=== PATIENT | female | born 1940 | race African-American/Black ===

== ENCOUNTER 2017-02-06 16:16 | Emergency (ER) | payer BC, OTHER ==
[~2017-02-06] VITALS: Ht 152.4 cm; Wt 43.5 kg
[~2017-02-06 16:16] MED LIST: ALPR0.25 PO; AMLO5TAB2 PO; CEFP200T PO; FLUT9.9S NS; HYDR-2678 PO; LEVO750T5 PO; LISI40TA PO; LORA10TA68 PO; NICO1PAT27 TD; PRED50TA PO
--- NOTE | 2017-02-06 17:04 | RAD ---
Portable left shoulder, 3 views, 02/06/2017: History: Fall, pain The bony structures are demineralized. No fracture or dislocation is identified. There is mild arthritic change at the AC joint. IMPRESSION: No acute left shoulder abnormality is detected.
--- NOTE | 2017-02-06 17:31 | RAD ---
Pelvis with right hip, 3 views, 02/06/2017: History: Pain, trauma No fracture or dislocation is identified. The hip joint spaces are fairly well-preserved with only mild marginal spurring. There are degenerative changes in the lower lumbar spine. Scattered arterial calcifications are present. A vascular stent is evident at the left groin level extending into the thigh. IMPRESSION: No acute bony abnormality is detected.
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
[2017-02-06 18:38] VITALS: BP 150/95
[2017-02-06] MEDS ORDERED: HYDROcodone/APAP 5/325MG 1 TAB TABLET PO ONE (18:45)
[2017-02-06] MEDS ORDERED: HYDR-971 PO (18:56)
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
== END 2017-02-06 18:53 | disposition home or self-care (01) ==
LOC: ER 16:16
DX: S02.2XXA Fracture of nasal bones, initial encounter for closed fracture (principal); S09.90XA Unspecified injury of head, initial encounter; M25.512 Pain in left shoulder; M25.551 Pain in right hip; I10 Essential (primary) hypertension; F17.210 Nicotine dependence, cigarettes, uncomplicated; Z87.01 Personal history of pneumonia (recurrent); Z88.0 Allergy status to penicillin; Y08.89XA Assault by other specified means, initial encounter; Y93.89 Activity, other specified; Y92.89 Other specified places as the place of occurrence of the external cause; Y99.8 Other external cause status
CPT/HCPCS: 70450; 70486; 72125; 73030; 73502; 99284-25

== ENCOUNTER → 2017-08-10 | Outpatient (CLI) | payer MEDICARE | END | disposition home or self-care (01) | LOC: KCIC CT 10:26 | DX: J01.91 Acute recurrent sinusitis, unspecified (principal); G31.9 Degenerative disease of nervous system, unspecified; R05 Cough; R09.89 Other specified symptoms and signs involving the circulatory and respiratory systems | CPT/HCPCS: 70486 ==

== ENCOUNTER → 2017-11-14 | Day surgery (SDC) | payer MEDICARE ==
[~2017-11-14] MED LIST changes: -ALPR0.25 PO; -AMLO5TAB2 PO; -CEFP200T PO; -FLUT9.9S NS; -HYDR-2678 PO; -LEVO750T5 PO; +LIDOCAINE 1% PF 2 ML VIAL. ID; -LISI40TA PO; -LORA10TA68 PO; +MORPHINE SULFATE 4 MG/ML DISP.SYRIN. IV; -NICO1PAT27 TD; +ONDANSETRON PF 4 MG/2 ML VIAL. IV; -PRED50TA PO; +PROCHLORPERAZINE 10 MG/2 ML VIAL. IV; +PROPOFOL 20 ML IV; +fentaNYL PF VIAL 100 MCG/2 ML VIAL IV
[2017-11-14] MEDS: IV RINGERS,LACTATED 1000ML 1,000 ML IV (10:13)
== END | disposition home or self-care (01) ==
LOC: ENDOS 09:30
DX: K57.30 Diverticulosis of large intestine without perforation or abscess without bleeding (principal); I10 Essential (primary) hypertension; M81.0 Age-related osteoporosis without current pathological fracture; Z85.79 Personal history of other malignant neoplasms of lymphoid, hematopoietic and related tissues; Z87.01 Personal history of pneumonia (recurrent); K21.9 Gastro-esophageal reflux disease without esophagitis; E78.5 Hyperlipidemia, unspecified; E11.42 Type 2 diabetes mellitus with diabetic polyneuropathy; M19.90 Unspecified osteoarthritis, unspecified site; Z79.82 Long term (current) use of aspirin; Z79.899 Other long term (current) drug therapy; Z88.0 Allergy status to penicillin; Z88.6 Allergy status to analgesic agent; Z90.710 Acquired absence of both cervix and uterus; J44.1 Chronic obstructive pulmonary disease with (acute) exacerbation
CPT/HCPCS: 45380; 88305; J2704

== ENCOUNTER → 2018-11-22 | Outpatient (CLI) | payer MEDICARE ==
[2017-11-14 11:16] VITALS: BP 115/62
[~2018-11-22] MED LIST changes: +ALPR0.25 PO; +AMLO5TAB10 PO; +CEFP200T PO; +CETI10TA22 PO; +FLUT9.9S NS; +HYDR-2678 PO; +HYDR-3164 PO; +LEVO750T5 PO; -LIDOCAINE 1% PF 2 ML VIAL. ID; +LISI-130 PO; +LORA10TA68 PO; -MORPHINE SULFATE 4 MG/ML DISP.SYRIN. IV; +NICO1PAT27 TD; -ONDANSETRON PF 4 MG/2 ML VIAL. IV; +PRED50TA PO; -PROCHLORPERAZINE 10 MG/2 ML VIAL. IV; -PROPOFOL 20 ML IV; -fentaNYL PF VIAL 100 MCG/2 ML VIAL IV
--- NOTE | 2018-11-22 10:47 | KCIC ---
Examination: CT CHEST WO CONTRAST History: Lung cancer Comparison/Correlation: CT chest without contrast 04/21/2012 and 01/04/2016 examinations Findings: Axial images of the chest were obtained without contrast. Sagittal and coronal reformatted images were provided. Centrilobular emphysema is present. Right upper lobectomy is present. At the right lateral mid thoracic level, there is a 0.5 cm diameter nodule posteriorly is noncalcified on axial image 25. This is not evident on the prior exams. There are at least 2 left upper lung nodules which appear to have remained stable compared to the previous exam. There is a 0.8 cm diameter nodule involving the left upper lobe at the anterior mid thoracic level and it has increased in size since 12/08/2015 where measurement of 0.5 cm is noted. Morphology is also slightly changed. This finding currently is noted on axial image 26. No enlarged thoracic lymph nodes. Calcific involvement of the coronary arteries noted. Ectasia of the ascending aorta measuring up to 3.1 cm just distal to the left subclavian artery noted. Bilateral renal upper pole cysts are present. No acute bony process. Impression: A nodule involving the left upper lung field currently measures 0.8 cm in diameter and this has increased in size since the prior exam of 01/04/2016. Consider interval follow-up CT in 6 months to assess stability. PET/CT exam alternatively may be considered. Centrilobular emphysema. PQRS Compliance Statement: One or more of the following individualized dose reduction techniques were utilized for this examination: 1. Automated exposure control 2. Adjustment of the mA and/or kV according to patient size 3. Use of iterative reconstruction technique Electronically signed by: Juanjo Plunkett MD (11/22/2018 10:44 AM) [id number]
== END | disposition home or self-care (01) ==
LOC: KCIC CT 10:01
PROVIDERS: ATTEND Internal Medicine
DX: J43.2 Centrilobular emphysema (principal); R91.8 Other nonspecific abnormal finding of lung field; N28.1 Cyst of kidney, acquired; Z85.118 Personal history of other malignant neoplasm of bronchus and lung
CPT/HCPCS: 71250

== ENCOUNTER 2019-02-16 09:32 | Emergency (ER) | payer MEDICARE ==
[~2019-02-16] VITALS: Ht 165.1 cm; Wt 50.0 kg
[2019-02-16 09:47] VITALS: BP 165/83
[2019-02-16 10:27] LABS: BASO # 0.1 x10^3/uL (0.0-0.2); BASO % 1 % (0-3); EOS # 0.3 x10^3/uL (0.0-0.7); EOS % 3 % (0-3); HEMATOCRIT 38.8 % (36.0-47.0); HEMOGLOBIN 12.8 g/dL (12.0-15.5); LYMPH # 1.9 x10^3/uL (1.0-4.8); LYMPH % 18 % (24-48); MEAN CORPUSCULAR HEMOGLOBIN 27 pg (25-35); MEAN CORPUSCULAR HGB CONC 33 g/dL (31-37); MEAN CORPUSCULAR VOLUME 83 fL (79-100); MONO # 0.7 x10^3/uL (0.0-1.1); MONO % 6 % (0-9); NEUT # 7.5 x10^3/uL (1.8-7.7); NEUT % 71 % (31-73); PLATELET COUNT 314 x10^3/uL (140-400); RED BLOOD COUNT 4.66 x10^6/uL (3.50-5.40); RED CELL DISTRIBUTION WIDTH 16.5 % (11.5-14.5); WHITE BLOOD COUNT 10.5 x10^3/uL (4.0-11.0)
[2019-02-16 10:27] LABS: BILIRUBIN,URINE NEGATIVE (NEG); CLARITY,URINE CLEAR; COLOR,URINE YELLOW; NITRITE,URINE NEGATIVE (NEG); PROTEIN,URINE 100 mg/dL (NEG-TRACE); UROBILINOGEN,URINE 0.2 mg/dL (0.2 mg/dL)
[2019-02-16 10:39] LABS: FECAL OB PT NEGATIVE (NEG)
[2019-02-16 10:41] LABS: PROTHROMBIN TIME PATIENT 13.4 SEC (11.7-14.0)
[2019-02-16 10:42] LABS: BACTERIA,URINE 0 /HPF (0-FEW); RBC,URINE 0 /HPF (0-2); SQUAMOUS EPITHELIAL CELL,UR FEW /LPF; WBC,URINE RARE /HPF (0-4)
--- NOTE | 2019-02-16 10:49 | PHYS DOC ---
Past Medical History Past Medical History: Cancer, Hypertension, Pneumonia, Other Additional Past Medical Histor: lung cancer Past Surgical History: Hysterectomy, Other Additional Past Surgical Histo: left upper lobe of lung removed for ca Alcohol Use: Rarely Drug Use: None Adult General Chief Complaint Chief Complaint: RECTAL BLEED [facility] HPI Patient is a 78 year old female who presents with complaining of rectal bleeding. Patient states she has had chronic arthralgia and was started on meloxicam few days ago by her primary care physician but had 2 episodes of rectal bleeding 3 days ago after having bowel movements as a bright red blood without anal pain or passing clots. Patient denies shortness of breath, dizziness, palpitation, chest pain, abdominal pain, history of rectal bleeding. Patient had unremarkable colonoscopy 2 months ago. Patient stopped taking meloxi cam and did not have rectal bleeding yesterday or today but her primary care physician recommended to come to ER for evaluation. Review of Systems Review of Systems Constitutional: Denies fever or chills [] Eyes: Denies change in visual acuity, redness, or eye pain [] HENT: Denies nasal congestion or sore throat [] Respiratory: Denies cough or shortness of breath [] Cardiovascular: No additional information not addressed in HPI [] GI: Denies abdominal pain, nausea, vomiting, reports bloody stools . : Denies dysuria or hematuria [] Musculoskeletal: Denies back pain, reports joint pain [] Integument: Denies rash or skin lesions [] Neurologic: Denies headache, focal weakness or sensory changes [] Endocrine: Denies polyuria or polydipsia [] All other systems were reviewed and found to be within normal limits, except as documented in this note. Allergies Allergies Allergies Coded Allergies Type Severity Reaction Last Updated Verified Penicillins Allergy Intermediate 11/14/17 Yes tramadol Allergy Unknown 11/14/17 Yes Physical Exam Physical Exam Constitutional: Well developed, well nourished, no acute distress, non-toxic appearance. [] HENT: Normocephalic, atraumatic, oropharynx moist. Eyes: PERRLA, EOMI, conjunctiva normal, no discharge. [] Neck: Normal range of motion, no tenderness, supple, no stridor. [] Cardiovascular:Heart rate regular rhythm, no murmur [] Lungs & Thorax: Bilateral breath sounds clear to auscultation [] Abdomen: Bowel sounds normal, soft, no tenderness, no masses, no pulsatile masses. Rectal exam with present of building custodian showed external hemorrhoid tag without active bleeding, no gross blood inside of rectum. Skin: Warm, dry, no erythema, no rash. [] Back: No tenderness, no CVA tenderness. [] Extremities: No tenderness, no cyanosis, no clubbing, ROM intact, no edema. [] Neurologic: Alert and oriented X 3, normal motor function, normal sensory function, no focal deficits noted. [] Psychologic: Affect anxious, judgement normal, mood normal. [] Current Patient Data Vital Signs Vital Signs Date Time Temp Pulse Resp B/P (MAP) Pulse Ox O2 Delivery O2 Flow Rate FiO2 02/16/19 09:47 98.6 76 16 165/83 (110) 95 Room Air 98.6 Lab Values Laboratory Tests Test 02/16/19 09:30 02/16/19 10:05 Urine Collection Type Unknown Urine Color Yellow Urine Clarity Clear Urine pH 5.0 Urine Specific [place] 1.020 Urine Protein 100 mg/dL (NEG-TRACE) Urine Glucose (UA) Negative mg/dL (NEG) Urine Ketones (Stick) Negative mg/dL (NEG) Urine Blood Negative (NEG) Urine Nitrite Negative (NEG) Urine Bilirubin Negative (NEG) Urine Urobilinogen Dipstick 0.2 mg/dL (0.2 mg/dL) Urine Leukocyte Esterase Negative (NEG) Urine RBC 0 /HPF (0-2) Urine WBC Rare /HPF (0-4) Urine Squamous Epithelial Cells Few /LPF Urine Bacteria 0 /HPF (0-FEW) White Blood Count 10.5 x10^3/uL (4.0-11.0) Red Blood Count 4.66 x10^6/uL (3.50-5.40) Hemoglobin 12.8 g/dL (12.0-15.5) Hematocrit 38.8 % (36.0-47.0) Mean Corpuscular Volume 83 fL (79-100) Mean Corpuscular Hemoglobin 27 pg (25-35) Mean Corpuscular Hemoglobin Concent 33 g/dL (31-37) Red Cell Distribution Width 16.5 % (11.5-14.5) H Platelet Count 314 x10^3/uL (140-400) Neutrophils (%) (Auto) 71 % (31-73) Lymphocytes (%) (Auto) 18 % (24-48) L Monocytes (%) (Auto) 6 % (0-9) Eosinophils (%) (Auto) 3 % (0-3) Basophils (%) (Auto) 1 % (0-3) Neutrophils # (Auto) 7.5 x10^3/uL (1.8-7.7) Lymphocytes # (Auto) 1.9 x10^3/uL (1.0-4.8) Monocytes # (Auto) 0.7 x10^3/uL (0.0-1.1) Eosinophils # (Auto) 0.3 x10^3/uL (0.0-0.7) Basophils # (Auto) 0.1 x10^3/uL (0.0-0.2) Prothrombin Time 13.4 SEC (11.7-14.0) Prothrombin Time INR 1.1 (0.8-1.1) PTT 27 SEC (24-38) Stool Occult Blood Negative (NEG) Sodium Level 140 mmol/L (136-145) Potassium Level 4.2 mmol/L (3.5-5.1) Chloride Level 105 mmol/L (98-107) Carbon Dioxide Level 25 mmol/L (21-32) Anion Gap 10 (6-14) Blood Urea Nitrogen 30 mg/dL (7-20) H Creatinine 1.1 mg/dL (0.6-1.0) H Estimated GFR (Cockcroft-Gault) 58.4 BUN/Creatinine Ratio 27 (6-20) H Glucose Level 108 mg/dL (70-99) H Calcium Level 9.5 mg/dL (8.5-10.1) Total Bilirubin 0.3 mg/dL (0.2-1.0) Aspartate Amino Transferase (AST) 16 U/L (15-37) Alanine Aminotransferase (ALT) 16 U/L (14-59) Alkaline Phosphatase 179 U/L (46-116) H Total Protein 8.1 g/dL (6.4-8.2) Albumin 3.6 g/dL (3.4-5.0) Albumin/Globulin Ratio 0.8 (1.0-1.7) L Laboratory Tests 02/16/19 10:05 Laboratory Tests 02/16/19 10:05 EKG EKG [] Radiology/Procedures Radiology/Procedures [] Course & Med Decision Making Course & Med Decision Making Pertinent Labs reviewed. (See chart for details) Evaluation of patient in ED showed 78-year-old female patient complaining of rectal bleeding after taking NSAIDS pain medication bleeding that stopped after stopping the medication. Patient had unremarkable physical exam except for external hemorrhoid with negative guaiac test and normal hemoglobin and electrolytes and chronic renal insufficiency. Patient was advised to follow-up with her primary care physician regarding treatment for chronic obstructive stop taking meloxicam. I've spoken with the patient and/or caregivers. I've explained the patient's condition, diagnosis and treatment plan based on information available to me at this time. I've answered the patient's and/or caregivers questions and addressed any concerns. The patient and/or caregivers have a good understanding the patient's diagnosis, condition and treatment plan as can be expected at this point. Vital signs have been stabilized. The patient's condition is stable for discharge from the emergency department. The patient will pursue further outpatient evaluation with her primary care provider or other designated consulting physician as outlined in the discharge instructions. Patient and/or caregivers are agreeable to this plan of care and follow-up instructions have been explained in detail. The patient and/or caregivers have received these instructions in written format and expressed understanding of these discharge instructions. The patient and her caregivers are aware that if any significant change in condition or worsening of symptoms should prompt him to immediately return to this of the closest emergency department. If an emergent department is not readily available I would encourage him to call 911. Dragon Disclaimer Dragon Disclaimer This electronic medical record was generated, in whole or in part, using a voice recognition dictation system. Departure Departure Impression: Primary Impression: External bleeding hemorrhoids Additional Impressions: Chronic arthralgias of knees and hips Chronic renal insufficiency Disposition: HOME, SELF-CARE (at 1133) Condition: STABLE Referrals: SANDRA SHABAZZ MD (PCP) Patient Instructions: Arthralgia, Hemorrhoids Additional Instructions: Drink plenty of liquids Follow-up with your primary care physician in 3-5 days Return to ER if not getting better Problem Qualifiers VALERIA MERINO MD Feb 16, 2019 10:49
[2019-02-16 10:53] LABS: CALCIUM 9.5 mg/dL (8.5-10.1); CREATININE 1.1 mg/dL (0.6-1.0); GFR 58.4; POTASSIUM 4.2 mmol/L (3.5-5.1)
[2019-02-16 11:03] LABS: ALBUMIN 3.6 g/dL (3.4-5.0); ALBUMIN/GLOBULIN RATIO 0.8 (1.0-1.7); TOTAL BILIRUBIN 0.3 mg/dL (0.2-1.0); TOTAL PROTEIN 8.1 g/dL (6.4-8.2)
== END 2019-02-16 12:09 | disposition home or self-care (01) ==
LOC: ER 09:32
DX: K64.4 Residual hemorrhoidal skin tags (principal); G89.29 Other chronic pain; M25.562 Pain in left knee; M25.561 Pain in right knee; M25.552 Pain in left hip; M25.551 Pain in right hip; I12.9 Hypertensive chronic kidney disease with stage 1 through stage 4 chronic kidney disease, or unspecified chronic kidney disease; N18.9 Chronic kidney disease, unspecified; Z90.710 Acquired absence of both cervix and uterus; Z88.0 Allergy status to penicillin; Z88.6 Allergy status to analgesic agent
CPT/HCPCS: 36415; 80053; 81001; 82274; 85025; 85610; 85730; 99284

== ENCOUNTER → 2019-05-02 | Outpatient (CLI) | payer OTHER ==
--- NOTE | 2019-05-03 13:54 | CARD ---
MR#: [id number] Date of Study: 05/02/2019 Ordering Physician: AMY GARCIA, Referring Physician: AMY GARCIA, Tech: Keerthi Bentley APPROVED REPORT EXAM: Two-dimensional and M-mode echocardiogram with Doppler and color Doppler. Other Information Quality : AverageHR: 70bpm INDICATION Dyspnea RISK FACTORS Hypertension Smoking 2D DIMENSIONS RVDd2.7 (2.9-3.5cm)Left Atrium(2D)2.2 (1.6-4.0cm) IVSd1.1 (0.7-1.1cm)Aortic Root(2D)2.7 (2.0-3.7cm) LVDd4.0 (3.9-5.9cm)LVOT Diameter2.0 (1.8-2.4cm) PWd0.9 (0.7-1.1cm)LVDs2.3 (2.5-4.0cm) FS (%) 41.5 %SV50.1 ml LVEF(%)73.0 (>50%) Aortic Valve AoV Peak Surjit.161.0cm/sAoV VTI28.7cm AO Peak GR.10.4mmHgLVOT Peak Surjit.127.7cm/s LVOT VTI 27.67cmAO Mean GR.6mmHg MIGUEL A (VMAX)2.56tw3APV (VTI)3.10cm2 Mitral Valve MV E Plggljlh56.3cm/sMV DECEL [id number] MV A Dvzelnuh50.3cm/sMV NPM54nt E/A Ratio0.7MVA (PHT)2.62cm2 TDI E/Lateral E'9.6E/Medial E'12.3 Pulmonary Valve PV Peak Ivfdedwg809.4cm/sPV Peak Grad.6mmHg Tricuspid Valve TR P. Zjrljbdm914ot/sRAP [id number] TR Peak Gr.65zfGvZVAH03wiQt Pulmonary Vein S1 Vbukocce45.0cm/sD2 Zehwlbyy71.0cm/s PVa [id number] LEFT VENTRICLE The left ventricle is normal size. There is normal left ventricular wall thickness. The left ventricu lar systolic function is normal. The Ejection Fraction is 55-60%. There is normal LV segmental wall m otion. Transmitral Doppler flow pattern is Grade I-abnormal relaxation pattern. RIGHT VENTRICLE The right ventricle is normal size. There is normal right ventricular wall thickness. The right ventr icular systolic function is normal. ATRIA The left atrium size is normal. The right atrium size is normal. The interatrial septum is intact wit h no evidence for an atrial septal defect or patent foramen ovale as noted on 2-D or Doppler imaging. AORTIC VALVE The aortic valve is calcified but opens well. Doppler and Color Flow revealed trace aortic regurgitat ion. There is no significant aortic valvular stenosis. MITRAL VALVE The mitral valve is normal in structure and function. There is no evidence of mitral valve prolapse. There is no mitral valve stenosis. Doppler and Color Flow revealed no mitral valve regurgitation note d. TRICUSPID VALVE The tricuspid valve is normal in structure and function. Doppler and Color Flow revealed trace tricus pid regurgitation with an estimated PAP of 26 mmHg. There is no tricuspid valve stenosis. PULMONIC VALVE The pulmonic valve is not well visualized. Doppler and Color Flow revealed no pulmonic valvular regur gitation. GREAT VESSELS The aortic root is normal in size. The IVC is normal in size and collapses >50% with inspiration. PERICARDIAL EFFUSION There is no evidence of significant pericardial effusion. Critical Notification Critical Value: No <Conclusion> The left ventricular systolic function is normal. The Ejection Fraction is 55-60%. There is normal LV segmental wall motion. Transmitral Doppler flow pattern is Grade I-abnormal relaxation pattern. Trace tricuspid regurgitation with an estimated PAP of 26 mmHg. There is no evidence of significant pericardial effusion. Signed by : Esa Dillon, Electronically Approved : 05/02/2019 14:47:33
== END | disposition home or self-care (01) ==
LOC: ECHO 12:11
PROVIDERS: ATTEND Internal Medicine Cardiovascular Disease
DX: I35.8 Other nonrheumatic aortic valve disorders (principal); R06.00 Dyspnea, unspecified
CPT/HCPCS: 93306

== ENCOUNTER → 2019-07-03 | Outpatient (CLI) | payer OTHER ==
[~2019-07-03] MED LIST changes: +CONTRAST GIVEN. MC PRN; +IOHEXOL 300 MG/ML 100ML VIAL. IV ONE
[2019-07-03 09:50] LABS: CREATININE 1.1 mg/dL (0.6-1.0); GFR 58.4
--- NOTE | 2019-07-03 15:26 | RAD ---
CT the chest with IV contrast compared to similar examination dated November 22, 2018 for pulmonary nodule. TECHNIQUE: Contiguous helical 5 mm axial images are obtained from the thoracic inlet to the base of diaphragm following a ministration of IV contrast. Sagittal and coronal reformations are evaluated. FINDINGS: Coronary artery calcifications are present in multiple distributions. There is mild cardiomegaly. Visualized portions of the liver, gallbladder, and pancreas are all unremarkable. The common bile duct is dilated within the pancreatic head, with no discrete etiology identified. There are numerous simple renal cysts. The inferior poles of the kidneys are not included on the examination. Spleen is grossly unremarkable. There is multifocal atherosclerosis of the aorta there is fusiform aneurysmal dilatation of the descending thoracic aorta to 3.6 cm. Aneurysmal dilatation of the proximal infrarenal abdominal aorta is also noted, and incompletely evaluated due to exclusion of the abdomen on this examination. Further evaluation with CTA of the abdomen and pelvis is recommended. No suspicious osteoblastic or osteolytic bone lesions are seen. Once again there are postsurgical changes of a right upper lobectomy. There is no suspicious mediastinal, hilar, or axillary lymphadenopathy. Changes of centrilobular emphysema are again noted, and are grossly stable. There are multiple bilateral spiculated lung nodules, all of which are stable in size and morphologic appearance from the prior study. Specifically, the dominant 8 mm nodule in the left upper lung anteriorly seen on axial image #23 which is previously undergone some suggest interval growth, is today unchanged since November 2018. No new lung nodules or masses are seen. IMPRESSION: 1. Multiple stable spiculated subcentimeter lung nodules, the largest of which is in the left upper lung anteriorly measuring 8 mm, as seen on axial image #23 of series 2. Continued CT surveillance of these lung nodules in this high-risk patient is recommended. 2. 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 3. Abdominal aortic aneurysm, incompletely demonstrated. Further evaluation with CTA of the abdomen and pelvis is recommended for clarity. 4. Other chronic changes as described. PQRS Compliance Statement: One or more of the following individualized dose reduction techniques were utilized for this examination: 1. Automated exposure control 2. Adjustment of the mA and/or kV according to patient size 3. Use of iterative reconstruction technique Electronically signed by: Alber Jasso MD (07/03/2019 3:23 PM) [facility]
== END | disposition home or self-care (01) ==
LOC: CT 08:43
PROVIDERS: ATTEND Internal Medicine
DX: C34.12 Malignant neoplasm of upper lobe, left bronchus or lung (principal); J43.2 Centrilobular emphysema; I71.2 Thoracic aortic aneurysm, without rupture; I25.10 Atherosclerotic heart disease of native coronary artery without angina pectoris; I51.7 Cardiomegaly; N28.1 Cyst of kidney, acquired; I70.0 Atherosclerosis of aorta; R91.8 Other nonspecific abnormal finding of lung field
CPT/HCPCS: 36415; 71260; 82565; 84520; Q9967

== ENCOUNTER → 2020-01-06 | Outpatient (CLI) | payer MEDICARE ==
[~2020-01-06] MED LIST changes: +ATOR40TA59 PO; +BACL5TAB PO; +BUSP10TA PO; -CETI10TA22 PO; +CETI10TA24 PO; -CONTRAST GIVEN. MC PRN; +DICL100G28 TOP; +FAMO20TA5 PO; +GABA100C6 PO; -IOHEXOL 300 MG/ML 100ML VIAL. IV ONE; +LISI-334 PO; +ONDA4TAB12 PO; +TRAZ-118 PO
== END | disposition home or self-care (01) ==
LOC: LAB 14:05
PROVIDERS: ATTEND Internal Medicine
DX: R52 Pain, unspecified (principal); R60.9 Edema, unspecified
CPT/HCPCS: 36415; 84443

== ENCOUNTER → 2020-01-07 | Outpatient (CLI) | payer MEDICARE ==
[~2020-01-07] MED LIST changes: -ATOR40TA59 PO; -BACL5TAB PO; -BUSP10TA PO; -DICL100G28 TOP; -FAMO20TA5 PO; -GABA100C6 PO; -LISI-334 PO; -ONDA4TAB12 PO; -TRAZ-118 PO
--- NOTE | 2020-01-07 08:37 | RAD ---
INDICATION: Reason: b/l edema / Spl. Instructions: / History: COMPARISON: None. TECHNIQUE: Grayscale, color and doppler ultrasound images were obtained of the bilateral lower extremity venous vasculature. RIGHT: No thrombus identified in the common femoral vein, femoral vein, popliteal vein or visualized calf veins. LEFT: No thrombus identified in the common femoral vein, femoral vein, popliteal vein or visualized calf veins. IMPRESSION: * No thrombus identified in deep venous system of bilateral lower extremities. Electronically signed by: Johnathan Garcia MD (01/07/2020 8:34 AM) [id number]
== END | disposition home or self-care (01) ==
LOC: EDSTATUS 08:00 → US 08:15
PROVIDERS: ATTEND Internal Medicine
DX: G62.9 Polyneuropathy, unspecified (principal); E78.5 Hyperlipidemia, unspecified; G47.00 Insomnia, unspecified
CPT/HCPCS: 93970

== ENCOUNTER 2020-02-09 15:06 | Inpatient (IN) | payer MEDICARE ==
[~2020-02-09] VITALS: Ht 152.4 cm; Wt 44.9 kg
[~2020-02-09 15:06] MED LIST changes: -CETI10TA24 PO; +CETI10TA74 PO
[2020-02-09 15:27] LABS: BASO % 0 % (0-3); EOS # 0.1 x10^3/uL (0.0-0.7); EOS % 1 % (0-3); HEMATOCRIT 31.7 % (36.0-47.0); HEMOGLOBIN 10.4 g/dL (12.0-15.5); LYMPH # 1.3 x10^3/uL (1.0-4.8); LYMPH % 7 % (24-48); MEAN CORPUSCULAR HEMOGLOBIN 26 pg (25-35); MEAN CORPUSCULAR HGB CONC 33 g/dL (31-37); MEAN CORPUSCULAR VOLUME 79 fL (79-100); MONO # 0.9 x10^3/uL (0.0-1.1); MONO % 5 % (0-9); NEUT # 15.5 x10^3/uL (1.8-7.7); NEUT % 87 % (31-73); PLATELET COUNT 487 x10^3/uL (140-400); RED BLOOD COUNT 4.01 x10^6/uL (3.50-5.40); RED CELL DISTRIBUTION WIDTH 17.8 % (11.5-14.5); WHITE BLOOD COUNT 17.8 x10^3/uL (4.0-11.0)
[2020-02-09] MEDS ORDERED: ONDANSETRON PF 4 MG/2 ML VIAL. IV ONE (15:30)
[2020-02-09] MEDS ORDERED: fentaNYL PF VIAL 100 MCG/2 ML VIAL IV ONE (15:30)
[2020-02-09 15:48] LABS: % BANDS 3 % (0-9); % EOS 1 % (0-5); % LYMPHS 8 % (24-48); % MONOS 1 % (0-10); % SEGS 87 % (35-66); ANISOCYTOSIS SLIGHT; PLT ESTIMATE INCREASED (ADEQUATE)
[2020-02-09 16:17] LABS: BILIRUBIN,URINE NEGATIVE (NEG); CLARITY,URINE CLOUDY; COLOR,URINE YELLOW; NITRITE,URINE NEGATIVE (NEG); PROTEIN,URINE 100 mg/dL (NEG-TRACE)
[2020-02-09 16:30] LABS: BACTERIA,URINE MANY /HPF (0-FEW); WBC,URINE TNTC /HPF (0-4)
[2020-02-09 16:31] LABS: CALCIUM 9.8 mg/dL (8.5-10.1); GFR 65.1; POTASSIUM 3.5 mmol/L (3.5-5.1)
[2020-02-09 16:35] LABS: ALBUMIN 3.1 g/dL (3.4-5.0); ALBUMIN/GLOBULIN RATIO 0.6 (1.0-1.7); MAGNESIUM 1.9 mg/dL (1.8-2.4); TOTAL BILIRUBIN 0.6 mg/dL (0.2-1.0); TOTAL PROTEIN 8.1 g/dL (6.4-8.2)
[2020-02-09] MEDS ORDERED: SMZ/TMP 800/160MG TABLET. PO ONE (18:30)
--- NOTE | 2020-02-09 18:31 | PHYS DOC ---
Past Medical History Past Medical History: Cancer, Hypertension, Pneumonia, Other Additional Past Medical Histor: lung cancer 2014 Past Surgical History: Hysterectomy, Other Additional Past Surgical Histo: left upper lobe of lung removed for ca Smoking Status: Current Every Day Smoker Alcohol Use: None Drug Use: None General Adult EDM: Chief Complaint: MECHANICAL FALL HPI: HPI: Patient is a 79 year old AA female who presents to the emergency department via EMS with reports of a fall onto her right side when she was transferring from her wheelchair to the commode. Patient denies any loss of consciousness, hip, or pelvis pain. She states that she has been weak and having difficulty with getting around for a long time now. She reports that she was discharged home from the hospital last week after having a stroke. She reports she was sent ho nh with minimal assistance and thinks that she needs more help at home. Patient reports swelling to both of her legs without redness, she reports this has been chronic lately. She also complains of painful sores to the posterior heel on both of her feet that she has been being treated by wound care for. She denies any fever, shortness of breath, chest pain, palpitations, increased urination, nausea, vomiting, diarrhea, or abdominal pain. She currently rates the pain in the heel is a 10 out of 10 on the pain scale, she denies any alleviating factors, the pain is worse if the areas are touched. Review of Systems: Review of Systems: Constitutional: Denies fever or chills. [] Eyes: Denies change in visual acuity. [] HENT: Denies nasal congestion or sore throat. [] Respiratory: Denies cough or shortness of breath. [] Cardiovascular: Denies chest pain or edema. [] GI: Denies abdominal pain, nausea, vomiting, or diarrhea. [] : Denies dysuria. [] Musculoskeletal: Denies back pain or joint pain, see HPI [] Integument: See HPI Neurologic: Denies headache, focal weakness or sensory changes. [] Psychiatric: Denies depression or anxiety. [] Heart Score: Risk Factors: Risk Factors: DM, Current or recent (<one month) smoker, HTN, HLP, family history of CAD, obesity. Risk Scores: Score 0 - 3: 2.5% MACE over next 6 weeks - Discharge Home Score 4 - 6: 20.3% MACE over next 6 weeks - Admit for Clinical Observation Score 7 - 10: 72.7% MACE over next 6 weeks - Early Invasive Strategies Current Medications: Current Medications Medications (Trade) Dose Ordered Sig/[facility] Start Time Stop Time Status Last Admin Dose Admin Fentanyl Citrate (Fentanyl 2ml Vial) 50 mcg 1X ONCE 02/09/20 15:30 02/09/20 15:31 DC 02/09/20 15:38 50 MCG Ondansetron HCl (Zofran) 4 mg 1X ONCE 02/09/20 15:30 02/09/20 15:31 DC 02/09/20 15:37 4 MG Allergies: Allergies: Allergies Coded Allergies Type Severity Reaction Last Updated Verified Penicillins Allergy Intermediate 11/14/17 Yes tramadol Allergy Unknown 11/14/17 Yes Physical Exam: PE: Constitutional: Well developed, well nourished, no acute distress, non-toxic appearance. [] HENT: Normocephalic, atraumatic, bilateral external ears normal, oropharynx moist, no oral exudates, nose normal. [] Eyes: PERRLA, EOMI, conjunctiva normal, no discharge. [] Neck: Normal range of motion, no stridor. [] Cardiovascular:Heart rate regular rhythm Lungs & Thorax: Bilateral breath sounds clear to auscultation, Respirations even and unlabored, no retractions, no respiratory distress [] Abdomen: soft, no tenderness, no masses, no pulsatile masses. [] Skin: Warm, dry; pressure ulcers noted to bilateral heels, the left pressure ulcer is red without any open wound, the right pressure ulcer has necrotic center with surrounding erythema and without any active drainage or bleeding Back: No tenderness Extremities: No tenderness with palpation of bilateral hips, or pelvis no crepitus, no cyanosis, no clubbing, ROM intact, no edema. [] Neurologic: Alert and oriented X 3, no focal deficits noted. [] Psychologic: Affect normal, judgement normal, mood normal. [] Current Patient Data: Labs: Laboratory Tests Test 02/09/20 15:19 02/09/20 16:01 02/09/20 16:06 White Blood Count 17.8 x10^3/uL (4.0-11.0) H Red Blood Count 4.01 x10^6/uL (3.50-5.40) Hemoglobin 10.4 g/dL (12.0-15.5) L Hematocrit 31.7 % (36.0-47.0) L Mean Corpuscular Volume 79 fL (79-100) Mean Corpuscular Hemoglobin 26 pg (25-35) Mean Corpuscular Hemoglobin Concent 33 g/dL (31-37) Red Cell Distribution Width 17.8 % (11.5-14.5) H Platelet Count 487 x10^3/uL (140-400) H Neutrophils (%) (Auto) 87 % (31-73) H Lymphocytes (%) (Auto) 7 % (24-48) L Monocytes (%) (Auto) 5 % (0-9) Eosinophils (%) (Auto) 1 % (0-3) Basophils (%) (Auto) 0 % (0-3) Neutrophils # (Auto) 15.5 x10^3/uL (1.8-7.7) H Lymphocytes # (Auto) 1.3 x10^3/uL (1.0-4.8) Monocytes # (Auto) 0.9 x10^3/uL (0.0-1.1) Eosinophils # (Auto) 0.1 x10^3/uL (0.0-0.7) Basophils # (Auto) 0.0 x10^3/uL (0.0-0.2) Segmented Neutrophils % 87 % (35-66) H Band Neutrophils % 3 % (0-9) Lymphocytes % 8 % (24-48) L Monocytes % 1 % (0-10) Eosinophils % 1 % (0-5) Platelet Estimate Increased (ADEQUATE) Anisocytosis Slight Sodium Level 142 mmol/L (136-145) Potassium Level 3.5 mmol/L (3.5-5.1) Chloride Level 105 mmol/L (98-107) Carbon Dioxide Level 25 mmol/L (21-32) Anion Gap 12 (6-14) Blood Urea Nitrogen 25 mg/dL (7-20) H Creatinine 1.0 mg/dL (0.6-1.0) Estimated GFR (Cockcroft-Gault) 65.1 BUN/Creatinine Ratio 25 (6-20) H Glucose Level 115 mg/dL (70-99) H Calcium Level 9.8 mg/dL (8.5-10.1) Magnesium Level 1.9 mg/dL (1.8-2.4) Total Bilirubin 0.6 mg/dL (0.2-1.0) Aspartate Amino Transferase (AST) 21 U/L (15-37) Alanine Aminotransferase (ALT) 25 U/L (14-59) Alkaline Phosphatase 149 U/L (46-116) H EB-Ugt-V-Type Natriuretic Peptide 806 pg/mL (0-449) H Total Protein 8.1 g/dL (6.4-8.2) Albumin 3.1 g/dL (3.4-5.0) L Albumin/Globulin Ratio 0.6 (1.0-1.7) L Urine Collection Type U cath Urine Color Yellow Urine Clarity Cloudy Urine pH 6.0 (<5.0-8.0) Urine Specific [place] 1.015 (1.000-1.030) Urine Protein 100 mg/dL (NEG-TRACE) Urine Glucose (UA) Negative mg/dL (NEG) Urine Ketones (Stick) Negative mg/dL (NEG) Urine Blood Moderate (NEG) Urine Nitrite Negative (NEG) Urine Bilirubin Negative (NEG) Urine Urobilinogen Dipstick 1.0 mg/dL (0.2 mg/dL) Urine Leukocyte Esterase Large (NEG) Urine RBC /HPF (0-2) Urine WBC Tntc /HPF (0-4) Urine Bacteria Many /HPF (0-FEW) Laboratory Tests 02/09/20 15:19 Laboratory Tests 02/09/20 16:01 Vital Signs: Vital Signs Date Time Temp Pulse Resp B/P (MAP) Pulse Ox O2 Delivery O2 Flow Rate FiO2 02/09/20 17:40 96 20 96 02/09/20 15:38 Room Air 02/09/20 15:06 97.9 175/92 (119) 97.9 EKG: EK-sinus rhythm, rate of 96, leftward axis with incomplete right bundle branch block, no STEMI, read by Dr. Medina [] Radiology/Procedures: Radiology/Procedures: [] Course & Med Decision Making: Course & Med Decision Making Pertinent Labs and Imaging studies reviewed. (See chart for details) Patient is a 79-year-old female who presented to the emergency department with complaints of needing more help at home and reports of a fall onto her right side during a transfer from her wheelchair to her commode this afternoon. Patient had no bony tenderness of her hips or her pelvis during physical exam. She denied any loss of consciousness, chest pain, or palpitations, EKG revealed no acute findings. Work-up included CBC, CMP, lactic acid, UA, BNP only, magnesium, and urinalysis CBC revealed a white blood cell count of 17.8, 87 segs, 3 bands, NAYELY globin of 10.4, and hematocrit of 31.7 otherwise unremarkable; CMP revealed a BUN of 25, ratio of 25, glucose of 115, alk phos of 149, BNP of 806, otherwise unremarkable Urinalysis is concerning for UTI with a large amount of leukoesterase and too many to count white blood cells. [id number] with Dr. Monsivais who is the admitting physician, and care was assumed following discussion of patient. Will admit patient to Dr. Nieves for weakness, UTI, and bilateral heel ulcers. Per Dr. Monsivais will order Bactrim DS p.o. twice daily for this patient for treatment of the UTI. Patient's vital signs stable. Patient remains afebrile, appears nontoxic, respirations even and unlabored. Patient will be admitted to the [facility] floor. Patient's case and plan of care also discussed with Dr. Medina [] Charlene Disclaimer: Charlene Disclaimer: This electronic medical record was generated, in whole or in part, using a voice recognition dictation system. Departure Departure Impression: Primary Impression: Weakness Additional Impressions: Urinary tract infection Qualified Codes: N39.0 - Urinary tract infection, site not specified Heel ulcer Qualified Codes: L97.413 - Non-pressure chronic ulcer of right heel and midfoot with necrosis of muscle Heel ulceration Qualified Codes: L97.421 - Non-pressure chronic ulcer of left heel and midfoot limited to breakdown of skin Disposition: ADMITTED INPATIENT Admitting Physician: Bhupinder Shabazz Condition: STABLE Referrals: BHUPINDER SHABAZZ MD (PCP) Justicifation of Admission Dx: Justifications for Admission: Justification of Admission Dx: Yes Sepsis: Infection DUTCH VALENTIN CAD APPLICATION SUPPORT SPECIALIST Feb 09, 2020 18:30
[2020-02-09 21:00] VITALS: BP 114/69
--- NOTE | 2020-02-09 21:00 | NUR ---
Admission Note Pt admitted to room 400 from ER. Pt given written hospital packet and POC discussed. Pt given call light and instructed on use. Bed alarm on. Pt c/o 10/10 pain in her right heel. Dr. Monsivais called, orders received. At 2200, admission history and assessment completed. Pt is A/Ox4, but forgetful with details. Pt states she was here recently where she had a stroke, but that it was in her spine. Attempted to locate past admission at [facility], but couldn't find any record. Pt states she might have been at another hospital. She states that from November until last week sometime, she was at a rehab facility, she thinks [facility]. She states that she was released from there and went home to her apartment last week, but has had multiple falls since, and that last night she was incontinent multiple times and was on the floor for an extended period of time before she could get herself off the floor. States that she just randomly falls out of her wheelchair. CM/SW consults placed for patients requests/needs at home. Pt also states she hasn't taken any medications since she's been home. Home medications were reconciled using external med history from [facility]. Pt was able to verify medications when given specific names. Pt has a large right heel ulcer, and small left heel ulcer, and some abrasions/skin tear redness to right hip/buttock from a fall at home. Pt also has a healing cut above her left eye and a bump on her right outer knee that she states was from a recent fall. Will monitor.
[2020-02-09] MEDS ORDERED: ACETAMINOPHEN 325 MG TABLET. PO PRN (21:30)
[2020-02-09] MEDS: HYDROcodone/APAP 7.5/325MG 1 TAB TABLET PO PRN (22:01)
[2020-02-09] MEDS: cefTRIAXone IV Push 1 GM VIAL. IVP SCH (22:06)
[2020-02-09] MEDS ORDERED: FAMO20TA5 PO (22:16)
[2020-02-09] MEDS ORDERED: ATOR40TA59 PO (22:16)
[2020-02-09] MEDS ORDERED: LISI-334 PO (22:16)
[2020-02-09] MEDS ORDERED: DICL100G28 TOP (22:16)
[2020-02-09] MEDS ORDERED: GABA100C6 PO (22:16)
[2020-02-09] MEDS ORDERED: BUSP10TA PO (22:16)
[2020-02-09] MEDS ORDERED: TRAZ-118 PO (22:16)
[2020-02-09] MEDS ORDERED: BACL5TAB PO (22:16)
[2020-02-09] MEDS ORDERED: ONDA4TAB12 PO (22:16)
[2020-02-09 22:42] VITALS: BP 134/72
[2020-02-09] MEDS: GABAPENTIN 100 MG CAPSULE. PO SCH (22:59)
[2020-02-09] MEDS: traZODone 50 MG TABLET. PO SCH (22:59)
[2020-02-09] MEDS: FAMOTIDINE 20 MG TABLET. PO SCH (22:59)
[2020-02-09] MEDS: ATORVASTATIN CALCIUM 40 MG TABLET. PO SCH (22:59)
[2020-02-09] MEDS: DICLOFENAC SODIUM 1% TOPICAL GEL 100GM TUBE. TP SCH (23:00)
[2020-02-09] MEDS: busPIRone 10 MG TABLET. PO SCH (23:00)
[2020-02-10] MEDS: HYDROcodone/APAP 7.5/325MG 1 TAB TABLET PO PRN ×3 (02:09→18:48)
[2020-02-10 02:15] VITALS: BP 124/74
[2020-02-10 07:00] VITALS: BP 103/50
[2020-02-10] MEDS ORDERED: LISINOPRIL 20 MG TABLET PO SCH (09:00)
[2020-02-10] MEDS: BACLOFEN 10 MG TABLET. PO SCH (09:44)
[2020-02-10] MEDS: amLODIPine BESYLATE 5 MG TABLET PO SCH (09:44)
[2020-02-10] MEDS: GABAPENTIN 100 MG CAPSULE. PO SCH ×4 (09:44→20:38)
[2020-02-10] MEDS: DICLOFENAC SODIUM 1% TOPICAL GEL 100GM TUBE. TP SCH ×2 (09:44→20:38)
[2020-02-10] MEDS: busPIRone 10 MG TABLET. PO SCH ×3 (09:44→20:38)
[2020-02-10 11:00] VITALS: BP 110/62
[2020-02-10] MEDS ORDERED: cefTRIAXone IV Push 1 GM VIAL. IVP SCH (11:00)
[2020-02-10 13:50] LABS: BASO # 0.1 x10^3/uL (0.0-0.2); BASO % 1 % (0-3); EOS # 0.7 x10^3/uL (0.0-0.7); EOS % 4 % (0-3); HEMATOCRIT 28.1 % (36.0-47.0); LYMPH # 1.5 x10^3/uL (1.0-4.8); LYMPH % 10 % (24-48); MEAN CORPUSCULAR HEMOGLOBIN 26 pg (25-35); MEAN CORPUSCULAR HGB CONC 32 g/dL (31-37); MEAN CORPUSCULAR VOLUME 80 fL (79-100); MONO # 0.9 x10^3/uL (0.0-1.1); MONO % 6 % (0-9); NEUT # 12.4 x10^3/uL (1.8-7.7); NEUT % 80 % (31-73); PLATELET COUNT 372 x10^3/uL (140-400); RED BLOOD COUNT 3.52 x10^6/uL (3.50-5.40); RED CELL DISTRIBUTION WIDTH 18.3 % (11.5-14.5); WHITE BLOOD COUNT 15.5 x10^3/uL (4.0-11.0)
--- NOTE | 2020-02-10 14:22 | NUR ---
SW following. Discussed with RN, pt discharged from [facility] 02/06/2020 with [facility] and private caregivers set up by pt's daughters. SW spoke with [facility] - they had tried to visit with pt on 02/07/2020, however pt did not answer the phone, and the main door to apartment was a locked door so [facility] could not get to pt's front door to knock. [facility] received a call from pt's friend stating she is home, [facility], however the same thing happened with not being able to reach pt. [facility] advised their home health orders Monday (02/08/2020) so no longer had orders. SW left voicemail for pt's daughter, Giuliana Liang ([phone]) requesting a call back. CLAY received a call back from Giuliana and pt's other daughter, Claudia (ph: [phone]) stating they had spoke with Beatrice at Dr. Elkins's office who had arranged caregiving through [facility] for 8 hours a day/ 35 hours a week. Giuliana hernandez Antonettetami had been advised everything had been set up prior to pt's discharge from [facility]. SW to reach out to [facility] and Beatrice at Dr. Elkins's office. CLAY will continue to follow.
[2020-02-10 15:00] VITALS: BP 150/72
--- NOTE | 2020-02-10 15:22 | NUR ---
Wound Care Wound care consult for Bilat heel wounds and right hip wound. Right hip and left heel are healed Right heel is soft eschar with slough and red non-granulation tissue. Cleansed wound and dressed with medihoney and foam. No other wounds noted. Pt educated on PU prevention. WC will continue to follow for possible changes. Pt is scheduled to FU with WC after discharge.
[2020-02-10 15:34] LABS: ALBUMIN 2.5 g/dL (3.4-5.0); ALBUMIN/GLOBULIN RATIO 0.6 (1.0-1.7); CALCIUM 8.5 mg/dL (8.5-10.1); CREATININE 2.2 mg/dL (0.6-1.0); GFR 26.2; POTASSIUM 3.2 mmol/L (3.5-5.1); TOTAL BILIRUBIN 0.2 mg/dL (0.2-1.0); TOTAL PROTEIN 6.8 g/dL (6.4-8.2)
--- NOTE | 2020-02-10 16:31 | RAD ---
PROCEDURE: PELVIS, RIGHT FEMUR XRAY STUDY DATE: 02/10/2020 CLINICAL INDICATION / HISTORY: Reason: hip pain RIGHT / Spl. Instructions: / History: . TECHNIQUE: Single view AP pelvis . COMPARISON: Right femur x-rays same day FINDINGS: The osseous structures are normally mineralized. There is normal bony alignment present with the femoral heads well-seated within the acetabuli. There is no evidence of acute fracture or dislocation identified. The overlying soft tissues show a vascular stent in the right femoral artery distribution.. IMPRESSION: No acute osseous abnormality of the pelvis or bilateral hips. PROCEDURE: PELVIS, RIGHT FEMUR XRAY STUDY DATE: 02/10/2020 CLINICAL INDICATION / HISTORY: Reason: hip pain RIGHT / Spl. Instructions: / History: . TECHNIQUE: Right femur 2 views. COMPARISON: Pelvis x-ray same day FINDINGS: The bone density appears normal. No fracture is identified. The soft tissues are unremarkable. IMPRESSION: No acute abnormality. Electronically signed by: Adia Hogue MD (02/10/2020 4:27 PM) [id number]
--- NOTE | 2020-02-10 16:33 | PDOC ---
Provider Note Provider Note Pt seen.H&P dictated.#[id number]. Justicifation of Admission Dx: Justifications for Admission: Justification of Admission Dx: Yes Sepsis: Infection SANDRA SHABAZZ MD Feb 10, 2020 16:33
[2020-02-10] MEDS ORDERED: POTASSIUM CHLORIDE 20 MEQ TABLET.ER. PO ONE (17:00)
[2020-02-10] MEDS: IV NORMAL SALINE 1000ML BAG 1,000 ML IV SCH (17:00)
--- NOTE | 2020-02-10 18:18 | HP ---
ADMIT DATE: 02/09/2020 MEDICAL HISTORY AND PHYSICAL REASON FOR ADMISSION TO THE HOSPITAL: Mechanical fall at home. 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 She also has history of peripheral vascular disease, had a stent in the left leg in the past. She also has abdominal aortic aneurysm and she was in the process of getting that abdominal aortic aneurysm repaired, but she ended up with an infarct to spinal cord, which resulted in paraplegia. PAST MEDICAL HISTORY: She has history of hypertension; COPD; lung cancer, was treated in 2014; also abdominal aortic aneurysm; recent spinal cord infarct. PAST SURGICAL HISTORY: She had a part of the lung removed, hysterectomy. She also had a stent in the left leg. ALLERGIES: PENICILLIN AND TRAMADOL. She can take cephalosporins. PERSONAL HISTORY: Smokes every day. Denies alcohol. Has some narcotic pain medications. REVIEW OF SYSTEMS: The patient complains of pain in the right leg and the hip area. PHYSICAL EXAMINATION: VITAL SIGNS: At the time of admission shows temperature 97, pulse 80, respirations 20, blood pressure 174/92, and 98 on room air. HEENT: Head is atraumatic. Pupils equal. Oral cavity: No congestion. NECK: Supple. CHEST: Symmetrical, COPD pattern. CARDIOVASCULAR: S1, S2. LUNGS: No wheezing. Diminished breath sounds. ABDOMEN: Soft, no mass palpable. EXTERNAL GENITALIA: No Mulligan. RECTAL: Deferred. EXTREMITIES: The patient has a very small ulcer on the left heel, 1 cm, superficial; on the right heel shows 2 cm with some necrotic area at the base and she has no palpable pulse in the lower extremities and her foot is slightly internally rotated on the right. The patient has no edema and the patient could not lift the legs off the bed because of paraplegia. NEUROLOGIC: The patient is making a conversation, recognized that she is in the hospital, recognized my name. LABORATORY DATA: Shows a white count of 17.8, came down to 15; hemoglobin 10; platelets 487. Electrolytes show sodium 142, potassium 3.5, chloride 105, bicarbonate 25, anion gap 12, BUN 25, creatinine 1.0, glucose 115. Lactic acid 0.9. Magnesium 1.9. LFTs were normal. BNP 806. Urine shows large leukocyte esterase, too many white cells. FINAL IMPRESSION: 1. Urinary tract infection ? Pyelonephritis. 2. 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 3. Chronic obstructive pulmonary disease. 4. Hypertension. 5. Abdominal aortic aneurysm. 6. Peripheral vascular disease.s/p stent left leg 7. Heel ulcers bilateral worse on rt. 8. General debility. 9. History of lung cancer in the past.s/p lung resection 10. General decline and debility. 11. Emphysema/copd/ smoker 12. ARF PLAN: At this time was admit to the hospital, hydrated with IV fluids, IV Rocephin after urine cultures were sent and monitor kidney function. We will also have a wound care nurse, Physical Therapy Rehab to see the patient and continue her medications. SANDRA SHABAZZ MD DR: PATY/ela JOB#: [id number] / [id number] ZHANNA
[2020-02-10 19:00] VITALS: BP 102/61
--- NOTE | 2020-02-10 19:11 | NUR ---
Pt. voided a small amount today. Attempt made to scan bladder, bladder scan not working at this time. ANTONELLA Amanda will locate bladder scanner to scan bladder.
--- NOTE | 2020-02-10 20:24 | RAD ---
Portable AP chest. HISTORY: Elevated white count AP view was taken of the chest. Heart is upper normal in size. The aorta is tortuous. There is a pulmonary nodule in the left mid lung which was seen on the prior CT from June 2019. Further follow-up would be warranted. There is diffuse interstitial lung disease and COPD. A confluent pneumonia is not identified. IMPRESSION: 1. COPD and mild interstitial lung disease. 2. Left lung nodule follow-up would be recommended. 3. No new confluent infiltrates. Electronically signed by: Ady Nobles MD (02/10/2020 8:21 PM) [facility]
[2020-02-10] MEDS: cefTRIAXone IV Push 1 GM VIAL. IVP SCH (20:37)
[2020-02-10] MEDS: FAMOTIDINE 20 MG TABLET. PO SCH (20:38)
[2020-02-10] MEDS: ATORVASTATIN CALCIUM 40 MG TABLET. PO SCH (20:38)
[2020-02-10] MEDS: LACTOBACILLUS RHAMNOSUS GG 1 CAPSULE. PO SCH (20:38)
[2020-02-10] MEDS: traZODone 50 MG TABLET. PO SCH (20:38)
[2020-02-10 23:00] VITALS: BP 99/60
[2020-02-11 03:00] VITALS: BP 103/64
[2020-02-11] MEDS: IV NORMAL SALINE 1000ML BAG 1,000 ML IV SCH ×3 (03:00→23:27)
[2020-02-11 05:59] LABS: BASO # 0.1 x10^3/uL (0.0-0.2); BASO % 0 % (0-3); EOS # 0.9 x10^3/uL (0.0-0.7); EOS % 6 % (0-3); HEMOGLOBIN 8.8 g/dL (12.0-15.5); LYMPH # 1.9 x10^3/uL (1.0-4.8); LYMPH % 13 % (24-48); MEAN CORPUSCULAR HEMOGLOBIN 26 pg (25-35); MEAN CORPUSCULAR HGB CONC 32 g/dL (31-37); MEAN CORPUSCULAR VOLUME 81 fL (79-100); MONO % 7 % (0-9); NEUT # 10.3 x10^3/uL (1.8-7.7); NEUT % 73 % (31-73); PLATELET COUNT 345 x10^3/uL (140-400); RED BLOOD COUNT 3.44 x10^6/uL (3.50-5.40); RED CELL DISTRIBUTION WIDTH 18.1 % (11.5-14.5); WHITE BLOOD COUNT 14.1 x10^3/uL (4.0-11.0)
[2020-02-11 06:27] LABS: ALBUMIN 2.2 g/dL (3.4-5.0); ALBUMIN/GLOBULIN RATIO 0.6 (1.0-1.7); CALCIUM 8.7 mg/dL (8.5-10.1); CREATININE 2.2 mg/dL (0.6-1.0); GFR 26.2; POTASSIUM 3.5 mmol/L (3.5-5.1); TOTAL BILIRUBIN 0.1 mg/dL (0.2-1.0); TOTAL PROTEIN 6.2 g/dL (6.4-8.2)
--- NOTE | 2020-02-11 07:05 | EKG ---
[facility] [address] [place] [address] Test Date: 2020-02-09 Test Time: 15:48:55 Pat Name: MILI WEEKS Department: Room: Gender: F Customer Response Representative: : 1940 Requested By: DUTCH VALENTIN Order Number: [id number] Reading MD: Measurements Intervals [place] Rate: 96 P: 47 RI: 144 QRS: -6 QRSD: 88 T: 19 QT: 370 QTc: 474 Interpretive Statements SINUS RHYTHM LEFTWARD AXIS INCOMPLETE RIGHT BUNDLE BRANCH BLOCK NO SPECIFIC ECG ABNORMALITIES RI6.01 No previous ECG available for comparison
[2020-02-11 07:15] VITALS: BP 137/70
--- NOTE | 2020-02-11 08:32 | RAD ---
PQRS Compliance Statement: One or more of the following individualized dose reduction techniques were utilized for this examination: 1. Automated exposure control 2. Adjustment of the mA and/or kV according to patient size 3. Use of iterative reconstruction technique CT head without contrast 02/11/2020 7:58 AM INDICATION: Fall, hit head COMPARISON: CT head 02/06/2017 TECHNIQUE: Multiple axial CT images of the head were obtained from skull base through the vertex without intravenous contrast. FINDINGS: Head: Ventricles, sulci and basal cisterns are prominent compatible with mild generalized cerebral volume loss. Low-attenuation in the periventricular white matter is suggestive of chronic small vessel ischemic changes. Remote infarct identified in the left frontal insula. Remote lacunar infarct identified in the right caudate head. There is no hydrocephalus. Manzanares-white matter differentiation is normal. There is no acute intracranial hemorrhage. There is no mass, mass effect or midline shift. Posterior fossa is normal in appearance. Visualized portions of the orbits are normal with exception of bilateral lens replacement. There is moderate mucosal thickening of the right sphenoid sinus. Mastoid air cells are well aerated. Scalp and calvaria are normal. IMPRESSION: No acute intracranial hemorrhage. Mild generalized cerebral volume loss. Low-attenuation in the periventricular white matter is suggestive of chronic small vessel ischemic changes. Remote lacunar infarct in the right caudate head. Remote infarct identified in the left anterior insula. Moderate mucosal thickening of the right sphenoid sinus. Electronically signed by: Radha Valderrama MD (02/11/2020 8:29 AM) [facility]
--- NOTE | 2020-02-11 08:55 | RAD ---
PQRS Compliance Statement: One or more of the following individualized dose reduction techniques were utilized for this examination: 1. Automated exposure control 2. Adjustment of the mA and/or kV according to patient size 3. Use of iterative reconstruction technique CT CHEST WO CONTRAST 02/11/2020 8:01 AM Indication: Lung nodule follow-up. COMPARISON: CT chest 01/04/2016, 07/03/2019. TECHNIQUE: Multiple axial CT images of the chest were obtained with intravenous contrast. Coronal and sagittal reformats are provided. FINDINGS: Mild centrilobular pulmonary emphysematous changes are identified. Reticular interstitial changes are identified lower lung zone predominance. Bibasilar bandlike consolidative changes are identified suggestive of subsegmental atelectasis versus infiltrates. Respiratory motion limits evaluation for small pulmonary nodules. There is a solid noncalcified pulmonary nodule in the lingula measuring 9 x 8 mm, previously measuring 7 x 5 mm (series 9, image 126). There is an additional solid noncalcified pulmonary nodule measuring 6 mm, stable (series 9, image 110). 7mm left axillary lymph node (series 4, image 125). No pathologically enlarged thoracic lymph nodes are present. Thyroid nodule measures 8mm. Expiratory phase of imaging with collapse of the trachea and bronchi. Bronchial wall thickening compatible with bronchitis. There may be mucous plugging in the lower lobes bilaterally. Heart size is borderline enlarged. Three-vessel coronary artery vascular calcification are present. Thoracic aorta demonstrates dense calcified atheromatous plaque. There is ectasia of the distal aortic arch measuring 3.4 cm. There is ectasia of the distal descending thoracic ureter measuring up to 3.3 cm. Tortuosity of the thoracic aorta is noted. Simple appearing renal cysts are present. No suspicious osseous abnormality is identified. IMPRESSION: 1. There is interval increase in size of a lingular solid noncalcified pulmonary nodule previously measuring 7 x 5 mm and currently measuring 9 x 8 mm. Measurements may be overestimated secondary to respiratory motion. Fleischner guidelines for incidentally detected pulmonary nodules suggests CT chest at 3 months, PET/CT, or tissue sampling for solid noncalcified pulmonary nodule greater than 8 mm in size. 2. Stable 6 mm solid noncalcified pulmonary nodule in the lingula. 3. Centrilobular pulmonary emphysema. Bronchial wall thickening may be secondary to expiratory phase of imaging. This plaquing suspected in the lower lobes with peripheral consolidative change which may represent atelectasis versus infiltrates. Electronically signed by: Radha Valderrama MD (02/11/2020 8:52 AM) [facility]
--- NOTE | 2020-02-11 09:17 | PDOC ---
PROGRESS NOTES Subjective Subjective pt participating in conversation Objective Objective Vital Signs Date Time Temp Pulse Resp B/P (MAP) Pulse Ox O2 Delivery O2 Flow Rate FiO2 02/11/20 07:15 97.2 64 18 137/70 (92) 96 Room Air 97.2 Intake and Output 02/11/20 06:59 Intake Total 350 ml Balance 350 ml Intake Oral 350 ml # Voids 2 Physical Exam Abdomen: Normal bowel sounds, Soft Heart: Regular rate, Normal S1, Normal S2 Extremities: Other (paraplegia) General: Alert, Oriented X3 HEENT: PERRLA Lungs: Clear to auscultation Neck: No JVD Neuro: Normal speech Psych/Mental Status: Mood NL Skin: Other (preston heal ulcers) Diagnosis Problem List Problems Medical Problems: (1) Heel ulcer Status: Acute (2) Heel ulceration Status: Acute (3) Urinary tract infection Status: Acute (4) Weakness Status: Acute Assessment Assessment Problems Medical Problems: (1) Heel ulcer Status: Acute (2) Heel ulceration Status: Acute (3) Urinary tract infection Status: Acute (4) Weakness Status: Acute FINAL IMPRESSION: 1. Urinary tract infection.? Pylonepritis 2. 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 3. Chronic obstructive pulmonary disease. 4. Hypertension. 5. Abdominal aortic aneurysm. 6. Peripheral vascular disease. 7. Heel ulcers. 8. General debility. 9. History of lung cancer in the past. 10. General decline. 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 E Coli on urine At this time was admit to the hospital, hydrated with IV fluids, IV Rocephin after urine cultures were sent and monitor kidney function. We will also have a wound care nurse, Physical Therapy Rehab to see the patient and continue her medications. Plan Plan of Care Problems Medical Problems: (1) Heel ulcer Status: Acute (2) Heel ulceration Status: Acute (3) Urinary tract infection Status: Acute (4) Weakness Status: Acute Comment Review of Relevant I have reviewed the following items dari (where applicable) has been applied. Labs Laboratory Tests Test 02/10/20 13:10 02/10/20 13:14 02/11/20 04:40 White Blood Count 15.5 x10^3/uL (4.0-11.0) 14.1 x10^3/uL (4.0-11.0) Red Blood Count 3.52 x10^6/uL (3.50-5.40) 3.44 x10^6/uL (3.50-5.40) Hemoglobin 9.0 g/dL (12.0-15.5) 8.8 g/dL (12.0-15.5) Hematocrit 28.1 % (36.0-47.0) 28.0 % (36.0-47.0) Mean Corpuscular Volume 80 fL (79-100) 81 fL (79-100) Mean Corpuscular Hemoglobin 26 pg (25-35) 26 pg (25-35) Mean Corpuscular Hemoglobin Concent 32 g/dL (31-37) 32 g/dL (31-37) Red Cell Distribution Width 18.3 % (11.5-14.5) 18.1 % (11.5-14.5) Platelet Count 372 x10^3/uL (140-400) 345 x10^3/uL (140-400) Neutrophils (%) (Auto) 80 % (31-73) 73 % (31-73) Lymphocytes (%) (Auto) 10 % (24-48) 13 % (24-48) Monocytes (%) (Auto) 6 % (0-9) 7 % (0-9) Eosinophils (%) (Auto) 4 % (0-3) 6 % (0-3) Basophils (%) (Auto) 1 % (0-3) 0 % (0-3) Neutrophils # (Auto) 12.4 x10^3/uL (1.8-7.7) 10.3 x10^3/uL (1.8-7.7) Lymphocytes # (Auto) 1.5 x10^3/uL (1.0-4.8) 1.9 x10^3/uL (1.0-4.8) Monocytes # (Auto) 0.9 x10^3/uL (0.0-1.1) 1.0 x10^3/uL (0.0-1.1) Eosinophils # (Auto) 0.7 x10^3/uL (0.0-0.7) 0.9 x10^3/uL (0.0-0.7) Basophils # (Auto) 0.1 x10^3/uL (0.0-0.2) 0.1 x10^3/uL (0.0-0.2) Sodium Level 139 mmol/L (136-145) 138 mmol/L (136-145) Potassium Level 3.2 mmol/L (3.5-5.1) 3.5 mmol/L (3.5-5.1) Chloride Level 102 mmol/L (98-107) 105 mmol/L (98-107) Carbon Dioxide Level 25 mmol/L (21-32) 24 mmol/L (21-32) Anion Gap 12 (6-14) 9 (6-14) Blood Urea Nitrogen 40 mg/dL (7-20) 45 mg/dL (7-20) Creatinine 2.2 mg/dL (0.6-1.0) 2.2 mg/dL (0.6-1.0) Estimated GFR (Cockcroft-Gault) 26.2 26.2 BUN/Creatinine Ratio 18 (6-20) 20 (6-20) Glucose Level 121 mg/dL (70-99) 96 mg/dL (70-99) Calcium Level 8.5 mg/dL (8.5-10.1) 8.7 mg/dL (8.5-10.1) Total Bilirubin 0.2 mg/dL (0.2-1.0) 0.1 mg/dL (0.2-1.0) Aspartate Amino Transf (AST/SGOT) 19 U/L (15-37) 17 U/L (15-37) Alanine Aminotransferase (ALT/SGPT) 24 U/L (14-59) 17 U/L (14-59) Alkaline Phosphatase 121 U/L (46-116) 109 U/L (46-116) Total Protein 6.8 g/dL (6.4-8.2) 6.2 g/dL (6.4-8.2) Albumin 2.5 g/dL (3.4-5.0) 2.2 g/dL (3.4-5.0) Albumin/Globulin Ratio 0.6 (1.0-1.7) 0.6 (1.0-1.7) Microbiology 02/09/20 Urine Culture - Preliminary, Resulted Medications Current Medications Ceftriaxone Sodium (Rocephin) 1 gm Q24H IVP ; Start 02/10/20 at 11:00; Status UNV Lactobacillus Rhamnosus (Culturelle) 1 cap BID PO Last administered on 02/10/20at 20:38; Start 02/10/20 at 21:00 Potassium Chloride (Klor-Con) 40 meq 1X ONCE PO Last administered on 02/10/20at 17:37; Start 02/10/20 at 17:00; Stop 02/10/20 at 17:01; Status DC Sodium Chloride 1,000 ml @ 100 mls/hr Q10H IV Last administered on 02/11/20at 03:00; Start 02/10/20 at 17:00 Vitals/I & O Vital Sign - Last 24 Hours 02/10/20 02/10/20 02/10/20 02/10/20 09:44 09:44 11:00 11:42 Temp 98.9 98.9 Pulse 80 80 83 Resp 18 B/P (MAP) 103/50 103/50 110/62 (78) Pulse Ox 96 O2 Delivery Room Air Room Air 02/10/20 02/10/20 02/10/20 02/10/20 13:39 15:00 18:48 19:00 Temp 97.5 98.6 97.5 98.6 Pulse 88 87 Resp 18 14 B/P (MAP) 150/72 (98) 102/61 (75) Pulse Ox 96 87 O2 Delivery Room Air Room Air Room Air Room Air 02/10/20 02/10/20 02/10/20 02/11/20 19:48 20:00 23:00 03:00 Temp 97.4 97.5 97.4 97.5 Pulse 82 71 Resp 14 14 B/P (MAP) 99/60 (73) 103/64 (77) Pulse Ox 94 93 O2 Delivery Room Air Room Air Room Air Room Air 02/11/20 07:15 Temp 97.2 97.2 Pulse 64 Resp 18 B/P (MAP) 137/70 (92) Pulse Ox 96 O2 Delivery Room Air Intake and Output 7/6/20 7/6/20 7/7/20 14:59 22:59 06:59 Intake Total 50 ml 300 ml Balance 50 ml 300 ml Justicifation of Admission Dx: Justifications for Admission: Justification of Admission Dx: Yes Sepsis: Infection SANDAR SHABAZZ MD Feb 11, 2020 09:17
[2020-02-11] MEDS: BACLOFEN 10 MG TABLET. PO SCH (09:20)
[2020-02-11] MEDS: LACTOBACILLUS RHAMNOSUS GG 1 CAPSULE. PO SCH ×2 (09:20→21:02)
[2020-02-11] MEDS: busPIRone 10 MG TABLET. PO SCH ×3 (09:20→21:02)
[2020-02-11] MEDS: amLODIPine BESYLATE 5 MG TABLET PO SCH (09:20)
[2020-02-11] MEDS: HYDROcodone/APAP 7.5/325MG 1 TAB TABLET PO PRN ×2 (09:21→23:27)
[2020-02-11] MEDS: DICLOFENAC SODIUM 1% TOPICAL GEL 100GM TUBE. TP SCH ×2 (09:21→21:02)
[2020-02-11] MEDS: GABAPENTIN 100 MG CAPSULE. PO SCH ×4 (09:21→21:02)
[2020-02-11] MEDS ORDERED: ASPIRIN 325 MG TABLET PO ONE (10:00)
--- NOTE | 2020-02-11 10:50 | NUR ---
CLAY following. Discussed with RN, PT/OT ordered. CLAY contacted pt's daughters to discuss mix up with private duty. Giuliana and Claudia, advised they want pt to return to [place], however they stated pt does not want to go on a plane, the train/ bus option will not work for pt per family. CLAY will continue to follow. Addendum: 02/11/20 at 1625 by CORONA WILLIAMSON PT/OT recommending SNU. CLAY met with pt (no isolation precautions at the time), pt reported she spoke with her daughters and they are going to take care of pt in [place]. Pt agreeable to discharge home with home health for now. Pt reported her daughters are coming to get her the first week of March to fly her back to [place]. RN notified. CLAY spoke with pt's daughter, Giuliana - Giuliana advised Dr. Elkins will not approve pt to travel due to failing kidney. Giuliana would like pt placed in a facility for SNU until her and her sister get to [place] on March 04. Giuliana would like the medicaid application completed with pt at the facility so they can transition their mother to longterm care. Giuliana requested CLAY fax cover sheet to [employer] to run benefits and check on copays. CLAY faxed facesheet, awaiting response.
[2020-02-11 10:55] VITALS: BP 100/63
--- NOTE | 2020-02-11 11:36 | NUR ---
Yin catheter placed by this RN. Patient tolerated procedure well. 300mls of urine immediately in yin catheter bag.
[2020-02-11] MEDS: ENOXAPARIN 30 MG/0.3 ML SYRINGE. SQ SCH (11:52)
--- NOTE | 2020-02-11 13:22 | CONS ---
DATE OF CONSULTATION: 02/11/2020 ATTENDING PHYSICIAN: Bhupinder Elkins MD REASON FOR CONSULTATION: The patient was seen at the request of Dr. Elkins for rehab evaluation. HISTORY OF PRESENT ILLNESS: This is a 79-year-old female known to me since I saw her about a month ago at [facility]. 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 She also had history of peripheral vascular disease, had stenting to her left leg in the past, also abdominal aortic aneurysm. She is in the process of getting the aneurysm repair, then ended up having spinal cord infarct and resulting paraparesis also with known hypertension, chronic obstructive pulmonary disease, carcinoma of the lung treated in 2014. The patient had partial lung surgery, hysterectomy. SHE IS KNOWN ALLERGIC TO PENICILLIN AND TRAMADOL. The patient can take cephalosporins. She smokes on a daily basis. The patient apparently had a mechanical fall at home and admitted to the hospital on 02/09/2020. She had radiological studies including x-ray of the pelvis, which failed to reveal any acute abnormality. X-ray of the femurs failed to reveal any acute abnormality. Chest x-ray revealed COPD and mild interstitial lung disease, left lung nodule. CT scan of the brain, no acute intracranial hemorrhage, mild generalized cerebral volume loss and chronic small vessel ischemic changes, remote lacunar infarct in the right caudate head. Also, left anterior insula. CT scan of the chest done on 02/11/2020 revealed interval change, increase in size of the lingula solid noncalcified pulmonary nodule, previously measuring 7 x 5 mm and currently 9 x 8 mm. A stable 6 mm solid noncalcified pulmonary nodule in the lingula, centrilobular pulmonary emphysema. The patient complains of pain in her right ankle. PHYSICAL EXAMINATION: On physical examination today revealed an elderly, thin built female. She is alert, oriented to time, place, person and circumstance and follows commands appropriately. The patient moves all 4 extremities voluntarily. She had 4+5/5 grade muscle strength in her upper extremities and she had 3+/5 grade muscle strength with knee flexors and extensors and hip extensors and flexors. The patient had significant weakness of hip abductors and dorsiflexors of her feet. She had equal perception of touch and pinprick sensation bilaterally. Deep tendon reflexes are 2+ at knees, absent at both ankles. She had dressing to her heels. She had tightness of heel cords, also tightness of hip flexors and hamstrings. ASSESSMENT: Mobility and self-care limitation in an elderly female with spinal cord infarct and ischemic myelopathy with paraparesis and neurogenic bladder to tightness of hip, knee flexor and heel cords with plantar flexion deformity of both ankles with skin breakdown both heels. The patient with known hypertension, chronic obstructive pulmonary disease, carcinoma of lung, abdominal aortic aneurysm, overgrown toenails. RECOMMENDATIONS: Agree with the wound care. She needs bilateral PRAFO boots to keep pressure off the heels. To ask for podiatric consult for trimming of uppers toenails. Agree with the plan for physical therapy and occupational therapy. She needs continued Inpatient Rehab at [facility] care unit level to be transferred when medically stable. Dr. Elkins, I appreciate asking me to participate in the care of this interesting patient. I will be glad to follow her with you as needed for rehabilitation. RIYA SHARP MD DR: NEAL/ela JOB#: [id number] / [id number]
--- NOTE | 2020-02-11 15:02 | RAD ---
Bilateral renal duplex HISTORY: Renal failure, hypertension Ultrasound was used to evaluate for renal artery stenosis. Right kidney is 9.7 cm in length. There are multiple simple left renal cysts. There is no right hydronephrosis. There is flow in the right renal vein. Peak velocity in the distal renal artery on the right at the hilum was 97 cm/s. Velocity in the proximal right renal artery was 121 cm/s with a resistive index of 0.76. Segmental renal artery had a normal waveform with normal acceleration time. Left kidney was hard to measure with multiple cysts. Kidney was approximately 8.3 cm in length. There is no left hydronephrosis. There is flow in the left renal vein. Doppler the left kidney was limited. Left renal artery was not visualized. There is no obvious parvus tardis flow pattern in one segmental left renal artery. Bladder had a normal appearance. Velocity in the mid abdominal aorta was 89 cm/s. There is an abdominal aortic aneurysm measuring 4.2 x 5.2 cm in diameter. IMPRESSION: 1. Abdominal aortic aneurysm. 2. No definite right renal artery stenosis. 3. Poor evaluation of the left kidney. 5. Bilateral simple renal cysts no further follow-up warranted. Electronically signed by: Ady Nobles MD (02/11/2020 2:59 PM) [facility]
[2020-02-11 15:15] VITALS: BP 106/71
--- NOTE | 2020-02-11 17:23 | PDOC2 ---
CONSULT Date of Consult Date of Consult DATE: 02/11/20 TIME: 17:13 Reason for Consult Reason for Consult: Long, thick symptomatic toe nails Referring Physician Referring Physician: Chris Identification/Chief Complaint Chief Complaint symptomatic nails and ulcer right heel Source Source: Chart review, Patient History of Present Illness Reason for Visit: 79 year old female admitted for weakness also complains of long thick symp tomatic toenails, chronic heel wound right 6months+, and calf claudication pain. She is unsure when the wound started and has been applying wound care at home and following with her PCP. She notes pain to feet. She denies nausea, vomitting, fever, chills, shortness of breath or chest pain Past Medical History Cardiovascular: HTN Pulmonary: Other GI: Other Heme/Onc: Cancer Musculoskeletal: low back pain Past Surgical History Past Surgical History: Other Family History Family History: Cancer, Coronary Artery Disease Social History Quit (recently quit "a few weeks ago" 17 year smoking history) Current Problem List Problem List Problems Medical Problems: (1) Heel ulcer Status: Acute (2) Heel ulceration Status: Acute (3) Urinary tract infection Status: Acute (4) Weakness Status: Acute Current Medications Current Medications Current Medications Fentanyl Citrate (Fentanyl 2ml Vial) 50 mcg 1X ONCE IV Last administered on 02/09/20at 15:38; Start 02/09/20 at 15:30; Stop 02/09/20 at 15:31; Status DC Ondansetron HCl (Zofran) 4 mg 1X ONCE IV Last administered on 02/09/20at 15:37; Start 02/09/20 at 15:30; Stop 02/09/20 at 15:31; Status DC Trimethoprim/ Sulfamethoxazole (Bactrim Ds) 1 tab 1X ONCE PO Last administered on 02/09/20at 18:33; Start 02/09/20 at 18:30; Stop 02/09/20 at 18:31; Status DC Ceftriaxone Sodium (Rocephin) 1 gm Q24H IVP Last administered on 02/10/20at 20:37; Start 02/09/20 at 21:00 Acetaminophen/ Hydrocodone Bitart (Lortab 7.5/325) 1 tab PRN Q4HRS PRN PO MODERATE PAIN 4-6 Last administered on 02/11/20at 09:21; Start 02/09/20 at 21:30 Acetaminophen (Tylenol) 650 mg PRN Q6HRS PRN PO MILD PAIN 1-3; Start 02/09/20 at 21:30 Amlodipine Besylate (Norvasc) 5 mg DAILY PO Last administered on 02/11/20 09:20; Start 02/10/20 at 09:00 Atorvastatin Calcium (Lipitor) 40 mg QHS PO Last administered on 02/10/20 20:38; Start 02/09/20 at 23:00 Buspirone HCl (Buspar) 10 mg TID PO Last administered on 02/11/20 14:22; Start 02/09/20 at 23:00 Diclofenac Sodium (Voltaren) 1 yesika BID TP Last administered on 02/11/20 09:21; Start 02/09/20 at 23:00 Famotidine (Pepcid) 20 mg QHS PO Last administered on 02/10/20 20:38; Start 02/09/20 at 23:00 Gabapentin (Neurontin) 100 mg QID PO Last administered on 02/11/20 14:22; Start 02/09/20 at 23:00 Lisinopril (Prinivil) 20 mg DAILY PO Last administered on 02/10/20 09:44; Start 02/10/20 at 09:00; Stop 02/10/20 at 16:24; Status DC Ondansetron HCl (Zofran Odt) 4 mg PRN BID PRN PO NAUSEA 1ST CHOICE; Start 02/09/20 at 22:15 Trazodone HCl (Desyrel) 50 mg HS PO Last administered on 02/10/20 20:38; Start 02/09/20 at 23:00 Baclofen (Lioresal) 5 mg DAILY PO Last administered on 02/11/20 09:20; Start 02/10/20 at 09:00 Ceftriaxone Sodium (Rocephin) 1 gm Q24H IVP ; Start 02/10/20 at 11:00; Status UNV Lactobacillus Rhamnosus (Culturelle) 1 cap BID PO Last administered on 02/11/20 09:20; Start 02/10/20 at 21:00 Sodium Chloride 1,000 ml @ 100 mls/hr Q10H IV Last administered on 02/11/20 14:22; Start 7/6/20 at 17:00 Potassium Chloride (Klor-Con) 40 meq 1X ONCE PO Last administered on 02/10/20at 17:37; Start 02/10/20 at 17:00; Stop 02/10/20 at 17:01; Status DC Enoxaparin Sodium (Lovenox 30mg Syringe) 30 mg Q24H SQ Last administered on 02/11/20at 11:52; Start 02/11/20 at 10:00 Aspirin (Dre Aspirin) 325 mg 1X ONCE PO Last administered on 02/11/20at 11:52; Start 02/11/20 at 10:00; Stop 02/11/20 at 10:01; Status DC Aspirin ([employer] Aspirin) 325 mg DAILYWBKFT PO ; Start 02/12/20 at 08:00 Active Scripts Active [place] 5-325 Tablet (Acetaminophen/Hydrocodone Bitart) 1 Each Tablet 1-2 Tab PO Q4-6HRS 2 Days Reported Trazodone Hcl 50 Mg Tablet 50 Mg PO HS Ondansetron Odt (Ondansetron) 4 Mg Tab.rapdis 4 Mg PO PRN BID PRN Atorvastatin Calcium 40 Mg Tablet 40 Mg PO DAILY Baclofen 5 Mg Tablet 5 Mg PO DAILY Gabapentin 100 Mg Capsule 100 Mg PO QID Diclofenac Sodium 100 Gm Gel..gram. 1 Yesika TOP BID Buspirone Hcl 10 Mg Tablet 10 Mg PO TID Famotidine 20 Mg Tablet 20 Mg PO BID Lisinopril 20 Mg Tablet 20 Mg PO DAILY Amlodipine Besylate 5 Mg Tablet 5 Mg PO DAILY Allergies Allergies: Coded Allergies: Penicillins (Verified Allergy, Intermediate, 02/09/20) tolerates ceftriaxone tramadol (Verified Allergy, Intermediate, 02/09/20) ROS General: No: Chills, Night Sweats, Fatigue, Malaise, Appetite, Other PSYCHOLOGICAL ROS: No: Anxiety, Behavioral Disorder, Concentration difficultie, Decreased libido, Depression, Disorientation, Hallucinations, Hostility, Irritablity, Memory difficulties, Mood Swings, Obsessive thoughts, Physical abuse, Sexual abuse, Sleep disturbances, Suicidal ideation, Other Eyes: No Blurry vision, No Decreased vision, No Double vision, No Dry eyes, No Excessive tearing, No Eye Pain, No Itchy Eyes, No Loss of vision, No Valarie tophobia, No Scotomata, No Uses contacts, No Uses glasses, No Other HEENT: No: Heacaches, Visual Changes, Hearing change, Nasal congestion, Nasal discharge, Oral lesions, Sinus pain, Sore Throat, Epistaxis, Sneezing, Snoring, Tinnitus, Vertigo, Vocal changes, Other ALLERGY AND IMMUNOLOGY: No: Hives, Insect Bite Sensitivity, Itchy/Watery Eyes, Nasal Congestion, Post Nasal Drip, Seasonal Allergies, Other Hematological and Lymphatic: No: Bleeding Problems, Blood Clots, Blood Transfusions, Brusing, Night Sweats, Pallor, Swollen Lymph Nodes, Other ENDOCRINE: No: Breast Changes, Galactorrhea, Hair Pattern Changes, Hot Flashes, Malaise/lethargy, Mood Swings, Palpitations, Polydipsia/polyuria, Skin Changes, Temperature Intolerance, Unexpected Weight Changes, Other Breast: No New/Changing Breast Lumps, No Nipple changes, No Nipple discharge, No Other Respiratory: No: Cough, Hemoptysis, Orthopnea, Pleuritic Pain, Shortness of breath, SOB with excertion, Sputum Changes, Stridor, Tachypnea, Wheezing, Other Cardiovascular: No Chest Pain, No Palpitations, No Orthopnea, No Paroxysmal Noc. Dyspnea, No Edema, No Lt Headedness, No Other Gastrointestinal: No Nausea, No Vomiting, No Abdominal Pain, No Diarrhea, No Constipation, No Melena, No Hematochezia, No Other Genitourinary: No Dysuria, No Frequency, No Incontinence, No Hematuria, No Retention, No Discharge, No Urgency, No Pain, No Flank Pain, No Other, No , No , No , No , No , No , No Musculoskeletal: Yes Pain In: (toes) Neurological: No Behavorial Changes, No Bowel/Bladder ControlChng, No Confusion, No Dizziness, No Gait Disturbance, No Headaches, No Impaired Coord/balance, No Memory Loss, No Numbness/Tingling, No Seizures, No Speech Problems, No Tremors, No Visual Changes, No Weakness, No Other Skin: Yes Nail Changes, Yes Other (heel ulcer right, painful calluses left plantar foot) Physical Exam Physical Exam Lower extremity: Note skin is warm, xerotic, atrophic. decreased turgor. hair is absent to feet. Nails are long thick dystrophic x 10 with subungal debris and incurvation to medial and lateral nail borders. note full thickness ulceration with necrotic base right planter/posterior heel with no pustular drainage, no cellulitis. note nucleated hyperkeratotic lesion to plantar left heel and to plantar 3rd metatarsal head no discontinuity of skin upon debridement left foot. DP weakly palpable PT non palpable. +1 non pitting edema to bilateral lower extremity. CFT is less than 3 seconds. Sensation intact to light touch and sharp dull. Dorsally contracted digits 2-5 bilateral. positive pain on palpation to nails, calluses, and right heel wound. General: Alert, No acute distress Vitals VITALS Vital Signs Date Time Temp Pulse Resp B/P (MAP) Pulse Ox O2 Delivery O2 Flow Rate FiO2 02/11/20 15:15 97.9 80 16 106/71 (83) 96 Room Air 97.9 Labs Labs Laboratory Tests Test 02/09/20 19:53 02/10/20 13:10 02/10/20 13:14 02/11/20 04:40 Lactic Acid Level 0.9 mmol/L (0.4-2.0) White Blood Count 15.5 x10^3/uL (4.0-11.0) 14.1 x10^3/uL (4.0-11.0) Red Blood Count 3.52 x10^6/uL (3.50-5.40) 3.44 x10^6/uL (3.50-5.40) Hemoglobin 9.0 g/dL (12.0-15.5) 8.8 g/dL (12.0-15.5) Hematocrit 28.1 % (36.0-47.0) 28.0 % (36.0-47.0) Mean Corpuscular Volume 80 fL (79-100) 81 fL (79-100) Mean Corpuscular Hemoglobin 26 pg (25-35) 26 pg (25-35) Mean Corpuscular Hemoglobin Concent 32 g/dL (31-37) 32 g/dL (31-37) Red Cell Distribution Width 18.3 % (11.5-14.5) 18.1 % (11.5-14.5) Platelet Count 372 x10^3/uL (140-400) 345 x10^3/uL (140-400) Neutrophils (%) (Auto) 80 % (31-73) 73 % (31-73) Lymphocytes (%) (Auto) 10 % (24-48) 13 % (24-48) Monocytes (%) (Auto) 6 % (0-9) 7 % (0-9) Eosinophils (%) (Auto) 4 % (0-3) 6 % (0-3) Basophils (%) (Auto) 1 % (0-3) 0 % (0-3) Neutrophils # (Auto) 12.4 x10^3/uL (1.8-7.7) 10.3 x10^3/uL (1.8-7.7) Lymphocytes # (Auto) 1.5 x10^3/uL (1.0-4.8) 1.9 x10^3/uL (1.0-4.8) Monocytes # (Auto) 0.9 x10^3/uL (0.0-1.1) 1.0 x10^3/uL (0.0-1.1) Eosinophils # (Auto) 0.7 x10^3/uL (0.0-0.7) 0.9 x10^3/uL (0.0-0.7) Basophils # (Auto) 0.1 x10^3/uL (0.0-0.2) 0.1 x10^3/uL (0.0-0.2) Sodium Level 139 mmol/L (136-145) 138 mmol/L (136-145) Potassium Level 3.2 mmol/L (3.5-5.1) 3.5 mmol/L (3.5-5.1) Chloride Level 102 mmol/L (98-107) 105 mmol/L (98-107) Carbon Dioxide Level 25 mmol/L (21-32) 24 mmol/L (21-32) Anion Gap 12 (6-14) 9 (6-14) Blood Urea Nitrogen 40 mg/dL (7-20) 45 mg/dL (7-20) Creatinine 2.2 mg/dL (0.6-1.0) 2.2 mg/dL (0.6-1.0) Estimated GFR (Cockcroft-Gault) 26.2 26.2 BUN/Creatinine Ratio 18 (6-20) 20 (6-20) Glucose Level 121 mg/dL (70-99) 96 mg/dL (70-99) Calcium Level 8.5 mg/dL (8.5-10.1) 8.7 mg/dL (8.5-10.1) Total Bilirubin 0.2 mg/dL (0.2-1.0) 0.1 mg/dL (0.2-1.0) Aspartate Amino Transf (AST/SGOT) 19 U/L (15-37) 17 U/L (15-37) Alanine Aminotransferase (ALT/SGPT) 24 U/L (14-59) 17 U/L (14-59) Alkaline Phosphatase 121 U/L (46-116) 109 U/L (46-116) Total Protein 6.8 g/dL (6.4-8.2) 6.2 g/dL (6.4-8.2) Albumin 2.5 g/dL (3.4-5.0) 2.2 g/dL (3.4-5.0) Albumin/Globulin Ratio 0.6 (1.0-1.7) 0.6 (1.0-1.7) Laboratory Tests Test 02/11/20 04:40 White Blood Count 14.1 x10^3/uL (4.0-11.0) Red Blood Count 3.44 x10^6/uL (3.50-5.40) Hemoglobin 8.8 g/dL (12.0-15.5) Hematocrit 28.0 % (36.0-47.0) Mean Corpuscular Volume 81 fL (79-100) Mean Corpuscular Hemoglobin 26 pg (25-35) Mean Corpuscular Hemoglobin Concent 32 g/dL (31-37) Red Cell Distribution Width 18.1 % (11.5-14.5) Platelet Count 345 x10^3/uL (140-400) Neutrophils (%) (Auto) 73 % (31-73) Lymphocytes (%) (Auto) 13 % (24-48) Monocytes (%) (Auto) 7 % (0-9) Eosinophils (%) (Auto) 6 % (0-3) Basophils (%) (Auto) 0 % (0-3) Neutrophils # (Auto) 10.3 x10^3/uL (1.8-7.7) Lymphocytes # (Auto) 1.9 x10^3/uL (1.0-4.8) Monocytes # (Auto) 1.0 x10^3/uL (0.0-1.1) Eosinophils # (Auto) 0.9 x10^3/uL (0.0-0.7) Basophils # (Auto) 0.1 x10^3/uL (0.0-0.2) Sodium Level 138 mmol/L (136-145) Potassium Level 3.5 mmol/L (3.5-5.1) Chloride Level 105 mmol/L (98-107) Carbon Dioxide Level 24 mmol/L (21-32) Anion Gap 9 (6-14) Blood Urea Nitrogen 45 mg/dL (7-20) Creatinine 2.2 mg/dL (0.6-1.0) Estimated GFR (Cockcroft-Gault) 26.2 BUN/Creatinine Ratio 20 (6-20) Glucose Level 96 mg/dL (70-99) Calcium Level 8.7 mg/dL (8.5-10.1) Total Bilirubin 0.1 mg/dL (0.2-1.0) Aspartate Amino Transf (AST/SGOT) 17 U/L (15-37) Alanine Aminotransferase (ALT/SGPT) 17 U/L (14-59) Alkaline Phosphatase 109 U/L (46-116) Total Protein 6.2 g/dL (6.4-8.2) Albumin 2.2 g/dL (3.4-5.0) Albumin/Globulin Ratio 0.6 (1.0-1.7) Assessment/Plan Assessment/Plan 79 year old female with PVD, calf claudication pain, chronic decubitus heel ulceration right, onychomycosis, onychogryphosis, hyperkeratotic lesions -Note wound care is applying local wound care to right heel. -Ordered non invasive arterial doppler to bilateral lower extremity to evaluate for PVD -Recommend strict decubitus precautions with PRAFO offload right lower extremity -Symptomatic nails debrided x 10 without incident -Debrided calluses to left foot x 2 without incident ELGIN MATSON DPM Feb 11, 2020 17:23
[2020-02-11 19:00] VITALS: BP 117/67
[2020-02-11] MEDS: cefTRIAXone IV Push 1 GM VIAL. IVP SCH (21:01)
[2020-02-11] MEDS: traZODone 50 MG TABLET. PO SCH (21:02)
[2020-02-11] MEDS: FAMOTIDINE 20 MG TABLET. PO SCH (21:02)
[2020-02-11] MEDS: ATORVASTATIN CALCIUM 40 MG TABLET. PO SCH (21:02)
[2020-02-11 22:51] VITALS: BP 132/72
[2020-02-12] VITALS (7 sets, daily range): BP systolic 110–171; BP diastolic 56–86
--- NOTE | 2020-02-12 02:29 | RAD ---
Realtime grayscale and color Duplex Doppler ultrasonography of the bilateral lower extremities was performed. History: Reason: pvd, CHRONIC DECUBITUS ULCER / Spl. Instructions: / History: Comparison: None. Findings: Right: Common femoral artery peak systolic velocity measures 215 cm/s. Profunda femoris artery peak systolic velocity measures 119 cm/s. Superficial femoral artery is occluded. Popliteal artery peak systolic velocity measures 29 cm/s with monophasic waveforms. Posterior tibial artery is not visualized. Peroneal artery peak systolic velocity measures 30 cm/s with monophasic waveforms. Anterior tibial artery peak systolic velocity measures 79 cm/s with monophasic waveforms. Dorsalis pedis artery peak systolic velocity measures 25 cm/s with monophasic waveforms. Left: Common femoral artery peak systolic velocity measures 247 cm/s. Profunda femoris artery peak systolic velocity measures 63 cm/s. Superficial femoral artery is occluded. Popliteal artery peak systolic velocity measures 20 cm/s with monophasic waveforms. Posterior tibial artery peak systolic velocity measures 18 cm/s with monophasic waveforms. Peroneal artery is not visualized. Anterior tibial artery peak systolic velocity measures 28 cm/s with monophasic waveforms. Dorsalis pedis artery peak systolic velocity measures 31 cm/s with monophasic waveforms. 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 Monophasic waveforms in both distal lower extremities. Electronically signed by: Silvio Brooke MD (02/12/2020 2:26 AM) [facility]
[2020-02-12 04:40] LABS: BASO % 0 % (0-3); EOS # 0.8 x10^3/uL (0.0-0.7); EOS % 8 % (0-3); HEMATOCRIT 24.1 % (36.0-47.0); HEMOGLOBIN 7.8 g/dL (12.0-15.5); LYMPH # 1.6 x10^3/uL (1.0-4.8); LYMPH % 15 % (24-48); MEAN CORPUSCULAR HEMOGLOBIN 26 pg (25-35); MEAN CORPUSCULAR HGB CONC 33 g/dL (31-37); MEAN CORPUSCULAR VOLUME 80 fL (79-100); MONO # 0.8 x10^3/uL (0.0-1.1); MONO % 8 % (0-9); NEUT # 7.2 x10^3/uL (1.8-7.7); NEUT % 69 % (31-73); PLATELET COUNT 321 x10^3/uL (140-400); RED CELL DISTRIBUTION WIDTH 17.4 % (11.5-14.5); WHITE BLOOD COUNT 10.4 x10^3/uL (4.0-11.0)
[2020-02-12 04:52] LABS: CALCIUM 8.5 mg/dL (8.5-10.1); CREATININE 1.4 mg/dL (0.6-1.0); GFR 44.1; POTASSIUM 3.7 mmol/L (3.5-5.1)
--- NOTE | 2020-02-12 08:57 | PDOC ---
PROGRESS NOTES Subjective Subjective No new complaints. Objective Objective Vital Signs Date Time Temp Pulse Resp B/P (MAP) Pulse Ox O2 Delivery O2 Flow Rate FiO2 02/12/20 07:00 97.9 86 18 171/86 (114) 92 Room Air 97.9 Intake and Output 02/12/20 07:00 Intake Total 1140 ml Output Total 2350 ml Balance -1210 ml Intake Oral 1140 ml Output Urine Total 2350 ml Physical Exam Physical Exam She is alert,supine in bed and more comfortable but continues with weakness of hip abductors,extensors,and dorsiflexors of both feet with tight heel cords with plantar flexion deformity of her ankles. PRAFO boots are in place. She reports of being on the floor several times while at home since discharge fro [facility] care unit. After her heel wounds heel and if she continues with tight heel cords,she probably needs dynamic AFOs and may be heel cord lenghtening. She needs to be taught inn wheel chair level mobility as she is not safe to walk at this time. She is not safe at home and if she has used all her shelter care days,she probably needs to go to regular nursing care unit when medically stable. Assessment Assessment Problems Medical Problems: (1) Heel ulcer Status: Acute (2) Heel ulceration Status: Acute (3) Urinary tract infection Status: Acute (4) Weakness Status: Acute Plan Plan of Care To continue present wound care and physical therapy follow up as she can tolerate. Comment Review of Relevant I have reviewed the following items dari (where applicable) has been applied. Labs Laboratory Tests Test 02/10/20 13:10 02/10/20 13:14 02/11/20 04:40 02/12/20 04:00 White Blood Count 15.5 x10^3/uL (4.0-11.0) 14.1 x10^3/uL (4.0-11.0) 10.4 x10^3/uL (4.0-11.0) Red Blood Count 3.52 x10^6/uL (3.50-5.40) 3.44 x10^6/uL (3.50-5.40) 3.00 x10^6/uL (3.50-5.40) Hemoglobin 9.0 g/dL (12.0-15.5) 8.8 g/dL (12.0-15.5) 7.8 g/dL (12.0-15.5) Hematocrit 28.1 % (36.0-47.0) 28.0 % (36.0-47.0) 24.1 % (36.0-47.0) Mean Corpuscular Volume 80 fL (79-100) 81 fL (79-100) 80 fL (79-100) Mean Corpuscular Hemoglobin 26 pg (25-35) 26 pg (25-35) 26 pg (25-35) Mean Corpuscular Hemoglobin Concent 32 g/dL (31-37) 32 g/dL (31-37) 33 g/dL (31-37) Red Cell Distribution Width 18.3 % (11.5-14.5) 18.1 % (11.5-14.5) 17.4 % (11.5-14.5) Platelet Count 372 x10^3/uL (140-400) 345 x10^3/uL (140-400) 321 x10^3/uL (140-400) Neutrophils (%) (Auto) 80 % (31-73) 73 % (31-73) 69 % (31-73) Lymphocytes (%) (Auto) 10 % (24-48) 13 % (24-48) 15 % (24-48) Monocytes (%) (Auto) 6 % (0-9) 7 % (0-9) 8 % (0-9) Eosinophils (%) (Auto) 4 % (0-3) 6 % (0-3) 8 % (0-3) Basophils (%) (Auto) 1 % (0-3) 0 % (0-3) 0 % (0-3) Neutrophils # (Auto) 12.4 x10^3/uL (1.8-7.7) 10.3 x10^3/uL (1.8-7.7) 7.2 x10^3/uL (1.8-7.7) Lymphocytes # (Auto) 1.5 x10^3/uL (1.0-4.8) 1.9 x10^3/uL (1.0-4.8) 1.6 x10^3/uL (1.0-4.8) Monocytes # (Auto) 0.9 x10^3/uL (0.0-1.1) 1.0 x10^3/uL (0.0-1.1) 0.8 x10^3/uL (0.0-1.1) Eosinophils # (Auto) 0.7 x10^3/uL (0.0-0.7) 0.9 x10^3/uL (0.0-0.7) 0.8 x10^3/uL (0.0-0.7) Basophils # (Auto) 0.1 x10^3/uL (0.0-0.2) 0.1 x10^3/uL (0.0-0.2) 0.0 x10^3/uL (0.0-0.2) Sodium Level 139 mmol/L (136-145) 138 mmol/L (136-145) 140 mmol/L (136-145) Potassium Level 3.2 mmol/L (3.5-5.1) 3.5 mmol/L (3.5-5.1) 3.7 mmol/L (3.5-5.1) Chloride Level 102 mmol/L (98-107) 105 mmol/L (98-107) 109 mmol/L (98-107) Carbon Dioxide Level 25 mmol/L (21-32) 24 mmol/L (21-32) 21 mmol/L (21-32) Anion Gap 12 (6-14) 9 (6-14) 10 (6-14) Blood Urea Nitrogen 40 mg/dL (7-20) 45 mg/dL (7-20) 32 mg/dL (7-20) Creatinine 2.2 mg/dL (0.6-1.0) 2.2 mg/dL (0.6-1.0) 1.4 mg/dL (0.6-1.0) Estimated GFR (Cockcroft-Gault) 26.2 26.2 44.1 BUN/Creatinine Ratio 18 (6-20) 20 (6-20) Glucose Level 121 mg/dL (70-99) 96 mg/dL (70-99) 98 mg/dL (70-99) Calcium Level 8.5 mg/dL (8.5-10.1) 8.7 mg/dL (8.5-10.1) 8.5 mg/dL (8.5-10.1) Total Bilirubin 0.2 mg/dL (0.2-1.0) 0.1 mg/dL (0.2-1.0) Aspartate Amino Transf (AST/SGOT) 19 U/L (15-37) 17 U/L (15-37) Alanine Aminotransferase (ALT/SGPT) 24 U/L (14-59) 17 U/L (14-59) Alkaline Phosphatase 121 U/L (46-116) 109 U/L (46-116) Total Protein 6.8 g/dL (6.4-8.2) 6.2 g/dL (6.4-8.2) Albumin 2.5 g/dL (3.4-5.0) 2.2 g/dL (3.4-5.0) Albumin/Globulin Ratio 0.6 (1.0-1.7) 0.6 (1.0-1.7) Laboratory Tests Test 02/12/20 04:00 White Blood Count 10.4 x10^3/uL (4.0-11.0) Red Blood Count 3.00 x10^6/uL (3.50-5.40) Hemoglobin 7.8 g/dL (12.0-15.5) Hematocrit 24.1 % (36.0-47.0) Mean Corpuscular Volume 80 fL (79-100) Mean Corpuscular Hemoglobin 26 pg (25-35) Mean Corpuscular Hemoglobin Concent 33 g/dL (31-37) Red Cell Distribution Width 17.4 % (11.5-14.5) Platelet Count 321 x10^3/uL (140-400) Neutrophils (%) (Auto) 69 % (31-73) Lymphocytes (%) (Auto) 15 % (24-48) Monocytes (%) (Auto) 8 % (0-9) Eosinophils (%) (Auto) 8 % (0-3) Basophils (%) (Auto) 0 % (0-3) Neutrophils # (Auto) 7.2 x10^3/uL (1.8-7.7) Lymphocytes # (Auto) 1.6 x10^3/uL (1.0-4.8) Monocytes # (Auto) 0.8 x10^3/uL (0.0-1.1) Eosinophils # (Auto) 0.8 x10^3/uL (0.0-0.7) Basophils # (Auto) 0.0 x10^3/uL (0.0-0.2) Sodium Level 140 mmol/L (136-145) Potassium Level 3.7 mmol/L (3.5-5.1) Chloride Level 109 mmol/L (98-107) Carbon Dioxide Level 21 mmol/L (21-32) Anion Gap 10 (6-14) Blood Urea Nitrogen 32 mg/dL (7-20) Creatinine 1.4 mg/dL (0.6-1.0) Estimated GFR (Cockcroft-Gault) 44.1 Glucose Level 98 mg/dL (70-99) Calcium Level 8.5 mg/dL (8.5-10.1) Microbiology 02/10/20 Blood Culture - Preliminary, Resulted NO GROWTH AFTER 1 DAY 02/09/20 Urine Culture - Preliminary, Resulted Medications Current Medications Fentanyl Citrate (Fentanyl 2ml Vial) 50 mcg 1X ONCE IV Last administered on 02/09/20at 15:38; Start 02/09/20 at 15:30; Stop 02/09/20 at 15:31; Status DC Ondansetron HCl (Zofran) 4 mg 1X ONCE IV Last administered on 02/09/20at 15:37; Start 02/09/20 at 15:30; Stop 02/09/20 at 15:31; Status DC Trimethoprim/ Sulfamethoxazole (Bactrim Ds) 1 tab 1X ONCE PO Last administered on 02/09/20at 18:33; Start 02/09/20 at 18:30; Stop 02/09/20 at 18:31; Status DC Ceftriaxone Sodium (Rocephin) 1 gm Q24H IVP Last administered on 02/11/20at 21:01; Start 02/09/20 at 21:00 Acetaminophen/ Hydrocodone Bitart (Lortab 7.5/325) 1 tab PRN Q4HRS PRN PO MODERATE PAIN 4-6 Last administered on 02/11/20at 23:27; Start 02/09/20 at 21:30 Acetaminophen (Tylenol) 650 mg PRN Q6HRS PRN PO MILD PAIN 1-3; Start 02/09/20 at 21:30 Amlodipine Besylate (Norvasc) 5 mg DAILY PO Last administered on 02/11/20 09:20; Start 02/10/20 at 09:00 Atorvastatin Calcium (Lipitor) 40 mg QHS PO Last administered on 02/11/20 21:02; Start 02/09/20 at 23:00 Buspirone HCl (Buspar) 10 mg TID PO Last administered on 02/11/20 21:02; Start 02/09/20 at 23:00 Diclofenac Sodium (Voltaren) 1 yesika BID TP Last administered on 02/11/20 21:02; Start 02/09/20 at 23:00 Famotidine (Pepcid) 20 mg QHS PO Last administered on 02/11/20 21:02; Start 02/09/20 at 23:00 Gabapentin (Neurontin) 100 mg QID PO Last administered on 02/11/20 21:02; S tart 02/09/20 at 23:00 Lisinopril (Prinivil) 20 mg DAILY PO Last administered on 02/10/20at 09:44; Start 02/10/20 at 09:00; Stop 02/10/20 at 16:24; Status DC Ondansetron HCl (Zofran Odt) 4 mg PRN BID PRN PO NAUSEA 1ST CHOICE; Start 02/09/20 at 22:15 Trazodone HCl (Desyrel) 50 mg HS PO Last administered on 02/11/20 21:02; Start 02/09/20 at 23:00 Baclofen (Lioresal) 5 mg DAILY PO Last administered on 02/11/20 09:20; Start 02/10/20 at 09:00 Ceftriaxone Sodium (Rocephin) 1 gm Q24H IVP ; Start 02/10/20 at 11:00; Status UNV Lactobacillus Rhamnosus (Culturelle) 1 cap BID PO Last administered on 02/11/20 21:02; Start 02/10/20 at 21:00 Sodium Chloride 1,000 ml @ 100 mls/hr Q10H IV Last administered on 02/11/20 23:27; Start 02/10/20 at 17:00 Potassium Chloride (Klor-Con) 40 meq 1X ONCE PO Last administered on 02/10/20at 17:37; Start 02/10/20 at 17:00; Stop 02/10/20 at 17:01; Status DC Enoxaparin Sodium (Lovenox 30mg Syringe) 30 mg Q24H SQ Last administered on 02/11/20at 11:52; Start 02/11/20 at 10:00 Aspirin (Dre Aspirin) 325 mg 1X ONCE PO Last administered on 02/11/20at 11:52; Start 02/11/20 at 10:00; Stop 02/11/20 at 10:01; Status DC Aspirin (Dre Aspirin) 325 mg [id number] PO ; Start 02/12/20 at 08:00 Active Scripts Active [place] 5-325 Tablet (Acetaminophen/Hydrocodone Bitart) 1 Each Tablet 1-2 Tab PO Q4-6HRS 2 Days Reported Trazodone Hcl 50 Mg Tablet 50 Mg PO HS Ondansetron Odt (Ondansetron) 4 Mg Tab.rapdis 4 Mg PO PRN BID PRN Atorvastatin Calcium 40 Mg Tablet 40 Mg PO DAILY Baclofen 5 Mg Tablet 5 Mg PO DAILY Gabapentin 100 Mg Capsule 100 Mg PO QID Diclofenac Sodium 100 Gm Gel..gram. 1 Yesika TOP BID Buspirone Hcl 10 Mg Tablet 10 Mg PO TID Famotidine 20 Mg Tablet 20 Mg PO BID Lisinopril 20 Mg Tablet 20 Mg PO DAILY Amlodipine Besylate 5 Mg Tablet 5 Mg PO DAILY Vitals/I & O Vital Sign - Last 24 Hours 02/11/20 02/11/20 02/11/20 02/11/20 09:20 09:21 10:55 11:52 Temp 97.6 97.6 Pulse 64 82 Resp 20 B/P (MAP) 137/70 100/63 (75) Pulse Ox 97 O2 Delivery Room Air Room Air Room Air 02/11/20 02/11/20 02/11/20 02/11/20 15:15 19:00 20:00 22:51 Temp 97.9 98.0 98.6 97.9 98.0 98.6 Pulse 80 75 80 Resp 16 17 18 B/P (MAP) 106/71 (83) 117/67 (84) 132/72 (92) Pulse Ox 96 95 93 O2 Delivery Room Air Room Air Room Air Room Air 02/11/20 02/12/20 02/12/20 02/12/20 23:27 00:27 03:00 07:00 Temp 98.9 97.9 98.9 97.9 Pulse 69 86 Resp 18 18 B/P (MAP) 110/64 (79) 171/86 (114) Pulse Ox 91 92 O2 Delivery Room Air Room Air Room Air Room Air Intake and Output 02/11/20 02/11/20 02/12/20 15:00 23:00 07:00 Intake Total 480 ml 410 ml 250 ml Output Total 550 ml 1800 ml Balance 480 ml -140 ml -1550 ml Justicifation of Admission Dx: Justifications for Admission: Justification of Admission Dx: Yes Sepsis: Infection Nutrition Consultation Dietary Evaluation: Recommendations by RD: Dietary education by RD, Increase Calorie Intake, Protein supplementation Comments: cardiac diet with ensure enlive bid homar bid REC mvi q day per wound protocal Expected Outcomes/Goals: to meet >75% est nutr needs improved wound status Malnutrition Findings: Body Fat Depletion (Non Severe: Mod to Severe Weight Status: Underweight RIYA SHARP MD Feb 12, 2020 08:57
[2020-02-12] MEDS: GABAPENTIN 100 MG CAPSULE. PO SCH ×4 (09:15→21:51)
[2020-02-12] MEDS: BACLOFEN 10 MG TABLET. PO SCH (09:15)
[2020-02-12] MEDS: ASPIRIN 325 MG TABLET PO SCH (09:16)
[2020-02-12] MEDS: amLODIPine BESYLATE 5 MG TABLET PO SCH (09:16)
[2020-02-12] MEDS: LACTOBACILLUS RHAMNOSUS GG 1 CAPSULE. PO SCH ×2 (09:16→21:51)
[2020-02-12] MEDS: busPIRone 10 MG TABLET. PO SCH ×3 (09:16→21:51)
--- NOTE | 2020-02-12 09:19 | PDOC ---
PROGRESS NOTES Subjective Subjective pt is in better spirits today, smiling Objective Objective Vital Signs Date Time Temp Pulse Resp B/P (MAP) Pulse Ox O2 Delivery O2 Flow Rate FiO2 02/12/20 07:00 97.9 86 18 171/86 (114) 92 Room Air 97.9 Intake and Output 02/12/20 07:00 Intake Total 1140 ml Output Total 2350 ml Balance -1210 ml Intake Oral 1140 ml Output Urine Total 2350 ml Physical Exam Abdomen: Normal bowel sounds, Soft Heart: Regular rate, Normal S1, Normal S2 Extremities: Other (paraplegia) General: Alert, No acute distress HEENT: PERRLA Lungs: Clear to auscultation Neck: No JVD Neuro: Normal speech Psych/Mental Status: Mood NL Skin: Other (preston heal ulcers) Diagnosis Problem List Problems Medical Problems: (1) Heel ulcer Status: Acute (2) Heel ulceration Status: Acute (3) Urinary tract infection Status: Acute (4) Weakness Status: Acute Assessment Assessment Problems Medical Problems: (1) Heel ulcer Status: Acute (2) Heel ulceration Status: Acute (3) Urinary tract infection Status: Acute (4) Weakness Status: Acute FINAL IMPRESSION: 1. Urinary tract infection.? Pylonepritis 2. 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 3. Chronic obstructive pulmonary disease. 4. Hypertension. 5. Abdominal aortic aneurysm. 6. Peripheral vascular disease. 7. Heel ulcers. 8. General debility. 9. History of lung cancer in the past. 10. General decline. PLAN: IV Rocephin for E coli uti iv fluids , cr 1.6 down from 2.2 improving with fluids d/c lisinopril sono kidneys no hydronephrosis. pt had yin placed 300 cc urine retained, she has overflow incontinence Abd sono inc seize of AAA ,4x5 cm now, will consult vascular. 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 We will also have a wound care nurse, Physical Therapy Rehab to see the patient and continue her medications. Plan Plan of Care Problems Medical Problems: (1) Heel ulcer Status: Acute (2) Heel ulceration Status: Acute (3) Urinary tract infection Status: Acute (4) Weakness Status: Acute Comment Review of Relevant I have reviewed the following items dari (where applicable) has been applied. Labs Laboratory Tests Test 02/12/20 04:00 White Blood Count 10.4 x10^3/uL (4.0-11.0) Red Blood Count 3.00 x10^6/uL (3.50-5.40) Hemoglobin 7.8 g/dL (12.0-15.5) Hematocrit 24.1 % (36.0-47.0) Mean Corpuscular Volume 80 fL (79-100) Mean Corpuscular Hemoglobin 26 pg (25-35) Mean Corpuscular Hemoglobin Concent 33 g/dL (31-37) Red Cell Distribution Width 17.4 % (11.5-14.5) Platelet Count 321 x10^3/uL (140-400) Neutrophils (%) (Auto) 69 % (31-73) Lymphocytes (%) (Auto) 15 % (24-48) Monocytes (%) (Auto) 8 % (0-9) Eosinophils (%) (Auto) 8 % (0-3) Basophils (%) (Auto) 0 % (0-3) Neutrophils # (Auto) 7.2 x10^3/uL (1.8-7.7) Lymphocytes # (Auto) 1.6 x10^3/uL (1.0-4.8) Monocytes # (Auto) 0.8 x10^3/uL (0.0-1.1) Eosinophils # (Auto) 0.8 x10^3/uL (0.0-0.7) Basophils # (Auto) 0.0 x10^3/uL (0.0-0.2) Sodium Level 140 mmol/L (136-145) Potassium Level 3.7 mmol/L (3.5-5.1) Chloride Level 109 mmol/L (98-107) Carbon Dioxide Level 21 mmol/L (21-32) Anion Gap 10 (6-14) Blood Urea Nitrogen 32 mg/dL (7-20) Creatinine 1.4 mg/dL (0.6-1.0) Estimated GFR (Cockcroft-Gault) 44.1 Glucose Level 98 mg/dL (70-99) Calcium Level 8.5 mg/dL (8.5-10.1) Microbiology 02/10/20 Blood Culture - Preliminary, Resulted NO GROWTH AFTER 1 DAY 02/09/20 Urine Culture - Final, Complete 02/09/20 Antimicrobic Susceptibility - Final, Complete Medications Current Medications Aspirin (OQO Aspirin) 325 mg 1X ONCE PO Last administered on 02/11/20at 11:52; Start 02/11/20 at 10:00; Stop 02/11/20 at 10:01; Status DC Aspirin (Dre Aspirin) 325 mg DAILYWBKFT PO ; Start 02/12/20 at 08:00 Enoxaparin Sodium (Lovenox 30mg Syringe) 30 mg Q24H SQ Last administered on 02/11/20at 11:52; Start 02/11/20 at 10:00 Vitals/I & O Vital Sign - Last 24 Hours 02/11/20 02/11/20 02/11/20 02/11/20 09:20 09:21 10:55 11:52 Temp 97.6 97.6 Pulse 64 82 Resp 20 B/P (MAP) 137/70 100/63 (75) Pulse Ox 97 O2 Delivery Room Air Room Air Room Air 02/11/20 02/11/20 02/11/20 02/11/20 15:15 19:00 20:00 22:51 Temp 97.9 98.0 98.6 97.9 98.0 98.6 Pulse 80 75 80 Resp 16 17 18 B/P (MAP) 106/71 (83) 117/67 (84) 132/72 (92) Pulse Ox 96 95 93 O2 Delivery Room Air Room Air Room Air Room Air 02/11/20 02/12/20 02/12/20 02/12/20 23:27 00:27 03:00 07:00 Temp 98.9 97.9 98.9 97.9 Pulse 69 86 Resp 18 18 B/P (MAP) 110/64 (79) 171/86 (114) Pulse Ox 91 92 O2 Delivery Room Air Room Air Room Air Room Air Intake and Output 02/11/20 02/11/20 02/12/20 15:00 23:00 07:00 Intake Total 480 ml 410 ml 250 ml Output Total 550 ml 1800 ml Balance 480 ml -140 ml -1550 ml Justicifation of Admission Dx: Justifications for Admission: Justification of Admission Dx: Yes Sepsis: Infection Nutrition Consultation Dietary Evaluation: Recommendations by RD: Dietary education by RD, Increase Calorie Intake, Protein supplementation Comments: cardiac diet with ensure enlive bid homar bid REC mvi q day per wound protocal Expected Outcomes/Goals: to meet >75% est nutr needs improved wound status Malnutrition Findings: Body Fat Depletion (Non Severe: Mod to Severe Weight Status: Underweight SANDRA SHABAZZ MD Feb 12, 2020 09:19
[2020-02-12] MEDS: IV NORMAL SALINE 1000ML BAG 1,000 ML IV SCH ×2 (09:27→21:52)
--- NOTE | 2020-02-12 10:49 | NUR ---
CLAY following. Discussed with RN. SW received SNU benefits from [facility], pt is covered Days 1-20 $0 copay, days 21-57 $168 copay, days 58-100 $0 copay, Max of out pocket is $5900 and pt has met $4940 prior to hospitalization. CLAY provided this information to Giuliana, she advised she had discussed with her mother, and her mother is agreeable to go to a facility until her daughter's arrive. CLAY attempted to meet with pt, pt was asleep - could not waken. RN advised pt was discussing with her this morning about going to a facility. CLAY faxed referral to [facility], awaiting acceptance decision and insurance auth. CLAY reiterated to pt's daughter, Giuliana about the possibility of insurance denying, so for her and her sister to have a back up plan of covering 24 hour care at pt's home. CLAY will continue to follow. Addendum: 02/12/20 at 1522 by CORONA WILLIAMSON [facility] declined to take pt due to "everyday smoker" and pt needing medicaid pending for correction care. CLAY spoke with [facility], provided other facilities in the area, she would like referral to [facility], and [facility]. [facility] [place] is not in network with [facility]. CLAY faxed referral to [facility]. CLAY will continue to follow.
[2020-02-12] MEDS: DICLOFENAC SODIUM 1% TOPICAL GEL 100GM TUBE. TP SCH ×2 (12:27→21:52)
[2020-02-12] MEDS: ENOXAPARIN 30 MG/0.3 ML SYRINGE. SQ SCH (12:27)
--- NOTE | 2020-02-12 13:30 | PDOC ---
Provider Note Provider Note Vascular Surgery Consult - agree with Irais Guzmán CHARGE ACCOUNT IDENTIFICATION CLERK note 79 year old female with a necrotic wound on her right heel, severe peripheral artery disease and a 5.6cm AAA. She has been evaluated by Dr. Wood in the recent past and recommendations for an EVAR has been made for the AAA. She also has known bilateral SFA occlusion and recommendations for bypass has been made. Will plan an EVAR repair of her AAA and right femoral to below knee popliteal artery bypass with saphenous vein and heel debridement on monday with Dr. Landa. Will need cardiac evaluation prior to surgery. Carotid duplex scan ordered. WBC count has normalized with antibiotics for her UTI, will continue antibiotics for next several days prior to surgery. Justicifation of Admission Dx: Justifications for Admission: Justification of Admission Dx: Yes Sepsis: Infection MARTA FOWLER MD Feb 12, 2020 13:30
--- NOTE | 2020-02-12 13:44 | PDOC2 ---
CONSULT Date of Consult Date of Consult DATE: 02/12/20 TIME: 13:11 Reason for Consult Reason for Consult: AAA and right heel decubitus ulcer Referring Physician Referring Physician: Dr. Elkins Identification/Chief Complaint Chief Complaint Left heel pain Source Source: Patient History of Present Illness Reason for Visit: The patient is a 79-year-old diabetic female, who was recently discharged from [facility] to her apartment with home health. She has paraplegia secondary to spinal cord infarct. She was admitted from home after a fall. On admission, her white count was 17.8. There were concerns for a UTI versus pyelonephritis. She has history of peripheral vascular disease, had a stent in the left leg in the past. She also has an abdominal aortic aneurysm and has seen Dr. Wood for that, but ended up with the infarct to her spinal cord, which resulted in paraplegia. We are consulted for a right heel decubitus ulcer. She had an arterial US yesterday which showed Bilateral SFA occlusions with reconstitution of flow in the popliteal arteries likely via collaterals. Monophasic waveforms in both distal lower extremities. She had a renal duplex which showed a 5.2 cm AAA. CTA at [facility] in January, reviewed by Dr. Landa showed a 5.6 cm AAA. PAST MEDICAL HISTORY: She has history of hypertension; COPD; lung cancer, was treated in 2014; also abdominal aortic aneurysm; recent spinal cord infarct. PAST SURGICAL HISTORY: She had a part of the lung removed, hysterectomy. She also had a stent in the left leg. She was examined at the bedside. She denies current symptoms of illness. She denies fever and chills, nausea and vomiting. She denies dysuria and hematuria. She denies diarrhea and constipation. She denies melena and hematochezia. She denies chest pain and shortness of breath. She denies any transient unilateral numbness, weakness or clumsiness of the hand or arm. She has bilateral leg paralysis. She denies any episodes of garbled speech, facial drooping or amaurosis. She denies any new or different abdomen, back or groin pain. She denies abdominal pain associated with eating. She relates that she has been able to walk with some kind of walking device but has not for the last 2 weeks. She has severe pain when her feet are examined. Right greater than left. She denies history of coronary artery disease, angioplasty, coronary stents, coronary artery bypass grafting, pacemaker or AICD. She has never had a cerebral stroke. She is diabetic. She told me she does not smoke. She is on aspirin and Lipitor daily. Past Medical History Cardiovascular: HTN Pulmonary: Other GI: Other Heme/Onc: Cancer Musculoskeletal: low back pain Past Surgical History Past Surgical History: Other Family History Family History: Cancer, Coronary Artery Disease Social History Quit (recently quit "a few weeks ago" 17 year smoking history) Current Problem List Problem List Problems Medical Problems: (1) Heel ulcer Status: Acute (2) Heel ulceration Status: Acute (3) Urinary tract infection Status: Acute (4) Weakness Status: Acute Current Medications Current Medications Current Medications Fentanyl Citrate (Fentanyl 2ml Vial) 50 mcg 1X ONCE IV Last administered on 02/09/20at 15:38; Start 02/09/20 at 15:30; Stop 02/09/20 at 15:31; Status DC Ondansetron HCl (Zofran) 4 mg 1X ONCE IV Last administered on 02/09/20at 15:37; Start 02/09/20 at 15:30; Stop 02/09/20 at 15:31; Status DC Trimethoprim/ Sulfamethoxazole (Bactrim Ds) 1 tab 1X ONCE PO Last administered on 02/09/20at 18:33; Start 02/09/20 at 18:30; Stop 02/09/20 at 18:31; Status DC Ceftriaxone Sodium (Rocephin) 1 gm Q24H IVP Last administered on 02/11/20at 21:01; Start 02/09/20 at 21:00; Stop 02/12/20 at 13:00; Status DC Acetaminophen/ Hydrocodone Bitart (Lortab 7.5/325) 1 tab PRN Q4HRS PRN PO MODERATE PAIN 4-6 Last administered on 02/11/20at 23:27; Start 02/09/20 at 21:30 Acetaminophen (Tylenol) 650 mg PRN Q6HRS PRN PO MILD PAIN 1-3; Start 02/09/20 at 21:30 Amlodipine Besylate (Norvasc) 5 mg DAILY PO Last administered on 02/12/20at 09:16; Start 02/10/20 at 09:00 Atorvastatin Calcium (Lipitor) 40 mg QHS PO Last administered on 02/11/20 21:02; Start 02/09/20 at 23:00 Buspirone HCl (Buspar) 10 mg TID PO Last administered on 02/12/20 09:16; Start 02/09/20 at 23:00 Diclofenac Sodium (Voltaren) 1 yesika BID TP Last administered on 02/11/20 21:02; Start 02/09/20 at 23:00 Famotidine (Pepcid) 20 mg QHS PO Last administered on 02/11/20 21:02; Start 02/09/20 at 23:00 Gabapentin (Neurontin) 100 mg QID PO Last administered on 02/12/20 09:15; Start 02/09/20 at 23:00 Lisinopril (Prinivil) 20 mg DAILY PO Last administered on 02/10/20 09:44; Start 02/10/20 at 09:00; Stop 02/10/20 at 16:24; Status DC Ondansetron HCl (Zofran Odt) 4 mg PRN BID PRN PO NAUSEA 1ST CHOICE; Start 02/09/20 at 22:15 Trazodone HCl (Desyrel) 50 mg HS PO Last administered on 02/11/20 21:02; Start 02/09/20 at 23:00 Baclofen (Lioresal) 5 mg DAILY PO Last administered on 02/12/20 09:15; Start 02/10/20 at 09:00 Ceftriaxone Sodium (Rocephin) 1 gm Q24H IVP ; Start 02/10/20 at 11:00; Status UNV Lactobacillus Rhamnosus (Culturelle) 1 cap BID PO Last administered on 02/12/20 09:16; Start 02/10/20 at 21:00 Sodium Chloride 1,000 ml @ 100 mls/hr Q10H IV Last administered on 02/12/20 09:27; Start 02/10/20 at 17:00 Potassium Chloride (Klor-Con) 40 meq 1X ONCE PO Last administered on 02/10/20 17:37; Start 02/10/20 at 17:00; Stop 02/10/20 at 17:01; Status DC Enoxaparin Sodium (Lovenox 30mg Syringe) 30 mg Q24H SQ Last administered on 02/12/20 12:27; Start 02/11/20 at 10:00 Aspirin (Dre Aspirin) 325 mg 1X ONCE PO Last administered on 02/11/20at 11:52; Start 02/11/20 at 10:00; Stop 02/11/20 at 10:01; Status DC Aspirin (Dre Aspirin) 325 mg DAILYWBKFT PO Last administered on 02/12/20at 09:16; Start 02/12/20 at 08:00 Cefdinir (Omnicef) 300 mg Q24H PO ; Start 02/12/20 at 14:00 Active Scripts Active [place] 5-325 Tablet (Acetaminophen/Hydrocodone Bitart) 1 Each Tablet 1-2 Tab PO Q4-6HRS 2 Days Reported Trazodone Hcl 50 Mg Tablet 50 Mg PO HS Ondansetron Odt (Ondansetron) 4 Mg Tab.rapdis 4 Mg PO PRN BID PRN Atorvastatin Calcium 40 Mg Tablet 40 Mg PO DAILY Baclofen 5 Mg Tablet 5 Mg PO DAILY Gabapentin 100 Mg Capsule 100 Mg PO QID Diclofenac Sodium 100 Gm Gel..gram. 1 Yesika TOP BID Buspirone Hcl 10 Mg Tablet 10 Mg PO TID Famotidine 20 Mg Tablet 20 Mg PO BID Lisinopril 20 Mg Tablet 20 Mg PO DAILY Amlodipine Besylate 5 Mg Tablet 5 Mg PO DAILY Allergies Allergies: Coded Allergies: Penicillins (Verified Allergy, Intermediate, 02/09/20) tolerates ceftriaxone tramadol (Verified Allergy, Intermediate, 02/09/20) ROS Review of System A 10 point review of systems is negative except for what is listed in the HPI. Physical Exam General: Alert, Cooperative, Other (no acute distress at rest. Severe pain with foot exam.) HEENT: Atraumatic Lungs: Other (She has rales in her bilateral lung bases.) Heart: Regular rate, Other (She has a loud murmer.) Abdomen: Normal bowel sounds, Soft, No tenderness Extremities: No cyanosis, Other (She has no loud carotid bruits but has a loud heart murmur. She has 2+ radial, 2+ carotid, 2+ femoral pulses. She has easy to find Doppler pulses, both dorsalis pedis and posterior tibial bilateral. She has a deep necrotic pressure wound that is very painful on her right medial heel. Her right foot turns in chronically. 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 Her smile is symmetrical. Her tongue protrudes midline.) Psych/Mental Status: Mental status NL, Mood NL MUSCULOSKELETAL: No swelling Vitals VITALS Vital Signs Date Time Temp Pulse Resp B/P (MAP) Pulse Ox O2 Delivery O2 Flow Rate FiO2 02/12/20 11:26 97.9 92 18 168/84 (112) 93 Room Air 97.9 Labs Labs Laboratory Tests Test 02/10/20 13:14 02/11/20 04:40 02/12/20 04:00 Sodium Level 139 mmol/L (136-145) 138 mmol/L (136-145) 140 mmol/L (136-145) Potassium Level 3.2 mmol/L (3.5-5.1) 3.5 mmol/L (3.5-5.1) 3.7 mmol/L (3.5-5.1) Chloride Level 102 mmol/L (98-107) 105 mmol/L (98-107) 109 mmol/L (98-107) Carbon Dioxide Level 25 mmol/L (21-32) 24 mmol/L (21-32) 21 mmol/L (21-32) Anion Gap 12 (6-14) 9 (6-14) 10 (6-14) Blood Urea Nitrogen 40 mg/dL (7-20) 45 mg/dL (7-20) 32 mg/dL (7-20) Creatinine 2.2 mg/dL (0.6-1.0) 2.2 mg/dL (0.6-1.0) 1.4 mg/dL (0.6-1.0) Estimated GFR (Cockcroft-Gault) 26.2 26.2 44.1 BUN/Creatinine Ratio 18 (6-20) 20 (6-20) Glucose Level 121 mg/dL (70-99) 96 mg/dL (70-99) 98 mg/dL (70-99) Calcium Level 8.5 mg/dL (8.5-10.1) 8.7 mg/dL (8.5-10.1) 8.5 mg/dL (8.5-10.1) Total Bilirubin 0.2 mg/dL (0.2-1.0) 0.1 mg/dL (0.2-1.0) Aspartate Amino Transf (AST/SGOT) 19 U/L (15-37) 17 U/L (15-37) Alanine Aminotransferase (ALT/SGPT) 24 U/L (14-59) 17 U/L (14-59) Alkaline Phosphatase 121 U/L (46-116) 109 U/L (46-116) Total Protein 6.8 g/dL (6.4-8.2) 6.2 g/dL (6.4-8.2) Albumin 2.5 g/dL (3.4-5.0) 2.2 g/dL (3.4-5.0) Albumin/Globulin Ratio 0.6 (1.0-1.7) 0.6 (1.0-1.7) White Blood Count 14.1 x10^3/uL (4.0-11.0) 10.4 x10^3/uL (4.0-11.0) Red Blood Count 3.44 x10^6/uL (3.50-5.40) 3.00 x10^6/uL (3.50-5.40) Hemoglobin 8.8 g/dL (12.0-15.5) 7.8 g/dL (12.0-15.5) Hematocrit 28.0 % (36.0-47.0) 24.1 % (36.0-47.0) Mean Corpuscular Volume 81 fL (79-100) 80 fL (79-100) Mean Corpuscular Hemoglobin 26 pg (25-35) 26 pg (25-35) Mean Corpuscular Hemoglobin Concent 32 g/dL (31-37) 33 g/dL (31-37) Red Cell Distribution Width 18.1 % (11.5-14.5) 17.4 % (11.5-14.5) Platelet Count 345 x10^3/uL (140-400) 321 x10^3/uL (140-400) Neutrophils (%) (Auto) 73 % (31-73) 69 % (31-73) Lymphocytes (%) (Auto) 13 % (24-48) 15 % (24-48) Monocytes (%) (Auto) 7 % (0-9) 8 % (0-9) Eosinophils (%) (Auto) 6 % (0-3) 8 % (0-3) Basophils (%) (Auto) 0 % (0-3) 0 % (0-3) Neutrophils # (Auto) 10.3 x10^3/uL (1.8-7.7) 7.2 x10^3/uL (1.8-7.7) Lymphocytes # (Auto) 1.9 x10^3/uL (1.0-4.8) 1.6 x10^3/uL (1.0-4.8) Monocytes # (Auto) 1.0 x10^3/uL (0.0-1.1) 0.8 x10^3/uL (0.0-1.1) Eosinophils # (Auto) 0.9 x10^3/uL (0.0-0.7) 0.8 x10^3/uL (0.0-0.7) Basophils # (Auto) 0.1 x10^3/uL (0.0-0.2) 0.0 x10^3/uL (0.0-0.2) Laboratory Tests Test 02/12/20 04:00 White Blood Count 10.4 x10^3/uL (4.0-11.0) Red Blood Count 3.00 x10^6/uL (3.50-5.40) Hemoglobin 7.8 g/dL (12.0-15.5) Hematocrit 24.1 % (36.0-47.0) Mean Corpuscular Volume 80 fL (79-100) Mean Corpuscular Hemoglobin 26 pg (25-35) Mean Corpuscular Hemoglobin Concent 33 g/dL (31-37) Red Cell Distribution Width 17.4 % (11.5-14.5) Platelet Count 321 x10^3/uL (140-400) Neutrophils (%) (Auto) 69 % (31-73) Lymphocytes (%) (Auto) 15 % (24-48) Monocytes (%) (Auto) 8 % (0-9) Eosinophils (%) (Auto) 8 % (0-3) Basophils (%) (Auto) 0 % (0-3) Neutrophils # (Auto) 7.2 x10^3/uL (1.8-7.7) Lymphocytes # (Auto) 1.6 x10^3/uL (1.0-4.8) Monocytes # (Auto) 0.8 x10^3/uL (0.0-1.1) Eosinophils # (Auto) 0.8 x10^3/uL (0.0-0.7) Basophils # (Auto) 0.0 x10^3/uL (0.0-0.2) Sodium Level 140 mmol/L (136-145) Potassium Level 3.7 mmol/L (3.5-5.1) Chloride Level 109 mmol/L (98-107) Carbon Dioxide Level 21 mmol/L (21-32) Anion Gap 10 (6-14) Blood Urea Nitrogen 32 mg/dL (7-20) Creatinine 1.4 mg/dL (0.6-1.0) Estimated GFR (Cockcroft-Gault) 44.1 Glucose Level 98 mg/dL (70-99) Calcium Level 8.5 mg/dL (8.5-10.1) Assessment/Plan Assessment/Plan 79-year-old diabetic female with a history of peripheral vascular disease, 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 She was admitted on January 09 after a fall at home. She was noted to have an elevated white count and a significant right heel decubitus ulcer. Her records at both and at [place] were reviewed with Dr. Javed and Dr. Landa. We discussed with the patient her results and recommendations for care. Because of her SFA occlusions and her decubitus ulcer to her right heel and because she does not want a below-knee amputation at this time, the plan is for an endovascular abdominal aortic aneurysm repair with [place] along with a right femoral to below-knee popliteal artery bypass with saphenous vein and a right heel debridement and possible wound VAC placement. I specifically discussed with her the possibility that her bypass graft would not stay open since she does not ambulate normally. She will need a preoperative cardiac evaluation and a carotid ultrasound. She is agreeable to proceed. Plan: Continue aspirin and Lipitor daily. Continue IV antibiotics. Will consult infectious disease for more specific antibiotic needs. Will allow her additional time to recover from her infection. Plan for surgery on Monday. STEWART SAMANIEGO APRN Feb 12, 2020 13:44
[2020-02-12] MEDS ORDERED: CEFDINIR 300 MG CAPSULE PO SCH (14:00)
--- NOTE | 2020-02-12 14:40 | PDOC2 ---
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 This is not associated with syncope. She recently had a stroke. Has been feeling weak and has been having swelling and pain to both legs with wound to her heels. 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 She has severe bilateral PAD with SFA occlusions and also has been noted before with large intramural thrombus via infrarenal AAA and was placed on eliquis before. She has significant feet wounds. She was noted recently with 5.6 cm AAA per vascular and consult is for preop cardiac eval. RLE BKA was discussed but pt does not want it. Tentatively AAA repair and LE revascularization is planned next week after sufficient antibiotic treatment. Denies any chest pain or SOA. 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, neurogenic bladder and bowel Cardiovascular: HTN, Hyperlipidemia, Other (AAA with large intramural thrombus; severe PAD with occluded iliac stent) Pulmonary: COPD CENTRAL NERVOUS SYSTEM: Other (spinal infarct) GI: Diverticulosis Heme/Onc: Anemia NOS, Cancer (lung) Psych: No pertinent hx Musculoskeletal: Osteoarthritis, Other (recent multiple falls) ENT: Sincusitis, Allergic Rhinitis, Other (GAMBELL) Renal/: UTI, Other (renal cysts) Endocrine: Diabetes (?) Dermatology: Other (heel wounds) PAST SURGICAL HISTORY Past Surgical History: Hysterectomy, Other (iliac stent, right thoracotomy and lobectomy, oral surgery) FAMILY HISTORY Family History: Coronary Artery Disease SOCIAL HISTORY Smoke: Quit ALCOHOL: none Drugs: None Lives: Alone CURRENT MEDICATIONS CURRENT MEDICATIONS Current Medications Medications (Trade) Dose Ordered Sig/Isabel Route PRN Reason Start Time Stop Time Status Last Admin Dose Admin Aspirin (Dre Aspirin) 325 mg DAILYWBKFT PO 02/12/20 08:00 02/12/20 09:16 ALLERGIES ALLERGIES: Coded Allergies: Penicillins (Verified Allergy, Intermediate, 02/09/20) tolerates ceftriaxone tramadol (Verified Allergy, Intermediate, 02/09/20) ROS Review of System 14 point ROS evaluated with pertinent positives noted per HPI PHYSICAL EXAM General: Alert, Oriented X3, Cooperative, No acute distress HEENT: Atraumatic, Mucous membr. moist/pink Lungs: Clear to auscultation, Normal air movement Heart: Regular rate, Normal S1, Normal S2, Other (3/6 systolic murmur to LLS border) Abdomen: Soft, No tenderness Extremities: No cyanosis, No edema Skin: Other (right heal ulcer) Neuro: Normal speech, Sensation intact MUSCULOSKELETAL: Osteoarthritic changes both hands, Other (paraplegia with atrophic LE) VITALS/I&O VITALS/I&O: Vital Signs Date Time Temp Pulse Resp B/P (MAP) Pulse Ox O2 Delivery O2 Flow Rate FiO2 02/12/20 11:26 97.9 92 18 168/84 (112) 93 Room Air 97.9 I & O 02/11/20 02/11/20 02/12/20 15:00 23:00 07:00 Intake Total 480 ml 410 ml 250 ml Output Total 550 ml 1800 ml Balance 480 ml -140 ml -1550 ml LABS Lab: Laboratory Tests Test 02/12/20 04:00 White Blood Count 10.4 x10^3/uL (4.0-11.0) Red Blood Count 3.00 x10^6/uL (3.50-5.40) L Hemoglobin 7.8 g/dL (12.0-15.5) L Hematocrit 24.1 % (36.0-47.0) L Mean Corpuscular Volume 80 fL (79-100) Mean Corpuscular Hemoglobin 26 pg (25-35) Mean Corpuscular Hemoglobin Concent 33 g/dL (31-37) Red Cell Distribution Width 17.4 % (11.5-14.5) H Platelet Count 321 x10^3/uL (140-400) Neutrophils (%) (Auto) 69 % (31-73) Lymphocytes (%) (Auto) 15 % (24-48) L Monocytes (%) (Auto) 8 % (0-9) Eosinophils (%) (Auto) 8 % (0-3) H Basophils (%) (Auto) 0 % (0-3) Neutrophils # (Auto) 7.2 x10^3/uL (1.8-7.7) Lymphocytes # (Auto) 1.6 x10^3/uL (1.0-4.8) Monocytes # (Auto) 0.8 x10^3/uL (0.0-1.1) Eosinophils # (Auto) 0.8 x10^3/uL (0.0-0.7) H Basophils # (Auto) 0.0 x10^3/uL (0.0-0.2) Sodium Level 140 mmol/L (136-145) Potassium Level 3.7 mmol/L (3.5-5.1) Chloride Level 109 mmol/L (98-107) H Carbon Dioxide Level 21 mmol/L (21-32) Anion Gap 10 (6-14) Blood Urea Nitrogen 32 mg/dL (7-20) H Creatinine 1.4 mg/dL (0.6-1.0) H Estimated GFR (Cockcroft-Gault) 44.1 Glucose Level 98 mg/dL (70-99) Calcium Level 8.5 mg/dL (8.5-10.1) Laboratory Tests 02/12/20 04:00 Laboratory Tests 02/12/20 04:00 IMAGES IMAGES [facility] CT 1. No significant change in size of infrarenal abdominal aortic aneurysm measuring up to 4.0 cm in greatest AP dimension. Large amount of intramural thrombus within the aneurysm sac is also unchanged. 2. 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 3. Bilateral internal iliac artery occlusion and left SFA stent occlusion. 4. Unchanged bilateral adrenal gland thickening, which may represent adrenal hyperplasia. 5. Mild distal colonic diverticulosis 01/08/2020 ECHOCARDIOGRAM ECHOCARDIOGRAM <Conclusion> The left ventricular systolic function is normal. The Ejection Fraction is 55-60%. There is normal LV segmental wall motion. Transmitral Doppler flow pattern is Grade I-abnormal relaxation pattern. Trace tricuspid regurgitation with an estimated PAP of 26 mmHg. There is no evidence of significant pericardial effusion. DATE: 05/02/19 1419 STRESS TEST STRESS TEST [facility] 08/02/2019 FINDINGS: Pharmacological Stress Electrocardiogram: The patient's resting heart rate was 73 bpm and the resting blood pressure was 133/80. The patients peak stress heart rate was 82 bpm and the peak stress blood pressure was 109/70. With regadenoson stress the patient noted shortness of air reversed with 50 mg of IV Aminophyllin. Baseline electrocardiogram shows normal sinus rhythm with voltage criteria for left ventricular hypertrophy. Under regadenoson stress there are no diagnostic changes and no ectopy. Conclusion: This is a nonischemic regadenoson stress electrocardiogram. Clijgusbx-yz-Nlstujrgdh Count Ratio: 0.37 (normal = or < 0.52). Scintigraphic Findings: TID Ratio: 1.05 (normal <1.36). Summed Stress Score: 0 , Summed Rest Score: 0 Post-rest projection and tomographic reconstructions in the supine and upright position show normal lung uptake no transit dilatation. Tomography using linear grayscale analysis in the upright supine image datasets shows no fixed or reversible perfusion abnormality. Quantitative polar maps are statistically normal in both upright and supine image datasets. Regional Wall Thickening and Motion Post Stress: No definite thickening or motion abnormality. Left Ventricular Ejection Fraction = 75 %. Left Ventricular End Diastolic Volume: 54 mL SUMMARY/OPINION: This study is normal. No definite perfusion defects are present. All segments are definitely viable. Global left ventricular function is within normal limits. High risk indicators are not noted. In aggregate the current study is low risk in regards to predicted annual cardiovascular mortality rate. ASSESSMENT/PLAN ASSESSMENT/PLAN 1. AAA with severe bilateral PAD: 5.6 cm endovascular repair with LE bypass next week per vascular surgery 2. Bilateral heel ulcers: significant to right per wound care team 3. 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 HTN: labile episodes 5. HLP 6. YOLA possibly on CKD: Cr now down 1.4 per PCP 7. UTI 8. DM2? 9. Normocytic anemia: Hgb 7.8 Recommendations 1. High risk for perioperative CV events. Will obtain TTE. Recent MPI reviewed and noted nonischemic as noted above 2. ASA, lipitor. Restart home norvasc. hold ARB. Will adjust per BP trend.. Metoprolol IV PRN for tachyarrhythmias. 3. Will need transfusion prior to surgery, defer to vascular. AMY GARCIA MD 02/12/20 9702: CARDIAC CONSULT Attending Co-Sign The patient was seen and interviewed as well as examined at the bedside. The chart was reviewed. The case was discussed. Agree with the plan of care. MIAH ELIAS APRN Feb 12, 2020 14:40 AMY GARCIA MD Feb 12, 2020 22:55
[2020-02-12] MEDS ORDERED: METOPROLOL TARTRATE 5 MG/5 ML VIAL. IVP PRN (14:45)
--- NOTE | 2020-02-12 15:09 | RAD ---
Examination: DOPPLER CAROTID BILAT History: Reason: preop evaluation / Spl. Instructions: / History: Comparison study: None available. Findings: The common, internal and external carotid arteries were examined by grayscale, color and spectral Doppler ultrasound. There is no evidence of atherosclerotic disease or significant stenosis in the visualized vessels. Calcific plaque is noted involving the right carotid bulb and internal carotid artery. Mild intimal thickening involving the right common carotid artery seen. Partially calcific involvement of the left carotid bulb noted. No significant stenotic findings on grayscale imaging. Flow in both vertebral arteries was antegrade and normal. Spectral waveforms bilaterally are within normal limits. The following are the velocities and ratios in the carotid arteries on both sides: RIGHT ICA PV: 61 cm/sec RIGHT CCA PV: 81 cm/sec RIGHT ICA ED: 20 cm/sec RIGHT IC/CCPV: 0.86 RIGHT VERTEBRAL: antegrade flow LEFT ICA PV: 96 cm/sec LEFT CCA PV: 114 cm/sec LEFT ICA ED: 23 cm/sec LEFT IC/CCPV: 1.1 LEFT VERTEBRAL: antegrade flow <50% ICA Stenosis: PSV < 125cm/s (EDV < 40cm/s; SVR < 2.0) 50-69% ICA Stenosis: PSV < 125-229cm/s (EDV 40-99cm/s; SVR 2.0-3.9) >70% ICA Stenosis: PSV > 230cm/s (EDV >100cm/s; SVR >4.0) Impression: No hemodynamic stenosis. PQRS Compliance Statement - Stenosis calculations for CT, MR and conventional angiography are based upon measurement of the distal ICA diameter in accordance with the NASCET methodology. Stenosis calculations for carotid ultrasound studies are derived from validated velocity criteria which are known to correlate with the NASCET methodology. Electronically signed by: Juanjo Plunkett MD (02/12/2020 3:06 PM) [id number]
--- NOTE | 2020-02-12 15:14 | RAD ---
Examination: VEIN MAPPING LOWER EXT BILAT History: Reason: PRE-OP / Spl. Instructions: / History: Comparison/Correlation: None Findings: Bilateral lower extremity venous mapping was performed. Right great saphenous vein at the femoral venous junction has a diameter 0.63. Proximal right greater saphenous vein has a diameter of 0.46 cm. Diameters are 0.4 cm and 0.43 cm the mid to distal thigh level. At the proximal calf to mid calf levels, diameters are 0.37 cm to 0.38 cm. Distal right great saphenous vein diameter 0.3 cm seen. Right lesser saphenous vein diameters range from 0.27 cm to 0.31 cm. Left great saphenous vein diameter at the femoral venous junction is 0.69 cm. Within the left thigh, diameters range from 0.50 cm up to 0.55 cm superiorly. At the knee level, diameter of 0.45 cm seen. At the calf level, diameters range from 0.27 cm to 0.34 cm at the superior aspect. The left lesser saphenous vein has a diameter 0.1 to 0.13 cm. No thrombus identified involving the visualized saphenous veins. Impression: Bilateral lower extremity venous mapping. No thrombus involving the visualized saphenous veins. Electronically signed by: Juanjo Plunkett MD (02/12/2020 3:11 PM) [id number]
[2020-02-12] MEDS: CEFEPIME HCL IV Push 1 GM VIAL. IVP SCH ×2 (16:05→22:46)
[2020-02-12] MEDS: DAPTOMYCIN IV SCH (16:05)
[2020-02-12] MEDS: NORMAL SALINE IV SCH (16:05)
--- NOTE | 2020-02-12 17:29 | CARD ---
MR#: [id number] Date of Study: 02/12/2020 Ordering Physician: MIAH ELIAS, Referring Physician: MIAH ELIAS, Tech: Joslyn Medina [facility] APPROVED REPORT EXAM: Two-dimensional and M-mode echocardiogram with Doppler and color Doppler. Other Information Quality : Good INDICATION Pre-Op 2D DIMENSIONS RVDd1.7 (2.9-3.5cm)Left Atrium(2D)3.0 (1.6-4.0cm) IVSd1.0 (0.7-1.1cm)Aortic Root(2D)2.8 (2.0-3.7cm) LVDd4.2 (3.9-5.9cm)LVOT Diameter2.0 (1.8-2.4cm) PWd1.0 (0.7-1.1cm)LVDs2.4 (2.5-4.0cm) FS (%) 30.0 %SV59.8 ml LVEF(%)60.0 (>50%) Aortic Valve AoV Peak Surjit.134.4cm/sAoV VTI24.2cm AO Peak GR.7.2mmHgLVOT VTI 25.12cm AO Mean GR.4mmHgAVA (VTI)3.20cm2 Mitral Valve MV E Cibsbgew55.8cm/sMV DECEL AWDE641if MV A Mxercvzy803.9cm/sE/A Ratio0.8 TDI Lateral E' P. V6.56cm/sMedial E' P. V5.79cm/s E/Lateral E'14.5E/Medial E'16.4 Tricuspid Valve TR P. Cjlegyxi707zw/sRAP GXLKHHSM6oiVl TR Peak Gr.46irWcGQWF29dpCj LEFT VENTRICLE The left ventricle is normal size. There is normal left ventricular wall thickness. The left ventricu lar systolic function is normal and the ejection fraction is within normal range. The Ejection Fracti on is 60-65%. There is normal LV segmental wall motion. Transmitral Doppler flow pattern is Grade I-a bnormal relaxation pattern. RIGHT VENTRICLE The right ventricle is normal size. The right ventricular systolic function is normal. ATRIA The left atrium size is normal. The right atrium size is normal. The interatrial septum is intact wit h no evidence for an atrial septal defect or patent foramen ovale as noted on 2-D or Doppler imaging. AORTIC VALVE The aortic valve is mildly thickened but opens well. Doppler and Color Flow revealed no significant a ortic regurgitation. There is no significant aortic valvular stenosis. MITRAL VALVE The mitral valve is mildly thickened but opens well. There is no evidence of mitral valve prolapse. T here is no mitral valve stenosis. Doppler and Color-flow revealed trace mitral regurgitation. TRICUSPID VALVE The tricuspid valve is normal in structure and function. Doppler and Color Flow revealed mild tricusp id regurgitation. There is mild pulmonary hypertension. The PA pressure was estimated at 41 mmHg. The re is no tricuspid valve stenosis. PULMONIC VALVE The pulmonic valve is not well visualized. Doppler and Color Flow revealed no pulmonic valvular regur gitation. There is no pulmonic valvular stenosis. GREAT VESSELS The aortic root is normal in size. The ascending aorta is not well seen. The IVC is dilated and colla pses <50% with inspiration. PERICARDIAL EFFUSION There is no evidence of significant pericardial effusion. Critical Notification Critical Value: No <Conclusion> The left ventricular systolic function is normal and the ejection fraction is within normal range. Th e Ejection Fraction is 60-65%. There is normal LV segmental wall motion. Doppler and Color Flow revealed mild tricuspid regurgitation. There is mild pulmonary hypertension. T he PA pressure was estimated at 41 mmHg. Signed by : Sergio Swan, Electronically Approved : 02/12/2020 17:28:24
--- NOTE | 2020-02-12 18:06 | PDOC ---
Progress Note: Patient seen bedside eating dinner. She denies nausea, vomitting, fever, chills. she is applying pillow to ankles to offload heels and is in a decubitus mattress Physical exam: General: NAD, alert. Lower extremity: note full thickness ulceration to left heel with fibrotic/necrotic base. non palpable pedal pulses. positive pain with palpation or range of motion of digits. sensation intact to light touch and sharp dull Arterial doppler: note bilateral SFA occlusions with reconstituion of flow in the popliteal arteries likely via collateral. Monophasic waveforms in both distal lower extremities. A/P: 79 year old female with PVD, decubitus ulceration right heel -Await further vascular intervention scheduled Monday -Continue strict decubitus precautions -Recommend PRAFO offload boot to right lower extremity -Continue local wound care per wound care team - Follow up as outpatient with wound care or myself for continued decubitus ulceration wound care - Otherwise follow up in 10-12 weeks in my office for palliative foot care as patient is at high risk for limb loss due to her PVD - Will sign off Justicifation of Admission Dx: Justifications for Admission: Justification of Admission Dx: Yes Sepsis: Infection Nutrition Consultation Dietary Evaluation: Recommendations by RD: Dietary education by RD, Increase Calorie Intake, Protein supplementation Comments: cardiac diet with ensure enlive bid homar bid REC mvi q day per wound protocal Expected Outcomes/Goals: to meet >75% est nutr needs improved wound status Malnutrition Findings: Body Fat Depletion (Non Severe: Mod to Severe Weight Status: Underweight ELGIN MATSON DPM Feb 12, 2020 18:06
--- NOTE | 2020-02-12 19:55 | NUR ---
Patient c/o SOA during Dr. Swan's rounds this evening. Vital checked; patient's O2 saturation @92% on room air, BP 148/73, HR 97, and RR 18. Verbal orders per MD for stat EKG and 2L O2 placed on patient at this time.
--- NOTE | 2020-02-12 20:24 | EKG ---
[facility] [address] [place] [address] Test Date: 2020-02-12 Test Time: 20:19:24 Pat Name: MILI WEEKS Department: Room: 400 1 Gender: F [employer] Assistant: LYNSEY : 1940 Requested By: AMY GARCIA Order Number: [id number] Reading MD: Measurements Intervals [place] Rate: 90 P: 90 OK: 164 QRS: 1 QRSD: 76 T: 76 QT: 354 QTc: 437 Interpretive Statements SINUS RHYTHM QRS(T) CONTOUR ABNORMALITY CONSISTENT WITH ANTEROSEPTAL INFARCT AGE UNDETERMINED T ABNORMALITY IN HIGH LATERAL LEADS ABNORMAL ECG RI6.02 Compared to ECG 02/09/2020 15:48:55 Myocardial infarct finding now present T-wave abnormality now present Left-axis deviation no longer present Incomplete right bundle-branch block no longer present
--- NOTE | 2020-02-12 21:00 | NUR ---
Results of EKG read to Dr. Dillon; no orders received at this time.
[2020-02-12] MEDS: traZODone 50 MG TABLET. PO SCH (21:51)
[2020-02-12] MEDS: ATORVASTATIN CALCIUM 40 MG TABLET. PO SCH (21:52)
[2020-02-12] MEDS: FAMOTIDINE 20 MG TABLET. PO SCH (21:52)
[2020-02-13 03:00] VITALS: BP 162/82
[2020-02-13 04:42] LABS: BASO % 0 % (0-3); EOS # 0.5 x10^3/uL (0.0-0.7); EOS % 5 % (0-3); HEMATOCRIT 25.9 % (36.0-47.0); HEMOGLOBIN 8.4 g/dL (12.0-15.5); LYMPH # 1.6 x10^3/uL (1.0-4.8); LYMPH % 14 % (24-48); MEAN CORPUSCULAR HEMOGLOBIN 26 pg (25-35); MEAN CORPUSCULAR HGB CONC 32 g/dL (31-37); MEAN CORPUSCULAR VOLUME 80 fL (79-100); MONO # 0.7 x10^3/uL (0.0-1.1); MONO % 6 % (0-9); NEUT # 8.6 x10^3/uL (1.8-7.7); NEUT % 75 % (31-73); PLATELET COUNT 378 x10^3/uL (140-400); RED BLOOD COUNT 3.26 x10^6/uL (3.50-5.40); RED CELL DISTRIBUTION WIDTH 18.2 % (11.5-14.5); WHITE BLOOD COUNT 11.4 x10^3/uL (4.0-11.0)
[2020-02-13 04:54] LABS: CALCIUM 8.5 mg/dL (8.5-10.1); CREATININE 0.9 mg/dL (0.6-1.0); GFR 73.5; POTASSIUM 3.6 mmol/L (3.5-5.1)
[2020-02-13] MEDS: IV NORMAL SALINE 1000ML BAG 1,000 ML IV SCH (06:46)
[2020-02-13 07:00] VITALS: BP 114/63
--- NOTE | 2020-02-13 07:11 | NUR ---
IP: Pt has (R) E.coli with ESBL in urine requiring contact precautions.
[2020-02-13] MEDS: ENOXAPARIN 30 MG/0.3 ML SYRINGE. SQ SCH (08:34)
[2020-02-13] MEDS: DICLOFENAC SODIUM 1% TOPICAL GEL 100GM TUBE. TP SCH ×2 (08:34→21:33)
[2020-02-13] MEDS: amLODIPine BESYLATE 5 MG TABLET PO SCH (08:35)
[2020-02-13] MEDS: BACLOFEN 10 MG TABLET. PO SCH (08:35)
[2020-02-13] MEDS: MULTIVITAMIN with MINERAL TABLET. PO SCH (08:35)
[2020-02-13] MEDS: LACTOBACILLUS RHAMNOSUS GG 1 CAPSULE. PO SCH ×2 (08:35→21:34)
[2020-02-13] MEDS: busPIRone 10 MG TABLET. PO SCH ×3 (08:35→21:33)
[2020-02-13] MEDS: GABAPENTIN 100 MG CAPSULE. PO SCH ×4 (08:35→21:34)
[2020-02-13] MEDS: ASPIRIN 325 MG TABLET PO SCH (08:35)
[2020-02-13] MEDS: CEFEPIME HCL IV Push 1 GM VIAL. IVP SCH (08:36)
--- NOTE | 2020-02-13 08:52 | PDOC ---
PROGRESS NOTES Subjective Subjective no new problems Objective Objective Vital Signs Date Time Temp Pulse Resp B/P (MAP) Pulse Ox O2 Delivery O2 Flow Rate FiO2 02/13/20 08:35 81 114/63 02/13/20 07:00 98.0 16 95 Room Air 98.0 02/12/20 20:00 2.0 Intake and Output 02/13/20 07:00 Intake Total 1790 ml Output Total 3375 ml Balance -1585 ml Intake Oral 740 ml IV Total 1050 ml Output Urine Total 3375 ml Physical Exam Abdomen: Soft, No tenderness Heart: Regular rate, Normal S1, Normal S2, Other (3/6 systolic murmur to LLS border) Extremities: No cyanosis, No edema General: Alert, Oriented X3, Cooperative, No acute distress HEENT: Atraumatic, Mucous membr. moist/pink Lungs: Clear to auscultation, Normal air movement MUSCULOSKELETAL: Osteoarthritic changes both hands, Other (paraplegia with atrophic LE) Neck: No JVD Neuro: Normal speech, Sensation intact Psych/Mental Status: Mental status NL, Mood NL Skin: Other (right heal ulcer) COMMENT yin placed due to bladder retention. Diagnosis Problem List Problems Medical Problems: (1) Heel ulcer Status: Acute (2) Heel ulceration Status: Acute (3) Urinary tract infection Status: Acute (4) Weakness Status: Acute Assessment Assessment Problems Medical Problems: (1) Heel ulcer Status: Acute (2) Heel ulceration Status: Acute (3) Urinary tract infection Status: Acute (4) Weakness Status: Acute FINAL IMPRESSION: 1. Urinary tract infection. 2. 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 3. Chronic obstructive pulmonary disease. 4. Hypertension. 5. Abdominal aortic aneurysm. 6. Peripheral vascular disease. 7. Heel ulcers. 8. General debility. 9. History of lung cancer in the past. 10. General decline. PLAN: E coli uti-ELBS,ID consult.Spoke with Dr Jones Plans for endovascular abdominal aortic aneurysm repair with Carlin along with a right femoral to below-knee popliteal artery bypass with saphenous vein and a right heel debridement and possible wound VAC placement.next monday d/c iv fluids , cr 1.1 down from 2.2 improved with fluids d/c lisinopril sono kidneys no hydronephrosis. pt had yin placed 300 cc urine retained, she has overflow incontinence Abd sono inc seize of AAA ,4x5 cm now, will consult vascular. arterial doppler dec blood flow and some collaterals ct head no bleed ,old lacunar infarcts ct chest , 9 mm left lung nodule inc in seize from 6 months ago wound care consult rehab consult dvt prophalaxis wbc 10 down Plan Plan of Care Problems Medical Problems: (1) Heel ulcer Status: Acute (2) Heel ulceration Status: Acute (3) Urinary tract infection Status: Acute (4) Weakness Status: Acute Comment Review of Relevant I have reviewed the following items dari (where applicable) has been applied. Labs Laboratory Tests Test 02/13/20 03:10 White Blood Count 11.4 x10^3/uL (4.0-11.0) Red Blood Count 3.26 x10^6/uL (3.50-5.40) Hemoglobin 8.4 g/dL (12.0-15.5) Hematocrit 25.9 % (36.0-47.0) Mean Corpuscular Volume 80 fL (79-100) Mean Corpuscular Hemoglobin 26 pg (25-35) Mean Corpuscular Hemoglobin Concent 32 g/dL (31-37) Red Cell Distribution Width 18.2 % (11.5-14.5) Platelet Count 378 x10^3/uL (140-400) Neutrophils (%) (Auto) 75 % (31-73) Lymphocytes (%) (Auto) 14 % (24-48) Monocytes (%) (Auto) 6 % (0-9) Eosinophils (%) (Auto) 5 % (0-3) Basophils (%) (Auto) 0 % (0-3) Neutrophils # (Auto) 8.6 x10^3/uL (1.8-7.7) Lymphocytes # (Auto) 1.6 x10^3/uL (1.0-4.8) Monocytes # (Auto) 0.7 x10^3/uL (0.0-1.1) Eosinophils # (Auto) 0.5 x10^3/uL (0.0-0.7) Basophils # (Auto) 0.0 x10^3/uL (0.0-0.2) Sodium Level 143 mmol/L (136-145) Potassium Level 3.6 mmol/L (3.5-5.1) Chloride Level 110 mmol/L (98-107) Carbon Dioxide Level 23 mmol/L (21-32) Anion Gap 10 (6-14) Blood Urea Nitrogen 17 mg/dL (7-20) Creatinine 0.9 mg/dL (0.6-1.0) Estimated GFR (Cockcroft-Gault) 73.5 Glucose Level 88 mg/dL (70-99) Calcium Level 8.5 mg/dL (8.5-10.1) Microbiology 02/10/20 Blood Culture - Preliminary, Resulted NO GROWTH AFTER 2 DAYS 02/09/20 Urine Culture - Final, Complete 02/09/20 Antimicrobic Susceptibility - Final, Complete Medications Current Medications Cefdinir (Omnicef) 300 mg Q24H PO ; Start 02/12/20 at 14:00; Stop 02/12/20 at 14:12; Status DC Cefepime HCl (Maxipime) 1 gm Q12HR IVP Last administered on 02/13/20at 08:36; Start 02/12/20 at 15:00; Stop 02/13/20 at 08:45; Status DC Daptomycin 270 mg/ Sodium Chloride 50 ml @ 100 mls/hr Q24H IV Last administered on 02/12/20at 16:05; Start 02/12/20 at 15:00 Meropenem 500 mg/ Sodium Chloride 50 ml @ 100 mls/hr Q6HRS IV ; Start 02/13/20 at 08:45; Status UNV Metoprolol Tartrate (Lopressor Vial) 5 mg PRN Q6HRS PRN IVP TACHYCARDIA; Start 02/12/20 at 14:45 Multivitamins (Thera M Plus) 1 tab DAILY PO Last administered on 02/13/20at 08:35; Start 02/13/20 at 09:00 Vitals/I & O Vital Sign - Last 24 Hours 02/12/20 02/12/20 02/12/20 02/12/20 09:16 11:00 11:26 15:00 Temp 97.9 97.9 98.0 97.9 97.9 98.0 Pulse 86 72 92 82 Resp 18 18 18 B/P (MAP) 171/86 158/56 (90) 168/84 (112) 143/76 (98) Pulse Ox 92 93 93 O2 Delivery Room Air Room Air Room Air 7/802/12/20 02/12/20 02/13/20 19:00 20:00 23:00 03:00 Temp 99.9 98.4 98.1 99.9 98.4 98.1 Pulse 109 77 82 Resp 16 16 16 B/P (MAP) 147/81 (103) 127/67 (87) 162/82 (108) Pulse Ox 88 98 98 O2 Delivery Room Air Nasal Cannula Room Air Room Air O2 Flow Rate 2.0 02/13/20 02/13/20 07:00 08:35 Temp 98.0 98.0 Pulse 81 81 Resp 16 B/P (MAP) 114/63 (80) 114/63 Pulse Ox 95 O2 Delivery Room Air Intake and Output 02/12/20 02/12/20 02/13/20 15:00 23:00 07:00 Intake Total 420 ml 1170 ml 200 ml Output Total 1550 ml 1825 ml Balance 420 ml -380 ml -1625 ml Justicifation of Admission Dx: Justifications for Admission: Justification of Admission Dx: Yes Sepsis: Infection Nutrition Consultation Dietary Evaluation: Recommendations by RD: Dietary education by RD, Increase Calorie Intake, Protein supplementation Comments: cardiac diet with ensure enlive bid homar bid REC mvi q day per wound protocal Expected Outcomes/Goals: to meet >75% est nutr needs improved wound status Malnutrition Findings: Body Fat Depletion (Non Severe: Mod to Severe Weight Status: Underweight SANDRA SHABAZZ MD Feb 13, 2020 08:52
[2020-02-13] MEDS: MEROPENEM 500 MG in IV NORMAL SALINE 50ML 50 ML IV SCH ×4 (09:00→23:34)
--- NOTE | 2020-02-13 09:14 | PDOC ---
Infectious Disease Note Vital Sign Vital Signs Vital Signs Date Time Temp Pulse Resp B/P (MAP) Pulse Ox O2 Delivery O2 Flow Rate FiO2 02/13/20 08:35 81 114/63 02/13/20 07:00 98.0 16 95 Room Air 98.0 02/12/20 20:00 2.0 Labs Lab Laboratory Tests Test 02/13/20 03:10 White Blood Count 11.4 x10^3/uL (4.0-11.0) Red Blood Count 3.26 x10^6/uL (3.50-5.40) Hemoglobin 8.4 g/dL (12.0-15.5) Hematocrit 25.9 % (36.0-47.0) Mean Corpuscular Volume 80 fL (79-100) Mean Corpuscular Hemoglobin 26 pg (25-35) Mean Corpuscular Hemoglobin Concent 32 g/dL (31-37) Red Cell Distribution Width 18.2 % (11.5-14.5) Platelet Count 378 x10^3/uL (140-400) Neutrophils (%) (Auto) 75 % (31-73) Lymphocytes (%) (Auto) 14 % (24-48) Monocytes (%) (Auto) 6 % (0-9) Eosinophils (%) (Auto) 5 % (0-3) Basophils (%) (Auto) 0 % (0-3) Neutrophils # (Auto) 8.6 x10^3/uL (1.8-7.7) Lymphocytes # (Auto) 1.6 x10^3/uL (1.0-4.8) Monocytes # (Auto) 0.7 x10^3/uL (0.0-1.1) Eosinophils # (Auto) 0.5 x10^3/uL (0.0-0.7) Basophils # (Auto) 0.0 x10^3/uL (0.0-0.2) Sodium Level 143 mmol/L (136-145) Potassium Level 3.6 mmol/L (3.5-5.1) Chloride Level 110 mmol/L (98-107) Carbon Dioxide Level 23 mmol/L (21-32) Anion Gap 10 (6-14) Blood Urea Nitrogen 17 mg/dL (7-20) Creatinine 0.9 mg/dL (0.6-1.0) Estimated GFR (Cockcroft-Gault) 73.5 Glucose Level 88 mg/dL (70-99) Calcium Level 8.5 mg/dL (8.5-10.1) Micro Microbiology 02/10/20 Blood Culture - Preliminary, Resulted NO GROWTH AFTER 2 DAYS 02/09/20 Urine Culture - Final, Complete 02/09/20 Antimicrobic Susceptibility - Final, Complete Objective Assessment Leukocyosis YOLA - better ESBL UTI 02/08 - POA PCN allergy - Local swelling post Im injection AAA - repair planned 02/17 Severe PAD - bypass planned 02/17 R Heel wound I and D planned 02/17 sinus congestion Plan Plan of Care Consulted 02/11 - d/w pharmacy - ecoli Identified but no sensitivity until this a m. Cefepime initially started 02/11 but with ESBL will change to Meropenem Cont Dapto with heel wound F/u labs Local wound care per Vascular Thank you D/w Dr. Elkins # [id number] RAYNE TORO MD Feb 13, 2020 09:13
--- NOTE | 2020-02-13 10:01 | PDOC ---
PROGRESS NOTES Subjective Subjective No new complaints. Objective Objective Vital Signs Date Time Temp Pulse Resp B/P (MAP) Pulse Ox O2 Delivery O2 Flow Rate FiO2 02/13/20 08:35 81 114/63 02/13/20 07:00 98.0 16 95 Room Air 98.0 02/12/20 20:00 2.0 Intake and Output 02/13/20 07:00 Intake Total 1790 ml Output Total 3375 ml Balance -1585 ml Intake Oral 740 ml IV Total 1050 ml Output Urine Total 3375 ml Physical Exam Physical Exam She is sitting in bed and seems to be comfortable and no change with her neurological status. Assessment Assessment Problems Medical Problems: (1) Heel ulcer Status: Acute (2) Heel ulceration Status: Acute (3) Urinary tract infection Status: Acute (4) Weakness Status: Acute Plan Plan of Care Agree with plans for AAA repair when medically stable. Comment Review of Relevant I have reviewed the following items dari (where applicable) has been applied. Labs Laboratory Tests Test 02/12/20 04:00 02/13/20 03:10 White Blood Count 10.4 x10^3/uL (4.0-11.0) 11.4 x10^3/uL (4.0-11.0) Red Blood Count 3.00 x10^6/uL (3.50-5.40) 3.26 x10^6/uL (3.50-5.40) Hemoglobin 7.8 g/dL (12.0-15.5) 8.4 g/dL (12.0-15.5) Hematocrit 24.1 % (36.0-47.0) 25.9 % (36.0-47.0) Mean Corpuscular Volume 80 fL (79-100) 80 fL (79-100) Mean Corpuscular Hemoglobin 26 pg (25-35) 26 pg (25-35) Mean Corpuscular Hemoglobin Concent 33 g/dL (31-37) 32 g/dL (31-37) Red Cell Distribution Width 17.4 % (11.5-14.5) 18.2 % (11.5-14.5) Platelet Count 321 x10^3/uL (140-400) 378 x10^3/uL (140-400) Neutrophils (%) (Auto) 69 % (31-73) 75 % (31-73) Lymphocytes (%) (Auto) 15 % (24-48) 14 % (24-48) Monocytes (%) (Auto) 8 % (0-9) 6 % (0-9) Eosinophils (%) (Auto) 8 % (0-3) 5 % (0-3) Basophils (%) (Auto) 0 % (0-3) 0 % (0-3) Neutrophils # (Auto) 7.2 x10^3/uL (1.8-7.7) 8.6 x10^3/uL (1.8-7.7) Lymphocytes # (Auto) 1.6 x10^3/uL (1.0-4.8) 1.6 x10^3/uL (1.0-4.8) Monocytes # (Auto) 0.8 x10^3/uL (0.0-1.1) 0.7 x10^3/uL (0.0-1.1) Eosinophils # (Auto) 0.8 x10^3/uL (0.0-0.7) 0.5 x10^3/uL (0.0-0.7) Basophils # (Auto) 0.0 x10^3/uL (0.0-0.2) 0.0 x10^3/uL (0.0-0.2) Sodium Level 140 mmol/L (136-145) 143 mmol/L (136-145) Potassium Level 3.7 mmol/L (3.5-5.1) 3.6 mmol/L (3.5-5.1) Chloride Level 109 mmol/L (98-107) 110 mmol/L (98-107) Carbon Dioxide Level 21 mmol/L (21-32) 23 mmol/L (21-32) Anion Gap 10 (6-14) 10 (6-14) Blood Urea Nitrogen 32 mg/dL (7-20) 17 mg/dL (7-20) Creatinine 1.4 mg/dL (0.6-1.0) 0.9 mg/dL (0.6-1.0) Estimated GFR (Cockcroft-Gault) 44.1 73.5 Glucose Level 98 mg/dL (70-99) 88 mg/dL (70-99) Calcium Level 8.5 mg/dL (8.5-10.1) 8.5 mg/dL (8.5-10.1) Creatine Kinase 54 U/L (26-192) Laboratory Tests Test 02/13/20 03:10 White Blood Count 11.4 x10^3/uL (4.0-11.0) Red Blood Count 3.26 x10^6/uL (3.50-5.40) Hemoglobin 8.4 g/dL (12.0-15.5) Hematocrit 25.9 % (36.0-47.0) Mean Corpuscular Volume 80 fL (79-100) Mean Corpuscular Hemoglobin 26 pg (25-35) Mean Corpuscular Hemoglobin Concent 32 g/dL (31-37) Red Cell Distribution Width 18.2 % (11.5-14.5) Platelet Count 378 x10^3/uL (140-400) Neutrophils (%) (Auto) 75 % (31-73) Lymphocytes (%) (Auto) 14 % (24-48) Monocytes (%) (Auto) 6 % (0-9) Eosinophils (%) (Auto) 5 % (0-3) Basophils (%) (Auto) 0 % (0-3) Neutrophils # (Auto) 8.6 x10^3/uL (1.8-7.7) Lymphocytes # (Auto) 1.6 x10^3/uL (1.0-4.8) Monocytes # (Auto) 0.7 x10^3/uL (0.0-1.1) Eosinophils # (Auto) 0.5 x10^3/uL (0.0-0.7) Basophils # (Auto) 0.0 x10^3/uL (0.0-0.2) Sodium Level 143 mmol/L (136-145) Potassium Level 3.6 mmol/L (3.5-5.1) Chloride Level 110 mmol/L (98-107) Carbon Dioxide Level 23 mmol/L (21-32) Anion Gap 10 (6-14) Blood Urea Nitrogen 17 mg/dL (7-20) Creatinine 0.9 mg/dL (0.6-1.0) Estimated GFR (Cockcroft-Gault) 73.5 Glucose Level 88 mg/dL (70-99) Calcium Level 8.5 mg/dL (8.5-10.1) Creatine Kinase 54 U/L (26-192) Microbiology 02/10/20 Blood Culture - Preliminary, Resulted NO GROWTH AFTER 2 DAYS 02/09/20 Urine Culture - Final, Complete 02/09/20 Antimicrobic Susceptibility - Final, Complete Medications Current Medications Fentanyl Citrate (Fentanyl 2ml Vial) 50 mcg 1X ONCE IV Last administered on 02/09/20 15:38; Start 02/09/20 at 15:30; Stop 02/09/20 at 15:31; Status DC Ondansetron HCl (Zofran) 4 mg 1X ONCE IV Last administered on 02/09/20at 15:37; Start 02/09/20 at 15:30; Stop 02/09/20 at 15:31; Status DC Trimethoprim/ Sulfamethoxazole (Bactrim Ds) 1 tab 1X ONCE PO Last administered on 02/09/20at 18:33; Start 02/09/20 at 18:30; Stop 02/09/20 at 18:31; Status DC Ceftriaxone Sodium (Rocephin) 1 gm Q24H IVP Last administered on 02/11/20at 21:01; Start 02/09/20 at 21:00; Stop 02/12/20 at 13:00; Status DC Acetaminophen/ Hydrocodone Bitart (Lortab 7.5/325) 1 tab PRN Q4HRS PRN PO MODERATE PAIN 4-6 Last administered on 02/11/20at 23:27; Start 02/09/20 at 21:30 Acetaminophen (Tylenol) 650 mg PRN Q6HRS PRN PO MILD PAIN 1-3; Start 02/09/20 at 21:30 Amlodipine Besylate (Norvasc) 5 mg DAILY PO Last administered on 02/13/20at 08 :35; Start 02/10/20 at 09:00 Atorvastatin Calcium (Lipitor) 40 mg QHS PO Last administered on 02/12/20 21:52; Start 02/09/20 at 23:00 Buspirone HCl (Buspar) 10 mg TID PO Last administered on 02/13/20at 08:35; Start 02/09/20 at 23:00 Diclofenac Sodium (Voltaren) 1 yesika BID TP Last administered on 02/13/20 08:34; Start 02/09/20 at 23:00 Famotidine (Pepcid) 20 mg QHS PO Last administered on 02/12/20 21:52; Start 02/09/20 at 23:00 Gabapentin (Neurontin) 100 mg QID PO Last administered on 02/13/20 08:35; Start 02/09/20 at 23:00 Lisinopril (Prinivil) 20 mg DAILY PO Last administered on 02/10/20 09:44; Start 02/10/20 at 09:00; Stop 02/10/20 at 16:24; Status DC Ondansetron HCl (Zofran Odt) 4 mg PRN BID PRN PO NAUSEA 1ST CHOICE; Start 02/09/20 at 22:15 Trazodone HCl (Desyrel) 50 mg HS PO Last administered on 02/12/20 21:51; Start 02/09/20 at 23:00 Baclofen (Lioresal) 5 mg DAILY PO Last administered on 02/13/20 08:35; Start 02/10/20 at 09:00 Ceftriaxone Sodium (Rocephin) 1 gm Q24H IVP ; Start 02/10/20 at 11:00; Status UNV Lactobacillus Rhamnosus (Culturelle) 1 cap BID PO Last administered on 02/13/20 08:35; Start 02/10/20 at 21:00 Sodium Chloride 1,000 ml @ 100 mls/hr Q10H IV Last administered on 02/13/20 06:46; Start 02/10/20 at 17:00; Stop 02/13/20 at 08:54; Status DC Potassium Chloride (Klor-Con) 40 meq 1X ONCE PO Last administered on 02/10/20at 17:37; Start 02/10/20 at 17:00; Stop 02/10/20 at 17:01; Status DC Enoxaparin Sodium (Lovenox 30mg Syringe) 30 mg Q24H SQ Last administered on 02/13/20 08:34; Start 02/11/20 at 10:00 Aspirin ([employer] Aspirin) 325 mg 1X ONCE PO Last administered on 02/11/20at 11:52; Start 02/11/20 at 10:00; Stop 02/11/20 at 10:01; Status DC Aspirin (Dre Aspirin) 325 mg DAILYWBKFT PO Last administered on 02/13/20 08:35; Start 02/12/20 at 08:00 Cefdinir (Omnicef) 300 mg Q24H PO ; Start 02/12/20 at 14:00; Stop 02/12/20 at 14:12; Status DC Daptomycin 270 mg/ Sodium Chloride 50 ml @ 100 mls/hr Q24H IV Last administered on 02/12/20at 16:05; Start 02/12/20 at 15:00 Cefepime HCl (Maxipime) 1 gm Q12HR IVP Last administered on 02/13/20at 08:36; Start 02/12/20 at 15:00; Stop 02/13/20 at 08:45; Status DC Metoprolol Tartrate (Lopressor Vial) 5 mg PRN Q6HRS PRN IVP TACHYCARDIA; Start 02/12/20 at 14:45 Multivitamins (Thera M Plus) 1 tab DAILY PO Last administered on 02/13/20at 08:35; Start 02/13/20 at 09:00 Meropenem 500 mg/ Sodium Chloride 50 ml @ 100 mls/hr Q6HRS IV ; Start 02/13/20 at 09:00 Active Scripts Active Collison 5-325 Tablet (Acetaminophen/Hydrocodone Bitart) 1 Each Tablet 1-2 Tab PO Q4-6HRS 2 Days Reported Trazodone Hcl 50 Mg Tablet 50 Mg PO HS Ondansetron Odt (Ondansetron) 4 Mg Tab.rapdis 4 Mg PO PRN BID PRN Atorvastatin Calcium 40 Mg Tablet 40 Mg PO DAILY Baclofen 5 Mg Tablet 5 Mg PO DAILY Gabapentin 100 Mg Capsule 100 Mg PO QID Diclofenac Sodium 100 Gm Gel..gram. 1 Yesika TOP BID Buspirone Hcl 10 Mg Tablet 10 Mg PO TID Famotidine 20 Mg Tablet 20 Mg PO BID Lisinopril 20 Mg Tablet 20 Mg PO DAILY Amlodipine Besylate 5 Mg Tablet 5 Mg PO DAILY Vitals/I & O Vital Sign - Last 24 Hours 02/12/20 02/12/20 02/12/20 02/12/20 11:00 11:26 15:00 19:00 Temp 97.9 97.9 98.0 99.9 97.9 97.9 98.0 99.9 Pulse 72 92 82 109 Resp 18 18 18 16 B/P (MAP) 158/56 (90) 168/84 (112) 143/76 (98) 147/81 (103) Pulse Ox 92 93 93 88 O2 Delivery Room Air Room Air Room Air Room Air 02/12/20 02/12/20 02/13/20 02/13/20 20:00 23:00 03:00 07:00 Temp 98.4 98.1 98.0 98.4 98.1 98.0 Pulse 77 82 81 Resp 16 16 16 B/P (MAP) 127/67 (87) 162/82 (108) 114/63 (80) Pulse Ox 98 98 95 O2 Delivery Nasal Cannula Room Air Room Air Room Air O2 Flow Rate 2.0 02/13/20 08:35 Pulse 81 B/P (MAP) 114/63 Intake and Output 02/12/20 02/12/20 02/13/20 15:00 23:00 07:00 Intake Total 420 ml 1170 ml 200 ml Output Total 1550 ml 1825 ml Balance 420 ml -380 ml -1625 ml Justicifation of Admission Dx: Justifications for Admission: Justification of Admission Dx: Yes Sepsis: Infection Nutrition Consultation Dietary Evaluation: Recommendations by RD: Dietary education by RD, Increase Calorie Intake, Protein supplementation Comments: cardiac diet with ensure enlive bid homar bid mvi q day per wound protocal Expected Outcomes/Goals: to meet >75% est nutr needs improved wound status Malnutrition Findings: Body Fat Depletion (Non Severe: Mod to Severe Weight Status: Underweight RIYA SHARP MD Feb 13, 2020 10:01
--- NOTE | 2020-02-13 10:19 | NUR ---
[employer] entered patients room for morning medications, patient stated that she needed ice water. Told patient I could bring her water once I was finished with her medications since she was in isolation and I was gowned up. Patient is to have Voltren gel, asked patient if she needed help with the gel she stated yes, then I proceed to ask her where she stated "her legs". Then I question where at on her legs, patient proceed to throw her blankets, and stated why do I need to repeat myself to you. Stated to patient I was just needing to know what part of her leg so I could put the gel on her. Patient continued verbal with life insurance underwriter, stated to patient theres no reason to rube that Im trying to help her. Then she stated well I don't like people like you. I applied gel to her bilateral lower legs. Left room and her a water and asked her if she needed anything else at this time she stated no. About 30 minutes after leaving her room PT/OT was working with patient and request to see nurse tumblers supervisor. ANTONELLA Mccabe went to see patient and patient requested a new nurse.
[2020-02-13 11:00] VITALS: BP 154/92
--- NOTE | 2020-02-13 11:39 | PDOC ---
MIAH ELIAS INVENTORY WORKER 02/13/20 1139: CARDIO Progress Notes Date and Time Date of Service 02/13/2020 Time of Evaluation 0940 Subjective Subjective: No Chest Pain, No shortness of breath, No Palpitations, Other (feels depressed) Vitals Vitals Vital Signs Date Time Temp Pulse Resp B/P (MAP) Pulse Ox O2 Delivery O2 Flow Rate FiO2 02/13/20 11:00 98.0 84 16 154/92 (112) 95 Room Air 98.0 02/12/20 20:00 2.0 Weight Weight [ ] Input and Output Intake and Output Intake and Output 02/13/20 07:00 Intake Total 1790 ml Output Total 3375 ml Balance -1585 ml Intake Oral 740 ml IV Total 1050 ml Output Urine Total 3375 ml Laboratory Labs Laboratory Tests Test 02/13/20 03:10 White Blood Count 11.4 x10^3/uL (4.0-11.0) Red Blood Count 3.26 x10^6/uL (3.50-5.40) Hemoglobin 8.4 g/dL (12.0-15.5) Hematocrit 25.9 % (36.0-47.0) Mean Corpuscular Volume 80 fL (79-100) Mean Corpuscular Hemoglobin 26 pg (25-35) Mean Corpuscular Hemoglobin Concent 32 g/dL (31-37) Red Cell Distribution Width 18.2 % (11.5-14.5) Platelet Count 378 x10^3/uL (140-400) Neutrophils (%) (Auto) 75 % (31-73) Lymphocytes (%) (Auto) 14 % (24-48) Monocytes (%) (Auto) 6 % (0-9) Eosinophils (%) (Auto) 5 % (0-3) Basophils (%) (Auto) 0 % (0-3) Neutrophils # (Auto) 8.6 x10^3/uL (1.8-7.7) Lymphocytes # (Auto) 1.6 x10^3/uL (1.0-4.8) Monocytes # (Auto) 0.7 x10^3/uL (0.0-1.1) Eosinophils # (Auto) 0.5 x10^3/uL (0.0-0.7) Basophils # (Auto) 0.0 x10^3/uL (0.0-0.2) Sodium Level 143 mmol/L (136-145) Potassium Level 3.6 mmol/L (3.5-5.1) Chloride Level 110 mmol/L (98-107) Carbon Dioxide Level 23 mmol/L (21-32) Anion Gap 10 (6-14) Blood Urea Nitrogen 17 mg/dL (7-20) Creatinine 0.9 mg/dL (0.6-1.0) Estimated GFR (Cockcroft-Gault) 73.5 Glucose Level 88 mg/dL (70-99) Calcium Level 8.5 mg/dL (8.5-10.1) Creatine Kinase 54 U/L (26-192) Microbiology Micro Microbiology 02/10/20 Blood Culture - Preliminary, Resulted NO GROWTH AFTER 2 DAYS 02/09/20 Urine Culture - Final, Complete 02/09/20 Antimicrobic Susceptibility - Final, Complete Physical Exam HEENT: Neck Supple W Full Motion Chest: Symmetric LUNGS: Clear to Auscultation Heart: S1S2, RRR Abdomen: Soft N/T Extremities: Other (paraplegic with atrophic legs; large right heel ulcer) Neurology: alert, oriented, follow commands Assessment Assessment 1. AAA with severe bilateral PAD: 5.6 cm endovascular repair with LE bypass next week per vascular surgery 2. Bilateral heel ulcers: significant to right per wound care team 3. 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 HTN: controlled 5. HLP 6. YOLA possibly on CKD: resolved 7. UTI 8. DM2? 9. Normocytic anemia: Hgb was 7.8 now 8.4 10. Anxiety/depression/panic attacks Recommendations 1. High risk for perioperative CV events given the type of surgery. EF and WM nml. Recent MPI reviewed and noted nonischemic as noted above 2. ASA, lipitor. Continue home norvasc. May resume ARB if BP becomes labile. Metoprolol IV PRN for tachyarrhythmias. 3. Will need transfusion prior to surgery, defer to vascular. 4. Pt has bouts of panic attacks, teary at times and lives alone and immediate family particularly her daughter lives in [place]. Given the gravity of her recent multiple medical problems she has been dealing with this on her own. She is trying to contact her daughter in [place] through her cellphone as the battery is and trying to get a storage battery charger. She admits being depressed and getting teary at times and angry during our conversation, projecting her emotions. Consider psych evaluation and will likely need some regimen. Will defer this to PCP and discussed with RN. Justicifation of Admission Dx: Justifications for Admission: Justification of Admission Dx: Yes Sepsis: Infection AMY GARCIA MD 02/13/20 1831: CARDIO Progress Notes Plan Plan Patient seen and examined. Agree with above nurse practitioner note. Clarification from the note above, patient will be deemed moderate risk for high risk vascular surgery. She has normal myocardial perfusion study in 2019 with a normal ejection fraction and therefore would only be at moderate risk for perioperative cardiovascular events. No further testing necessary. She suffers from significant anxiety at this time would continue treatment of her anxiety as well. MIAH ELIAS APRN Feb 13, 2020 11:39 AMY GARCIA MD Feb 13, 2020 18:31
--- NOTE | 2020-02-13 11:46 | PDOC ---
PROGRESS NOTES Subjective Subjective I'm doing pretty well. I had some trouble getting what I needed from the staff overnight. 79-year-old female who is currently up in the chair. We have been consulted for evaluation and treatment of her abdominal aortic aneurysm and her right heel wound. Her right heel is giving her quite a bit of pain. She otherwise has no chest pain or shortness of breath. No nausea or vomiting. She is tolerating food and fluids well. She reported that she is currently a total lift from the bed to the chair. She also stated that she was able to bear some weight on her legs while she was being cleaned up after a bowel movement. Her bilateral lower extremity vein mapping has been completed. She has adequate saphenous vein for bypass grafting. Her carotid ultrasound that she had done also showed no significant stenosis bilaterally. Objective Objective Vital Signs Date Time Temp Pulse Resp B/P (MAP) Pulse Ox O2 Delivery O2 Flow Rate FiO2 02/13/20 11:00 98.0 84 16 154/92 (112) 95 Room Air 98.0 02/12/20 20:00 2.0 Intake and Output 02/13/20 06:59 Intake Total 1790 ml Output Total 3375 ml Balance -1585 ml Intake Oral 740 ml IV Total 1050 ml Output Urine Total 3375 ml Physical Exam Physical Exam VSS. NAD. 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 S he was admitted on January 09 after a fall at home. She was noted to have an elevated white count and a significant right heel decubitus ulcer. Her records at both and at [place] were reviewed with Dr. Javed and Dr. Landa. We discussed with the patient her results and recommendations for care. Because of her SFA occlusions and her decubitus ulcer to her right heel and because she does not want a below-knee amputation at this time, the plan is for an endovascular abdominal aortic aneurysm repair with [place] along with a right femoral to below-knee popliteal artery bypass with saphenous vein and a right heel debridement and possible wound VAC placement. She has had her vein mapping and her carotid ultrasound. She has also been seen by cardiology. Plan: Continue aspirin and Lipitor daily. Continue IV antibiotics per infectious disease Will allow her additional time to recover from her infection. She will need a blood transfusion before surgery. Plan for surgery on Monday. Comment Review of Relevant I have reviewed the following items dari (where applicable) has been applied. Labs Laboratory Tests Test 02/12/20 04:00 02/13/20 03:10 White Blood Count 10.4 x10^3/uL (4.0-11.0) 11.4 x10^3/uL (4.0-11.0) Red Blood Count 3.00 x10^6/uL (3.50-5.40) 3.26 x10^6/uL (3.50-5.40) Hemoglobin 7.8 g/dL (12.0-15.5) 8.4 g/dL (12.0-15.5) Hematocrit 24.1 % (36.0-47.0) 25.9 % (36.0-47.0) Mean Corpuscular Volume 80 fL (79-100) 80 fL (79-100) Mean Corpuscular Hemoglobin 26 pg (25-35) 26 pg (25-35) Mean Corpuscular Hemoglobin Concent 33 g/dL (31-37) 32 g/dL (31-37) Red Cell Distribution Width 17.4 % (11.5-14.5) 18.2 % (11.5-14.5) Platelet Count 321 x10^3/uL (140-400) 378 x10^3/uL (140-400) Neutrophils (%) (Auto) 69 % (31-73) 75 % (31-73) Lymphocytes (%) (Auto) 15 % (24-48) 14 % (24-48) Monocytes (%) (Auto) 8 % (0-9) 6 % (0-9) Eosinophils (%) (Auto) 8 % (0-3) 5 % (0-3) Basophils (%) (Auto) 0 % (0-3) 0 % (0-3) Neutrophils # (Auto) 7.2 x10^3/uL (1.8-7.7) 8.6 x10^3/uL (1.8-7.7) Lymphocytes # (Auto) 1.6 x10^3/uL (1.0-4.8) 1.6 x10^3/uL (1.0-4.8) Monocytes # (Auto) 0.8 x10^3/uL (0.0-1.1) 0.7 x10^3/uL (0.0-1.1) Eosinophils # (Auto) 0.8 x10^3/uL (0.0-0.7) 0.5 x10^3/uL (0.0-0.7) Basophils # (Auto) 0.0 x10^3/uL (0.0-0.2) 0.0 x10^3/uL (0.0-0.2) Sodium Level 140 mmol/L (136-145) 143 mmol/L (136-145) Potassium Level 3.7 mmol/L (3.5-5.1) 3.6 mmol/L (3.5-5.1) Chloride Level 109 mmol/L (98-107) 110 mmol/L (98-107) Carbon Dioxide Level 21 mmol/L (21-32) 23 mmol/L (21-32) Anion Gap 10 (6-14) 10 (6-14) Blood Urea Nitrogen 32 mg/dL (7-20) 17 mg/dL (7-20) Creatinine 1.4 mg/dL (0.6-1.0) 0.9 mg/dL (0.6-1.0) Estimated GFR (Cockcroft-Gault) 44.1 73.5 Glucose Level 98 mg/dL (70-99) 88 mg/dL (70-99) Calcium Level 8.5 mg/dL (8.5-10.1) 8.5 mg/dL (8.5-10.1) Creatine Kinase 54 U/L (26-192) Laboratory Tests Test 02/13/20 03:10 White Blood Count 11.4 x10^3/uL (4.0-11.0) Red Blood Count 3.26 x10^6/uL (3.50-5.40) Hemoglobin 8.4 g/dL (12.0-15.5) Hematocrit 25.9 % (36.0-47.0) Mean Corpuscular Volume 80 fL (79-100) Mean Corpuscular Hemoglobin 26 pg (25-35) Mean Corpuscular Hemoglobin Concent 32 g/dL (31-37) Red Cell Distribution Width 18.2 % (11.5-14.5) Platelet Count 378 x10^3/uL (140-400) Neutrophils (%) (Auto) 75 % (31-73) Lymphocytes (%) (Auto) 14 % (24-48) Monocytes (%) (Auto) 6 % (0-9) Eosinophils (%) (Auto) 5 % (0-3) Basophils (%) (Auto) 0 % (0-3) Neutrophils # (Auto) 8.6 x10^3/uL (1.8-7.7) Lymphocytes # (Auto) 1.6 x10^3/uL (1.0-4.8) Monocytes # (Auto) 0.7 x10^3/uL (0.0-1.1) Eosinophils # (Auto) 0.5 x10^3/uL (0.0-0.7) Basophils # (Auto) 0.0 x10^3/uL (0.0-0.2) Sodium Level 143 mmol/L (136-145) Potassium Level 3.6 mmol/L (3.5-5.1) Chloride Level 110 mmol/L (98-107) Carbon Dioxide Level 23 mmol/L (21-32) Anion Gap 10 (6-14) Blood Urea Nitrogen 17 mg/dL (7-20) Creatinine 0.9 mg/dL (0.6-1.0) Estimated GFR (Cockcroft-Gault) 73.5 Glucose Level 88 mg/dL (70-99) Calcium Level 8.5 mg/dL (8.5-10.1) Creatine Kinase 54 U/L (26-192) Microbiology 02/10/20 Blood Culture - Preliminary, Resulted NO GROWTH AFTER 2 DAYS 02/09/20 Urine Culture - Final, Complete 02/09/20 Antimicrobic Susceptibility - Final, Complete Medications Current Medications Fentanyl Citrate (Fentanyl 2ml Vial) 50 mcg 1X ONCE IV Last administered on 02/09/20at 15:38; Start 02/09/20 at 15:30; Stop 02/09/20 at 15:31; Status DC Ondansetron HCl (Zofran) 4 mg 1X ONCE IV Last administered on 02/09/20 15:37; Start 02/09/20 at 15:30; Stop 02/09/20 at 15:31; Status DC Trimethoprim/ Sulfamethoxazole (Bactrim Ds) 1 tab 1X ONCE PO Last administered on 02/09/20 18:33; Start 02/09/20 at 18:30; Stop 02/09/20 at 18:31; Status DC Ceftriaxone Sodium (Rocephin) 1 gm Q24H IVP Last administered on 02/11/20 21:01; Start 02/09/20 at 21:00; Stop 02/12/20 at 13:00; Status DC Acetaminophen/ Hydrocodone Bitart (Lortab 7.5/325) 1 tab PRN Q4HRS PRN PO MODERATE PAIN 4-6 Last administered on 02/11/20 23:27; Start 02/09/20 at 21:30 Acetaminophen (Tylenol) 650 mg PRN Q6HRS PRN PO MILD PAIN 1-3; Start 02/09/20 at 21:30 Amlodipine Besylate (Norvasc) 5 mg DAILY PO Last administered on 02/13/20 08:35; Start 02/10/20 at 09:00 Atorvastatin Calcium (Lipitor) 40 mg QHS PO Last administered on 02/12/20 21:52; Start 02/09/20 at 23:00 Buspirone HCl (Buspar) 10 mg TID PO Last administered on 02/13/20 08:35; Start 02/09/20 at 23:00 Diclofenac Sodium (Voltaren) 1 yesika BID TP Last administered on 02/13/20 08:34; Start 02/09/20 at 23:00 Famotidine (Pepcid) 20 mg QHS PO Last administered on 02/12/20 21:52; Start 02/09/20 at 23:00 Gabapentin (Neurontin) 100 mg QID PO Last administered on 02/13/20 08:35; Start 02/09/20 at 23:00 Lisinopril (Prinivil) 20 mg DAILY PO Last administered on 02/10/20at 09:44; Start 02/10/20 at 09:00; Stop 02/10/20 at 16:24; Status DC Ondansetron HCl (Zofran Odt) 4 mg PRN BID PRN PO NAUSEA 1ST CHOICE; Start 02/09/20 at 22:15 Trazodone HCl (Desyrel) 50 mg HS PO Last administered on 02/12/20at 21:51; Start 02/09/20 at 23:00 Baclofen (Lioresal) 5 mg DAILY PO Last administered on 02/13/20at 08:35; Start 02/10/20 at 09:00 Ceftriaxone Sodium (Rocephin) 1 gm Q24H IVP ; Start 02/10/20 at 11:00; Status UNV Lactobacillus Rhamnosus (Culturelle) 1 cap BID PO Last administered on 02/13/20at 08:35; Start 02/10/20 at 21:00 Sodium Chloride 1,000 ml @ 100 mls/hr Q10H IV Last administered on 02/13/20at 06:46; Start 02/10/20 at 17:00; Stop 02/13/20 at 08:54; Status DC Potassium Chloride (Klor-Con) 40 meq 1X ONCE PO Last administered on 02/10/20at 17:37; Start 02/10/20 at 17:00; Stop 02/10/20 at 17:01; Status DC Enoxaparin Sodium (Lovenox 30mg Syringe) 30 mg Q24H SQ Last administered on 02/13/20at 08:34; Start 02/11/20 at 10:00 Aspirin (Dre Aspirin) 325 mg 1X ONCE PO Last administered on 02/11/20at 11:52; Start 02/11/20 at 10:00; Stop 02/11/20 at 10:01; Status DC Aspirin (Dre Aspirin) 325 mg DAILYWBKFT PO Last administered on 02/13/20at 08:35; Start 02/12/20 at 08:00 Cefdinir (Omnicef) 300 mg Q24H PO ; Start 02/12/20 at 14:00; Stop 02/12/20 at 14:12; Status DC Daptomycin 270 mg/ Sodium Chloride 50 ml @ 100 mls/hr Q24H IV Last administered on 02/12/20at 16:05; Start 02/12/20 at 15:00 Cefepime HCl (Maxipime) 1 gm Q12HR IVP Last administered on 02/13/20at 08:36; Start 02/12/20 at 15:00; Stop 02/13/20 at 08:45; Status DC Metoprolol Tartrate (Lopressor Vial) 5 mg PRN Q6HRS PRN IVP TACHYCARDIA; Start 02/12/20 at 14:45 Multivitamins (Thera M Plus) 1 tab DAILY PO Last administered on 02/13/20at 08:35 ; Start 02/13/20 at 09:00 Meropenem 500 mg/ Sodium Chloride 50 ml @ 100 mls/hr Q6HRS IV Last administered on 02/13/20at 09:00; Start 02/13/20 at 09:00 Active Scripts Active [place] 5-325 Tablet (Acetaminophen/Hydrocodone Bitart) 1 Each Tablet 1-2 Tab PO Q4-6HRS 2 Days Reported Trazodone Hcl 50 Mg Tablet 50 Mg PO HS Ondansetron Odt (Ondansetron) 4 Mg Tab.rapdis 4 Mg PO PRN BID PRN Atorvastatin Calcium 40 Mg Tablet 40 Mg PO DAILY Baclofen 5 Mg Tablet 5 Mg PO DAILY Gabapentin 100 Mg Capsule 100 Mg PO QID Diclofenac Sodium 100 Gm Gel..gram. 1 Yesika TOP BID Buspirone Hcl 10 Mg Tablet 10 Mg PO TID Famotidine 20 Mg Tablet 20 Mg PO BID Lisinopril 20 Mg Tablet 20 Mg PO DAILY Amlodipine Besylate 5 Mg Tablet 5 Mg PO DAILY Vitals/I & O Vital Sign - Last 24 Hours 02/12/20 02/12/20 02/12/20 02/12/20 15:00 19:00 20:00 23:00 Temp 98.0 99.9 98.4 98.0 99.9 98.4 Pulse 82 109 77 Resp 18 16 16 B/P (MAP) 143/76 (98) 147/81 (103) 127/67 (87) Pulse Ox 93 88 98 O2 Delivery Room Air Room Air Nasal Cannula Room Air O2 Flow Rate 2.0 02/13/20 02/13/20 02/13/20 02/13/20 03:00 07:00 08:35 11:00 Temp 98.1 98.0 98.0 98.1 98.0 98.0 Pulse 82 81 81 84 Resp 16 16 16 B/P (MAP) 162/82 (108) 114/63 (80) 114/63 154/92 (112) Pulse Ox 98 95 95 O2 Delivery Room Air Room Air Room Air Intake and Output 02/12/20 02/12/20 02/13/20 14:59 22:59 06:59 Intake Total 420 ml 1170 ml 200 ml Output Total 1550 ml 1825 ml Balance 420 ml -380 ml -1625 ml Justicifation of Admission Dx: Justifications for Admission: Justification of Admission Dx: Yes Sepsis: Infection STEWART SAMANIEGO [employer] Feb 13, 2020 11:46
--- NOTE | 2020-02-13 14:58 | NUR ---
SW following. Spoke with RN and CM. Reviewed chart. Pt has ESBL in her urine so she will not have surgery until 02/18/2020 per RN. Spoke with Thom from [facility], , (fax) who has accepted pt clinically but will wait to submit for authorization since pt will not discharge until next week. Thom stated he has several discharges on Monday and can accept this patient for SN. CLAY to continue following.
[2020-02-13 15:00] VITALS: BP 140/76
[2020-02-13] MEDS: DAPTOMYCIN IV SCH (15:05)
[2020-02-13] MEDS: NORMAL SALINE IV SCH (15:05)
[2020-02-13 19:00] VITALS: BP 144/81
[2020-02-13] MEDS: ATORVASTATIN CALCIUM 40 MG TABLET. PO SCH (21:33)
[2020-02-13] MEDS: FAMOTIDINE 20 MG TABLET. PO SCH (21:33)
[2020-02-13] MEDS: traZODone 50 MG TABLET. PO SCH (21:34)
[2020-02-13 23:00] VITALS: BP 149/85
[2020-02-13] MEDS: ONDANSETRON ODT 4 MG TAB.RAPDIS. PO PRN (23:39)
[2020-02-14] VITALS (12 sets, daily range): BP systolic 103–166; BP diastolic 33–97
[2020-02-14 05:08] LABS: BASO % 0 % (0-3); EOS % 0 % (0-3); HEMATOCRIT 27.8 % (36.0-47.0); HEMOGLOBIN 9.1 g/dL (12.0-15.5); LYMPH % 9 % (24-48); MEAN CORPUSCULAR HEMOGLOBIN 25 pg (25-35); MEAN CORPUSCULAR HGB CONC 33 g/dL (31-37); MEAN CORPUSCULAR VOLUME 78 fL (79-100); MONO # 0.4 x10^3/uL (0.0-1.1); MONO % 3 % (0-9); NEUT # 10.2 x10^3/uL (1.8-7.7); NEUT % 87 % (31-73); PLATELET COUNT 432 x10^3/uL (140-400); RED BLOOD COUNT 3.56 x10^6/uL (3.50-5.40); RED CELL DISTRIBUTION WIDTH 17.5 % (11.5-14.5); WHITE BLOOD COUNT 11.6 x10^3/uL (4.0-11.0)
[2020-02-14 06:23] LABS: CALCIUM 9.2 mg/dL (8.5-10.1); CREATININE 0.7 mg/dL (0.6-1.0); GFR 98.2; POTASSIUM 3.4 mmol/L (3.5-5.1)
[2020-02-14] MEDS: MEROPENEM 500 MG in IV NORMAL SALINE 50ML 50 ML IV SCH ×4 (06:50→23:57)
[2020-02-14] MEDS: ASPIRIN 325 MG TABLET PO SCH (08:17)
[2020-02-14] MEDS: BACLOFEN 10 MG TABLET. PO SCH (08:18)
[2020-02-14] MEDS: busPIRone 10 MG TABLET. PO SCH ×3 (08:18→21:39)
[2020-02-14] MEDS: GABAPENTIN 100 MG CAPSULE. PO SCH ×4 (08:19→21:39)
[2020-02-14] MEDS: amLODIPine BESYLATE 5 MG TABLET PO SCH (08:19)
[2020-02-14] MEDS: MULTIVITAMIN with MINERAL TABLET. PO SCH (08:19)
[2020-02-14] MEDS: DICLOFENAC SODIUM 1% TOPICAL GEL 100GM TUBE. TP SCH ×2 (08:20→21:43)
[2020-02-14] MEDS: LACTOBACILLUS RHAMNOSUS GG 1 CAPSULE. PO SCH ×2 (08:20→21:39)
[2020-02-14] MEDS: ENOXAPARIN 30 MG/0.3 ML SYRINGE. SQ SCH (08:25)
[2020-02-14] MEDS: ONDANSETRON ODT 4 MG TAB.RAPDIS. PO PRN ×3 (08:27→17:19)
[2020-02-14] MEDS ORDERED: POTASSIUM CHLORIDE 20 MEQ TABLET.ER. PO ONE (08:30)
--- NOTE | 2020-02-14 08:30 | NUR ---
Annabella is not feeling well today. nauseated and was zofran odt. attempted to am meds and breakfast-small amount yellow colored liquid. iv fluids cont at 50cchr. voltaren cream applied to legs. she moves frequently in bed. states she does like p500 bed
--- NOTE | 2020-02-14 08:56 | PDOC ---
PROGRESS NOTES Subjective Subjective vomited last night Objective Objective Vital Signs Date Time Temp Pulse Resp B/P (MAP) Pulse Ox O2 Delivery O2 Flow Rate FiO2 02/14/20 08:19 81 159/85 02/14/20 07:00 97.7 16 97 Nasal Cannula 2.0 97.7 Intake and Output 02/14/20 07:00 Intake Total 1750 ml Output Total 5750 ml Balance -4000 ml Intake Oral 500 ml IV Total 1250 ml Output Urine Total 5750 ml # Bowel Movements 2 Physical Exam Abdomen: Soft, No tenderness Heart: Regular rate, Normal S1, Normal S2, Other (3/6 systolic murmur to LLS lucinda rder) Extremities: No cyanosis General: Alert, Cooperative, No acute distress HEENT: Atraumatic Lungs: Normal air movement MUSCULOSKELETAL: Osteoarthritic changes both hands, Other (paraplegia with atrophic LE) Neck: No JVD Neuro: Normal speech Psych/Mental Status: Mental status NL, Mood NL Skin: No rashes COMMENT yin placed due to bladder retention. Diagnosis Problem List Problems Medical Problems: (1) Heel ulcer Status: Acute (2) Heel ulceration Status: Acute (3) Urinary tract infection Status: Acute (4) Weakness Status: Acute Assessment Assessment Problems Medical Problems: (1) Heel ulcer Status: Acute (2) Heel ulceration Status: Acute (3) Urinary tract infection Status: Acute (4) Weakness Status: Acute FINAL IMPRESSION: 1. 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 3. Chronic obstructive pulmonary disease. 4. Hypertension. 5. Abdominal aortic aneurysm. 6. Peripheral vascular disease. 7. Heel ulcers. 8. General debility. 9. History of lung cancer in the past. 10. General decline. PLAN: Covid -19 ,neg. E coli uti-ELBS,ID consult.Spoke with Dr Jones. On Maropenum+daptomycin. Plans for endovascular abdominal aortic aneurysm repair with [place] along with a right femoral to below-knee popliteal artery bypass with saphenous vein and a right heel debridement and possible wound VAC placement.next monday d/c iv fluids , cr 1.1 down from 2.2 improved with fluids sono kidneys no hydronephrosis. pt had yin placed 300 cc urine retained, she has overflow incontinence Abd sono inc seize of AAA ,4x5 cm now, will consult vascular. 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 Labs Laboratory Tests Test 02/14/20 03:05 White Blood Count 11.6 x10^3/uL (4.0-11.0) Red Blood Count 3.56 x10^6/uL (3.50-5.40) Hemoglobin 9.1 g/dL (12.0-15.5) Hematocrit 27.8 % (36.0-47.0) Mean Corpuscular Volume 78 fL (79-100) Mean Corpuscular Hemoglobin 25 pg (25-35) Mean Corpuscular Hemoglobin Concent 33 g/dL (31-37) Red Cell Distribution Width 17.5 % (11.5-14.5) Platelet Count 432 x10^3/uL (140-400) Neutrophils (%) (Auto) 87 % (31-73) Lymphocytes (%) (Auto) 9 % (24-48) Monocytes (%) (Auto) 3 % (0-9) Eosinophils (%) (Auto) 0 % (0-3) Basophils (%) (Auto) 0 % (0-3) Neutrophils # (Auto) 10.2 x10^3/uL (1.8-7.7) Lymphocytes # (Auto) 1.0 x10^3/uL (1.0-4.8) Monocytes # (Auto) 0.4 x10^3/uL (0.0-1.1) Eosinophils # (Auto) 0.0 x10^3/uL (0.0-0.7) Basophils # (Auto) 0.0 x10^3/uL (0.0-0.2) Sodium Level 132 mmol/L (136-145) Potassium Level 3.4 mmol/L (3.5-5.1) Chloride Level 95 mmol/L (98-107) Carbon Dioxide Level 24 mmol/L (21-32) Anion Gap 13 (6-14) Blood Urea Nitrogen 11 mg/dL (7-20) Creatinine 0.7 mg/dL (0.6-1.0) Estimated GFR (Cockcroft-Gault) 98.2 Glucose Level 136 mg/dL (70-99) Calcium Level 9.2 mg/dL (8.5-10.1) Microbiology 02/10/20 Blood Culture - Preliminary, Resulted NO GROWTH AFTER 3 DAYS 02/09/20 Urine Culture - Final, Complete 02/09/20 Antimicrobic Susceptibility - Final, Complete Medications Current Medications Meropenem 500 mg/ Sodium Chloride 50 ml @ 100 mls/hr Q6HRS IV Last admi nistered on 02/14/20at 06:50; Start 02/13/20 at 09:00 Multivitamins (Thera M Plus) 1 tab DAILY PO Last administered on 02/14/20at 08:19; Start 02/13/20 at 09:00 Potassium Chloride (Klor-Con) 20 meq 1X ONCE PO Last administered on 02/14/20at 08:40; Start 02/14/20 at 08:30; Stop 02/14/20 at 08:31; Status DC Vitals/I & O Vital Sign - Last 24 Hours 02/13/20 02/13/20 02/13/20 02/13/20 11:00 15:00 19:00 20:00 Temp 98.0 99.0 97.6 98.0 99.0 97.6 Pulse 84 81 81 Resp 16 18 18 B/P (MAP) 154/92 (112) 140/76 (97) 144/81 (102) Pulse Ox 95 94 94 O2 Delivery Room Air Room Air Room Air Nasal Cannula O2 Flow Rate 2.0 02/13/20 02/14/20 02/14/20 02/14/20 23:00 03:00 07:00 08:19 Temp 97.9 97.6 97.7 97.9 97.6 97.7 Pulse 78 86 81 81 Resp 18 18 16 B/P (MAP) 149/85 (106) 146/97 (113) 159/85 (109) 159/85 Pulse Ox 95 97 97 O2 Delivery Room Air Room Air Nasal Cannula O2 Flow Rate 2.0 Intake and Output 02/13/20 02/13/20 02/14/20 15:00 23:00 07:00 Intake Total 1600 ml 150 ml Output Total 4850 ml 900 ml Balance -3250 ml -750 ml Justicifation of Admission Dx: Justifications for Admission: Justification of Admission Dx: Yes Sepsis: Infection Nutrition Consultation Dietary Evaluation: Recommendations by RD: Dietary education by RD, Increase Calorie Intake, Protein supplementation Comments: cardiac diet with ensure enlive bid homar bid mvi q day per wound protocal Expected Outcomes/Goals: to meet >75% est nutr needs improved wound status Malnutrition Findings: Body Fat Depletion (Non Severe: Mod to Severe Weight Status: Underweight SANDRA SHABAZZ MD Feb 14, 2020 08:56
--- NOTE | 2020-02-14 09:37 | PDOC ---
PROGRESS NOTES Subjective Subjective She feels sick in her stomach with nausea and vomiting this AM. Objective Objective Vital Signs Date Time Temp Pulse Resp B/P (MAP) Pulse Ox O2 Delivery O2 Flow Rate FiO2 02/14/20 08:19 81 159/85 02/14/20 07:00 97.7 16 97 Nasal Cannula 2.0 97.7 Intake and Output 02/14/20 07:00 Intake Total 1750 ml Output Total 5750 ml Balance -4000 ml Intake Oral 500 ml IV Total 1250 ml Output Urine Total 5750 ml # Bowel Movements 2 Physical Exam Physical Exam She is alert,sitting in bed and no change noted with her neurological e xamination. Assessment Assessment Problems Medical Problems: (1) Heel ulcer Status: Acute (2) Heel ulceration Status: Acute (3) Urinary tract infection Status: Acute (4) Weakness Status: Acute Plan Plan of Care To continue present care efforts as tolerated. Comment Review of Relevant I have reviewed the following items dari (where applicable) has been applied. Labs Laboratory Tests Test 02/12/20 12:10 02/13/20 03:10 02/14/20 03:05 Coronavirus (PCR) Not detected (Not Detected) White Blood Count 11.4 x10^3/uL (4.0-11.0) 11.6 x10^3/uL (4.0-11.0) Red Blood Count 3.26 x10^6/uL (3.50-5.40) 3.56 x10^6/uL (3.50-5.40) Hemoglobin 8.4 g/dL (12.0-15.5) 9.1 g/dL (12.0-15.5) Hematocrit 25.9 % (36.0-47.0) 27.8 % (36.0-47.0) Mean Corpuscular Volume 80 fL (79-100) 78 fL (79-100) Mean Corpuscular Hemoglobin 26 pg (25-35) 25 pg (25-35) Mean Corpuscular Hemoglobin Concent 32 g/dL (31-37) 33 g/dL (31-37) Red Cell Distribution Width 18.2 % (11.5-14.5) 17.5 % (11.5-14.5) Platelet Count 378 x10^3/uL (140-400) 432 x10^3/uL (140-400) Neutrophils (%) (Auto) 75 % (31-73) 87 % (31-73) Lymphocytes (%) (Auto) 14 % (24-48) 9 % (24-48) Monocytes (%) (Auto) 6 % (0-9) 3 % (0-9) Eosinophils (%) (Auto) 5 % (0-3) 0 % (0-3) Basophils (%) (Auto) 0 % (0-3) 0 % (0-3) Neutrophils # (Auto) 8.6 x10^3/uL (1.8-7.7) 10.2 x10^3/uL (1.8-7.7) Lymphocytes # (Auto) 1.6 x10^3/uL (1.0-4.8) 1.0 x10^3/uL (1.0-4.8) Monocytes # (Auto) 0.7 x10^3/uL (0.0-1.1) 0.4 x10^3/uL (0.0-1.1) Eosinophils # (Auto) 0.5 x10^3/uL (0.0-0.7) 0.0 x10^3/uL (0.0-0.7) Basophils # (Auto) 0.0 x10^3/uL (0.0-0.2) 0.0 x10^3/uL (0.0-0.2) Sodium Level 143 mmol/L (136-145) 132 mmol/L (136-145) Potassium Level 3.6 mmol/L (3.5-5.1) 3.4 mmol/L (3.5-5.1) Chloride Level 110 mmol/L (98-107) 95 mmol/L (98-107) Carbon Dioxide Level 23 mmol/L (21-32) 24 mmol/L (21-32) Anion Gap 10 (6-14) 13 (6-14) Blood Urea Nitrogen 17 mg/dL (7-20) 11 mg/dL (7-20) Creatinine 0.9 mg/dL (0.6-1.0) 0.7 mg/dL (0.6-1.0) Estimated GFR (Cockcroft-Gault) 73.5 98.2 Glucose Level 88 mg/dL (70-99) 136 mg/dL (70-99) Calcium Level 8.5 mg/dL (8.5-10.1) 9.2 mg/dL (8.5-10.1) Creatine Kinase 54 U/L (26-192) Laboratory Tests Test 02/14/20 03:05 White Blood Count 11.6 x10^3/uL (4.0-11.0) Red Blood Count 3.56 x10^6/uL (3.50-5.40) Hemoglobin 9.1 g/dL (12.0-15.5) Hematocrit 27.8 % (36.0-47.0) Mean Corpuscular Volume 78 fL (79-100) Mean Corpuscular Hemoglobin 25 pg (25-35) Mean Corpuscular Hemoglobin Concent 33 g/dL (31-37) Red Cell Distribution Width 17.5 % (11.5-14.5) Platelet Count 432 x10^3/uL (140-400) Neutrophils (%) (Auto) 87 % (31-73) Lymphocytes (%) (Auto) 9 % (24-48) Monocytes (%) (Auto) 3 % (0-9) Eosinophils (%) (Auto) 0 % (0-3) Basophils (%) (Auto) 0 % (0-3) Neutrophils # (Auto) 10.2 x10^3/uL (1.8-7.7) Lymphocytes # (Auto) 1.0 x10^3/uL (1.0-4.8) Monocytes # (Auto) 0.4 x10^3/uL (0.0-1.1) Eosinophils # (Auto) 0.0 x10^3/uL (0.0-0.7) Basophils # (Auto) 0.0 x10^3/uL (0.0-0.2) Sodium Level 132 mmol/L (136-145) Potassium Level 3.4 mmol/L (3.5-5.1) Chloride Level 95 mmol/L (98-107) Carbon Dioxide Level 24 mmol/L (21-32) Anion Gap 13 (6-14) Blood Urea Nitrogen 11 mg/dL (7-20) Creatinine 0.7 mg/dL (0.6-1.0) Estimated GFR (Cockcroft-Gault) 98.2 Glucose Level 136 mg/dL (70-99) Calcium Level 9.2 mg/dL (8.5-10.1) Microbiology 02/10/20 Blood Culture - Preliminary, Resulted NO GROWTH AFTER 3 DAYS 02/09/20 Urine Culture - Final, Complete 02/09/20 Antimicrobic Susceptibility - Final, Complete Medications Current Medications Fentanyl Citrate (Fentanyl 2ml Vial) 50 mcg 1X ONCE IV Last administered on 02/09/20 15:38; Start 02/09/20 at 15:30; Stop 02/09/20 at 15:31; Status DC Ondansetron HCl (Zofran) 4 mg 1X ONCE IV Last administered on 02/09/20at 15:37; Start 02/09/20 at 15:30; Stop 02/09/20 at 15:31; Status DC Trimethoprim/ Sulfamethoxazole (Bactrim Ds) 1 tab 1X ONCE PO Last administered on 02/09/20at 18:33; Start 02/09/20 at 18:30; Stop 02/09/20 at 18:31; Status DC Ceftriaxone Sodium (Rocephin) 1 gm Q24H IVP Last administered on 02/11/20at 21:01; Start 02/09/20 at 21:00; Stop 02/12/20 at 13:00; Status DC Acetaminophen/ Hydrocodone Bitart (Lortab 7.5/325) 1 tab PRN Q4HRS PRN PO MODERATE PAIN 4-6 Last administered on 02/11/20at 23:27; Start 02/09/20 at 21:30 Acetaminophen (Tylenol) 650 mg PRN Q6HRS PRN PO MILD PAIN 1-3; Start 02/09/20 at 21:30 Amlodipine Besylate (Norvasc) 5 mg DAILY PO Last administered on 02/14/20 08:19; Start 02/10/20 at 09:00 Atorvastatin Calcium (Lipitor) 40 mg QHS PO Last administered on 02/13/20 21:33; Start 02/09/20 at 23:00 Buspirone HCl (Buspar) 10 mg TID PO Last administered on 02/14/20 08:18; Start 02/09/20 at 23:00 Diclofenac Sodium (Voltaren) 1 yesika BID TP Last administered on 02/14/20 08:20; Start 02/09/20 at 23:00 Famotidine (Pepcid) 20 mg QHS PO Last administered on 02/13/20 21:33; Start 02/09/20 at 23:00 Gabapentin (Neurontin) 100 mg QID PO Last administered on 02/14/20 08:19; Start 02/09/20 at 23:00 Lisinopril (Prinivil) 20 mg DAILY PO Last administered on 02/10/20at 09:44; Start 02/10/20 at 09:00; Stop 02/10/20 at 16:24; Status DC Ondansetron HCl (Zofran Odt) 4 mg PRN BID PRN PO NAUSEA 1ST CHOICE Last administered on 02/14/20 08:27; Start 02/09/20 at 22:15 Trazodone HCl (Desyrel) 50 mg HS PO Last administered on 02/13/20 21:34; Start 02/09/20 at 23:00 Baclofen (Lioresal) 5 mg DAILY PO Last administered on 02/14/20 08:18; Start 02/10/20 at 09:00 Ceftriaxone Sodium (Rocephin) 1 gm Q24H IVP ; Start 02/10/20 at 11:00; Status UNV Lactobacillus Rhamnosus (Culturelle) 1 cap BID PO Last administered on 02/14/20 08:20; Start 02/10/20 at 21:00 Sodium Chloride 1,000 ml @ 100 mls/hr Q10H IV Last administered on 02/13/20at 06:46; Start 02/10/20 at 17:00; Stop 02/13/20 at 08:54; Status DC Potassium Chloride (Klor-Con) 40 meq 1X ONCE PO Last administered on 02/10/20at 17:37; Start 02/10/20 at 17:00; Stop 02/10/20 at 17:01; Status DC Enoxaparin Sodium (Lovenox 30mg Syringe) 30 mg Q24H SQ Last administered on 08:25; Start 02/11/20 at 10:00 Aspirin (Dre Aspirin) 325 mg 1X ONCE PO Last administered on 02/11/20at 11:52; Start 02/11/20 at 10:00; Stop 02/11/20 at 10:01; Status DC Aspirin (Dre Aspirin) 325 mg DAILYWBKFT PO Last administered on 02/14/20at 08 :17; Start 02/12/20 at 08:00 Cefdinir (Omnicef) 300 mg Q24H PO ; Start 02/12/20 at 14:00; Stop 02/12/20 at 14:12; Status DC Daptomycin 270 mg/ Sodium Chloride 50 ml @ 100 mls/hr Q24H IV Last administered on 02/13/20at 15:05; Start 02/12/20 at 15:00 Cefepime HCl (Maxipime) 1 gm Q12HR IVP Last administered on 02/13/20at 08:36; Start 02/12/20 at 15:00; Stop 02/13/20 at 08:45; Status DC Metoprolol Tartrate (Lopressor Vial) 5 mg PRN Q6HRS PRN IVP TACHYCARDIA; Start 02/12/20 at 14:45 Multivitamins (Thera M Plus) 1 tab DAILY PO Last administered on 02/14/20at 08:19; Start 02/13/20 at 09:00 Meropenem 500 mg/ Sodium Chloride 50 ml @ 100 mls/hr Q6HRS IV Last administered on 02/14/20at 06:50; Start 02/13/20 at 09:00 Potassium Chloride (Klor-Con) 20 meq 1X ONCE PO Last administered on 02/14/20at 08:40; Start 02/14/20 at 08:30; Stop 02/14/20 at 08:31; Status DC Active Scripts Active Lawson 5-325 Tablet (Acetaminophen/Hydrocodone Bitart) 1 Each Tablet 1-2 Tab PO Q4-6HRS 2 Days Reported Trazodone Hcl 50 Mg Tablet 50 Mg PO HS Ondansetron Odt (Ondansetron) 4 Mg Tab.rapdis 4 Mg PO PRN BID PRN Atorvastatin Calcium 40 Mg Tablet 40 Mg PO DAILY Baclofen 5 Mg Tablet 5 Mg PO DAILY Gabapentin 100 Mg Capsule 100 Mg PO QID Diclofenac Sodium 100 Gm Gel..gram. 1 Yesika TOP BID Buspirone Hcl 10 Mg Tablet 10 Mg PO TID Famotidine 20 Mg Tablet 20 Mg PO BID Lisinopril 20 Mg Tablet 20 Mg PO DAILY Amlodipine Besylate 5 Mg Tablet 5 Mg PO DAILY Vitals/I & O Vital Sign - Last 24 Hours 02/13/20 02/13/20 02/13/20 02/13/20 11:00 15:00 19:00 20:00 Temp 98.0 99.0 97.6 98.0 99.0 97.6 Pulse 84 81 81 Resp 16 18 18 B/P (MAP) 154/92 (112) 140/76 (97) 144/81 (102) Pulse Ox 95 94 94 O2 Delivery Room Air Room Air Room Air Nasal Cannula O2 Flow Rate 2.0 02/13/20 02/14/20 02/14/20 02/14/20 23:00 03:00 07:00 08:19 Temp 97.9 97.6 97.7 97.9 97.6 97.7 Pulse 78 86 81 81 Resp 18 18 16 B/P (MAP) 149/85 (106) 146/97 (113) 159/85 (109) 159/85 Pulse Ox 95 97 97 O2 Delivery Room Air Room Air Nasal Cannula O2 Flow Rate 2.0 Intake and Output 02/13/20 02/13/20 02/14/20 15:00 23:00 07:00 Intake Total 1600 ml 150 ml Output Total 4850 ml 900 ml Balance -3250 ml -750 ml Justicifation of Admission Dx: Justifications for Admission: Justification of Admission Dx: Yes Sepsis: Infection Nutrition Consultation Dietary Evaluation: Recommendations by RD: Dietary education by RD, Increase Calorie Intake, Protein supplementation Comments: cardiac diet with ensure enlive bid homar bid mvi q day per wound protocal Expected Outcomes/Goals: to meet >75% est nutr needs improved wound status Malnutrition Findings: Body Fat Depletion (Non Severe: Mod to Severe Weight Status: Underweight RIYA SHARP MD Feb 14, 2020 09:37
--- NOTE | 2020-02-14 09:39 | PDOC ---
Infectious Disease Note Vital Sign Vital Signs Vital Signs Date Time Temp Pulse Resp B/P (MAP) Pulse Ox O2 Delivery O2 Flow Rate FiO2 02/14/20 08:19 81 159/85 02/14/20 07:00 97.7 16 97 Nasal Cannula 2.0 97.7 Physical Exam PHYSICAL EXAM General: Alert, Cooperative, No acute distress HEENT: AtraumaticAbdomen: Soft, No tenderness Neck: No JVD Lungs: Normal air movement Heart: Regular rate, Normal S1, Normal S2, Other (3/6 systolic murmur to LLS border) Abdomen: Gu; yin placed due to bladder retention. Extremities: No cyanosis Skin: No rashes MUSCULOSKELETAL: Osteoarthritic changes both hands, Other (paraplegia with atrophic LE) Neuro: Normal speech Psych: Mental status NL, Mood NL Labs Lab Laboratory Tests Test 02/14/20 03:05 White Blood Count 11.6 x10^3/uL (4.0-11.0) Red Blood Count 3.56 x10^6/uL (3.50-5.40) Hemoglobin 9.1 g/dL (12.0-15.5) Hematocrit 27.8 % (36.0-47.0) Mean Corpuscular Volume 78 fL (79-100) Mean Corpuscular Hemoglobin 25 pg (25-35) Mean Corpuscular Hemoglobin Concent 33 g/dL (31-37) Red Cell Distribution Width 17.5 % (11.5-14.5) Platelet Count 432 x10^3/uL (140-400) Neutrophils (%) (Auto) 87 % (31-73) Lymphocytes (%) (Auto) 9 % (24-48) Monocytes (%) (Auto) 3 % (0-9) Eosinophils (%) (Auto) 0 % (0-3) Basophils (%) (Auto) 0 % (0-3) Neutrophils # (Auto) 10.2 x10^3/uL (1.8-7.7) Lymphocytes # (Auto) 1.0 x10^3/uL (1.0-4.8) Monocytes # (Auto) 0.4 x10^3/uL (0.0-1.1) Eosinophils # (Auto) 0.0 x10^3/uL (0.0-0.7) Basophils # (Auto) 0.0 x10^3/uL (0.0-0.2) Sodium Level 132 mmol/L (136-145) Potassium Level 3.4 mmol/L (3.5-5.1) Chloride Level 95 mmol/L (98-107) Carbon Dioxide Level 24 mmol/L (21-32) Anion Gap 13 (6-14) Blood Urea Nitrogen 11 mg/dL (7-20) Creatinine 0.7 mg/dL (0.6-1.0) Estimated GFR (Cockcroft-Gault) 98.2 Glucose Level 136 mg/dL (70-99) Calcium Level 9.2 mg/dL (8.5-10.1) Micro Microbiology 02/10/20 Blood Culture - Preliminary, Resulted NO GROWTH AFTER 2 DAYS 02/09/20 Urine Culture - Final, Complete 02/09/20 Antimicrobic Susceptibility - Final, Complete Objective Assessment Leukocyosis - stable- blood cults/COVID neg YOLA - better ESBL UTI 02/08 - POA PCN allergy - Local swelling post Im injection AAA - repair planned 02/17 Severe PAD - bypass planned 02/17 R Heel wound I and D planned 02/17 sinus congestion Plan Plan of Care Cont Meropenem Cont Dapto CK 54 02/12 with heel wound F/u labs Local wound care per Vascular RAYNE TORO MD Feb 14, 2020 09:39
--- NOTE | 2020-02-14 11:30 | NUR ---
continues to nauseated but no further emesis. repeated Zofran odt. eventually ate mashed potatoes and Norvasc and Neurontin given. to take her pills she places the pill at the back of throat and gags. instructed not to place pill so far back; gag reflex ; ignores suggestion
--- NOTE | 2020-02-14 12:02 | PDOC ---
SURGICAL PROGRESS NOTE Subjective I the pleasure seeing this 79-year-old female at the bedside this morning. She is feeling sleepy and was feeling nauseated this morning. She did have some emesis last night. She denies any significant abdominal pain or back pain. She has not been eating well over the last 24 to 48 hours. The nurse states that s he is not interested in eating her Ensure or any type of protein supplementation. Vital Signs Vital Signs Date Time Temp Pulse Resp B/P (MAP) Pulse Ox O2 Delivery O2 Flow Rate FiO2 02/14/20 11:00 99.1 87 16 166/93 (117) 98 Room Air 99.1 02/14/20 08:00 2.0 I&O Intake and Output 02/14/20 06:59 Intake Total 1750 ml Output Total 5750 ml Balance -4000 ml Intake Oral 500 ml IV Total 1250 ml Output Urine Total 5750 ml # Bowel Movements 2 General: Alert, Oriented X3, Cooperative Lungs: Clear to auscultation, Normal air movement Heart: Regular rate, Normal S1, Normal S2 Abdomen: Soft, Other (No significant abdominal tenderness and certainly no peritoneal signs) Extremities: Other Skin: Other (Right heel ulceration stable without significant purulent drainage, there is no significant cellulitis, there is gangrenous tissue at the base of the ulcer) Labs Laboratory Tests Test 02/12/20 12:10 02/13/20 03:10 02/14/20 03:05 Coronavirus (PCR) Not detected (Not Detected) White Blood Count 11.4 x10^3/uL (4.0-11.0) 11.6 x10^3/uL (4.0-11.0) Red Blood Count 3.26 x10^6/uL (3.50-5.40) 3.56 x10^6/uL (3.50-5.40) Hemoglobin 8.4 g/dL (12.0-15.5) 9.1 g/dL (12.0-15.5) Hematocrit 25.9 % (36.0-47.0) 27.8 % (36.0-47.0) Mean Corpuscular Volume 80 fL (79-100) 78 fL (79-100) Mean Corpuscular Hemoglobin 26 pg (25-35) 25 pg (25-35) Mean Corpuscular Hemoglobin Concent 32 g/dL (31-37) 33 g/dL (31-37) Red Cell Distribution Width 18.2 % (11.5-14.5) 17.5 % (11.5-14.5) Platelet Count 378 x10^3/uL (140-400) 432 x10^3/uL (140-400) Neutrophils (%) (Auto) 75 % (31-73) 87 % (31-73) Lymphocytes (%) (Auto) 14 % (24-48) 9 % (24-48) Monocytes (%) (Auto) 6 % (0-9) 3 % (0-9) Eosinophils (%) (Auto) 5 % (0-3) 0 % (0-3) Basophils (%) (Auto) 0 % (0-3) 0 % (0-3) Neutrophils # (Auto) 8.6 x10^3/uL (1.8-7.7) 10.2 x10^3/uL (1.8-7.7) Lymphocytes # (Auto) 1.6 x10^3/uL (1.0-4.8) 1.0 x10^3/uL (1.0-4.8) Monocytes # (Auto) 0.7 x10^3/uL (0.0-1.1) 0.4 x10^3/uL (0.0-1.1) Eosinophils # (Auto) 0.5 x10^3/uL (0.0-0.7) 0.0 x10^3/uL (0.0-0.7) Basophils # (Auto) 0.0 x10^3/uL (0.0-0.2) 0.0 x10^3/uL (0.0-0.2) Sodium Level 143 mmol/L (136-145) 132 mmol/L (136-145) Potassium Level 3.6 mmol/L (3.5-5.1) 3.4 mmol/L (3.5-5.1) Chloride Level 110 mmol/L (98-107) 95 mmol/L (98-107) Carbon Dioxide Level 23 mmol/L (21-32) 24 mmol/L (21-32) Anion Gap 10 (6-14) 13 (6-14) Blood Urea Nitrogen 17 mg/dL (7-20) 11 mg/dL (7-20) Creatinine 0.9 mg/dL (0.6-1.0) 0.7 mg/dL (0.6-1.0) Estimated GFR (Cockcroft-Gault) 73.5 98.2 Glucose Level 88 mg/dL (70-99) 136 mg/dL (70-99) Calcium Level 8.5 mg/dL (8.5-10.1) 9.2 mg/dL (8.5-10.1) Creatine Kinase 54 U/L (26-192) Laboratory Tests Test 02/14/20 03:05 White Blood Count 11.6 x10^3/uL (4.0-11.0) Red Blood Count 3.56 x10^6/uL (3.50-5.40) Hemoglobin 9.1 g/dL (12.0-15.5) Hematocrit 27.8 % (36.0-47.0) Mean Corpuscular Volume 78 fL (79-100) Mean Corpuscular Hemoglobin 25 pg (25-35) Mean Corpuscular Hemoglobin Concent 33 g/dL (31-37) Red Cell Distribution Width 17.5 % (11.5-14.5) Platelet Count 432 x10^3/uL (140-400) Neutrophils (%) (Auto) 87 % (31-73) Lymphocytes (%) (Auto) 9 % (24-48) Monocytes (%) (Auto) 3 % (0-9) Eosinophils (%) (Auto) 0 % (0-3) Basophils (%) (Auto) 0 % (0-3) Neutrophils # (Auto) 10.2 x10^3/uL (1.8-7.7) Lymphocytes # (Auto) 1.0 x10^3/uL (1.0-4.8) Monocytes # (Auto) 0.4 x10^3/uL (0.0-1.1) Eosinophils # (Auto) 0.0 x10^3/uL (0.0-0.7) Basophils # (Auto) 0.0 x10^3/uL (0.0-0.2) Sodium Level 132 mmol/L (136-145) Potassium Level 3.4 mmol/L (3.5-5.1) Chloride Level 95 mmol/L (98-107) Carbon Dioxide Level 24 mmol/L (21-32) Anion Gap 13 (6-14) Blood Urea Nitrogen 11 mg/dL (7-20) Creatinine 0.7 mg/dL (0.6-1.0) Estimated GFR (Cockcroft-Gault) 98.2 Glucose Level 136 mg/dL (70-99) Calcium Level 9.2 mg/dL (8.5-10.1) Problem List Problems Medical Problems: (1) Heel ulcer Status: Acute (2) Heel ulceration Status: Acute (3) Urinary tract infection Status: Acute (4) Weakness Status: Acute Assessment/Plan 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 The patient does not appear well enough to undergo operation currently. We will assess the situation over the weekend and make further recommendations on whether we are going to cancel the operation next week. Abdominal aortic aneurysm--patient's aneurysm remains stable. She denies abdominal pain or back pain. I believe it is going to be prohibitive to place an endograft in the setting of active heel ulceration as well as treatment for urinary tract infection. There is very high risk for graft infection in this scenario. Again I do not think that the patient would tolerate major vascular surgery currently. We will see if she improves over the weekend but I do feel that she could benefit from medical optimization and nutritional optimization prior to major surgery. I was able to talk to both of her daughters who both live in [place] (Manasa Liang and Kate Logan). They are her next of kin and her only family. The contact listed on the face sheet is a friend of hers who is 91 years old. I updated her daughters on her significant health problems and our concerns. There is a concern for right lower extremity limb loss without revascularization. There is also certainly a concern for rupture of her aneurysm. They understand the current situation and we will update them with any significant changes. Manasa Liang phone number is [phone] Kate Logan phone number is [phone] Yifan Landa DO, FACS Justicifation of Admission Dx: Justifications for Admission: Justification of Admission Dx: Yes Sepsis: Infection YIFAN LANDA DO Feb 14, 2020 12:02
--- NOTE | 2020-02-14 17:30 | NUR ---
denies nausea but no appetite. offer to get something else; refuses.. she was able to take her gabapentin and the potassium. states she is feeling better and refused the oxygen. continues to produce large amount of urine in the [place]
[2020-02-14] MEDS: ATORVASTATIN CALCIUM 40 MG TABLET. PO SCH (21:39)
[2020-02-14] MEDS: traZODone 50 MG TABLET. PO SCH (21:39)
[2020-02-14] MEDS: FAMOTIDINE 20 MG TABLET. PO SCH (21:44)
[2020-02-15 03:00] VITALS: BP 112/75
[2020-02-15 04:53] LABS: BASO % 0 % (0-3); EOS # 0.1 x10^3/uL (0.0-0.7); EOS % 1 % (0-3); HEMATOCRIT 29.3 % (36.0-47.0); HEMOGLOBIN 9.8 g/dL (12.0-15.5); LYMPH # 1.3 x10^3/uL (1.0-4.8); LYMPH % 9 % (24-48); MEAN CORPUSCULAR HEMOGLOBIN 26 pg (25-35); MEAN CORPUSCULAR HGB CONC 34 g/dL (31-37); MEAN CORPUSCULAR VOLUME 77 fL (79-100); MONO # 0.9 x10^3/uL (0.0-1.1); MONO % 6 % (0-9); NEUT # 11.7 x10^3/uL (1.8-7.7); NEUT % 84 % (31-73); PLATELET COUNT 478 x10^3/uL (140-400); RED CELL DISTRIBUTION WIDTH 17.5 % (11.5-14.5)
[2020-02-15 05:39] LABS: CALCIUM 9.4 mg/dL (8.5-10.1); CREATININE 0.7 mg/dL (0.6-1.0); GFR 98.2; POTASSIUM 3.4 mmol/L (3.5-5.1)
[2020-02-15] MEDS: MEROPENEM 500 MG in IV NORMAL SALINE 50ML 50 ML IV SCH ×3 (06:19→17:20)
[2020-02-15 07:00] VITALS: BP 135/84
[2020-02-15] MEDS: ASPIRIN 325 MG TABLET PO SCH (09:35)
[2020-02-15] MEDS: busPIRone 10 MG TABLET. PO SCH ×3 (09:35→21:29)
[2020-02-15] MEDS: BACLOFEN 10 MG TABLET. PO SCH (09:35)
[2020-02-15] MEDS: ENOXAPARIN 30 MG/0.3 ML SYRINGE. SQ SCH (09:36)
[2020-02-15] MEDS: LACTOBACILLUS RHAMNOSUS GG 1 CAPSULE. PO SCH ×2 (09:36→21:29)
[2020-02-15] MEDS: DICLOFENAC SODIUM 1% TOPICAL GEL 100GM TUBE. TP SCH ×2 (09:36→21:28)
[2020-02-15] MEDS: GABAPENTIN 100 MG CAPSULE. PO SCH ×4 (09:36→21:28)
[2020-02-15] MEDS: amLODIPine BESYLATE 5 MG TABLET PO SCH (09:36)
[2020-02-15] MEDS: MULTIVITAMIN with MINERAL TABLET. PO SCH ×2 (09:36→09:39)
--- NOTE | 2020-02-15 10:21 | PDOC ---
Infectious Disease Note Subjective Subjective N/V some better now but has had abd pain for the last hour. Not from Vomiting she says No F/C/S/SOA ROS ROS o/w neg Vital Sign Vital Signs Vital Signs Date Time Temp Pulse Resp B/P (MAP) Pulse Ox O2 Delivery O2 Flow Rate FiO2 02/15/20 09:36 91 135/84 02/15/20 07:00 97.7 18 94 Room Air 97.7 02/14/20 23:51 2.0 Physical Exam PHYSICAL EXAM General: Alert, Cooperative, No acute distress - less tired appearing HEENT: nml conj. OC/op clear Neck: No JVD Lungs: Normal air movement Heart: Regular rate, Normal S1, Normal S2, Other (3/6 systolic murmur to LLS border) Abdomen: mild distension - no guarding Gu; yin placed due to bladder retention. Extremities: No cyanosis Skin: No rashes MUSCULOSKELETAL: Osteoarthritic changes both hands, Other (paraplegia with atrophic LE) Neuro: Normal speech Psych: Mental status NL, Mood NL Labs Lab Laboratory Tests Test 02/15/20 03:15 White Blood Count 14.0 x10^3/uL (4.0-11.0) Red Blood Count 3.80 x10^6/uL (3.50-5.40) Hemoglobin 9.8 g/dL (12.0-15.5) Hematocrit 29.3 % (36.0-47.0) Mean Corpuscular Volume 77 fL (79-100) Mean Corpuscular Hemoglobin 26 pg (25-35) Mean Corpuscular Hemoglobin Concent 34 g/dL (31-37) Red Cell Distribution Width 17.5 % (11.5-14.5) Platelet Count 478 x10^3/uL (140-400) Neutrophils (%) (Auto) 84 % (31-73) Lymphocytes (%) (Auto) 9 % (24-48) Monocytes (%) (Auto) 6 % (0-9) Eosinophils (%) (Auto) 1 % (0-3) Basophils (%) (Auto) 0 % (0-3) Neutrophils # (Auto) 11.7 x10^3/uL (1.8-7.7) Lymphocytes # (Auto) 1.3 x10^3/uL (1.0-4.8) Monocytes # (Auto) 0.9 x10^3/uL (0.0-1.1) Eosinophils # (Auto) 0.1 x10^3/uL (0.0-0.7) Basophils # (Auto) 0.0 x10^3/uL (0.0-0.2) Sodium Level 126 mmol/L (136-145) Potassium Level 3.4 mmol/L (3.5-5.1) Chloride Level 90 mmol/L (98-107) Carbon Dioxide Level 27 mmol/L (21-32) Anion Gap 9 (6-14) Blood Urea Nitrogen 11 mg/dL (7-20) Creatinine 0.7 mg/dL (0.6-1.0) Estimated GFR (Cockcroft-Gault) 98.2 Glucose Level 105 mg/dL (70-99) Calcium Level 9.4 mg/dL (8.5-10.1) Micro Microbiology 02/10/20 Blood Culture - Preliminary, Resulted NO GROWTH AFTER 2 DAYS 02/09/20 Urine Culture - Final, Complete 02/09/20 Antimicrobic Susceptibility - Final, Complete Objective Assessment Leukocyosis - increase today- blood cults/COVID neg N/V - some better ABd pain - no diarrhea YOLA - better ESBL UTI 02/08 - POA PCN allergy - Local swelling post Im injection AAA - repair planned 02/17 Severe PAD - bypass planned 02/17 R Heel wound I and D planned 02/17 sinus congestion Plan Plan of Care Cont Meropenem Discont Dapto CK 54 02/12 -02/13 with nausea Add Micafungin - at risk for yeast Repeat CT per Dr. Elkins F/u labs Local wound care per Vascular RAYNE TORO MD Feb 15, 2020 10:21
[2020-02-15] MEDS: ONDANSETRON ODT 4 MG TAB.RAPDIS. PO PRN (10:39)
--- NOTE | 2020-02-15 10:47 | PDOC ---
PROGRESS NOTES Subjective Subjective She admits continued GI discomfort. Objective Objective Vital Signs Date Time Temp Pulse Resp B/P (MAP) Pulse Ox O2 Delivery O2 Flow Rate FiO2 02/15/20 09:36 91 135/84 02/15/20 07:00 97.7 18 94 Room Air 97.7 02/14/20 23:51 2.0 Intake and Output 02/15/20 07:00 Intake Total 400 ml Output Total 3750 ml Balance -3350 ml Intake Oral 200 ml IV Total 200 ml Output Urine Total 3750 ml Physical Exam Physical Exam She is alert,sitting in bed and does not seem to be in any distress and she did not have PRAFO boots in place to her heels. Assessment Assessment Problems Medical Problems: (1) Heel ulcer Status: Acute (2) Heel ulceration Status: Acute (3) Urinary tract infection Status: Acute (4) Weakness Status: Acute Plan Plan of Care To continue present care efforts as tolerated. Comment Review of Relevant I have reviewed the following items dari (where applicable) has been applied. Labs Laboratory Tests Test 02/14/20 03:05 02/15/20 03:15 White Blood Count 11.6 x10^3/uL (4.0-11.0) 14.0 x10^3/uL (4.0-11.0) Red Blood Count 3.56 x10^6/uL (3.50-5.40) 3.80 x10^6/uL (3.50-5.40) Hemoglobin 9.1 g/dL (12.0-15.5) 9.8 g/dL (12.0-15.5) Hematocrit 27.8 % (36.0-47.0) 29.3 % (36.0-47.0) Mean Corpuscular Volume 78 fL (79-100) 77 fL (79-100) Mean Corpuscular Hemoglobin 25 pg (25-35) 26 pg (25-35) Mean Corpuscular Hemoglobin Concent 33 g/dL (31-37) 34 g/dL (31-37) Red Cell Distribution Width 17.5 % (11.5-14.5) 17.5 % (11.5-14.5) Platelet Count 432 x10^3/uL (140-400) 478 x10^3/uL (140-400) Neutrophils (%) (Auto) 87 % (31-73) 84 % (31-73) Lymphocytes (%) (Auto) 9 % (24-48) 9 % (24-48) Monocytes (%) (Auto) 3 % (0-9) 6 % (0-9) Eosinophils (%) (Auto) 0 % (0-3) 1 % (0-3) Basophils (%) (Auto) 0 % (0-3) 0 % (0-3) Neutrophils # (Auto) 10.2 x10^3/uL (1.8-7.7) 11.7 x10^3/uL (1.8-7.7) Lymphocytes # (Auto) 1.0 x10^3/uL (1.0-4.8) 1.3 x10^3/uL (1.0-4.8) Monocytes # (Auto) 0.4 x10^3/uL (0.0-1.1) 0.9 x10^3/uL (0.0-1.1) Eosinophils # (Auto) 0.0 x10^3/uL (0.0-0.7) 0.1 x10^3/uL (0.0-0.7) Basophils # (Auto) 0.0 x10^3/uL (0.0-0.2) 0.0 x10^3/uL (0.0-0.2) Sodium Level 132 mmol/L (136-145) 126 mmol/L (136-145) Potassium Level 3.4 mmol/L (3.5-5.1) 3.4 mmol/L (3.5-5.1) Chloride Level 95 mmol/L (98-107) 90 mmol/L (98-107) Carbon Dioxide Level 24 mmol/L (21-32) 27 mmol/L (21-32) Anion Gap 13 (6-14) 9 (6-14) Blood Urea Nitrogen 11 mg/dL (7-20) 11 mg/dL (7-20) Creatinine 0.7 mg/dL (0.6-1.0) 0.7 mg/dL (0.6-1.0) Estimated GFR (Cockcroft-Gault) 98.2 98.2 Glucose Level 136 mg/dL (70-99) 105 mg/dL (70-99) Calcium Level 9.2 mg/dL (8.5-10.1) 9.4 mg/dL (8.5-10.1) Laboratory Tests Test 02/15/20 03:15 White Blood Count 14.0 x10^3/uL (4.0-11.0) Red Blood Count 3.80 x10^6/uL (3.50-5.40) Hemoglobin 9.8 g/dL (12.0-15.5) Hematocrit 29.3 % (36.0-47.0) Mean Corpuscular Volume 77 fL (79-100) Mean Corpuscular Hemoglobin 26 pg (25-35) Mean Corpuscular Hemoglobin Concent 34 g/dL (31-37) Red Cell Distribution Width 17.5 % (11.5-14.5) Platelet Count 478 x10^3/uL (140-400) Neutrophils (%) (Auto) 84 % (31-73) Lymphocytes (%) (Auto) 9 % (24-48) Monocytes (%) (Auto) 6 % (0-9) Eosinophils (%) (Auto) 1 % (0-3) Basophils (%) (Auto) 0 % (0-3) Neutrophils # (Auto) 11.7 x10^3/uL (1.8-7.7) Lymphocytes # (Auto) 1.3 x10^3/uL (1.0-4.8) Monocytes # (Auto) 0.9 x10^3/uL (0.0-1.1) Eosinophils # (Auto) 0.1 x10^3/uL (0.0-0.7) Basophils # (Auto) 0.0 x10^3/uL (0.0-0.2) Sodium Level 126 mmol/L (136-145) Potassium Level 3.4 mmol/L (3.5-5.1) Chloride Level 90 mmol/L (98-107) Carbon Dioxide Level 27 mmol/L (21-32) Anion Gap 9 (6-14) Blood Urea Nitrogen 11 mg/dL (7-20) Creatinine 0.7 mg/dL (0.6-1.0) Estimated GFR (Cockcroft-Gault) 98.2 Glucose Level 105 mg/dL (70-99) Calcium Level 9.4 mg/dL (8.5-10.1) Microbiology 7/6/20 Blood Culture - Preliminary, Resulted NO GROWTH AFTER 4 DAYS 02/09/20 Urine Culture - Final, Complete 02/09/20 Antimicrobic Susceptibility - Final, Complete Medications Current Medications Fentanyl Citrate (Fentanyl 2ml Vial) 50 mcg 1X ONCE IV Last administered on 02/09/20 15:38; Start 02/09/20 at 15:30; Stop 02/09/20 at 15:31; Status DC Ondansetron HCl (Zofran) 4 mg 1X ONCE IV Last administered on 02/09/20 15:37; Start 02/09/20 at 15:30; Stop 02/09/20 at 15:31; Status DC Trimethoprim/ Sulfamethoxazole (Bactrim Ds) 1 tab 1X ONCE PO Last administered on 02/09/20 18:33; Start 02/09/20 at 18:30; Stop 02/09/20 at 18:31; Status DC Ceftriaxone Sodium (Rocephin) 1 gm Q24H IVP Last administered on 02/11/20 21:01; Start 02/09/20 at 21:00; Stop 02/12/20 at 13:00; Status DC Acetaminophen/ Hydrocodone Bitart (Lortab 7.5/325) 1 tab PRN Q4HRS PRN PO MODERATE PAIN 4-6 Last administered on 02/11/20 23:27; Start 02/09/20 at 21:30 Acetaminophen (Tylenol) 650 mg PRN Q6HRS PRN PO MILD PAIN 1-3 Last administered on 02/14/20 21:39; Start 02/09/20 at 21:30 Amlodipine Besylate (Norvasc) 5 mg DAILY PO Last administered on 02/15/20 09:36; Start 02/10/20 at 09:00 Atorvastatin Calcium (Lipitor) 40 mg QHS PO Last administered on 02/14/20 21:39; Start 02/09/20 at 23:00 Buspirone HCl (Buspar) 10 mg TID PO Last administered on 02/15/20 09:35; Start 02/09/20 at 23:00 Diclofenac Sodium (Voltaren) 1 yesika BID TP Last administered on 02/15/20 09:36; Start 02/09/20 at 23:00 Famotidine (Pepcid) 20 mg QHS PO Last administered on 02/14/20 21:44; Start 02/09/20 at 23:00 Gabapentin (Neurontin) 100 mg QID PO Last administered on 02/15/20 09:36; Start 02/09/20 at 23:00 Lisinopril (Prinivil) 20 mg DAILY PO Last administered on 02/10/20 09:44; Start 02/10/20 at 09:00; Stop 02/10/20 at 16:24; Status DC Ondansetron HCl (Zofran Odt) 4 mg PRN BID PRN PO NAUSEA 1ST CHOICE Last administered on 02/15/20 10:39; Start 02/09/20 at 22:15 Trazodone HCl (Desyrel) 50 mg HS PO Last administered on 02/14/20 21:39; Start 02/09/20 at 23:00 Baclofen (Lioresal) 5 mg DAILY PO Last administered on 02/15/20 09:35; Start 02/10/20 at 09:00 Ceftriaxone Sodium (Rocephin) 1 gm Q24H IVP ; Start 02/10/20 at 11:00; Status UNV Lactobacillus Rhamnosus (Culturelle) 1 cap BID PO Last administered on 02/14 09:36; Start 02/10/20 at 21:00 Sodium Chloride 1,000 ml @ 100 mls/hr Q10H IV Last administered on 02/13/20 06:46; Start 02/10/20 at 17:00; Stop 02/13/20 at 08:54; Status DC Potassium Chloride (Klor-Con) 40 meq 1X ONCE PO Last administered on 02/10/20 17:37; Start 02/10/20 at 17:00; Stop 02/10/20 at 17:01; Status DC Enoxaparin Sodium (Lovenox 30mg Syringe) 30 mg Q24H SQ Last administered on 02/15/20 09:36; Start 02/11/20 at 10:00 Aspirin ([employer] Aspirin) 325 mg 1X ONCE PO Last administered on 02/11/20 11:52; Start 02/11/20 at 10:00; Stop 02/11/20 at 10:01; Status DC Aspirin (Dre Aspirin) 325 mg DAILYWBKFT PO Last administered on 02/15/20at 09:35; Start 02/12/20 at 08:00 Cefdinir (Omnicef) 300 mg Q24H PO ; Start 02/12/20 at 14:00; Stop 02/12/20 at 14:12; Status DC Daptomycin 270 mg/ Sodium Chloride 50 ml @ 100 mls/hr Q24H IV Last administered on 02/13/20at 15:05; Start 02/12/20 at 15:00; Stop 02/14/20 at 10:05; Status DC Cefepime HCl (Maxipime) 1 gm Q12HR IVP Last administered on 02/13/20at 08:36; Start 02/12/20 at 15:00; Stop 02/13/20 at 08:45; Status DC Metoprolol Tartrate (Lopressor Vial) 5 mg PRN Q6HRS PRN IVP TACHYCARDIA; Start 02/12/20 at 14:45 Multivitamins (Thera M Plus) 1 tab DAILY PO Last administered on 02/14/20at 08:19; Start 02/13/20 at 09:00 Meropenem 500 mg/ Sodium Chloride 50 ml @ 100 mls/hr Q6HRS IV Last administered on 02/15/20at 06:19; Start 02/13/20 at 09:00 Potassium Chloride (Klor-Con) 20 meq 1X ONCE PO Last administered on 02/14/20at 08:40; Start 02/14/20 at 08:30; Stop 02/14/20 at 08:31; Status DC Micafungin Sodium 100 mg/Dextrose 100 ml @ 100 mls/hr Q24H IV ; Start 02/15/20 at 11:00 Active Scripts Active [place] 5-325 Tablet (Acetaminophen/Hydrocodone Bitart) 1 Each Tablet 1-2 Tab PO Q4-6HRS 2 Days Reported Trazodone Hcl 50 Mg Tablet 50 Mg PO HS Ondansetron Odt (Ondansetron) 4 Mg Tab.rapdis 4 Mg PO PRN BID PRN Atorvastatin Calcium 40 Mg Tablet 40 Mg PO DAILY Baclofen 5 Mg Tablet 5 Mg PO DAILY Gabapentin 100 Mg Capsule 100 Mg PO QID Diclofenac Sodium 100 Gm Gel..gram. 1 Yesika TOP BID Buspirone Hcl 10 Mg Tablet 10 Mg PO TID Famotidine 20 Mg Tablet 20 Mg PO BID Lisinopril 20 Mg Tablet 20 Mg PO DAILY Amlodipine Besylate 5 Mg Tablet 5 Mg PO DAILY Vitals/I & O Vital Sign - Last 24 Hours 02/14/20 02/14/20 02/14/20 02/14/20 11:00 12:30 12:45 13:00 Temp 99.1 99.1 Pulse 87 79 78 78 Resp 16 B/P (MAP) 166/93 (117) 103/55 (71) 129/44 (72) 119/33 (61) Pulse Ox 98 97 99 O2 Delivery Room Air 02/14/20 02/14/20 02/14/20 02/14/20 13:15 13:30 14:00 15:00 Temp 98.4 98.4 Pulse 78 79 79 97 Resp 16 B/P (MAP) 124/43 (70) 128/50 (76) 126/40 (68) 156/73 (100) Pulse Ox 98 O2 Delivery Room Air 02/14/20 02/14/20 02/14/20 02/15/20 19:30 20:00 23:51 03:00 Temp 97.5 97.9 98.7 97.5 97.9 98.7 Pulse 93 91 90 Resp 20 18 20 B/P (MAP) 147/94 (111) 149/93 (111) 112/75 (87) Pulse Ox 96 95 96 O2 Delivery Room Air Room Air Nasal Cannula Room Air O2 Flow Rate 2.0 02/15/20 02/15/20 07:00 09:36 Temp 97.7 97.7 Pulse 91 91 Resp 18 B/P (MAP) 135/84 (101) 135/84 Pulse Ox 94 O2 Delivery Room Air Intake and Output 02/14/20 02/14/20 02/15/20 15:00 23:00 07:00 Intake Total 200 ml 200 ml Output Total 1750 ml 1250 ml 750 ml Balance -1750 ml -1050 ml -550 ml Justicifation of Admission Dx: Justifications for Admission: Justification of Admission Dx: Yes Sepsis: Infection Nutrition Consultation Dietary Evaluation: Recommendations by RD: Dietary education by RD, Increase Calorie Intake, Pro tein supplementation Comments: cardiac diet with ensure enlive bid homar bid mvi q day per wound protocal Expected Outcomes/Goals: to meet >75% est nutr needs improved wound status Malnutrition Findings: Body Fat Depletion (Non Severe: Mod to Severe Weight Status: Underweight RIYA SHARP MD Feb 15, 2020 10:47
--- NOTE | 2020-02-15 10:59 | PDOC ---
PROGRESS NOTES Subjective Subjective Still nauseated, abd pain. Objective Objective Vital Signs Date Time Temp Pulse Resp B/P (MAP) Pulse Ox O2 Delivery O2 Flow Rate FiO2 02/15/20 09:36 91 135/84 02/15/20 07:00 97.7 18 94 Room Air 97.7 02/14/20 23:51 2.0 Intake and Output 02/15/20 07:00 Intake Total 400 ml Output Total 3750 ml Balance -3350 ml Intake Oral 200 ml IV Total 200 ml Output Urine Total 3750 ml Physical Exam Abdomen: Other (tender lower andomen) Heart: Regular rate, Normal S1, Normal S2 Extremities: Other General: Alert, Oriented X3, Cooperative HEENT: Atraumatic Lungs: Clear to auscultation, Normal air movement MUSCULOSKELETAL: Osteoarthritic changes both hands, Other (paraplegia with atrophic LE) Neck: No JVD Neuro: Normal speech Psych/Mental Status: Mental status NL, Mood NL Skin: Other (Right heel ulceration stable without significant purulent drainage, there is no significant cellulitis, there is gangrenous tissue at the base of the ulcer) COMMENT yin placed due to bladder retention. Diagnosis Problem List Problems Medical Problems: (1) Heel ulcer Status: Acute (2) Heel ulceration Status: Acute (3) Urinary tract infection Status: Acute (4) Weakness Status: Acute Assessment Assessment Problems Medical Problems: (1) Heel ulcer Status: Acute (2) Heel ulceration Status: Acute (3) Urinary tract infection Status: Acute (4) Weakness Status: Acute FINAL IMPRESSION:Abd pain? diverticulitis Low NA 126 today, WBC 14 went up. 1. 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 3. Chronic obstructive pulmonary disease. 4. Hypertension. 5. Abdominal aortic aneurysm. 6. Peripheral vascular disease. 7. Heel ulcers. 8. General debility. 9. History of lung cancer in the past. 10. General decline. PLAN:IV fluids normal saline CT abd and pelvis with contrast today .diverticulitis? spoke with ID , on [facility]. Covid -19 ,neg. E coli uti-ELBS,ID consult.Spoke with Dr Jones. On [facility]. Plans for endovascular abdominal aortic aneurysm repair with Lindsay along with a right femoral to below-knee popliteal artery bypass with saphenous vein and a right heel debridement and possible wound VAC placement.next courtney Plan Plan of Care Problems Medical Problems: (1) Heel ulcer Status: Acute (2) Heel ulceration Status: Acute (3) Urinary tract infection Status: Acute (4) Weakness Status: Acute Comment Review of Relevant I have reviewed the following items dari (where applicable) has been applied. Labs Laboratory Tests Test 02/15/20 03:15 White Blood Count 14.0 x10^3/uL (4.0-11.0) Red Blood Count 3.80 x10^6/uL (3.50-5.40) Hemoglobin 9.8 g/dL (12.0-15.5) Hematocrit 29.3 % (36.0-47.0) Mean Corpuscular Volume 77 fL (79-100) Mean Corpuscular Hemoglobin 26 pg (25-35) Mean Corpuscular Hemoglobin Concent 34 g/dL (31-37) Red Cell Distribution Width 17.5 % (11.5-14.5) Platelet Count 478 x10^3/uL (140-400) Neutrophils (%) (Auto) 84 % (31-73) Lymphocytes (%) (Auto) 9 % (24-48) Monocytes (%) (Auto) 6 % (0-9) Eosinophils (%) (Auto) 1 % (0-3) Basophils (%) (Auto) 0 % (0-3) Neutrophils # (Auto) 11.7 x10^3/uL (1.8-7.7) Lymphocytes # (Auto) 1.3 x10^3/uL (1.0-4.8) Monocytes # (Auto) 0.9 x10^3/uL (0.0-1.1) Eosinophils # (Auto) 0.1 x10^3/uL (0.0-0.7) Basophils # (Auto) 0.0 x10^3/uL (0.0-0.2) Sodium Level 126 mmol/L (136-145) Potassium Level 3.4 mmol/L (3.5-5.1) Chloride Level 90 mmol/L (98-107) Carbon Dioxide Level 27 mmol/L (21-32) Anion Gap 9 (6-14) Blood Urea Nitrogen 11 mg/dL (7-20) Creatinine 0.7 mg/dL (0.6-1.0) Estimated GFR (Cockcroft-Gault) 98.2 Glucose Level 105 mg/dL (70-99) Calcium Level 9.4 mg/dL (8.5-10.1) Microbiology 02/10/20 Blood Culture - Preliminary, Resulted NO GROWTH AFTER 4 DAYS 02/09/20 Urine Culture - Final, Complete 02/09/20 Antimicrobic Susceptibility - Final, Complete Medications Current Medications Micafungin Sodium 100 mg/Dextrose 100 ml @ 100 mls/hr Q24H IV ; Start 02/15/20 at 11:00 Vitals/I & O Vital Sign - Last 24 Hours 02/14/20 02/14/20 02/14/20 02/14/20 11:00 12:30 12:45 13:00 Temp 99.1 99.1 Pulse 87 79 78 78 Resp 16 B/P (MAP) 166/93 (117) 103/55 (71) 129/44 (72) 119/33 (61) Pulse Ox 98 97 99 O2 Delivery Room Air 02/14/20 02/14/20 02/14/20 02/14/20 13:15 13:30 14:00 15:00 Temp 98.4 98.4 Pulse 78 79 79 97 Resp 16 B/P (MAP) 124/43 (70) 128/50 (76) 126/40 (68) 156/73 (100) Pulse Ox 98 O2 Delivery Room Air 02/14/20 02/14/20 02/14/20 02/15/20 19:30 20:00 23:51 03:00 Temp 97.5 97.9 98.7 97.5 97.9 98.7 Pulse 93 91 90 Resp 20 18 20 B/P (MAP) 147/94 (111) 149/93 (111) 112/75 (87) Pulse Ox 96 95 96 O2 Delivery Room Air Room Air Nasal Cannula Room Air O2 Flow Rate 2.0 02/15/20 02/15/20 07:00 09:36 Temp 97.7 97.7 Pulse 91 91 Resp 18 B/P (MAP) 135/84 (101) 135/84 Pulse Ox 94 O2 Delivery Room Air Intake and Output 02/14/20 02/14/20 02/15/20 15:00 23:00 07:00 Intake Total 200 ml 200 ml Output Total 1750 ml 1250 ml 750 ml Balance -1750 ml -1050 ml -550 ml Justicifation of Admission Dx: Justifications for Admission: Justification of Admission Dx: Yes Sepsis: Infection Nutrition Consultation Dietary Evaluation: Recommendations by RD: Dietary education by RD, Increase Calorie Intake, Protein supplementation Comments: cardiac diet with ensure enlive bid homar bid mvi q day per wound protocal Expected Outcomes/Goals: to meet >75% est nutr needs improved wound status Malnutrition Findings: Body Fat Depletion (Non Severe: Mod to Severe Weight Status: Underweight SANDRA SHABAZZ MD Feb 15, 2020 10:59
[2020-02-15 11:00] VITALS: BP 168/96
[2020-02-15] MEDS: IV NORMAL SALINE 1000ML BAG 1,000 ML IV SCH ×2 (11:17→21:29)
[2020-02-15] MEDS ORDERED: PROMETHAZINE 12.5 MG TABLET. PO PRN (11:45)
[2020-02-15] MEDS: MICAFUNGIN 100 MG in IV DEXTROSE 5% 100ML 100 ML IV SCH (12:51)
[2020-02-15] MEDS ORDERED: IOHEXOL 300 MG/ML 100ML VIAL. IV ONE (14:30)
[2020-02-15] MEDS ORDERED: IOHEXOL 240 MG/ML 50ML VIAL. PO ONE (14:30)
[2020-02-15] MEDS ORDERED: CONTRAST GIVEN. MC PRN (14:45)
[2020-02-15 15:00] VITALS: BP 156/96
--- NOTE | 2020-02-15 16:14 | RAD ---
CT abdomen and pelvis with contrast 02/15/2020. Reason for exam: Abdominal pain. Possible colitis. CT images were performed through the abdomen and pelvis using an infusion of 75 mL Omnipaque 300. A small amount of oral contrast also was given. The patient was not able to drink a large volume. Exposure: One or more of the following individualized dose reduction techniques were utilized for this examination: 1. Automated exposure control 2. Adjustment of the mA and/or kV according to patient size 3. Use of iterative reconstruction technique. Comparison is made with an exam of 01/05/2016. FINDINGS: There are some increased peripheral markings in the right lower lobe suggesting scarring. No other significant abnormality is seen at the lung bases. The liver and spleen are homogeneous in density and normal in configuration. Both kidneys enhance with contrast. There are multiple cysts. No solid mass or obstruction is seen. The adrenal glands are not enlarged. No pancreatic abnormality is seen. There is no apparent retroperitoneal or mesenteric adenopathy. An aneurysm of the abdominal aorta has increased in size. It now measures about 4.6 cm AP and 5.2 cm mediolaterally compared with about 3.1 x 3.4 cm previously. There is eccentric bulging toward the left. No leakage is seen at this time. Images through the pelvis show no abnormality of the distal ureters. The bladder has been decompressed by catheter, but otherwise appears normal. No pelvic or inguinal adenopathy is seen. There is no apparent pelvic soft tissue mass or inflammatory process. There is moderate stool through the colon without clearcut evidence of colitis. IMPRESSION: An abdominal aortic aneurysm has increased in size and shows eccentric bulging toward the left. Although active leakage or rupture is not seen, there is increased risk. No other acute abnormality is identified. Electronically signed by: Misael Argueta Jr., MD (02/15/2020 4:11 PM) [id number]
--- NOTE | 2020-02-15 16:51 | NUR ---
Dr. Elkins paged with results of CT scan. Awaiting return call.
--- NOTE | 2020-02-15 17:31 | NUR ---
Received return phone call. Will call Cardiovascular and continue to monitor patient.
--- NOTE | 2020-02-15 17:53 | NUR ---
Dr. Swan has been paged. awaiting call back.
[2020-02-15 19:00] VITALS: BP 166/113
[2020-02-15] MEDS: traZODone 50 MG TABLET. PO SCH (21:29)
[2020-02-15] MEDS: FAMOTIDINE 20 MG TABLET. PO SCH (21:29)
[2020-02-15] MEDS: ATORVASTATIN CALCIUM 40 MG TABLET. PO SCH (21:29)
[2020-02-15 23:00] VITALS: BP 109/68
--- NOTE | 2020-02-15 23:00 | NUR ---
Pt. refused dressings on her heels and does not want to be bothered.
[2020-02-16 03:00] VITALS: BP 139/91
[2020-02-16 04:57] LABS: BASO # 0.1 x10^3/uL (0.0-0.2); BASO % 0 % (0-3); EOS # 0.1 x10^3/uL (0.0-0.7); EOS % 1 % (0-3); HEMATOCRIT 30.6 % (36.0-47.0); LYMPH # 1.8 x10^3/uL (1.0-4.8); LYMPH % 14 % (24-48); MEAN CORPUSCULAR HEMOGLOBIN 25 pg (25-35); MEAN CORPUSCULAR HGB CONC 33 g/dL (31-37); MEAN CORPUSCULAR VOLUME 78 fL (79-100); MONO # 1.1 x10^3/uL (0.0-1.1); MONO % 9 % (0-9); NEUT # 9.7 x10^3/uL (1.8-7.7); NEUT % 76 % (31-73); PLATELET COUNT 498 x10^3/uL (140-400); RED BLOOD COUNT 3.93 x10^6/uL (3.50-5.40); RED CELL DISTRIBUTION WIDTH 17.3 % (11.5-14.5); WHITE BLOOD COUNT 12.8 x10^3/uL (4.0-11.0)
[2020-02-16 05:22] LABS: ALBUMIN 2.4 g/dL (3.4-5.0); ALBUMIN/GLOBULIN RATIO 0.6 (1.0-1.7); CALCIUM 8.7 mg/dL (8.5-10.1); CREATININE 0.7 mg/dL (0.6-1.0); GFR 98.2; POTASSIUM 3.4 mmol/L (3.5-5.1); TOTAL BILIRUBIN 0.3 mg/dL (0.2-1.0); TOTAL PROTEIN 6.2 g/dL (6.4-8.2)
[2020-02-16] MEDS: MEROPENEM 500 MG in IV NORMAL SALINE 50ML 50 ML IV SCH ×5 (06:16→23:26)
[2020-02-16 07:00] VITALS: BP 142/98
[2020-02-16] MEDS: IV NORMAL SALINE 1000ML BAG 1,000 ML IV SCH (07:00)
[2020-02-16] MEDS: ASPIRIN 325 MG TABLET PO SCH (07:21)
[2020-02-16] MEDS: ENOXAPARIN 30 MG/0.3 ML SYRINGE. SQ SCH (07:21)
--- NOTE | 2020-02-16 07:21 | NUR ---
Per Dr. Elkins, ASA and lovenox were held today.
[2020-02-16] MEDS: MULTIVITAMIN with MINERAL TABLET. PO SCH (07:23)
--- NOTE | 2020-02-16 08:27 | PDOC ---
CARDIOLOGY PROGRESS NOTE SUBJECTIVE: Late entry for 02/15/2020 OBJECTIVE: Vital Signs/I&O: Vital Signs Date Time Temp Pulse Resp B/P (MAP) Pulse Ox O2 Delivery O2 Flow Rate FiO2 02/16/20 03:00 98.5 89 18 139/91 (107) 95 Room Air 98.5 I & O 02/15/20 02/15/20 02/16/20 15:00 23:00 07:00 Intake Total 120 ml Output Total 900 ml 1350 ml 400 ml Balance -780 ml -1350 ml -400 ml Objective: Patient is fatigued Mildly tender abd No edema, poor distal pulses. heart tones regular lungs clr. a/o x 2 CURRENT MEDICATIONS: Current Medications Medications (Trade) Dose Ordered Sig/Isabel Route PRN Reason Start Time Stop Time Status Last Admin Dose Admin Micafungin Sodium 100 mg/Dextrose 100 ml @ 100 mls/hr Q24H IV 02/15/20 11:00 02/15/20 12:51 Sodium Chloride 1,000 ml @ 100 mls/hr Q10H IV 02/15/20 11:00 02/15/20 21:29 Promethazine HCl (Phenergan) 12.5 mg PRN Q4HRS PRN PO NAUSEA/VOMITING 02/15/20 11:45 02/15/20 11:51 Iohexol (Omnipaque 240 Mg/ml) 30 ml 1X ONCE PO 02/15/20 14:30 02/15/20 14:32 DC 02/15/20 15:00 Iohexol (Omnipaque 300 Mg/ml) 75 ml 1X ONCE IV 02/15/20 14:30 02/15/20 14:32 DC 02/15/20 15:00 DIAGNOSTIC TESTING: CT scan images reviewed. Unclear what most recent size is, will notify vascular surgery Labs: Laboratory Tests 02/16/20 03:45 Laboratory Tests Test 02/16/20 03:45 White Blood Count 12.8 x10^3/uL (4.0-11.0) H Red Blood Count 3.93 x10^6/uL (3.50-5.40) Hemoglobin 10.0 g/dL (12.0-15.5) L Hematocrit 30.6 % (36.0-47.0) L Mean Corpuscular Volume 78 fL (79-100) L Mean Corpuscular Hemoglobin 25 pg (25-35) Mean Corpuscular Hemoglobin Concent 33 g/dL (31-37) Red Cell Distribution Width 17.3 % (11.5-14.5) H Platelet Count 498 x10^3/uL (140-400) H Neutrophils (%) (Auto) 76 % (31-73) H Lymphocytes (%) (Auto) 14 % (24-48) L Monocytes (%) (Auto) 9 % (0-9) Eosinophils (%) (Auto) 1 % (0-3) Basophils (%) (Auto) 0 % (0-3) Neutrophils # (Auto) 9.7 x10^3/uL (1.8-7.7) H Lymphocytes # (Auto) 1.8 x10^3/uL (1.0-4.8) Monocytes # (Auto) 1.1 x10^3/uL (0.0-1.1) Eosinophils # (Auto) 0.1 x10^3/uL (0.0-0.7) Basophils # (Auto) 0.1 x10^3/uL (0.0-0.2) Sodium Level 130 mmol/L (136-145) L Potassium Level 3.4 mmol/L (3.5-5.1) L Chloride Level 94 mmol/L (98-107) L Carbon Dioxide Level 25 mmol/L (21-32) Anion Gap 11 (6-14) Blood Urea Nitrogen 13 mg/dL (7-20) Creatinine 0.7 mg/dL (0.6-1.0) Estimated GFR (Cockcroft-Gault) 98.2 BUN/Creatinine Ratio 19 (6-20) Glucose Level 69 mg/dL (70-99) L Calcium Level 8.7 mg/dL (8.5-10.1) Total Bilirubin 0.3 mg/dL (0.2-1.0) Aspartate Amino Transf (AST/SGOT) 17 U/L (15-37) Alkaline Phosphatase 110 U/L (46-116) Total Protein 6.2 g/dL (6.4-8.2) L Albumin 2.4 g/dL (3.4-5.0) L Albumin/Globulin Ratio 0.6 (1.0-1.7) L ASSESSMENT: 1. AAA 2. HTn PLAN: 1. Stable from CV standpoint. Can continue present meds. Await vascular surgery input. Supportive care. Thanks Justicifation of Admission Dx: Justifications for Admission: Justification of Admission Dx: Yes Sepsis: Infection AMY GARCIA MD Feb 16, 2020 08:27
[2020-02-16] MEDS: DICLOFENAC SODIUM 1% TOPICAL GEL 100GM TUBE. TP SCH ×2 (09:00→20:25)
[2020-02-16] MEDS: LACTOBACILLUS RHAMNOSUS GG 1 CAPSULE. PO SCH ×2 (09:00→20:20)
[2020-02-16] MEDS: BACLOFEN 10 MG TABLET. PO SCH (09:00)
[2020-02-16] MEDS: GABAPENTIN 100 MG CAPSULE. PO SCH ×4 (09:00→20:20)
[2020-02-16] MEDS: busPIRone 10 MG TABLET. PO SCH ×3 (09:00→20:20)
[2020-02-16] MEDS: MICAFUNGIN 100 MG in IV DEXTROSE 5% 100ML 100 ML IV SCH (09:43)
--- NOTE | 2020-02-16 09:49 | NUR ---
Patient refused morning medication. Patient refused dressing change. Will attempt again later on.
--- NOTE | 2020-02-16 10:32 | PDOC ---
PROGRESS NOTES Subjective Subjective still nauseated,not eating Objective Objective Vital Signs Date Time Temp Pulse Resp B/P (MAP) Pulse Ox O2 Delivery O2 Flow Rate FiO2 02/16/20 07:00 97.7 90 18 142/98 (113) 94 Room Air 97.7 Intake and Output 02/16/20 07:00 Intake Total 120 ml Output Total 2650 ml Balance -2530 ml Intake Oral 120 ml Output Urine Total 2650 ml # Voids 1 Physical Exam Abdomen: Other (tender lower andomen) Heart: Regular rate, Normal S1, Normal S2 Extremities: Other General: Alert, Oriented X3, Cooperative HEENT: Atraumatic Lungs: Clear to auscultation, Normal air movement MUSCULOSKELETAL: Osteoarthritic changes both hands, Other (paraplegia with atrophic LE) Neck: No JVD Neuro: Normal speech Psych/Mental Status: Mental status NL, Mood NL Skin: Other (Right heel ulceration stable without significant purulent drainage, there is no significant cellulitis, there is gangrenous tissue at the base of the ulcer) COMMENT yin placed due to bladder retention. Diagnosis Problem List Problems Medical Problems: (1) Heel ulcer Status: Acute (2) Heel ulceration Status: Acute (3) Urinary tract infection Status: Acute (4) Weakness Status: Acute Assessment Assessment Problems Medical Problems: (1) Heel ulcer Status: Acute (2) Heel ulceration Status: Acute (3) Urinary tract infection Status: Acute (4) Weakness Status: Acute FINAL IMPRESSION:Abd pain? AAA 4x5 cm, bigger 1. 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 3. Chronic obstructive pulmonary disease. 4. Hypertension. 5. Abdominal aortic aneurysm. 6. Peripheral vascular disease. 7. Heel ulcers. 8. General debility. 9. History of lung cancer in the past. 10. General decline. PLAN:procalamine for now Ct scan reviewed ,no colitis AAA inc in seize 4x[address] scan wbc 13 slightly down Na 130 improving. Nausea from Antibiotics?, unfortunately pt has multidrug resitent E COLI Plans for AAA repair + rt leg intervention monday Hold Lovenox on Monday for surgery Plans for endovascular abdominal aortic aneurysm repair with Harrod along with a right femoral to below-knee popliteal artery bypass with saphenous vein and a r ight heel debridement and possible wound VAC placement.next monday Plan Plan of Care Problems Medical Problems: (1) Heel ulcer Status: Acute (2) Heel ulceration Status: Acute (3) Urinary tract infection Status: Acute (4) Weakness Status: Acute Comment Review of Relevant I have reviewed the following items dari (where applicable) has been applied. Labs Laboratory Tests Test 02/16/20 03:45 White Blood Count 12.8 x10^3/uL (4.0-11.0) Red Blood Count 3.93 x10^6/uL (3.50-5.40) Hemoglobin 10.0 g/dL (12.0-15.5) Hematocrit 30.6 % (36.0-47.0) Mean Corpuscular Volume 78 fL (79-100) Mean Corpuscular Hemoglobin 25 pg (25-35) Mean Corpuscular Hemoglobin Concent 33 g/dL (31-37) Red Cell Distribution Width 17.3 % (11.5-14.5) Platelet Count 498 x10^3/uL (140-400) Neutrophils (%) (Auto) 76 % (31-73) Lymphocytes (%) (Auto) 14 % (24-48) Monocytes (%) (Auto) 9 % (0-9) Eosinophils (%) (Auto) 1 % (0-3) Basophils (%) (Auto) 0 % (0-3) Neutrophils # (Auto) 9.7 x10^3/uL (1.8-7.7) Lymphocytes # (Auto) 1.8 x10^3/uL (1.0-4.8) Monocytes # (Auto) 1.1 x10^3/uL (0.0-1.1) Eosinophils # (Auto) 0.1 x10^3/uL (0.0-0.7) Basophils # (Auto) 0.1 x10^3/uL (0.0-0.2) Sodium Level 130 mmol/L (136-145) Potassium Level 3.4 mmol/L (3.5-5.1) Chloride Level 94 mmol/L (98-107) Carbon Dioxide Level 25 mmol/L (21-32) Anion Gap 11 (6-14) Blood Urea Nitrogen 13 mg/dL (7-20) Creatinine 0.7 mg/dL (0.6-1.0) Estimated GFR (Cockcroft-Gault) 98.2 BUN/Creatinine Ratio 19 (6-20) Glucose Level 69 mg/dL (70-99) Calcium Level 8.7 mg/dL (8.5-10.1) Total Bilirubin 0.3 mg/dL (0.2-1.0) Aspartate Amino Transf (AST/SGOT) 17 U/L (15-37) Alanine Aminotransferase (ALT/SGPT) 18 U/L (14-59) Alkaline Phosphatase 110 U/L (46-116) Total Protein 6.2 g/dL (6.4-8.2) Albumin 2.4 g/dL (3.4-5.0) Albumin/Globulin Ratio 0.6 (1.0-1.7) Microbiology 02/10/20 Blood Culture - Final, Complete NO GROWTH AFTER 5 DAYS 02/09/20 Urine Culture - Final, Complete 02/09/20 Antimicrobic Susceptibility - Final, Complete Medications Current Medications Amino Acids/ Glycerin/ Electrolytes 1,000 ml @ 80 mls/hr [id number] IV ; Start 02/16/20 at 10:00 Info (CONTRAST GIVEN -- Rx MONITORING) 1 each PRN DAILY PRN MC SEE COMMENTS; Start 02/15/20 at 14:45; Stop 02/17/20 at 14:44 Iohexol (Omnipaque 240 Mg/ml) 30 ml 1X ONCE PO Last administered on 02/15/20at 15:00; Start 02/15/20 at 14:30; Stop 02/15/20 at 14:32; Status DC Iohexol (Omnipaque 300 Mg/ml) 75 ml 1X ONCE IV Last administered on 02/15/20at 15:00; Start 02/15/20 at 14:30; Stop 02/15/20 at 14:32; Status DC Micafungin Sodium 100 mg/Dextrose 100 ml @ 100 mls/hr Q24H IV Last administered on 02/16/20at 09:43; Start 02/15/20 at 11:00 Promethazine HCl (Phenergan) 12.5 mg PRN Q4HRS PRN PO NAUSEA/VOMITING Last administered on 02/15/20at 11:51; Start 02/15/20 at 11:45 Sodium Chloride 1,000 ml @ 100 mls/hr Q10H IV Last administered on 02/15/20at 21:29; Start 02/15/20 at 11:00 Vitals/I & O Vital Sign - Last 24 Hours 02/15/20 02/15/20 02/15/20 02/15/20 11:00 15:00 19:00 20:00 Temp 97.9 97.7 98.9 97.9 97.7 98.9 Pulse 87 96 99 Resp 18 18 18 B/P (MAP) 168/96 (120) 156/96 (116) 166/113 (130) Pulse Ox 98 95 94 O2 Delivery Room Air Room Air Room Air Room Air 02/15/20 02/16/20 02/16/20 23:00 03:00 07:00 Temp 97.9 98.5 97.7 97.9 98.5 97.7 Pulse 92 89 90 Resp 18 18 18 B/P (MAP) 109/68 (82) 139/91 (107) 142/98 (113) Pulse Ox 96 95 94 O2 Delivery Room Air Room Air Room Air Intake and Output 02/15/20 02/15/20 02/16/20 15:00 23:00 07:00 Intake Total 120 ml Output Total 900 ml 1350 ml 400 ml Balance -780 ml -1350 ml -400 ml Justicifation of Admission Dx: Justifications for Admission: Justification of Admission Dx: Yes Sepsis: Infection Nutrition Consultation Dietary Evaluation: Recommendations by RD: Dietary education by RD, Increase Calorie Intake, Protein supplementation Comments: cardiac diet with ensure enlive bid homar bid mvi q day per wound protocal Expected Outcomes/Goals: to meet >75% est nutr needs improved wound status Malnutrition Findings: Body Fat Depletion (Non Severe: Mod to Severe Weight Status: Underweight SANDRA SHABAZZ MD Feb 16, 2020 10:32
--- NOTE | 2020-02-16 10:38 | PDOC ---
Infectious Disease Note Subjective Subjective Not feeling good, "just blah" Not very hungry Refusing dressings on heels Refused medications this morning No F/C/S ROS ROS as mentioned above Vital Sign Vital Signs Vital Signs Date Time Temp Pulse Resp B/P (MAP) Pulse Ox O2 Delivery O2 Flow Rate FiO2 02/16/20 07:00 97.7 90 18 142/98 (113) 94 Room Air 97.7 Physical Exam PHYSICAL EXAM GENERAL: Sitting upright in bed, talking on the phone, alert in NAD HEENT: Oral cavity clear NECK: Supple LUNGS: Clear CV: S1, S2 ABDOMEN: Soft, nontender ; Mulligan in place EXTREMITIES: No gross edema or cyanosis. wounds both heels R>L. SKIN: warm to touch NIGHT TIME BABYSITTER: Alert, answering questions appropriately PIV Labs Lab Laboratory Tests Test 02/16/20 03:45 White Blood Count 12.8 x10^3/uL (4.0-11.0) Red Blood Count 3.93 x10^6/uL (3.50-5.40) Hemoglobin 10.0 g/dL (12.0-15.5) Hematocrit 30.6 % (36.0-47.0) Mean Corpuscular Volume 78 fL (79-100) Mean Corpuscular Hemoglobin 25 pg (25-35) Mean Corpuscular Hemoglobin Concent 33 g/dL (31-37) Red Cell Distribution Width 17.3 % (11.5-14.5) Platelet Count 498 x10^3/uL (140-400) Neutrophils (%) (Auto) 76 % (31-73) Lymphocytes (%) (Auto) 14 % (24-48) Monocytes (%) (Auto) 9 % (0-9) Eosinophils (%) (Auto) 1 % (0-3) Basophils (%) (Auto) 0 % (0-3) Neutrophils # (Auto) 9.7 x10^3/uL (1.8-7.7) Lymphocytes # (Auto) 1.8 x10^3/uL (1.0-4.8) Monocytes # (Auto) 1.1 x10^3/uL (0.0-1.1) Eosinophils # (Auto) 0.1 x10^3/uL (0.0-0.7) Basophils # (Auto) 0.1 x10^3/uL (0.0-0.2) Sodium Level 130 mmol/L (136-145) Potassium Level 3.4 mmol/L (3.5-5.1) Chloride Level 94 mmol/L (98-107) Carbon Dioxide Level 25 mmol/L (21-32) Anion Gap 11 (6-14) Blood Urea Nitrogen 13 mg/dL (7-20) Creatinine 0.7 mg/dL (0.6-1.0) Estimated GFR (Cockcroft-Gault) 98.2 BUN/Creatinine Ratio 19 (6-20) Glucose Level 69 mg/dL (70-99) Calcium Level 8.7 mg/dL (8.5-10.1) Total Bilirubin 0.3 mg/dL (0.2-1.0) Aspartate Amino Transf (AST/SGOT) 17 U/L (15-37) Alanine Aminotransferase (ALT/SGPT) 18 U/L (14-59) Alkaline Phosphatase 110 U/L (46-116) Total Protein 6.2 g/dL (6.4-8.2) Albumin 2.4 g/dL (3.4-5.0) Albumin/Globulin Ratio 0.6 (1.0-1.7) Micro CT scan IMPRESSION: An abdominal aortic aneurysm has increased in size and shows eccentric bulging toward the left. Although active leakage or rupture is not seen, there is increased risk. No other acute abnormality is identified. Objective Assessment Leukocytosis - some better N/V - some better ABD pain - no diarrhea YOLA - better ESBL UTI 02/08 - POA PCN allergy - Local swelling post IM injection AAA - repair planned 02/17 Severe PAD - bypass planned 02/17 Right heel wound. I and D planned 02/17 Sinus congestion Plan Plan of Care Cont Meropenem and micafungin off dapto Monitor labs/temp F/u labs Maintain aspiration precautions Local wound care per Vascular Feeling better today with less nausea thinks it was the "purple pill" Awaiting on ? surgery Attending Co-Sign Attending Co-Sign The patient was seen and interviewed as well as examined at the bedside. The chart was reviewed. The case was discussed. Agree with the plan of care. THEE REDDY APRN Feb 16, 2020 10:38 RAYNE TORO MD Feb 16, 2020 16:13
[2020-02-16 11:00] VITALS: BP 154/96
[2020-02-16] MEDS: amLODIPine BESYLATE 5 MG TABLET PO SCH (11:08)
[2020-02-16] MEDS: AMINO AC 3%/ELECTROLYTE/GLYCER 1,000 ML IV SCH ×2 (11:09→23:27)
[2020-02-16 15:00] VITALS: BP 154/97
--- NOTE | 2020-02-16 18:06 | PDOC ---
CARDIOLOGY PROGRESS NOTE SUBJECTIVE: No new issues overnight. Continues to have intermittent nausea, leg pain. OBJECTIVE: Vital Signs/I&O: Vital Signs Date Time Temp Pulse Resp B/P (MAP) Pulse Ox O2 Delivery O2 Flow Rate FiO2 02/16/20 15:00 97.7 91 18 154/97 (116) 98 Room Air 97.7 I & O 02/15/20 02/15/20 02/16/20 15:00 23:00 07:00 Intake Total 120 ml Output Total 900 ml 1350 ml 400 ml Balance -780 ml -1350 ml -400 ml Objective: She is anxious. Resting in bed. a/o to place and person. not time. No significant edema. Diminished LE pulses. Heel ulcers noted non-focal neuro exam CURRENT MEDICATIONS: Current Medications Medications (Trade) Dose Ordered Sig/Isabel Route PRN Reason Start Time Stop Time Status Last Admin Dose Admin Amino Acids/ Glycerin/ Electrolytes 1,000 ml @ 80 mls/hr [id number] IV 02/16/20 10:00 02/16/20 11:09 DIAGNOSTIC TESTING: labs/ct scan reviewed Labs: Laboratory Tests 02/16/20 03:45 Laboratory Tests Test 02/16/20 03:45 White Blood Count 12.8 x10^3/uL (4.0-11.0) H Red Blood Count 3.93 x10^6/uL (3.50-5.40) Hemoglobin 10.0 g/dL (12.0-15.5) L Hematocrit 30.6 % (36.0-47.0) L Mean Corpuscular Volume 78 fL (79-100) L Mean Corpuscular Hemoglobin 25 pg (25-35) Mean Corpuscular Hemoglobin Concent 33 g/dL (31-37) Red Cell Distribution Width 17.3 % (11.5-14.5) H Platelet Count 498 x10^3/uL (140-400) H Neutrophils (%) (Auto) 76 % (31-73) H Lymphocytes (%) (Auto) 14 % (24-48) L Monocytes (%) (Auto) 9 % (0-9) Eosinophils (%) (Auto) 1 % (0-3) Basophils (%) (Auto) 0 % (0-3) Neutrophils # (Auto) 9.7 x10^3/uL (1.8-7.7) H Lymphocytes # (Auto) 1.8 x10^3/uL (1.0-4.8) Monocytes # (Auto) 1.1 x10^3/uL (0.0-1.1) Eosinophils # (Auto) 0.1 x10^3/uL (0.0-0.7) Basophils # (Auto) 0.1 x10^3/uL (0.0-0.2) Sodium Level 130 mmol/L (136-145) L Potassium Level 3.4 mmol/L (3.5-5.1) L Chloride Level 94 mmol/L (98-107) L Carbon Dioxide Level 25 mmol/L (21-32) Anion Gap 11 (6-14) Blood Urea Nitrogen 13 mg/dL (7-20) Creatinine 0.7 mg/dL (0.6-1.0) Estimated GFR (Cockcroft-Gault) 98.2 BUN/Creatinine Ratio 19 (6-20) Glucose Level 69 mg/dL (70-99) L Calcium Level 8.7 mg/dL (8.5-10.1) Total Bilirubin 0.3 mg/dL (0.2-1.0) Aspartate Amino Transf (AST/SGOT) 17 U/L (15-37) Alkaline Phosphatase 110 U/L (46-116) Total Protein 6.2 g/dL (6.4-8.2) L Albumin 2.4 g/dL (3.4-5.0) L Albumin/Globulin Ratio 0.6 (1.0-1.7) L ASSESSMENT: 1. AAA - enlarging 2. UTI 3. Poor functional capacity. 4. Dyslipidemia PLAN: 1. I had a long discussion with Dr. Landa about Ms. redmond. From a purely CV perspective, she would be deemed moderate risk but she has extensive PAD, severe debility and ongoing infection. In this setting, he felt that surgery would be very nearly prohibitive and recommended consideration of palliative care and hospice. I agree with this suggestion. PCP Dr. Elkins notified, nursing staff notified and they will call family. Continue asa, statin and amlodipine. BP is labile, likely related to pain. Supportive care. Thanks Justicifation of Admission Dx: Justifications for Admission: Justification of Admission Dx: Yes Sepsis: Infection AMY GARCIA MD Feb 16, 2020:06
[2020-02-16 19:00] VITALS: BP 133/83
[2020-02-16] MEDS: HYDROcodone/APAP 7.5/325MG 1 TAB TABLET PO PRN (20:19)
[2020-02-16] MEDS: ATORVASTATIN CALCIUM 40 MG TABLET. PO SCH (20:20)
[2020-02-16] MEDS: FAMOTIDINE 20 MG TABLET. PO SCH (20:20)
[2020-02-16] MEDS: traZODone 50 MG TABLET. PO SCH (20:20)
[2020-02-16 23:00] VITALS: BP 118/78
[2020-02-17] MEDS: HYDROcodone/APAP 7.5/325MG 1 TAB TABLET PO PRN (00:38)
[2020-02-17 03:00] VITALS: BP 114/77
[2020-02-17] MEDS: MEROPENEM 500 MG in IV NORMAL SALINE 50ML 50 ML IV SCH ×3 (06:32→18:41)
[2020-02-17 07:00] VITALS: BP 106/73
[2020-02-17] MEDS: ASPIRIN 325 MG TABLET PO SCH (08:00)
[2020-02-17] MEDS: POTASSIUM CHLORIDE 20 MEQ TABLET.ER. PO SCH ×3 (09:00→21:00)
[2020-02-17] MEDS: MULTIVITAMIN with MINERAL TABLET. PO SCH (09:00)
[2020-02-17] MEDS: BACLOFEN 10 MG TABLET. PO SCH (09:00)
[2020-02-17] MEDS: LACTOBACILLUS RHAMNOSUS GG 1 CAPSULE. PO SCH ×2 (09:00→21:00)
[2020-02-17] MEDS: DICLOFENAC SODIUM 1% TOPICAL GEL 100GM TUBE. TP SCH ×2 (09:00→21:00)
[2020-02-17] MEDS: busPIRone 10 MG TABLET. PO SCH ×3 (09:00→21:00)
--- NOTE | 2020-02-17 09:01 | PDOC ---
PROGRESS NOTES Subjective Subjective No new complaints. Objective Objective Vital Signs Date Time Temp Pulse Resp B/P (MAP) Pulse Ox O2 Delivery O2 Flow Rate FiO2 02/17/20 07:00 97.7 75 18 106/73 (84) 94 Room Air 97.7 02/14/20 23:51 2.0 Intake and Output 02/17/20 07:00 Intake Total 120 ml Output Total 850 ml Balance -730 ml Intake Oral 120 ml Output Urine Total 850 ml # Voids 1 Physical Exam Physical Exam She is sitting in bed and does not seem to be in any distress and she had dressing to her heels and no change noted with her lower extremity weakness. Assessment Assessment Problems Medical Problems: (1) Heel ulcer Status: Acute (2) Heel ulceration Status: Acute (3) Urinary tract infection Status: Acute (4) Weakness Status: Acute Plan Plan of Care To continue present care efforts as tolerated. Comment Review of Relevant I have reviewed the following items dari (where applicable) has been applied. Labs Laboratory Tests Test 02/16/20 03:45 White Blood Count 12.8 x10^3/uL (4.0-11.0) Red Blood Count 3.93 x10^6/uL (3.50-5.40) Hemoglobin 10.0 g/dL (12.0-15.5) Hematocrit 30.6 % (36.0-47.0) Mean Corpuscular Volume 78 fL (79-100) Mean Corpuscular Hemoglobin 25 pg (25-35) Mean Corpuscular Hemoglobin Concent 33 g/dL (31-37) Red Cell Distribution Width 17.3 % (11.5-14.5) Platelet Count 498 x10^3/uL (140-400) Neutrophils (%) (Auto) 76 % (31-73) Lymphocytes (%) (Auto) 14 % (24-48) Monocytes (%) (Auto) 9 % (0-9) Eosinophils (%) (Auto) 1 % (0-3) Basophils (%) (Auto) 0 % (0-3) Neutrophils # (Auto) 9.7 x10^3/uL (1.8-7.7) Lymphocytes # (Auto) 1.8 x10^3/uL (1.0-4.8) Monocytes # (Auto) 1.1 x10^3/uL (0.0-1.1) Eosinophils # (Auto) 0.1 x10^3/uL (0.0-0.7) Basophils # (Auto) 0.1 x10^3/uL (0.0-0.2) Sodium Level 130 mmol/L (136-145) Potassium Level 3.4 mmol/L (3.5-5.1) Chloride Level 94 mmol/L (98-107) Carbon Dioxide Level 25 mmol/L (21-32) Anion Gap 11 (6-14) Blood Urea Nitrogen 13 mg/dL (7-20) Creatinine 0.7 mg/dL (0.6-1.0) Estimated GFR (Cockcroft-Gault) 98.2 BUN/Creatinine Ratio 19 (6-20) Glucose Level 69 mg/dL (70-99) Calcium Level 8.7 mg/dL (8.5-10.1) Total Bilirubin 0.3 mg/dL (0.2-1.0) Aspartate Amino Transf (AST/SGOT) 17 U/L (15-37) Alanine Aminotransferase (ALT/SGPT) 18 U/L (14-59) Alkaline Phosphatase 110 U/L (46-116) Total Protein 6.2 g/dL (6.4-8.2) Albumin 2.4 g/dL (3.4-5.0) Albumin/Globulin Ratio 0.6 (1.0-1.7) Microbiology 02/10/20 Blood Culture - Final, Complete NO GROWTH AFTER 5 DAYS 02/09/20 Urine Culture - Final, Complete 02/09/20 Antimicrobic Susceptibility - Final, Complete Medications Current Medications Fentanyl Citrate (Fentanyl 2ml Vial) 50 mcg 1X ONCE IV Last administered on 02/09/20at 15:38; Start 02/09/20 at 15:30; Stop 02/09/20 at 15:31; Status DC Ondansetron HCl (Zofran) 4 mg 1X ONCE IV Last administered on 02/09/20at 15:37; Start 02/09/20 at 15:30; Stop 02/09/20 at 15:31; Status DC Trimethoprim/ Sulfamethoxazole (Bactrim Ds) 1 tab 1X ONCE PO Last administered on 02/09/20at 18:33; Start 02/09/20 at 18:30; Stop 02/09/20 at 18:31; Status DC Ceftriaxone Sodium (Rocephin) 1 gm Q24H IVP Last administered on 02/11/20 21:01; Start 02/09/20 at 21:00; Stop 02/12/20 at 13:00; Status DC Acetaminophen/ Hydrocodone Bitart (Lortab 7.5/325) 1 tab PRN Q4HRS PRN PO MODERATE PAIN 4-6 Last administered on 02/17/20 00:38; Start 02/09/20 at 21:30 Acetaminophen (Tylenol) 650 mg PRN Q6HRS PRN PO MILD PAIN 1-3 Last administered on 02/14/20 21:39; Start 02/09/20 at 21:30 Amlodipine Besylate (Norvasc) 5 mg DAILY PO Last administered on 02/16/20 11:08; Start 02/10/20 at 09:00 Atorvastatin Calcium (Lipitor) 40 mg QHS PO Last administered on 02/16/20 20:20; Start 02/09/20 at 23:00 Buspirone HCl (Buspar) 10 mg TID PO Last administered on 02/16/20 20:20; Start 02/09/20 at 23:00 Diclofenac Sodium (Voltaren) 1 yesika BID TP Last administered on 02/16/20 20:25; Start 02/09/20 at 23:00 Famotidine (Pepcid) 20 mg QHS PO Last administered on 02/16/20 20:20; Start 02/09/20 at 23:00 Gabapentin (Neurontin) 100 mg QID PO Last administered on 02/16/20 20:20; Start 02/09/20 at 23:00 Lisinopril (Prinivil) 20 mg DAILY PO Last administered on 02/10/20 09:44; Start 02/10/20 at 09:00; Stop 02/10/20 at 16:24; Status DC Ondansetron HCl (Zofran Odt) 4 mg PRN BID PRN PO NAUSEA 1ST CHOICE Last administered on 02/15/20 10:39; Start 02/09/20 at 22:15 Trazodone HCl (Desyrel) 50 mg HS PO Last administered on 02/16/20 20:20; Start 02/09/20 at 23:00 Baclofen (Lioresal) 5 mg DAILY PO Last administered on 02/15/20at 09:35; Start 02/10/20 at 09:00 Ceftriaxone Sodium (Rocephin) 1 gm Q24H IVP ; Start 02/10/20 at 11:00; Status UNV Lactobacillus Rhamnosus (Culturelle) 1 cap BID PO Last administered on 02/16/20at 20:20; Start 02/10/20 at 21:00 Sodium Chloride 1,000 ml @ 100 mls/hr Q10H IV Last administered on 02/13/20at 06:46; Start 02/10/20 at 17:00; Stop 02/13/20 at 08:54; Status DC Potassium Chloride (Klor-Con) 40 meq 1X ONCE PO Last administered on 02/10/20at 17:37; Start 02/10/20 at 17:00; Stop 02/10/20 at 17:01; Status DC Enoxaparin Sodium (Lovenox 30mg Syringe) 30 mg Q24H SQ Last administered on 02/15/20at 09:36; Start 02/11/20 at 10:00; Stop 02/17/20 at 11:00 Aspirin (MD Revolution Aspirin) 325 mg 1X ONCE PO Last administered on 02/11/20at 11:52; Start 02/11/20 at 10:00; Stop 02/11/20 at 10:01; Status DC Aspirin (MD Revolution Aspirin) 325 mg [id number] PO Last administered on 02/15/20at 09:35; Start 02/12/20 at 08:00 Cefdinir (Omnicef) 300 mg Q24H PO ; Start 02/12/20 at 14:00; Stop 02/12/20 at 14:12; Status DC Daptomycin 270 mg/ Sodium Chloride 50 ml @ 100 mls/hr Q24H IV Last administered on 02/13/20at 15:05; Start 02/12/20 at 15:00; Stop 02/14/20 at 10:05; Status DC Cefepime HCl (Maxipime) 1 gm Q12HR IVP Last administered on 02/13/20at 08:36; Start 02/12/20 at 15:00; Stop 02/13/20 at 08:45; Status DC Metoprolol Tartrate (Lopressor Vial) 5 mg PRN Q6HRS PRN IVP TACHYCARDIA; Start 02/12/20 at 14:45 Multivitamins (Thera M Plus) 1 tab DAILY PO Last administered on 02/14/20at 08:19; Start 02/13/20 at 09:00 Meropenem 500 mg/ Sodium Chloride 50 ml @ 100 mls/hr Q6HRS IV Last administered on 02/17/20at 06:32; Start 02/13/20 at 09:00 Potassium Chloride (Klor-Con) 20 meq 1X ONCE PO Last administered on 02/14/20at 08:40; Start 02/14/20 at 08:30; Stop 02/14/20 at 08:31; Status DC Micafungin Sodium 100 mg/Dextrose 100 ml @ 100 mls/hr Q24H IV Last administered on 02/16/20at 09:43; Start 02/15/20 at 11:00 Sodium Chloride 1,000 ml @ 100 mls/hr Q10H IV Last administered on 02/15/20at 21:29; Start 02/15/20 at 11:00; Stop 02/16/20 at 10:36; Status DC Promethazine HCl (Phenergan) 12.5 mg PRN Q4HRS PRN PO NAUSEA/VOMITING Last administered on 02/15/20at 11:51; Start 02/15/20 at 11:45 Iohexol (Omnipaque 240 Mg/ml) 30 ml 1X ONCE PO Last administered on 02/15/20at 15:00; Start 02/15/20 at 14:30; Stop 02/15/20 at 14:32; Status DC Iohexol (Omnipaque 300 Mg/ml) 75 ml 1X ONCE IV Last administered on 02/15/20at 15:00; Start 02/15/20 at 14:30; Stop 02/15/20 at 14:32; Status DC Info (CONTRAST GIVEN -- Rx MONITORING) 1 each PRN DAILY PRN MC SEE COMMENTS; Start 02/15/20 at 14:45; Stop 02/17/20 at 14:44 Amino Acids/ Glycerin/ Electrolytes 1,000 ml @ 80 mls/hr [id number] IV Last administered on 02/16/20at 23:27; Start 02/16/20 at 10:00 Potassium Chloride (Klor-Con) 20 meq TID PO ; Start 02/17/20 at 09:00 Active Scripts Active [place] 5-325 Tablet (Acetaminophen/Hydrocodone Bitart) 1 Each Tablet 1-2 Tab PO Q4-6HRS 2 Days Reported Trazodone Hcl 50 Mg Tablet 50 Mg PO HS Ondansetron Odt (Ondansetron) 4 Mg Tab.rapdis 4 Mg PO PRN BID PRN Atorvastatin Calcium 40 Mg Tablet 40 Mg PO DAILY Baclofen 5 Mg Tablet 5 Mg PO DAILY Gabapentin 100 Mg Capsule 100 Mg PO QID Diclofenac Sodium 100 Gm Gel..gram. 1 Yesika TOP BID Buspirone Hcl 10 Mg Tablet 10 Mg PO TID Famotidine 20 Mg Tablet 20 Mg PO BID Lisinopril 20 Mg Tablet 20 Mg PO DAILY Amlodipine Besylate 5 Mg Tablet 5 Mg PO DAILY Vitals/I & O Vital Sign - Last 24 Hours 02/16/20 02/16/20 02/16/20 02/16/20 11:00 11:08 15:00 19:00 Temp 98.0 97.7 97.6 98.0 97.7 97.6 Pulse 83 90 91 93 Resp 18 18 18 B/P (MAP) 154/96 (115) 142/98 154/97 (116) 133/83 (100) Pulse Ox 98 98 96 O2 Delivery Room Air Room Air Room Air 02/16/20 02/16/20 02/16/20 02/16/20 20:00 20:19 21:19 23:00 Temp 97.5 97.5 Pulse 88 Resp 18 B/P (MAP) 118/78 (91) Pulse Ox 92 O2 Delivery Room Air Room Air Room Air Room Air 02/17/20 02/17/20 02/17/20 02/17/20 00:38 01:59 03:00 07:00 Temp 98.7 97.7 98.7 97.7 Pulse 82 75 Resp 18 18 B/P (MAP) 114/77 (89) 106/73 (84) Pulse Ox 92 94 O2 Delivery Room Air Room Air Room Air Room Air Intake and Output 02/16/20 02/16/20 02/17/20 15:00 23:00 07:00 Intake Total 120 ml Output Total 850 ml Balance 120 ml -850 ml Justicifation of Admission Dx: Justifications for Admission: Justification of Admission Dx: Yes Sepsis: Infection Nutrition Consultation Dietary Evaluation: Recommendations by RD: Dietary education by RD, Increase Calorie Intake, Protein supplementation Comments: cardiac diet with ensure enlive bid homar bid mvi q day per wound protocal Expected Outcomes/Goals: to meet >75% est nutr needs improved wound status Malnutrition Findings: Body Fat Depletion (Non Severe: Mod to Severe Weight Status: Underweight RIYA SHARP MD Feb 17, 2020 09:01
--- NOTE | 2020-02-17 09:49 | PDOC ---
Infectious Disease Note Subjective Subjective pt is unhappy with the situation, unable to get surgery, hospice has been recommended ROS ROS no n/v/d/ Vital Sign Vital Signs Vital Signs Date Time Temp Pulse Resp B/P (MAP) Pulse Ox O2 Delivery O2 Flow Rate FiO2 02/17/20 07:00 97.7 75 18 106/73 (84) 94 Room Air 97.7 Physical Exam PHYSICAL EXAM GENERAL: Sitting upright in bed, talking on the phone, alert in NAD HEENT: Oral cavity clear NECK: Supple LUNGS: Clear CV: S1, S2 ABDOMEN: Soft, nontender ; Mulligan in place EXTREMITIES: No gross edema or cyanosis. wounds both heels R>L. SKIN: warm to touch EDUCATION REP: Alert, answering questions appropriately PIV Labs Micro URINE CULTURE Final Final GREATER THAN 100,000 CFU/ML GRAM NEGATIVE RODS on 02/11/20 at 0701 FINAL ID= [ESCHERICHIA COLI ESBL] Testing Performed by: [address] [address] For Inquires, the Physician may contact the Microbiology department at [phone] ESCHERICHIA COLI ESBL * This is a corrected result. * A prior result that was reported as final has been changed. ANTIMICROBIAL SUSCEPTIBILITY Final Comment NEG KRISSY 56 ESCHERICHIA COLI ESBL ANTIBIOTIC RESULT INTERPRETATION AMPICILLIN/SULBACTAM 16/8 I AMIKACIN <=16 S AMPICILLIN >16 R* AMOXICILLIN/K CLAVULANATE <=8/4 S AZTREONAM >16 ESBL CEFTRIAXONE >32 ESBL CEFTAZIDIME >16 ESBL CEFOTAXIME-ESBL >1 ESBL CEFOTAXIME >32 ESBL CEFOXITIN <=8 S CIPROFLOXACIN >2 R CEFEPIME >16 R* CEFUROXIME >16 R* CEFTAZIDIME/AVIBACTAM <=4 S ERTAPENEM <=0.5 S NITROFURANTOIN <=32 S GENTAMICIN <=2 S LEVOFLOXACIN >4 R MEROPENEM <=1 S CONTINUED ON NEXT PAGE RUN DATE: 02/12/20 [facility] *LIVE* PAGE 2 RUN TIME: 914 Specimen Inquiry SPEC: [id number] PATIENT: MILI WEEKS [id number] (Continued) Procedure Result ANTIMICROBIAL SUSCEPTIBILITY Final (continued) PIPERACILLIN/TAZOBACTAM <=8 S TRIMETHOPRIM/SULFAMETHOXAZOLE >2/38 R TETRACYCLINE >8 R TOBRAMYCIN >8 R Unless otherwise specified, Testing Performed by: [address] [address] For Inquires, the Physician may contact the Microbiology department at [phone] Objective Assessment Leukocytosis - some better N/V - some better ABD pain - no diarrhea YOLA - better ESBL UTI 7/5 - POA PCN allergy - Local swelling post IM injection AAA - Severe PAD - Right heel wound. Sinus congestion Plan Plan of Care Cont Meropenem and micafungin off dapto Monitor labs/temp F/u labs Maintain aspiration precautions Local wound care per Vascular YANETH JARVIS MD Feb 17, 2020 09:49
--- NOTE | 2020-02-17 09:52 | PDOC ---
PROGRESS NOTES Subjective Subjective I don't feel very well this morning. 79-year-old female who is currently in bed. We have been consulted for evaluation and treatment of her abdominal aortic aneurysm and her right heel wound. She denies chest pain and shortness of breath. She denies fever and chills but she continues to have some nausea. She also continues to complain of severe right heel wound pain. She is reluctant to have anyone touch her foot. Her breakfast is untouched. Dr. Bearden's discussed with both her and her family the possibility of proceeding to palliative care versus hospice rather than proceeding with an abdominal aortic aneurysm repair and right leg bypass surgery, especially since this is currently contraindicated in the presence of continued infection that is being treated with IV antibiotics. Her white count today continues to be 12.8. Hemoglobin is 10, hematocrit is 30.6, platelet count is 498. Her creatinine is 0.9. Of interest, her sodium today is 130 and her potassium is 3.4. Objective Objective Vital Signs Date Time Temp Pulse Resp B/P (MAP) Pulse Ox O2 Delivery O2 Flow Rate FiO2 02/17/20 07:00 97.7 75 18 106/73 (84) 94 Room Air 97.7 02/14/20 23:51 2.0 Intake and Output 02/17/20 07:00 Intake Total 120 ml Output Total 850 ml Balance -730 ml Intake Oral 120 ml Output Urine Total 850 ml # Voids 1 Physical Exam Heart: Regular rate, Other (She has a loud murmur) Extremities: No cyanosis General: Alert, Cooperative, No acute distress HEENT: Atraumatic Lungs: Other (Her posterior lung sounds are very diminished throughout. 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 She continues to have an elevated white count. This makes implanting a stent graft prohibitive. It may be reasonable even in the setting of palliative care or hospice to proceed with an amputation rather than a bypass surgery at this point in time. I did speak with her daughters on the phone and with her. We discussed the possibility of doing absolutely nothing other than trying to make her comfortable, versus doing an amputation, below knee or above knee for pain control and then possibly doing an aneurysm repair at a later date if she recovers from the amputation well. They would like to be with her for surgery and to discuss palliative and hospice care and perhaps no surgery at all. They are planning to come into town over the weekend or early next week as soon as they can possibly get here. Patient is actually agreeable to amputation but would also like her daughters present for surgery. We also discussed the risk versus benefits of major surgery which includes a leg amputation. They need to consider all of the options. Plan: Continue antibiotics per infectious disease. Palliative or hospice care would be appropriate. Amputation for pain control would also be appropriate. In the setting of someone who does not ambulate, an above knee amputation would be best and would be most likely to heal, but is still a major risk to her life. director of consulting services can assist with discharge needs once care decisions have been made. We will continue to follow. Comment Review of Relevant I have reviewed the following items dari (where applicable) has been applied. Labs Laboratory Tests Test 02/16/20 03:45 White Blood Count 12.8 x10^3/uL (4.0-11.0) Red Blood Count 3.93 x10^6/uL (3.50-5.40) Hemoglobin 10.0 g/dL (12.0-15.5) Hematocrit 30.6 % (36.0-47.0) Mean Corpuscular Volume 78 fL (79-100) Mean Corpuscular Hemoglobin 25 pg (25-35) Mean Corpuscular Hemoglobin Concent 33 g/dL (31-37) Red Cell Distribution Width 17.3 % (11.5-14.5) Platelet Count 498 x10^3/uL (140-400) Neutrophils (%) (Auto) 76 % (31-73) Lymphocytes (%) (Auto) 14 % (24-48) Monocytes (%) (Auto) 9 % (0-9) Eosinophils (%) (Auto) 1 % (0-3) Basophils (%) (Auto) 0 % (0-3) Neutrophils # (Auto) 9.7 x10^3/uL (1.8-7.7) Lymphocytes # (Auto) 1.8 x10^3/uL (1.0-4.8) Monocytes # (Auto) 1.1 x10^3/uL (0.0-1.1) Eosinophils # (Auto) 0.1 x10^3/uL (0.0-0.7) Basophils # (Auto) 0.1 x10^3/uL (0.0-0.2) Sodium Level 130 mmol/L (136-145) Potassium Level 3.4 mmol/L (3.5-5.1) Chloride Level 94 mmol/L (98-107) Carbon Dioxide Level 25 mmol/L (21-32) Anion Gap 11 (6-14) Blood Urea Nitrogen 13 mg/dL (7-20) Creatinine 0.7 mg/dL (0.6-1.0) Estimated GFR (Cockcroft-Gault) 98.2 BUN/Creatinine Ratio 19 (6-20) Glucose Level 69 mg/dL (70-99) Calcium Level 8.7 mg/dL (8.5-10.1) Total Bilirubin 0.3 mg/dL (0.2-1.0) Aspartate Amino Transf (AST/SGOT) 17 U/L (15-37) Alanine Aminotransferase (ALT/SGPT) 18 U/L (14-59) Alkaline Phosphatase 110 U/L (46-116) Total Protein 6.2 g/dL (6.4-8.2) Albumin 2.4 g/dL (3.4-5.0) Albumin/Globulin Ratio 0.6 (1.0-1.7) Microbiology 02/10/20 Blood Culture - Final, Complete NO GROWTH AFTER 5 DAYS 02/09/20 Urine Culture - Final, Complete 02/09/20 Antimicrobic Susceptibility - Final, Complete Medications Current Medications Fentanyl Citrate (Fentanyl 2ml Vial) 50 mcg 1X ONCE IV Last administered on 02/09/20at 15:38; Start 02/09/20 at 15:30; Stop 02/09/20 at 15:31; Status DC Ondansetron HCl (Zofran) 4 mg 1X ONCE IV Last administered on 02/09/20at 15:37; Start 02/09/20 at 15:30; Stop 02/09/20 at 15:31; Status DC Trimethoprim/ Sulfamethoxazole (Bactrim Ds) 1 tab 1X ONCE PO Last administered on 02/09/20 18:33; Start 02/09/20 at 18:30; Stop 02/09/20 at 18:31; Status DC Ceftriaxone Sodium (Rocephin) 1 gm Q24H IVP Last administered on 02/11/20 21:01; Start 02/09/20 at 21:00; Stop 02/12/20 at 13:00; Status DC Acetaminophen/ Hydrocodone Bitart (Lortab 7.5/325) 1 tab PRN Q4HRS PRN PO MODERATE PAIN 4-6 Last administered on 02/17/20 00:38; Start 02/09/20 at 21:30 Acetaminophen (Tylenol) 650 mg PRN Q6HRS PRN PO MILD PAIN 1-3 Last administered on 02/14/20 21:39; Start 02/09/20 at 21:30 Amlodipine Besylate (Norvasc) 5 mg DAILY PO Last administered on 02/16/20 11:08; Start 02/10/20 at 09:00 Atorvastatin Calcium (Lipitor) 40 mg QHS PO Last administered on 02/16/20 20:20; Start 02/09/20 at 23:00 Buspirone HCl (Buspar) 10 mg TID PO Last administered on 02/16/20 20:20; Start 02/09/20 at 23:00 Diclofenac Sodium (Voltaren) 1 yesika BID TP Last administered on 02/16/20 20:25; Start 02/09/20 at 23:00 Famotidine (Pepcid) 20 mg QHS PO Last administered on 02/16/20 20:20; Start 02/09/20 at 23:00 Gabapentin (Neurontin) 100 mg QID PO Last administered on 02/16/20 20:20; Start 02/09/20 at 23:00 Lisinopril (Prinivil) 20 mg DAILY PO Last administered on 02/10/20 09:44; Start 02/10/20 at 09:00; Stop 02/10/20 at 16:24; Status DC Ondansetron HCl (Zofran Odt) 4 mg PRN BID PRN PO NAUSEA 1ST CHOICE Last administered on 02/15/20 10:39; Start 02/09/20 at 22:15 Trazodone HCl (Desyrel) 50 mg HS PO Last administered on 02/16/20at 20:20; Start 02/09/20 at 23:00 Baclofen (Lioresal) 5 mg DAILY PO Last administered on 02/15/20at 09:35; Start 02/10/20 at 09:00 Ceftriaxone Sodium (Rocephin) 1 gm Q24H IVP ; Start 02/10/20 at 11:00; Status UNV Lactobacillus Rhamnosus (Culturelle) 1 cap BID PO Last administered on 02/16/20at 20:20; Start 02/10/20 at 21:00 Sodium Chloride 1,000 ml @ 100 mls/hr Q10H IV Last administered on 02/13/20at 06:46; Start 02/10/20 at 17:00; Stop 02/13/20 at 08:54; Status DC Potassium Chloride (Klor-Con) 40 meq 1X ONCE PO Last administered on 02/10/20at 17:37; Start 02/10/20 at 17:00; Stop 02/10/20 at 17:01; Status DC Enoxaparin Sodium (Lovenox 30mg Syringe) 30 mg Q24H SQ Last administered on 02/15/20at 09:36; Start 02/11/20 at 10:00; Stop 02/17/20 at 11:00 Aspirin (Dre Aspirin) 325 mg 1X ONCE PO Last administered on 02/11/20at 11:52; Start 02/11/20 at 10:00; Stop 02/11/20 at 10:01; Status DC Aspirin (Dre Aspirin) 325 mg DAILYWBKFT PO Last administered on 02/15/20at 09:35; Start 02/12/20 at 08:00 Cefdinir (Omnicef) 300 mg Q24H PO ; Start 02/12/20 at 14:00; Stop 02/12/20 at 14:12; Status DC Daptomycin 270 mg/ Sodium Chloride 50 ml @ 100 mls/hr Q24H IV Last administered on 02/13/20at 15:05; Start 02/12/20 at 15:00; Stop 02/14/20 at 10:05; Status DC Cefepime HCl (Maxipime) 1 gm Q12HR IVP Last administered on 02/13/20at 08:36; Start 02/12/20 at 15:00; Stop 02/13/20 at 08:45; Status DC Metoprolol Tartrate (Lopressor Vial) 5 mg PRN Q6HRS PRN IVP TACHYCARDIA; Start 02/12/20 at 14:45 Multivitamins (Thera M Plus) 1 tab DAILY PO Last administered on 02/14/20at 08:19; Start 02/13/20 at 09:00 Meropenem 500 mg/ Sodium Chloride 50 ml @ 100 mls/hr Q6HRS IV Last administered on 02/17/20at 06:32; Start 02/13/20 at 09:00 Potassium Chloride (Klor-Con) 20 meq 1X ONCE PO Last administered on 02/14/20at 08:40; Start 02/14/20 at 08:30; Stop 02/14/20 at 08:31; Status DC Micafungin Sodium 100 mg/Dextrose 100 ml @ 100 mls/hr Q24H IV Last administered on 02/16/20at 09:43; Start 02/15/20 at 11:00 Sodium Chloride 1,000 ml @ 100 mls/hr Q10H IV Last administered on 02/15/20at 21:29; Start 02/15/20 at 11:00; Stop 02/16/20 at 10:36; Status DC Promethazine HCl (Phenergan) 12.5 mg PRN Q4HRS PRN PO NAUSEA/VOMITING Last administered on 02/15/20at 11:51; Start 02/15/20 at 11:45 Iohexol (Omnipaque 240 Mg/ml) 30 ml 1X ONCE PO Last administered on 02/15/20at 15:00; Start 02/15/20 at 14:30; Stop 02/15/20 at 14:32; Status DC Iohexol (Omnipaque 300 Mg/ml) 75 ml 1X ONCE IV Last administered on 02/15/20at 15:00; Start 02/15/20 at 14:30; Stop 02/15/20 at 14:32; Status DC Info (CONTRAST GIVEN -- Rx MONITORING) 1 each PRN DAILY PRN MC SEE COMMENTS; Start 02/15/20 at 14:45; Stop 02/17/20 at 14:44 Amino Acids/ Glycerin/ Electrolytes 1,000 ml @ 80 mls/hr [id number] IV Last administered on 02/16/20at 23:27; Start 02/16/20 at 10:00 Potassium Chloride (Klor-Con) 20 meq TID PO ; Start 02/17/20 at 09:00 Active Scripts Active [facility] 5-325 Tablet (Acetaminophen/Hydrocodone Bitart) 1 Each Tablet 1-2 Tab PO Q4-6HRS 2 Days Reported Trazodone Hcl 50 Mg Tablet 50 Mg PO HS Ondansetron Odt (Ondansetron) 4 Mg Tab.rapdis 4 Mg PO PRN BID PRN Atorvastatin Calcium 40 Mg Tablet 40 Mg PO DAILY Baclofen 5 Mg Tablet 5 Mg PO DAILY Gabapentin 100 Mg Capsule 100 Mg PO QID Diclofenac Sodium 100 Gm Gel..gram. 1 Yesika TOP BID Buspirone Hcl 10 Mg Tablet 10 Mg PO TID Famotidine 20 Mg Tablet 20 Mg PO BID Lisinopril 20 Mg Tablet 20 Mg PO DAILY Amlodipine Besylate 5 Mg Tablet 5 Mg PO DAILY Vitals/I & O Vital Sign - Last 24 Hours 02/16/20 02/16/20 02/16/20 02/16/20 11:00 11:08 15:00 19:00 Temp 98.0 97.7 97.6 98.0 97.7 97.6 Pulse 83 90 91 93 Resp 18 18 18 B/P (MAP) 154/96 (115) 142/98 154/97 (116) 133/83 (100) Pulse Ox 98 98 96 O2 Delivery Room Air Room Air Room Air 02/16/20 02/16/20 02/16/20 02/16/20 20:00 20:19 21:19 23:00 Temp 97.5 97.5 Pulse 88 Resp 18 B/P (MAP) 118/78 (91) Pulse Ox 92 O2 Delivery Room Air Room Air Room Air Room Air 02/17/20 02/17/20 02/17/20 02/17/20 00:38 01:59 03:00 07:00 Temp 98.7 97.7 98.7 97.7 Pulse 82 75 Resp 18 18 B/P (MAP) 114/77 (89) 106/73 (84) Pulse Ox 92 94 O2 Delivery Room Air Room Air Room Air Room Air Intake and Output 02/16/20 02/16/20 02/17/20 15:00 23:00 07:00 Intake Total 120 ml Output Total 850 ml Balance 120 ml -850 ml Justicifation of Admission Dx: Justifications for Admission: Justification of Admission Dx: Yes Sepsis: Infection STEWART SAMANIEGO NONDESTRUCTIVE TESTER Feb 17, 2020 09:52
[2020-02-17] MEDS: ENOXAPARIN 30 MG/0.3 ML SYRINGE. SQ SCH (10:00)
--- NOTE | 2020-02-17 10:04 | PN ---
DATE: 02/17/2020 SUBJECTIVE: The patient is resting, slightly propped up in bed, in no apparent distress. She is awake, alert. On questioning her, denied any nausea or vomiting. She has eaten some of her breakfast this morning. Denied any abdominal pain or pain in her legs. PHYSICAL EXAMINATION: GENERAL: When I examined her, she looked pale, cachectic, but no jaundice, cyanosis or thyromegaly. No jugular venous distention or limb edema. VITAL SIGNS: Her heart rate was 75, blood pressure was 106/73, temperature 97.7, respiratory rate was 18 and oxygen saturation was 94%. HEAD, EYES, EARS, NOSE AND THROAT: Normocephalic, atraumatic. NECK: Supple. HEART: Showed normal first and second heart sounds. No gallop or murmur. CHEST: Clear to auscultation. No crepitation or rhonchi. ABDOMEN: Distended, soft, nontender. No guarding or rigidity. No organomegaly. All hernial orifice intact. Bowel sounds normal. NEUROLOGIC: She was awake, alert, responding appropriately. All cranial nerves intact. She moves extremities without difficulty, although she is mostly bedbound. SKIN: Examination of the skin showed a right heel ulceration, stable, without significant purulent drainage. There is no significant cellulitis. There is gangrenous tissue at the base of the ulcer. She is also basically paraplegic with atrophic lower extremities. Her intake over the last 24 hours was 120, output was 2650. LABORATORY DATA: As of yesterday, her white cell count was 12,800, hemoglobin 10, hematocrit 30, MCV 78 and platelet count of 498,000. Her chemistry showed a serum sodium 130, potassium 3.4, chloride 94, bicarbonate 25, anion gap of 11, BUN 13, creatinine 0.7, estimated GFR was 98 mL per minute. Her glucose was 69, calcium was 8.7. Total bilirubin, AST, ALT, alkaline phosphatase were normal. Total protein 6.2, albumin 2.4. Urinalysis showed that she has large amount of leukocyte esterase, too numerous to count wbc's. Her COVID-19 by PCR was not detected. Her urine culture has grown extended spectrum beta lactamase Escherichia coli sensitive to amikacin, amoxicillin, sulbactam, cefoxitin, ceftazidime, ertapenem. Her blood cultures are so far negative. ASSESSMENT: 1. Abdominal aortic aneurysm 4 x 5 cm and getting bigger. 2. Urinary tract infection with Escherichia coli that is extended-spectrum beta-lactamase. 3. 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 4. Chronic obstructive pulmonary disease. 5. Hypertension. 6. Severe peripheral vascular disease. 7. Heel ulcer. 8. Generalized debility. 9. History of lung cancer in the past. PLAN: To continue with procalamine for now, continue with antibiotic in the form of meropenem as well as micafungin. Continue with DVT prophylaxis. Apparently, the vascular surgeon as well as the botany laboratory assistant both feel that the patient is a high risk for surgery and both recommended palliative care. JUAN TALBOT MD DR: TOMER/ela JOB#: [id number] / [id number]
[2020-02-17 11:00] VITALS: BP 104/72
[2020-02-17] MEDS: MICAFUNGIN 100 MG in IV DEXTROSE 5% 100ML 100 ML IV SCH (11:40)
[2020-02-17] MEDS: amLODIPine BESYLATE 5 MG TABLET PO SCH (11:41)
[2020-02-17] MEDS: GABAPENTIN 100 MG CAPSULE. PO SCH ×4 (11:41→21:00)
[2020-02-17] MEDS: AMINO AC 3%/ELECTROLYTE/GLYCER 1,000 ML IV SCH (11:45)
--- NOTE | 2020-02-17 12:35 | PDOC ---
CARDIO Progress Notes Date and Time Date of Service 02/17/20 Time of Evaluation 1125 Subjective Subjective: No Chest Pain, Other (sleeping but arousable ) Vitals Vitals Vital Signs Date Time Temp Pulse Resp B/P (MAP) Pulse Ox O2 Delivery O2 Flow Rate FiO2 02/17/20 11:41 76 104/72 02/17/20 11:00 97.7 18 94 Room Air 97.7 Weight Weight [ ] Input and Output Intake and Output Intake and Output 02/17/20 07:00 Intake Total 120 ml Output Total 850 ml Balance -730 ml Intake Oral 120 ml Output Urine Total 850 ml # Voids 1 Microbiology Micro Microbiology 02/10/20 Blood Culture - Final, Complete NO GROWTH AFTER 5 DAYS 02/09/20 Urine Culture - Final, Complete 02/09/20 Antimicrobic Susceptibility - Final, Complete Physical Exam HEENT: Neck Supple W Full Motion Chest: Symmetric LUNGS: Clear to Auscultation Heart: S1S2, RRR Abdomen: Soft N/T Extremities: Other (paraplegic with atrophic legs; large right heel ulcer) Neurology: other (sleeping, but arousable ) Assessment Assessment 1. AAA with severe bilateral PAD 2. Bilateral heel ulcers with associated pain. 3. 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 HTN: controlled 5. HLP 6. YOLA; resolved 7. UTI 8. DM2? 9. Anxiety/depression/panic attacks Recommendations Continue ASA, statin, BB therapy Family/patient to make decision regarding palliative care/Hospice versus bilat eral AKA Supportive care Justicifation of Admission Dx: Justifications for Admission: Justification of Admission Dx: Yes Sepsis: Infection SNEHAL TOPETE APRN Feb 17, 2020 12:35
--- NOTE | 2020-02-17 13:48 | NUR ---
SW following. Discussed with RN, some confusion about whether pt is having amputation surgery or not. Per RN, pt's AAA is growing. Some discussion between physicians, pt and family RE hospice/ palliative care. CLAY spoke with pt's daughters, they want to speak with pt again to come to a decision about what the plan is and whether pt should have the surgery or go on hospice. CLAY spoke with Thom at [facility], they can still take pt medicaid pending with hospice if that is the new plan. Vicki from [facility] has a few questions regarding finances etc for the medicaid application, however pt's family want to speak with her about going LTC. Pt's daughters have changed their flights to come to [place] on , prior to pt having the amputation surgery. CLAY spoke with Thom at [facility] about either hospice or SNU, Thom will await further communication from [facility] regarding plan. Pt is sleeping, unable to wake. SW to meet with pt this afternoon. CLAY will continue to follow.
[2020-02-17 15:00] VITALS: BP 112/69
[2020-02-17 19:00] VITALS: BP 114/70
[2020-02-17] MEDS: FAMOTIDINE 20 MG TABLET. PO SCH (21:00)
[2020-02-17] MEDS: traZODone 50 MG TABLET. PO SCH (21:00)
[2020-02-17] MEDS: ATORVASTATIN CALCIUM 40 MG TABLET. PO SCH (21:00)
--- NOTE | 2020-02-17 22:48 | NUR ---
Pt. wanted something to eat from the cafeteria and offered a debit card but RN stated the cafeteria is closed but a turkey sandwich with chips can be provided for them without payment and they became frustrated. Pt. refused all their night time medications as of now. Will continue to monitor.
[2020-02-17 23:00] VITALS: BP 122/70
[2020-02-18] MEDS: AMINO AC 3%/ELECTROLYTE/GLYCER 1,000 ML IV SCH ×2 (00:16→11:53)
[2020-02-18] MEDS: MEROPENEM 500 MG in IV NORMAL SALINE 50ML 50 ML IV SCH ×2 (00:17→06:00)
[2020-02-18 03:00] VITALS: BP 116/57
[2020-02-18 07:15] VITALS: BP 137/78
--- NOTE | 2020-02-18 08:08 | NUR ---
system down. see paper charting.
[2020-02-18 08:48] LABS: HEMATOCRIT 28.1 % (36.0-47.0); HEMOGLOBIN 9.3 g/dL (12.0-15.5); RED BLOOD COUNT 3.58 x10^6/uL (3.50-5.40); RED CELL DISTRIBUTION WIDTH 17.9 % (11.5-14.5); WHITE BLOOD COUNT 14.7 x10^3/uL (4.0-11.0)
[2020-02-18 08:50] LABS: ALBUMIN 2.3 g/dL (3.4-5.0); ALBUMIN/GLOBULIN RATIO 0.6 (1.0-1.7); CALCIUM 8.6 mg/dL (8.5-10.1); CREATININE 0.8 mg/dL (0.6-1.0); GFR 84.2; POTASSIUM 4.9 mmol/L (3.5-5.1); TOTAL BILIRUBIN 0.1 mg/dL (0.2-1.0); TOTAL PROTEIN 6.4 g/dL (6.4-8.2)
[2020-02-18] MEDS: DICLOFENAC SODIUM 1% TOPICAL GEL 100GM TUBE. TP SCH ×2 (09:00→21:48)
[2020-02-18] MEDS: MULTIVITAMIN with MINERAL TABLET. PO SCH (09:00)
--- NOTE | 2020-02-18 09:00 | NUR ---
Patient refusing to take morning medications. Will attempt later again.
--- NOTE | 2020-02-18 09:24 | PDOC ---
Infectious Disease Note Subjective Subjective pt is unhappy with the situation, unable to get surgery, hospice has been recommended ROS ROS No nausea vomiting diarrhea chest pain Vital Sign Vital Signs Vital Signs Date Time Temp Pulse Resp B/P (MAP) Pulse Ox O2 Delivery O2 Flow Rate FiO2 02/18/20 07:15 98.4 71 16 137/78 (97) 96 Room Air 98.4 Physical Exam PHYSICAL EXAM GENERAL: Sitting upright in bed, talking on the phone, alert in NAD HEENT: Oral cavity clear NECK: Supple LUNGS: Clear CV: S1, S2 ABDOMEN: Soft, nontender ; Mulligan in place EXTREMITIES: No gross edema or cyanosis. wounds both heels R>L. SKIN: warm to touch WOMEN'S STUDIES PROFESSOR: Alert, answering questions appropriately PIV Labs Lab Laboratory Tests Test 02/18/20 05:00 White Blood Count 14.7 x10^3/uL (4.0-11.0) Red Blood Count 3.58 x10^6/uL (3.50-5.40) Hemoglobin 9.3 g/dL (12.0-15.5) Hematocrit 28.1 % (36.0-47.0) Mean Corpuscular Volume 78 fL (79-100) Mean Corpuscular Hemoglobin 26 pg (25-35) Mean Corpuscular Hemoglobin Concent 33 g/dL (31-37) Red Cell Distribution Width 17.9 % (11.5-14.5) Platelet Count 498 x10^3/uL (140-400) Sodium Level 133 mmol/L (136-145) Potassium Level 4.9 mmol/L (3.5-5.1) Chloride Level 97 mmol/L (98-107) Carbon Dioxide Level 26 mmol/L (21-32) Anion Gap 10 (6-14) Blood Urea Nitrogen 45 mg/dL (7-20) Creatinine 0.8 mg/dL (0.6-1.0) Estimated GFR (Cockcroft-Gault) 84.2 BUN/Creatinine Ratio 56 (6-20) Glucose Level 89 mg/dL (70-99) Calcium Level 8.6 mg/dL (8.5-10.1) Total Bilirubin 0.1 mg/dL (0.2-1.0) Aspartate Amino Transf (AST/SGOT) 33 U/L (15-37) Alanine Aminotransferase (ALT/SGPT) 33 U/L (14-59) Alkaline Phosphatase 127 U/L (46-116) Total Protein 6.4 g/dL (6.4-8.2) Albumin 2.3 g/dL (3.4-5.0) Albumin/Globulin Ratio 0.6 (1.0-1.7) Micro URINE CULTURE Final Final GREATER THAN 100,000 CFU/ML GRAM NEGATIVE RODS on 02/11/20 at 0701 FINAL ID= [ESCHERICHIA COLI ESBL] Testing Performed by: [address] [address] For Inquires, the Physician may contact the Microbiology department at [phone] ESCHERICHIA COLI ESBL * This is a corrected result. * A prior result that was reported as final has been changed. ANTIMICROBIAL SUSCEPTIBILITY Final Comment NEG KRISSY 56 ESCHERICHIA COLI ESBL ANTIBIOTIC RESULT INTERPRETATION AMPICILLIN/SULBACTAM 16/8 I AMIKACIN <=16 S AMPICILLIN >16 R* AMOXICILLIN/K CLAVULANATE <=8/4 S AZTREONAM >16 ESBL CEFTRIAXONE >32 ESBL CEFTAZIDIME >16 ESBL CEFOTAXIME-ESBL >1 ESBL CEFOTAXIME >32 ESBL CEFOXITIN <=8 S CIPROFLOXACIN >2 R CEFEPIME >16 R* CEFUROXIME >16 R* CEFTAZIDIME/AVIBACTAM <=4 S ERTAPENEM <=0.5 S NITROFURANTOIN <=32 S GENTAMICIN <=2 S LEVOFLOXACIN >4 R MEROPENEM <=1 S CONTINUED ON NEXT PAGE ---- -------- RUN DATE: 02/12/20 [facility] *LIVE* PAGE 2 RUN TIME: 914 Specimen Inquiry SPEC: [id number] PATIENT: MILI WEEKS [id number] (Continued) Procedure Result ANTIMICROBIAL SUSCEPTIBILITY Final (continued) PIPERACILLIN/TAZOBACTAM <=8 S TRIMETHOPRIM/SULFAMETHOXAZOLE >2/38 R TETRACYCLINE >8 R TOBRAMYCIN >8 R Unless otherwise specified, Testing Performed by: [address] [id number] For Inquires, the Physician may contact the Microbiology department at [phone] Objective Assessment Leukocytosis - some better N/V - some better ABD pain - no diarrhea YOLA - better ESBL UTI 7/5 - POA PCN allergy - Local swelling post IM injection AAA - Severe PAD - Right heel wound. Sinus congestion Plan Plan of Care Cont Meropenem and micafungin off dapto Monitor labs/temp F/u labs Maintain aspiration precautions Local wound care per Vascular Family is coming into town and further discussion pending for hospice versus amputation for pain control YANETH JARVIS MD Feb 18, 2020 09:24
--- NOTE | 2020-02-18 10:28 | PDOC ---
PROGRESS NOTES Subjective Subjective She was examined in bed today. She was sitting up on the bedside with her legs folded up in front of her. 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 She continues on IV antibiotics. She does not want to talk to me today because I will not take her home. Her white count today is 14.7, hemoglobin 9.3, hematocrit is 28.1, platelet count is 498, creatinine is 0.8, sodium is 133, potassium is 4.9. I spoke with both of her daughters over the phone yesterday when I was with the patient and later in the day when they called back to let me know that they are coming into town on . The plan at this time is for a right below knee possible above-knee amputation on Monday if patient remains in agreement by then. Objective Objective Vital Signs Date Time Temp Pulse Resp B/P (MAP) Pulse Ox O2 Delivery O2 Flow Rate FiO2 02/18/20 07:15 98.4 71 16 137/78 (97) 96 Room Air 98.4 02/14/20 23:51 2.0 Intake and Output 02/18/20 07:00 Intake Total 660 ml Output Total 1550 ml Balance -890 ml Intake Oral 660 ml Output Urine Total 1550 ml Physical Exam General: Alert, mild distress HEENT: Atraumatic Neuro: Normal speech Psych/Mental Status: Other (She is depressed and upset that she cannot go home to prepare for her daughters to come into town. She is also upset that she cannot go home and get her specialized walker.) Assessment Assessment Problems Medical Problems: (1) Heel ulcer Status: Acute (2) Heel ulceration Status: Acute (3) Urinary tract infection Status: Acute (4) Weakness Status: Acute Plan Plan of Care 79-year-old female with 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 She continues to have an elevated white count. This makes implanting a stent graft prohibitive. It is reasonable even in the setting of palliative care or hospice to proceed with an amputation rather than a bypass surgery at this point in time. I did speak with her daughters on the phone and with her. They would like to be with her for surgery and to discuss palliative and hospice care and perhaps no surgery at all. They are planning to come into town on 02/20/20. There is surgery time reserved on Monday for a below knee, possible above-knee amputation at this time. Plan: Continue antibiotics per infectious disease. Palliative or hospice care would be appropriate. Amputation for pain control would also be appropriate. In the setting of someone who does not ambulate, an above knee amputation would be best and would be most likely to heal, but is still a major risk to her life. support services coordinator can assist with discharge needs once care decisions have been made. We will continue to follow. Comment Review of Relevant I have reviewed the following items dari (where applicable) has been applied. Labs Laboratory Tests Test 02/18/20 05:00 White Blood Count 14.7 x10^3/uL (4.0-11.0) Red Blood Count 3.58 x10^6/uL (3.50-5.40) Hemoglobin 9.3 g/dL (12.0-15.5) Hematocrit 28.1 % (36.0-47.0) Mean Corpuscular Volume 78 fL (79-100) Mean Corpuscular Hemoglobin 26 pg (25-35) Mean Corpuscular Hemoglobin Concent 33 g/dL (31-37) Red Cell Distribution Width 17.9 % (11.5-14.5) Platelet Count 498 x10^3/uL (140-400) Sodium Level 133 mmol/L (136-145) Potassium Level 4.9 mmol/L (3.5-5.1) Chloride Level 97 mmol/L (98-107) Carbon Dioxide Level 26 mmol/L (21-32) Anion Gap 10 (6-14) Blood Urea Nitrogen 45 mg/dL (7-20) Creatinine 0.8 mg/dL (0.6-1.0) Estimated GFR (Cockcroft-Gault) 84.2 BUN/Creatinine Ratio 56 (6-20) Glucose Level 89 mg/dL (70-99) Calcium Level 8.6 mg/dL (8.5-10.1) Total Bilirubin 0.1 mg/dL (0.2-1.0) Aspartate Amino Transf (AST/SGOT) 33 U/L (15-37) Alanine Aminotransferase (ALT/SGPT) 33 U/L (14-59) Alkaline Phosphatase 127 U/L (46-116) Total Protein 6.4 g/dL (6.4-8.2) Albumin 2.3 g/dL (3.4-5.0) Albumin/Globulin Ratio 0.6 (1.0-1.7) Laboratory Tests Test 02/18/20 05:00 White Blood Count 14.7 x10^3/uL (4.0-11.0) Red Blood Count 3.58 x10^6/uL (3.50-5.40) Hemoglobin 9.3 g/dL (12.0-15.5) Hematocrit 28.1 % (36.0-47.0) Mean Corpuscular Volume 78 fL (79-100) Mean Corpuscular Hemoglobin 26 pg (25-35) Mean Corpuscular Hemoglobin Concent 33 g/dL (31-37) Red Cell Distribution Width 17.9 % (11.5-14.5) Platelet Count 498 x10^3/uL (140-400) Sodium Level 133 mmol/L (136-145) Potassium Level 4.9 mmol/L (3.5-5.1) Chloride Level 97 mmol/L (98-107) Carbon Dioxide Level 26 mmol/L (21-32) Anion Gap 10 (6-14) Blood Urea Nitrogen 45 mg/dL (7-20) Creatinine 0.8 mg/dL (0.6-1.0) Estimated GFR (Cockcroft-Gault) 84.2 BUN/Creatinine Ratio 56 (6-20) Glucose Level 89 mg/dL (70-99) Calcium Level 8.6 mg/dL (8.5-10.1) Total Bilirubin 0.1 mg/dL (0.2-1.0) Aspartate Amino Transf (AST/SGOT) 33 U/L (15-37) Alanine Aminotransferase (ALT/SGPT) 33 U/L (14-59) Alkaline Phosphatase 127 U/L (46-116) Total Protein 6.4 g/dL (6.4-8.2) Albumin 2.3 g/dL (3.4-5.0) Albumin/Globulin Ratio 0.6 (1.0-1.7) Microbiology 02/10/20 Blood Culture - Final, Complete NO GROWTH AFTER 5 DAYS 02/09/20 Urine Culture - Final, Complete 02/09/20 Antimicrobic Susceptibility - Final, Complete Medications Current Medications Fentanyl Citrate (Fentanyl 2ml Vial) 50 mcg 1X ONCE IV Last administered on 02/09/20 15:38; Start 02/09/20 at 15:30; Stop 02/09/20 at 15:31; Status DC Ondansetron HCl (Zofran) 4 mg 1X ONCE IV Last administered on 02/09/20at 15:37; Start 02/09/20 at 15:30; Stop 02/09/20 at 15:31; Status DC Trimethoprim/ Sulfamethoxazole (Bactrim Ds) 1 tab 1X ONCE PO Last administered on 02/09/20 18:33; Start 02/09/20 at 18:30; Stop 02/09/20 at 18:31; Status DC Ceftriaxone Sodium (Rocephin) 1 gm Q24H IVP Last administered on 02/11/20 21:01; Start 02/09/20 at 21:00; Stop 02/12/20 at 13:00; Status DC Acetaminophen/ Hydrocodone Bitart (Lortab 7.5/325) 1 tab PRN Q4HRS PRN PO MODERATE PAIN 4-6 Last administered on 02/17/20 00:38; Start 02/09/20 at 21:30 Acetaminophen (Tylenol) 650 mg PRN Q6HRS PRN PO MILD PAIN 1-3 Last administered on 02/14/20at 21:39; Start 02/09/20 at 21:30 Amlodipine Besylate (Norvasc) 5 mg DAILY PO Last administered on 02/17/20 11:41; Start 02/10/20 at 09:00 Atorvastatin Calcium (Lipitor) 40 mg QHS PO Last administered on 02/16/20 20:20; Start 02/09/20 at 23:00 Buspirone HCl (Buspar) 10 mg TID PO Last administered on 02/17/20 16:07; Start 02/09/20 at 23:00 Diclofenac Sodium (Voltaren) 1 yesika BID TP Last administered on 02/16/20 20:25; Start 02/09/20 at 23:00 Famotidine (Pepcid) 20 mg QHS PO Last administered on 02/16/20 20:20; Start 02/09/20 at 23:00 Gabapentin (Neurontin) 100 mg QID PO Last administered on 02/17/20 16:07; Start 02/09/20 at 23:00 Lisinopril (Prinivil) 20 mg DAILY PO Last administered on 02/10/20at 09:44; Start 02/10/20 at 09:00; Stop 02/10/20 at 16:24; Status DC Ondansetron HCl (Zofran Odt) 4 mg PRN BID PRN PO NAUSEA 1ST CHOICE Last administered on 02/15/20at 10:39; Start 02/09/20 at 22:15 Trazodone HCl (Desyrel) 50 mg HS PO Last administered on 02/16/20 20:20; Start 02/09/20 at 23:00 Baclofen (Lioresal) 5 mg DAILY PO Last administered on 02/15/20at 09:35; Start 02/10/20 at 09:00 Ceftriaxone Sodium (Rocephin) 1 gm Q24H IVP ; Start 02/10/20 at 11:00; Status UNV Lactobacillus Rhamnosus (Culturelle) 1 cap BID PO Last administered on 02/16/20 20:20; Start 02/10/20 at 21:00 Sodium Chloride 1,000 ml @ 100 mls/hr Q10H IV Last administered on 02/13/20at 06:46; Start 02/10/20 at 17:00; Stop 02/13/20 at 08:54; Status DC Potassium Chloride (Klor-Con) 40 meq 1X ONCE PO Last administered on 02/10/20at 17:37; Start 02/10/20 at 17:00; Stop 02/10/20 at 17:01; Status DC Enoxaparin Sodium (Lovenox 30mg Syringe) 30 mg Q24H SQ Last administered on 02/04 08/26at 09:36; Start 02/11/20 at 10:00; Stop 02/17/20 at 11:00; Status DC Aspirin (Yaphie Aspirin) 325 mg 1X ONCE PO Last administered on 02/11/20at 11:52; Start 02/11/20 at 10:00; Stop 02/11/20 at 10:01; Status DC Aspirin (Dre Aspirin) 325 mg [id number] PO Last administered on 02/15/20at 09:35; Start 02/12/20 at 08:00 Cefdinir (Omnicef) 300 mg Q24H PO ; Start 02/12/20 at 14:00; Stop 02/12/20 at 14:12; Status DC Daptomycin 270 mg/ Sodium Chloride 50 ml @ 100 mls/hr Q24H IV Last administered on 02/13/20at 15:05; Start 02/12/20 at 15:00; Stop 02/14/20 at 10:05; Status DC Cefepime HCl (Maxipime) 1 gm Q12HR IVP Last administered on 02/13/20at 08:36; Start 02/12/20 at 15:00; Stop 02/13/20 at 08:45; Status DC Metoprolol Tartrate (Lopressor Vial) 5 mg PRN Q6HRS PRN IVP TACHYCARDIA; Start 02/12/20 at 14:45 Multivitamins (Thera M Plus) 1 tab DAILY PO Last administered on 02/14/20at 08:19; Start 02/13/20 at 09:00 Meropenem 500 mg/ Sodium Chloride 50 ml @ 100 mls/hr Q6HRS IV Last administered on 02/18/20at 00:17; Start 02/13/20 at 09:00 Potassium Chloride (Klor-Con) 20 meq 1X ONCE PO Last administered on 02/14/20at 08:40; Start 02/14/20 at 08:30; Stop 02/14/20 at 08:31; Status DC Micafungin Sodium 100 mg/Dextrose 100 ml @ 100 mls/hr Q24H IV Last administered on 02/17/20at 11:40; Start 02/15/20 at 11:00 Sodium Chloride 1,000 ml @ 100 mls/hr Q10H IV Last administered on 02/15/20at 21:29; Start 02/15/20 at 11:00; Stop 02/16/20 at 10:36; Status DC Promethazine HCl (Phenergan) 12.5 mg PRN Q4HRS PRN PO NAUSEA/VOMITING, 2ND GRANADOS CE Last administered on 02/15/20at 11:51; Start 02/15/20 at 11:45 Iohexol (Omnipaque 240 Mg/ml) 30 ml 1X ONCE PO Last administered on 02/15/20at 15:00; Start 02/15/20 at 14:30; Stop 02/15/20 at 14:32; Status DC Iohexol (Omnipaque 300 Mg/ml) 75 ml 1X ONCE IV Last administered on 02/15/20at 15:00; Start 02/15/20 at 14:30; Stop 02/15/20 at 14:32; Status DC Info (CONTRAST GIVEN -- Rx MONITORING) 1 each PRN DAILY PRN MC SEE COMMENTS; Start 02/15/20 at 14:45; Stop 02/17/20 at 14:44; Status DC Amino Acids/ Glycerin/ Electrolytes 1,000 ml @ 80 mls/hr [id number] IV Last administered on 02/18/20at 00:16; Start 02/16/20 at 10:00 Potassium Chloride (Klor-Con) 20 meq TID PO Last administered on 02/17/20at 16:07; Start 02/17/20 at 09:00 Active Scripts Active [place] 5-325 Tablet (Acetaminophen/Hydrocodone Bitart) 1 Each Tablet 1-2 Tab PO Q4-6HRS 2 Days Reported Trazodone Hcl 50 Mg Tablet 50 Mg PO HS Ondansetron Odt (Ondansetron) 4 Mg Tab.rapdis 4 Mg PO PRN BID PRN Atorvastatin Calcium 40 Mg Tablet 40 Mg PO DAILY Baclofen 5 Mg Tablet 5 Mg PO DAILY Gabapentin 100 Mg Capsule 100 Mg PO QID Diclofenac Sodium 100 Gm Gel..gram. 1 Yesika TOP BID Buspirone Hcl 10 Mg Tablet 10 Mg PO TID Famotidine 20 Mg Tablet 20 Mg PO BID Lisinopril 20 Mg Tablet 20 Mg PO DAILY Amlodipine Besylate 5 Mg Tablet 5 Mg PO DAILY Vitals/I & O Vital Sign - Last 24 Hours 02/17/20 02/17/20 02/17/20 02/17/20 11:00 11:41 15:00 19:00 Temp 97.7 98.0 99.0 97.7 98.0 99.0 Pulse 76 76 62 73 Resp 18 18 18 B/P (MAP) 104/72 (83) 104/72 112/69 (83) 114/70 (85) Pulse Ox 94 98 99 O2 Delivery Room Air Room Air Room Air 02/17/20 02/17/20 02/18/2014/20 20:00 23:00 03:00 07:15 Temp 98.7 97.4 98.4 98.7 97.4 98.4 Pulse 73 66 71 Resp 18 18 16 B/P (MAP) 122/70 (87) 116/57 (76) 137/78 (97) Pulse Ox 95 96 96 O2 Delivery Room Air Room Air Room Air Room Air Intake and Output 02/17/20 02/17/20 02/18/20 15:00 23:00 07:00 Intake Total 220 ml 200 ml 240 ml Output Total 550 ml 1000 ml Balance 220 ml -350 ml -760 ml Justicifation of Admission Dx: Justifications for Admission: Justification of Admission Dx: Yes Sepsis: Infection STEWART [employer] Feb 18, 2020 10:28
[2020-02-18 10:46] VITALS: BP 139/74
[2020-02-18] MEDS: LACTOBACILLUS RHAMNOSUS GG 1 CAPSULE. PO SCH ×2 (11:24→21:47)
[2020-02-18] MEDS: GABAPENTIN 100 MG CAPSULE. PO SCH ×4 (11:24→21:47)
[2020-02-18] MEDS: ASPIRIN 325 MG TABLET PO SCH (11:24)
[2020-02-18] MEDS: amLODIPine BESYLATE 5 MG TABLET PO SCH (11:24)
[2020-02-18] MEDS: BACLOFEN 10 MG TABLET. PO SCH (11:24)
[2020-02-18] MEDS: busPIRone 10 MG TABLET. PO SCH ×3 (11:24→21:47)
[2020-02-18] MEDS: POTASSIUM CHLORIDE 20 MEQ TABLET.ER. PO SCH ×3 (11:25→21:47)
[2020-02-18] MEDS: MICAFUNGIN 100 MG in IV DEXTROSE 5% 100ML 100 ML IV SCH (11:25)
--- NOTE | 2020-02-18 11:25 | NUR ---
SW following. Discussed with RN, pt not in a very good mood today. Pt scheduled for amputation surgery on 02/21/2020. Pt's daughters will arrive on 02/18/2020 and discuss with physicians and pt re surgery as they are getting conflicting information from two different physicians. Vicki from [employer] to call pt to discuss medicaid application and finances. CLAY will continue to follow.
--- NOTE | 2020-02-18 12:31 | PN ---
DATE: 02/18/2020 SUBJECTIVE: The patient is resting, slightly propped up in bed, in no apparent respiratory distress. She apparently continued to complain of pain in her leg, managed to eat about 25% of breakfast and denied any abdominal pain. She refused to take her pain medication this morning according to nursing staff. PHYSICAL EXAMINATION: GENERAL: When I examined her, she looked pale, cachectic, but no jaundice, cyanosis, lymphadenopathy or thyromegaly. No jugular venous distention. No lower limb edema. VITAL SIGNS: Her heart rate was 70, blood pressure was 139/74, temperature was 98, respiratory rate was 16, and oxygen saturation was 97%. HEAD, EYES, EARS, NOSE AND THROAT: Normocephalic, atraumatic. NECK: Supple. HEART: Showed normal first and second heart sounds. No gallop, rub or murmur. CHEST: Clear to auscultation. No crepitation or rhonchi. ABDOMEN: Distended, soft, nontender. No guarding or rigidity. No organomegaly. All hernial orifice intact. Bowel sounds normal. NEUROLOGIC: She is awake, alert, responding appropriately. All cranial nerves intact. She moves upper extremities without difficulty. 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 She has right heel ischemic ulcer. ASSESSMENT: 1. Abdominal aortic aneurysm of 5 x 4 cm and getting bigger. 2. Urinary tract infection with Escherichia coli that has extended spectrum beta-lactamase. 3. 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 4. Chronic obstructive pulmonary disease. 5. Hypertension. 6. Severe peripheral vascular disease with resultant ischemic heel ulcer. 7. Generalized debility. 8. History of lung cancer in the past. PLAN: To continue with nutritional support. She is on procalamine and she is allowed to eat. Her intake is poor. Continue with antibiotic in the form of meropenem as well as micafungin. Continue with DVT prophylaxis. The plan is basically to do amputation for pain and comfort, but she is according to the vascular surgeon not a candidate for abdominal aortic aneurysm repair. JUAN TALBOT MD DR: TOMER/ela JOB#: [id number] / [id number]
--- NOTE | 2020-02-18 13:12 | PDOC ---
PROGRESS NOTES Subjective Subjective She is somewhat frustrated and wants her roller walker from home and she is having difficulty to communicate with her family and friends. Objective Objective Vital Signs Date Time Temp Pulse Resp B/P (MAP) Pulse Ox O2 Delivery O2 Flow Rate FiO2 02/18/20 11:24 70 139/74 02/18/20 10:46 98.0 16 97 Room Air 98.0 02/14/20 23:51 2.0 Intake and Output 02/18/20 07:00 Intake Total 660 ml Output Total 1550 ml Balance -890 ml Intake Oral 660 ml Output Urine Total 1550 ml Physical Exam Physical Exam She is alert,sitting in bed and does not seem to be in any distress. Surgery is post phoned secondary to her UTI. Assessment Assessment Problems Medical Problems: (1) Heel ulcer Status: Acute (2) Heel ulceration Status: Acute (3) Urinary tract infection Status: Acute (4) Weakness Status: Acute Plan Plan of Care To continue present care efforts as tolerated. Comment Review of Relevant I have reviewed the following items dari (where applicable) has been applied. Labs Laboratory Tests Test 02/18/20 05:00 White Blood Count 14.7 x10^3/uL (4.0-11.0) Red Blood Count 3.58 x10^6/uL (3.50-5.40) Hemoglobin 9.3 g/dL (12.0-15.5) Hematocrit 28.1 % (36.0-47.0) Mean Corpuscular Volume 78 fL (79-100) Mean Corpuscular Hemoglobin 26 pg (25-35) Mean Corpuscular Hemoglobin Concent 33 g/dL (31-37) Red Cell Distribution Width 17.9 % (11.5-14.5) Platelet Count 498 x10^3/uL (140-400) Sodium Level 133 mmol/L (136-145) Potassium Level 4.9 mmol/L (3.5-5.1) Chloride Level 97 mmol/L (98-107) Carbon Dioxide Level 26 mmol/L (21-32) Anion Gap 10 (6-14) Blood Urea Nitrogen 45 mg/dL (7-20) Creatinine 0.8 mg/dL (0.6-1.0) Estimated GFR (Cockcroft-Gault) 84.2 BUN/Creatinine Ratio 56 (6-20) Glucose Level 89 mg/dL (70-99) Calcium Level 8.6 mg/dL (8.5-10.1) Total Bilirubin 0.1 mg/dL (0.2-1.0) Aspartate Amino Transf (AST/SGOT) 33 U/L (15-37) Alanine Aminotransferase (ALT/SGPT) 33 U/L (14-59) Alkaline Phosphatase 127 U/L (46-116) Total Protein 6.4 g/dL (6.4-8.2) Albumin 2.3 g/dL (3.4-5.0) Albumin/Globulin Ratio 0.6 (1.0-1.7) Laboratory Tests Test 02/18/20 05:00 White Blood Count 14.7 x10^3/uL (4.0-11.0) Red Blood Count 3.58 x10^6/uL (3.50-5.40) Hemoglobin 9.3 g/dL (12.0-15.5) Hematocrit 28.1 % (36.0-47.0) Mean Corpuscular Volume 78 fL (79-100) Mean Corpuscular Hemoglobin 26 pg (25-35) Mean Corpuscular Hemoglobin Concent 33 g/dL (31-37) Red Cell Distribution Width 17.9 % (11.5-14.5) Platelet Count 498 x10^3/uL (140-400) Sodium Level 133 mmol/L (136-145) Potassium Level 4.9 mmol/L (3.5-5.1) Chloride Level 97 mmol/L (98-107) Carbon Dioxide Level 26 mmol/L (21-32) Anion Gap 10 (6-14) Blood Urea Nitrogen 45 mg/dL (7-20) Creatinine 0.8 mg/dL (0.6-1.0) Estimated GFR (Cockcroft-Gault) 84.2 BUN/Creatinine Ratio 56 (6-20) Glucose Level 89 mg/dL (70-99) Calcium Level 8.6 mg/dL (8.5-10.1) Total Bilirubin 0.1 mg/dL (0.2-1.0) Aspartate Amino Transf (AST/SGOT) 33 U/L (15-37) Alanine Aminotransferase (ALT/SGPT) 33 U/L (14-59) Alkaline Phosphatase 127 U/L (46-116) Total Protein 6.4 g/dL (6.4-8.2) Albumin 2.3 g/dL (3.4-5.0) Albumin/Globulin Ratio 0.6 (1.0-1.7) Microbiology 02/10/20 Blood Culture - Final, Complete NO GROWTH AFTER 5 DAYS 02/09/20 Urine Culture - Final, Complete 02/09/20 Antimicrobic Susceptibility - Final, Complete Medications Current Medications Fentanyl Citrate (Fentanyl 2ml Vial) 50 mcg 1X ONCE IV Last administered on 02/09/20 15:38; Start 02/09/20 at 15:30; Stop 02/09/20 at 15:31; Status DC Ondansetron HCl (Zofran) 4 mg 1X ONCE IV Last administered on 02/09/20at 15:37; Start 02/09/20 at 15:30; Stop 02/09/20 at 15:31; Status DC Trimethoprim/ Sulfamethoxazole (Bactrim Ds) 1 tab 1X ONCE PO Last administered on 02/09/20 18:33; Start 02/09/20 at 18:30; Stop 02/09/20 at 18:31; Status DC Ceftriaxone Sodium (Rocephin) 1 gm Q24H IVP Last administered on 02/11/20 21:01; Start 02/09/20 at 21:00; Stop 02/12/20 at 13:00; Status DC Acetaminophen/ Hydrocodone Bitart (Lortab 7.5/325) 1 tab PRN Q4HRS PRN PO MODERATE PAIN 4-6 Last administered on 02/17/20at 00:38; Start 02/09/20 at 21:30 Acetaminophen (Tylenol) 650 mg PRN Q6HRS PRN PO MILD PAIN 1-3 Last administered on 02/14/20at 21:39; Start 02/09/20 at 21:30 Amlodipine Besylate (Norvasc) 5 mg DAILY PO Last administered on 02/18/20 11:24; Start 02/10/20 at 09:00 Atorvastatin Calcium (Lipitor) 40 mg QHS PO Last administered on 02/16/20 20:20; Start 02/09/20 at 23:00 Buspirone HCl (Buspar) 10 mg TID PO Last administered on 02/18/20at 11:24; Start 02/09/20 at 23:00 Diclofenac Sodium (Voltaren) 1 yesika BID TP Last administered on 02/16/20at 20:25; Start 02/09/20 at 23:00 Famotidine (Pepcid) 20 mg QHS PO Last administered on 02/16/20at 20:20; Start 02/09/20 at 23:00 Gabapentin (Neurontin) 100 mg QID PO Last administered on 02/18/20at 11:24; Start 02/09/20 at 23:00 Lisinopril (Prinivil) 20 mg DAILY PO Last administered on 02/10/20at 09:44; Start 02/10/20 at 09:00; Stop 02/10/20 at 16:24; Status DC Ondansetron HCl (Zofran Odt) 4 mg PRN BID PRN PO NAUSEA 1ST CHOICE Last administered on 02/15/20at 10:39; Start 02/09/20 at 22:15 Trazodone HCl (Desyrel) 50 mg HS PO Last administered on 02/16/20at 20:20; Start 02/09/20 at 23:00 Baclofen (Lioresal) 5 mg DAILY PO Last administered on 02/18/20at 11:24; Start 02/10/20 at 09:00 Ceftriaxone Sodium (Rocephin) 1 gm Q24H IVP ; Start 02/10/20 at 11:00; Status UNV Lactobacillus Rhamnosus (Culturelle) 1 cap BID PO Last administered on 02/18/20 at 11:24; Start 02/10/20 at 21:00 Sodium Chloride 1,000 ml @ 100 mls/hr Q10H IV Last administered on 02/13/20at 06:46; Start 02/10/20 at 17:00; Stop 02/13/20 at 08:54; Status DC Potassium Chloride (Klor-Con) 40 meq 1X ONCE PO Last administered on 02/10/20at 17:37; Start 02/10/20 at 17:00; Stop 02/10/20 at 17:01; Status DC Enoxaparin Sodium (Lovenox 30mg Syringe) 30 mg Q24H SQ Last administered on 02/15/20at 09:36; Start 02/11/20 at 10:00; Stop 02/17/20 at 11:00; Status DC Aspirin (Dre Aspirin) 325 mg 1X ONCE PO Last administered on 02/11/20at 11:52; Start 02/11/20 at 10:00; Stop 02/11/20 at 10:01; Status DC Aspirin ([employer] Aspirin) 325 mg DAILYWBKFT PO Last administered on 02/18/20at 11:24; Start 02/12/20 at 08:00 Cefdinir (Omnicef) 300 mg Q24H PO ; Start 02/12/20 at 14:00; Stop 02/12/20 at 14:12; Status DC Daptomycin 270 mg/ Sodium Chloride 50 ml @ 100 mls/hr Q24H IV Last administered on 02/13/20at 15:05; Start 02/12/20 at 15:00; Stop 02/14/20 at 10:05; Status DC Cefepime HCl (Maxipime) 1 gm Q12HR IVP Last administered on 02/13/20at 08:36; Start 02/12/20 at 15:00; Stop 02/13/20 at 08:45; Status DC Metoprolol Tartrate (Lopressor Vial) 5 mg PRN Q6HRS PRN IVP TACHYCARDIA; Start 02/12/20 at 14:45 Multivitamins (Thera M Plus) 1 tab DAILY PO Last administered on 02/14/20at 08:19; Start 02/13/20 at 09:00 Meropenem 500 mg/ Sodium Chloride 50 ml @ 100 mls/hr Q6HRS IV Last administered on 02/18/20at 00:17; Start 02/13/20 at 09:00; Stop 02/18/20 at 12:15; Status DC Potassium Chloride (Klor-Con) 20 meq 1X ONCE PO Last administered on 02/14/20at 08:40; Start 02/14/20 at 08:30; Stop 02/14/20 at 08:31; Status DC Micafungin Sodium 100 mg/Dextrose 100 ml @ 100 mls/hr Q24H IV Last administered on 02/18/20at 11:25; Start 02/15/20 at 11:00; Stop 02/18/20 at 12:15; Status DC Sodium Chloride 1,000 ml @ 100 mls/hr Q10H IV Last administered on 02/15/20at 21:29; Start 02/15/20 at 11:00; Stop 02/16/20 at 10:36; Status DC Promethazine HCl (Phenergan) 12.5 mg PRN Q4HRS PRN PO NAUSEA/VOMITING, 2ND CHOICE Last administered on 02/15/20at 11:51; Start 02/15/20 at 11:45 Iohexol (Omnipaque 240 Mg/ml) 30 ml 1X ONCE PO Last administered on 02/15/20at 15:00; Start 02/15/20 at 14:30; Stop 02/15/20 at 14:32; Status DC Iohexol (Omnipaque 300 Mg/ml) 75 ml 1X ONCE IV Last administered on 02/15/20at 15:00; Start 02/15/20 at 14:30; Stop 02/15/20 at 14:32; Status DC Info (CONTRAST GIVEN -- Rx MONITORING) 1 each PRN DAILY PRN MC SEE COMMENTS; Start 02/15/20 at 14:45; Stop 02/17/20 at 14:44; Status DC Amino Acids/ Glycerin/ Electrolytes 1,000 ml @ 80 mls/hr [id number] IV Last administered on 02/18/20at 00:16; Start 02/16/20 at 10:00 Potassium Chloride (Klor-Con) 20 meq TID PO Last administered on 02/18/20at 11:25; Start 02/17/20 at 09:00 Active Scripts Active [place] 5-325 Tablet (Acetaminophen/Hydrocodone Bitart) 1 Each Tablet 1-2 Tab PO Q4-6HRS 2 Days Reported Trazodone Hcl 50 Mg Tablet 50 Mg PO HS Ondansetron Odt (Ondansetron) 4 Mg Tab.rapdis 4 Mg PO PRN BID PRN Atorvastatin Calcium 40 Mg Tablet 40 Mg PO DAILY Baclofen 5 Mg Tablet 5 Mg PO DAILY Gabapentin 100 Mg Capsule 100 Mg PO QID Diclofenac Sodium 100 Gm Gel..gram. 1 Yesika TOP BID Buspirone Hcl 10 Mg Tablet 10 Mg PO TID Famotidine 20 Mg Tablet 20 Mg PO BID Lisinopril 20 Mg Tablet 20 Mg PO DAILY Amlodipine Besylate 5 Mg Tablet 5 Mg PO DAILY Vitals/I & O Vital Sign - Last 24 Hours 02/17/20 02/17/20 02/17/20 02/17/20 15:00 19:00 20:00 23:00 Temp 98.0 99.0 98.7 98.0 99.0 98.7 Pulse 62 73 73 Resp 18 18 18 B/P (MAP) 112/69 (83) 114/70 (85) 122/70 (87) Pulse Ox 98 99 95 O2 Delivery Room Air Room Air Room Air Room Air 02/18/20 02/18/20 02/18/20 02/18/20 03:00 07:15 10:46 11:24 Temp 97.4 98.4 98.0 97.4 98.4 98.0 Pulse 66 71 70 70 Resp 18 16 16 B/P (MAP) 116/57 (76) 137/78 (97) 139/74 (95) 139/74 Pulse Ox 96 96 97 O2 Delivery Room Air Room Air Room Air Intake and Output 02/17/20 02/17/20 02/18/20 15:00 23:00 07:00 Intake Total 220 ml 200 ml 240 ml Output Total 550 ml 1000 ml Balance 220 ml -350 ml -760 ml Justicifation of Admission Dx: Justifications for Admission: Justification of Admission Dx: Yes Sepsis: Infection Nutrition Consultation Dietary Evaluation: Recommendations by RD: Dietary education by RD, Increase Calorie Intake, Protein supplementation Comments: cardiac diet with ensure enlive bid homar bid mvi q day per wound protocal Expected Outcomes/Goals: to meet >75% est nutr needs improved wound status Malnutrition Findings: Body Fat Depletion (Non Severe: Mod to Severe Weight Status: Underweight RIYA SHARP MD Feb 18, 2020 13:12
[2020-02-18 14:44] VITALS: BP 142/72
[2020-02-18 19:45] VITALS: BP 125/99
[2020-02-18] MEDS: FAMOTIDINE 20 MG TABLET. PO SCH (21:47)
[2020-02-18] MEDS: traZODone 50 MG TABLET. PO SCH (21:47)
[2020-02-18] MEDS: ATORVASTATIN CALCIUM 40 MG TABLET. PO SCH (21:47)
[2020-02-18 23:59] VITALS: BP 136/76
[2020-02-19] MEDS: HYDROcodone/APAP 7.5/325MG 1 TAB TABLET PO PRN ×2 (00:09→08:23)
[2020-02-19] MEDS: AMINO AC 3%/ELECTROLYTE/GLYCER 1,000 ML IV SCH ×3 (00:30→22:44)
[2020-02-19 03:08] VITALS: BP 133/77
[2020-02-19 07:00] VITALS: BP 128/74
[2020-02-19 08:08] LABS: HEMATOCRIT 27.4 % (36.0-47.0); HEMOGLOBIN 8.9 g/dL (12.0-15.5); RED BLOOD COUNT 3.47 x10^6/uL (3.50-5.40); RED CELL DISTRIBUTION WIDTH 18.2 % (11.5-14.5); WHITE BLOOD COUNT 11.4 x10^3/uL (4.0-11.0)
[2020-02-19 08:10] LABS: CALCIUM 8.6 mg/dL (8.5-10.1); CREATININE 0.9 mg/dL (0.6-1.0); GFR 73.5; POTASSIUM 4.9 mmol/L (3.5-5.1)
--- NOTE | 2020-02-19 08:16 | NUR ---
SW following. Discussed with RN, pt scheduled for surgery 02/21/2020, family coming tomorrow to discuss options with physicians. Pt on ProcalAmine, IV merrem and IV micafungin. Plan is to go to [facility] after surgery either SNU to LTC or hospice - medicaid pending for LTC. CLAY will continue to follow.
[2020-02-19] MEDS: MULTIVITAMIN with MINERAL TABLET. PO SCH (08:22)
[2020-02-19] MEDS: GABAPENTIN 100 MG CAPSULE. PO SCH ×4 (08:22→20:30)
[2020-02-19] MEDS: BACLOFEN 10 MG TABLET. PO SCH (08:23)
[2020-02-19] MEDS: amLODIPine BESYLATE 5 MG TABLET PO SCH (08:23)
[2020-02-19] MEDS: LACTOBACILLUS RHAMNOSUS GG 1 CAPSULE. PO SCH ×2 (08:23→20:30)
[2020-02-19] MEDS: busPIRone 10 MG TABLET. PO SCH ×3 (08:23→20:30)
[2020-02-19] MEDS: ASPIRIN 325 MG TABLET PO SCH (08:23)
[2020-02-19] MEDS: POTASSIUM CHLORIDE 20 MEQ TABLET.ER. PO SCH ×3 (08:23→20:29)
[2020-02-19] MEDS: DICLOFENAC SODIUM 1% TOPICAL GEL 100GM TUBE. TP SCH ×2 (08:25→20:30)
--- NOTE | 2020-02-19 09:00 | PDOC ---
PROGRESS NOTES Subjective Subjective No new complaints. Objective Objective Vital Signs Date Time Temp Pulse Resp B/P (MAP) Pulse Ox O2 Delivery O2 Flow Rate FiO2 02/19/20 08:23 67 128/74 02/19/20 08:23 Room Air 02/19/20 07:00 98.0 18 99 98.0 02/18/20 20:00 2.0 Intake and Output 02/19/20 07:00 Intake Total 1330 ml Output Total 3550 ml Balance -2220 ml Intake Oral 1330 ml Output Urine Total 3550 ml Physical Exam Physical Exam She is alert,sitting in bed and had dressing to her ankles. She apparently refusing participating with therapy all this week. Assessment Assessment Problems Medical Problems: (1) Heel ulcer Status: Acute (2) Heel ulceration Status: Acute (3) Urinary tract infection Status: Acute (4) Weakness Status: Acute Plan Plan of Care To continue present care efforts as tolerated. Comment Review of Relevant I have reviewed the following items dari (where applicable) has been applied. Labs Laboratory Tests Test 02/18/20 05:00 02/19/20 06:55 White Blood Count 14.7 x10^3/uL (4.0-11.0) 11.4 x10^3/uL (4.0-11.0) Red Blood Count 3.58 x10^6/uL (3.50-5.40) 3.47 x10^6/uL (3.50-5.40) Hemoglobin 9.3 g/dL (12.0-15.5) 8.9 g/dL (12.0-15.5) Hematocrit 28.1 % (36.0-47.0) 27.4 % (36.0-47.0) Mean Corpuscular Volume 78 fL (79-100) 79 fL (79-100) Mean Corpuscular Hemoglobin 26 pg (25-35) 26 pg (25-35) Mean Corpuscular Hemoglobin Concent 33 g/dL (31-37) 33 g/dL (31-37) Red Cell Distribution Width 17.9 % (11.5-14.5) 18.2 % (11.5-14.5) Platelet Count 498 x10^3/uL (140-400) 482 x10^3/uL (140-400) Sodium Level 133 mmol/L (136-145) 137 mmol/L (136-145) Potassium Level 4.9 mmol/L (3.5-5.1) 4.9 mmol/L (3.5-5.1) Chloride Level 97 mmol/L (98-107) 103 mmol/L (98-107) Carbon Dioxide Level 26 mmol/L (21-32) 29 mmol/L (21-32) Anion Gap 10 (6-14) 5 (6-14) Blood Urea Nitrogen 45 mg/dL (7-20) 33 mg/dL (7-20) Creatinine 0.8 mg/dL (0.6-1.0) 0.9 mg/dL (0.6-1.0) Estimated GFR (Cockcroft-Gault) 84.2 73.5 BUN/Creatinine Ratio 56 (6-20) Glucose Level 89 mg/dL (70-99) 91 mg/dL (70-99) Calcium Level 8.6 mg/dL (8.5-10.1) 8.6 mg/dL (8.5-10.1) Total Bilirubin 0.1 mg/dL (0.2-1.0) Aspartate Amino Transf (AST/SGOT) 33 U/L (15-37) Alanine Aminotransferase (ALT/SGPT) 33 U/L (14-59) Alkaline Phosphatase 127 U/L (46-116) Total Protein 6.4 g/dL (6.4-8.2) Albumin 2.3 g/dL (3.4-5.0) Albumin/Globulin Ratio 0.6 (1.0-1.7) Laboratory Tests Test 02/19/20 06:55 White Blood Count 11.4 x10^3/uL (4.0-11.0) Red Blood Count 3.47 x10^6/uL (3.50-5.40) Hemoglobin 8.9 g/dL (12.0-15.5) Hematocrit 27.4 % (36.0-47.0) Mean Corpuscular Volume 79 fL (79-100) Mean Corpuscular Hemoglobin 26 pg (25-35) Mean Corpuscular Hemoglobin Concent 33 g/dL (31-37) Red Cell Distribution Width 18.2 % (11.5-14.5) Platelet Count 482 x10^3/uL (140-400) Sodium Level 137 mmol/L (136-145) Potassium Level 4.9 mmol/L (3.5-5.1) Chloride Level 103 mmol/L (98-107) Carbon Dioxide Level 29 mmol/L (21-32) Anion Gap 5 (6-14) Blood Urea Nitrogen 33 mg/dL (7-20) Creatinine 0.9 mg/dL (0.6-1.0) Estimated GFR (Cockcroft-Gault) 73.5 Glucose Level 91 mg/dL (70-99) Calcium Level 8.6 mg/dL (8.5-10.1) Microbiology 02/10/20 Blood Culture - Final, Complete NO GROWTH AFTER 5 DAYS 02/09/20 Urine Culture - Final, Complete 02/09/20 Antimicrobic Susceptibility - Final, Complete Medications Current Medications Fentanyl Citrate (Fentanyl 2ml Vial) 50 mcg 1X ONCE IV Last administered on 02/09/20 15:38; Start 02/09/20 at 15:30; Stop 02/09/20 at 15:31; Status DC Ondansetron HCl (Zofran) 4 mg 1X ONCE IV Last administered on 02/09/20at 15:37; Start 02/09/20 at 15:30; Stop 02/09/20 at 15:31; Status DC Trimethoprim/ Sulfamethoxazole (Bactrim Ds) 1 tab 1X ONCE PO Last administered on 02/09/20 18:33; Start 02/09/20 at 18:30; Stop 02/09/20 at 18:31; Status DC Ceftriaxone Sodium (Rocephin) 1 gm Q24H IVP Last administered on 02/11/20at 21:01; Start 02/09/20 at 21:00; Stop 02/12/20 at 13:00; Status DC Acetaminophen/ Hydrocodone Bitart (Lortab 7.5/325) 1 tab PRN Q4HRS PRN PO MODERATE PAIN 4-6 Last administered on 02/19/20 08:23; Start 02/09/20 at 21:30 Acetaminophen (Tylenol) 650 mg PRN Q6HRS PRN PO MILD PAIN 1-3 Last administered on 02/14/20at 21:39; Start 02/09/20 at 21:30 Amlodipine Besylate (Norvasc) 5 mg DAILY PO Last administered on 02/19/20 08:23; Start 02/10/20 at 09:00 Atorvastatin Calcium (Lipitor) 40 mg QHS PO Last administered on 02/18/20 21:47; Start 02/09/20 at 23:00 Buspirone HCl (Buspar) 10 mg TID PO Last administered on 02/19/20 08:23; Start 02/09/20 at 23:00 Diclofenac Sodium (Voltaren) 1 yesika BID TP Last administered on 02/19/20 08:25; Start 02/09/20 at 23:00 Famotidine (Pepcid) 20 mg QHS PO Last administered on 02/18/20 21:47; Start 02/09/20 at 23:00 Gabapentin (Neurontin) 100 mg QID PO Last administered on 02/19/20 08:22; Start 02/09/20 at 23:00 Lisinopril (Prinivil) 20 mg DAILY PO Last administered on 02/10/20 09:44; Start 02/10/20 at 09:00; Stop 02/10/20 at 16:24; Status DC Ondansetron HCl (Zofran Odt) 4 mg PRN BID PRN PO NAUSEA 1ST CHOICE Last administered on 02/15/20 10:39; Start 02/09/20 at 22:15 Trazodone HCl (Desyrel) 50 mg HS PO Last administered on 02/18/20 21:47; Start 02/09/20 at 23:00 Baclofen (Lioresal) 5 mg DAILY PO Last administered on 02/19/20 08:23; Start 02/10/20 at 09:00 Ceftriaxone Sodium (Rocephin) 1 gm Q24H IVP ; Start 02/10/20 at 11:00; Status UNV Lactobacillus Rhamnosus (Culturelle) 1 cap BID PO Last administered on 02/19/20 08:23; Start 02/10/20 at 21:00 Sodium Chloride 1,000 ml @ 100 mls/hr Q10H IV Last administered on 02/13/20 06:46; Start 02/10/20 at 17:00; Stop 02/13/20 at 08:54; Status DC Potassium Chloride (Klor-Con) 40 meq 1X ONCE PO Last administered on 7/6/20at 17:37; Start 02/10/20 at 17:00; Stop 02/10/20 at 17:01; Status DC Enoxaparin Sodium (Lovenox 30mg Syringe) 30 mg Q24H SQ Last administered on 02/15/20at 09:36; Start 02/11/20 at 10:00; Stop 02/17/20 at 11:00; Status DC Aspirin ([email or web address] Aspirin) 325 mg 1X ONCE PO Last administered on 02/11/20at 11:52; Start 02/11/20 at 10:00; Stop 02/11/20 at 10:01; Status DC Aspirin ([email or web address] Aspirin) 325 mg DAILYWBKFT PO Last administered on 02/19/20at 08:23; Start 02/12/20 at 08:00 Cefdinir (Omnicef) 300 mg Q24H PO ; Start 02/12/20 at 14:00; Stop 02/12/20 at 14 :12; Status DC Daptomycin 270 mg/ Sodium Chloride 50 ml @ 100 mls/hr Q24H IV Last administered on 02/13/20at 15:05; Start 02/12/20 at 15:00; Stop 02/14/20 at 10:05; Status DC Cefepime HCl (Maxipime) 1 gm Q12HR IVP Last administered on 02/13/20at 08:36; St art 02/12/20 at 15:00; Stop 02/13/20 at 08:45; Status DC Metoprolol Tartrate (Lopressor Vial) 5 mg PRN Q6HRS PRN IVP TACHYCARDIA; Start 02/12/20 at 14:45 Multivitamins (Thera M Plus) 1 tab DAILY PO Last administered on 02/19/20at 08:22; Start 02/13/20 at 09:00 Meropenem 500 mg/ Sodium Chloride 50 ml @ 100 mls/hr Q6HRS IV Last administered on 02/18/20at 00:17; Start 02/13/20 at 09:00; Stop 02/18/20 at 12:15; Status DC Potassium Chloride (Klor-Con) 20 meq 1X ONCE PO Last administered on 02/14/20at 08:40; Start 02/14/20 at 08:30; Stop 02/14/20 at 08:31; Status DC Micafungin Sodium 100 mg/Dextrose 100 ml @ 100 mls/hr Q24H IV Last admi nistered on 02/18/20at 11:25; Start 02/15/20 at 11:00; Stop 02/18/20 at 12:15; Status DC Sodium Chloride 1,000 ml @ 100 mls/hr Q10H IV Last administered on 02/15/20at 21:29; Start 02/15/20 at 11:00; Stop 02/16/20 at 10:36; Status DC Promethazine HCl (Phenergan) 12.5 mg PRN Q4HRS PRN PO NAUSEA/VOMITING, 2ND CHOICE Last administered on 02/15/20at 11:51; Start 02/15/20 at 11:45 Iohexol (Omnipaque 240 Mg/ml) 30 ml 1X ONCE PO Last administered on 02/15/20at 15:00; Start 02/15/20 at 14:30; Stop 02/15/20 at 14:32; Status DC Iohexol (Omnipaque 300 Mg/ml) 75 ml 1X ONCE IV Last administered on 02/15/20at 15:00; Start 02/15/20 at 14:30; Stop 02/15/20 at 14:32; Status DC Info (CONTRAST GIVEN -- Rx MONITORING) 1 each PRN DAILY PRN MC SEE COMMENTS; Start 02/15/20 at 14:45; Stop 02/17/20 at 14:44; Status DC Amino Acids/ Glycerin/ Electrolytes 1,000 ml @ 80 mls/hr [id number] IV Last administered on 02/18/20at 00:16; Start 02/16/20 at 10:00 Potassium Chloride (Klor-Con) 20 meq TID PO Last administered on 02/19/20at 08:2 3; Start 02/17/20 at 09:00 Active Scripts Active [place] 5-325 Tablet (Acetaminophen/Hydrocodone Bitart) 1 Each Tablet 1-2 Tab PO Q4-6HRS 2 Days Reported Trazodone Hcl 50 Mg Tablet 50 Mg PO HS Ondansetron Odt (Ondansetron) 4 Mg Tab.rapdis 4 Mg PO PRN BID PRN Atorvastatin Calcium 40 Mg Tablet 40 Mg PO DAILY Baclofen 5 Mg Tablet 5 Mg PO DAILY Gabapentin 100 Mg Capsule 100 Mg PO QID Diclofenac Sodium 100 Gm Gel..gram. 1 Yesika TOP BID Buspirone Hcl 10 Mg Tablet 10 Mg PO TID Famotidine 20 Mg Tablet 20 Mg PO BID Lisinopril 20 Mg Tablet 20 Mg PO DAILY Amlodipine Besylate 5 Mg Tablet 5 Mg PO DAILY Vitals/I & O Vital Sign - Last 24 Hours 02/18/20 02/18/20 02/18/20 02/18/20 10:46 11:24 14:44 19:45 Temp 98.0 98.0 97.8 98.0 98.0 97.8 Pulse 70 70 70 72 Resp 16 16 20 B/P (MAP) 139/74 (95) 139/74 142/72 (95) 125/99 (108) Pulse Ox 97 97 99 O2 Delivery Room Air Room Air Room Air 02/18/20 02/18/20 02/19/20 02/19/20 20:00 23:59 00:09 03:08 Temp 98.7 97.9 98.7 97.9 Pulse 78 80 Resp 16 16 B/P (MAP) 136/76 (96) 133/77 (95) Pulse Ox 95 90 O2 Delivery Nasal Cannula Room Air Room Air Room Air O2 Flow Rate 2.0 02/19/20 02/19/20 02/19/20 07:00 08:23 08:23 Temp 98.0 98.0 Pulse 67 67 Resp 18 B/P (MAP) 128/74 (92) 128/74 Pulse Ox 99 O2 Delivery Room Air Room Air Intake and Output 02/18/20 02/18/20 02/19/20 15:00 23:00 07:00 Intake Total 530 ml 300 ml 500 ml Output Total 1000 ml 1000 ml 1550 ml Balance -470 ml -700 ml -1050 ml Justicifation of Admission Dx: Justifications for Admission: Justification of Admission Dx: Yes Sepsis: Infection Nutrition Consultation Dietary Evaluation: Recommendations by RD: Dietary education by RD, Increase Calorie Intake, Protein supplementation Comments: cardiac diet with ensure enlive bid homar bid mvi q day per wound protocal Expected Outcomes/Goals: to meet >75% est nutr needs improved wound status Malnutrition Findings: Body Fat Depletion (Non Severe: Mod to Severe Weight Status: Underweight RIYA SHARP MD Feb 19, 2020 09:00
--- NOTE | 2020-02-19 09:10 | PDOC ---
PROGRESS NOTES Subjective Subjective When asked how she is doing today, she just shakes her head. She is complaining of right facial maxillary pain into her mouth. She continues to deny chest pain and shortness of breath. She denies fever and chills. She still has exquisite pain to her right foot. Her white count today is 11.4 which fortunately is down a little bit from yesterday. Her hemoglobin is 8.9 and her platelet count is 412. Her creatinine remains normal. Objective Objective Vital Signs Date Time Temp Pulse Resp B/P (MAP) Pulse Ox O2 Delivery O2 Flow Rate FiO2 02/19/20 08:23 67 128/74 02/19/20 08:23 Room Air 02/19/20 07:00 98.0 18 99 98.0 02/18/20 20:00 2.0 Intake and Output 02/19/20 07:00 Intake Total 1330 ml Output Total 3550 ml Balance -2220 ml Intake Oral 1330 ml Output Urine Total 3550 ml Physical Exam Extremities: No cyanosis General: Alert, mild distress Neuro: Normal speech Skin: No rashes Assessment Assessment Problems Medical Problems: (1) Heel ulcer Status: Acute (2) Heel ulceration Status: Acute (3) Urinary tract infection Status: Acute (4) Weakness Status: Acute Plan Plan of Care 79-year-old female with 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 She continues to have an elevated white count. This makes implanting a stent graft prohibitive. It is reasonable even in the setting of palliative care or hospice to proceed with an amputation rather than a bypass surgery at this point in time. I did speak with her daughters on the phone and with her. They would like to be with her for surgery and to discuss palliative and hospice care and perhaps no surgery at all. They are planning to come into town on 02/20/20. There is surgery time reserved on Monday for a below knee, possible above-knee amputation at this time. Plan: Continue antibiotics per infectious disease. Palliative or hospice care would be appropriate. Amputation for pain control would also be appropriate. In the setting of someone who does not ambulate, an above knee amputation would be best and would be most likely to heal, but is still a major risk to her life. information services manager can assist with discharge needs once care decisions have been made. We will continue to follow. Comment Review of Relevant I have reviewed the following items dari (where applicable) has been applied. Labs Laboratory Tests Test 02/18/20 05:00 02/19/20 06:55 White Blood Count 14.7 x10^3/uL (4.0-11.0) 11.4 x10^3/uL (4.0-11.0) Red Blood Count 3.58 x10^6/uL (3.50-5.40) 3.47 x10^6/uL (3.50-5.40) Hemoglobin 9.3 g/dL (12.0-15.5) 8.9 g/dL (12.0-15.5) Hematocrit 28.1 % (36.0-47.0) 27.4 % (36.0-47.0) Mean Corpuscular Volume 78 fL (79-100) 79 fL (79-100) Mean Corpuscular Hemoglobin 26 pg (25-35) 26 pg (25-35) Mean Corpuscular Hemoglobin Concent 33 g/dL (31-37) 33 g/dL (31-37) Red Cell Distribution Width 17.9 % (11.5-14.5) 18.2 % (11.5-14.5) Platelet Count 498 x10^3/uL (140-400) 482 x10^3/uL (140-400) Sodium Level 133 mmol/L (136-145) 137 mmol/L (136-145) Potassium Level 4.9 mmol/L (3.5-5.1) 4.9 mmol/L (3.5-5.1) Chloride Level 97 mmol/L (98-107) 103 mmol/L (98-107) Carbon Dioxide Level 26 mmol/L (21-32) 29 mmol/L (21-32) Anion Gap 10 (6-14) 5 (6-14) Blood Urea Nitrogen 45 mg/dL (7-20) 33 mg/dL (7-20) Creatinine 0.8 mg/dL (0.6-1.0) 0.9 mg/dL (0.6-1.0) Estimated GFR (Cockcroft-Gault) 84.2 73.5 BUN/Creatinine Ratio 56 (6-20) Glucose Level 89 mg/dL (70-99) 91 mg/dL (70-99) Calcium Level 8.6 mg/dL (8.5-10.1) 8.6 mg/dL (8.5-10.1) Total Bilirubin 0.1 mg/dL (0.2-1.0) Aspartate Amino Transf (AST/SGOT) 33 U/L (15-37) Alanine Aminotransferase (ALT/SGPT) 33 U/L (14-59) Alkaline Phosphatase 127 U/L (46-116) Total Protein 6.4 g/dL (6.4-8.2) Albumin 2.3 g/dL (3.4-5.0) Albumin/Globulin Ratio 0.6 (1.0-1.7) Laboratory Tests Test 02/19/20 06:55 White Blood Count 11.4 x10^3/uL (4.0-11.0) Red Blood Count 3.47 x10^6/uL (3.50-5.40) Hemoglobin 8.9 g/dL (12.0-15.5) Hematocrit 27.4 % (36.0-47.0) Mean Corpuscular Volume 79 fL (79-100) Mean Corpuscular Hemoglobin 26 pg (25-35) Mean Corpuscular Hemoglobin Concent 33 g/dL (31-37) Red Cell Distribution Width 18.2 % (11.5-14.5) Platelet Count 482 x10^3/uL (140-400) Sodium Level 137 mmol/L (136-145) Potassium Level 4.9 mmol/L (3.5-5.1) Chloride Level 103 mmol/L (98-107) Carbon Dioxide Level 29 mmol/L (21-32) Anion Gap 5 (6-14) Blood Urea Nitrogen 33 mg/dL (7-20) Creatinine 0.9 mg/dL (0.6-1.0) Estimated GFR (Cockcroft-Gault) 73.5 Glucose Level 91 mg/dL (70-99) Calcium Level 8.6 mg/dL (8.5-10.1) Microbiology 02/10/20 Blood Culture - Final, Complete NO GROWTH AFTER 5 DAYS 02/09/20 Urine Culture - Final, Complete 02/09/20 Antimicrobic Susceptibility - Final, Complete Medications Current Medications Fentanyl Citrate (Fentanyl 2ml Vial) 50 mcg 1X ONCE IV Last administered on 7/5/20at 15:38; Start 02/09/20 at 15:30; Stop 02/09/20 at 15:31; Status DC Ondansetron HCl (Zofran) 4 mg 1X ONCE IV Last administered on 02/09/20 15:37; Start 02/09/20 at 15:30; Stop 02/09/20 at 15:31; Status DC Trimethoprim/ Sulfamethoxazole (Bactrim Ds) 1 tab 1X ONCE PO Last administered on 02/09/20 18:33; Start 02/09/20 at 18:30; Stop 02/09/20 at 18:31; Status DC Ceftriaxone Sodium (Rocephin) 1 gm Q24H IVP Last administered on 02/11/20 21:01; Start 02/09/20 at 21:00; Stop 02/12/20 at 13:00; Status DC Acetaminophen/ Hydrocodone Bitart (Lortab 7.5/325) 1 tab PRN Q4HRS PRN PO MODERATE PAIN 4-6 Last administered on 02/19/20 08:23; Start 02/09/20 at 21:30 Acetaminophen (Tylenol) 650 mg PRN Q6HRS PRN PO MILD PAIN 1-3 Last administered on 02/14/20 21:39; Start 02/09/20 at 21:30 Amlodipine Besylate (Norvasc) 5 mg DAILY PO Last administered on 02/19/20 08:23; Start 02/10/20 at 09:00 Atorvastatin Calcium (Lipitor) 40 mg QHS PO Last administered on 02/18/20 21:47; Start 02/09/20 at 23:00 Buspirone HCl (Buspar) 10 mg TID PO Last administered on 02/19/20 08:23; Start 02/09/20 at 23:00 Diclofenac Sodium (Voltaren) 1 yesika BID TP Last administered on 02/19/20 08:25; Start 02/09/20 at 23:00 Famotidine (Pepcid) 20 mg QHS PO Last administered on 02/18/20 21:47; Start 02/09/20 at 23:00 Gabapentin (Neurontin) 100 mg QID PO Last administered on 02/19/20 08:22; Start 02/09/20 at 23:00 Lisinopril (Prinivil) 20 mg DAILY PO Last administered on 02/10/20at 09:44; Start 02/10/20 at 09:00; Stop 02/10/20 at 16:24; Status DC Ondansetron HCl (Zofran Odt) 4 mg PRN BID PRN PO NAUSEA 1ST CHOICE Last administered on 02/15/20at 10:39; Start 02/09/20 at 22:15 Trazodone HCl (Desyrel) 50 mg HS PO Last administered on 02/18/20at 21:47; Start 02/09/20 at 23:00 Baclofen (Lioresal) 5 mg DAILY PO Last administered on 02/19/20at 08:23; Start 02/10/20 at 09:00 Ceftriaxone Sodium (Rocephin) 1 gm Q24H IVP ; Start 02/10/20 at 11:00; Status UNV Lactobacillus Rhamnosus (Culturelle) 1 cap BID PO Last administered on 02/19/20at 08:23; Start 02/10/20 at 21:00 Sodium Chloride 1,000 ml @ 100 mls/hr Q10H IV Last administered on 02/13/20at 06:46; Start 02/10/20 at 17:00; Stop 02/13/20 at 08:54; Status DC Potassium Chloride (Klor-Con) 40 meq 1X ONCE PO Last administered on 02/10/20at 17:37; Start 02/10/20 at 17:00; Stop 02/10/20 at 17:01; Status DC Enoxaparin Sodium (Lovenox 30mg Syringe) 30 mg Q24H SQ Last administered on 02/15/20at 09:36; Start 02/11/20 at 10:00; Stop 02/17/20 at 11:00; Status DC Aspirin ([employer] Aspirin) 325 mg 1X ONCE PO Last administered on 02/11/20at 11:52; Start 02/11/20 at 10:00; Stop 02/11/20 at 10:01; Status DC Aspirin ([employer] Aspirin) 325 mg DAILYWBKFT PO Last administered on 02/19/20at 08:23; Start 02/12/20 at 08:00 Cefdinir (Omnicef) 300 mg Q24H PO ; Start 02/12/20 at 14:00; Stop 02/12/20 at 14:12; Status DC Daptomycin 270 mg/ Sodium Chloride 50 ml @ 100 mls/hr Q24H IV Last administered on 02/13/20at 15:05; Start 02/12/20 at 15:00; Stop 02/14/20 at 10:05; Status DC Cefepime HCl (Maxipime) 1 gm Q12HR IVP Last administered on 02/13/20at 08:36; Start 02/12/20 at 15:00; Stop 02/13/20 at 08:45; Status DC Metoprolol Tartrate (Lopressor Vial) 5 mg PRN Q6HRS PRN IVP TACHYCARDIA; Start 02/12/20 at 14:45 Multivitamins (Thera M Plus) 1 tab DAILY PO Last administered on 02/19/20at 08:22; Start 02/13/20 at 09:00 Meropenem 500 mg/ Sodium Chloride 50 ml @ 100 mls/hr Q6HRS IV Last administered on 02/18/20at 00:17; Start 02/13/20 at 09:00; Stop 02/18/20 at 12:15; Status DC Potassium Chloride (Klor-Con) 20 meq 1X ONCE PO Last administered on 02/14/20at 08:40; Start 02/14/20 at 08:30; Stop 02/14/20 at 08:31; Status DC Micafungin Sodium 100 mg/Dextrose 100 ml @ 100 mls/hr Q24H IV Last administered on 02/18/20at 11:25; Start 02/15/20 at 11:00; Stop 02/18/20 at 12:15; Status DC Sodium Chloride 1,000 ml @ 100 mls/hr Q10H IV Last administered on 02/15/20at 21:29; Start 02/15/20 at 11:00; Stop 02/16/20 at 10:36; Status DC Promethazine HCl (Phenergan) 12.5 mg PRN Q4HRS PRN PO NAUSEA/VOMITING, 2ND CHOICE Last administered on 02/15/20at 11:51; Start 02/15/20 at 11:45 Iohexol (Omnipaque 240 Mg/ml) 30 ml 1X ONCE PO Last administered on 02/15/20at 15:00; Start 02/15/20 at 14:30; Stop 02/15/20 at 14:32; Status DC Iohexol (Omnipaque 300 Mg/ml) 75 ml 1X ONCE IV Last administered on 02/15/20at 15:00; Start 02/15/20 at 14:30; Stop 02/15/20 at 14:32; Status DC Info (CONTRAST GIVEN -- Rx MONITORING) 1 each PRN DAILY PRN MC SEE COMMENTS; Start 02/15/20 at 14:45; Stop 02/17/20 at 14:44; Status DC Amino Acids/ Glycerin/ Electrolytes 1,000 ml @ 80 mls/hr [id number] IV Last administered on 02/18/20at 00:16; Start 02/16/20 at 10:00 Potassium Chloride (Klor-Con) 20 meq TID PO Last administered on 02/19/20at 08:23; Start 02/17/20 at 09:00 Active Scripts Active [place] 5-325 Tablet (Acetaminophen/Hydrocodone Bitart) 1 Each Tablet 1-2 Tab PO Q4-6HRS 2 Days Reported Trazodone Hcl 50 Mg Tablet 50 Mg PO HS Ondansetron Odt (Ondansetron) 4 Mg Tab.rapdis 4 Mg PO PRN BID PRN Atorvastatin Calcium 40 Mg Tablet 40 Mg PO DAILY Baclofen 5 Mg Tablet 5 Mg PO DAILY Gabapentin 100 Mg Capsule 100 Mg PO QID Diclofenac Sodium 100 Gm Gel..gram. 1 Yesika TOP BID Buspirone Hcl 10 Mg Tablet 10 Mg PO TID Famotidine 20 Mg Tablet 20 Mg PO BID Lisinopril 20 Mg Tablet 20 Mg PO DAILY Amlodipine Besylate 5 Mg Tablet 5 Mg PO DAILY Vitals/I & O Vital Sign - Last 24 Hours 02/18/20 02/18/20 02/18/20 02/18/20 10:46 11:24 14:44 19:45 Temp 98.0 98.0 97.8 98.0 98.0 97.8 Pulse 70 70 70 72 Resp 16 16 20 B/P (MAP) 139/74 (95) 139/74 142/72 (95) 125/99 (108) Pulse Ox 97 97 99 O2 Delivery Room Air Room Air Room Air 02/18/20 02/18/20 02/19/20 02/19/20 20:00 23:59 00:09 03:08 Temp 98.7 97.9 98.7 97.9 Pulse 78 80 Resp 16 16 B/P (MAP) 136/76 (96) 133/77 (95) Pulse Ox 95 90 O2 Delivery Nasal Cannula Room Air Room Air Room Air O2 Flow Rate 2.0 02/19/20 02/19/20 02/19/20 07:00 08:23 08:23 Temp 98.0 98.0 Pulse 67 67 Resp 18 B/P (MAP) 128/74 (92) 128/74 Pulse Ox 99 O2 Delivery Room Air Room Air Intake and Output 02/18/20 02/18/20 02/19/20 15:00 23:00 07:00 Intake Total 530 ml 300 ml 500 ml Output Total 1000 ml 1000 ml 1550 ml Balance -470 ml -700 ml -1050 ml Justicifation of Admission Dx: Justifications for Admission: Justification of Admission Dx: Yes Sepsis: Infection [facility] [employer] INTERN Feb 19, 2020 09:09
--- NOTE | 2020-02-19 09:18 | PDOC ---
Infectious Disease Note Subjective Subjective Patient is feeling okay some leg pain but not bad ROS ROS No nausea vomiting diarrhea chest pain shortness of breath Vital Sign Vital Signs Vital Signs Date Time Temp Pulse Resp B/P (MAP) Pulse Ox O2 Delivery O2 Flow Rate FiO2 02/19/20 08:23 67 128/74 02/19/20 08:23 Room Air 02/19/20 07:00 98.0 18 99 98.0 02/18/20 20:00 2.0 Physical Exam PHYSICAL EXAM GENERAL: Sitting upright in bed, talking on the phone, alert in NAD HEENT: Oral cavity clear NECK: Supple LUNGS: Clear CV: S1, S2 ABDOMEN: Soft, nontender ; Mulligan in place EXTREMITIES: No gross edema or cyanosis. wounds both heels R>L. SKIN: warm to touch SISAL PICKER: Alert, answering questions appropriately PIV Labs Lab Laboratory Tests Test 02/19/20 06:55 White Blood Count 11.4 x10^3/uL (4.0-11.0) Red Blood Count 3.47 x10^6/uL (3.50-5.40) Hemoglobin 8.9 g/dL (12.0-15.5) Hematocrit 27.4 % (36.0-47.0) Mean Corpuscular Volume 79 fL (79-100) Mean Corpuscular Hemoglobin 26 pg (25-35) Mean Corpuscular Hemoglobin Concent 33 g/dL (31-37) Red Cell Distribution Width 18.2 % (11.5-14.5) Platelet Count 482 x10^3/uL (140-400) Sodium Level 137 mmol/L (136-145) Potassium Level 4.9 mmol/L (3.5-5.1) Chloride Level 103 mmol/L (98-107) Carbon Dioxide Level 29 mmol/L (21-32) Anion Gap 5 (6-14) Blood Urea Nitrogen 33 mg/dL (7-20) Creatinine 0.9 mg/dL (0.6-1.0) Estimated GFR (Cockcroft-Gault) 73.5 Glucose Level 91 mg/dL (70-99) Calcium Level 8.6 mg/dL (8.5-10.1) Micro URINE CULTURE Final Final GREATER THAN 100,000 CFU/ML GRAM NEGATIVE RODS on 02/11/20 at 0701 FINAL ID= [ESCHERICHIA COLI ESBL] Testing Performed by: [facility] [address] [place] [address] For Inquires, the Physician may contact the Microbiology department at [phone] ESCHERICHIA COLI ESBL * This is a corrected result. * A prior result that was reported as final has been changed. ANTIMICROBIAL SUSCEPTIBILITY Final Comment NEG KRISSY 56 ESCHERICHIA COLI ESBL ANTIBIOTIC RESULT INTERPRETATION AMPICILLIN/SULBACTAM 16/8 I AMIKACIN <=16 S AMPICILLIN >16 R* AMOXICILLIN/K CLAVULANATE <=8/4 S AZTREONAM >16 ESBL CEFTRIAXONE >32 ESBL CEFTAZIDIME >16 ESBL CEFOTAXIME-ESBL >1 ESBL CEFOTAXIME >32 ESBL CEFOXITIN <=8 S CIPROFLOXACIN >2 R CEFEPIME >16 R* CEFUROXIME >16 R* CEFTAZIDIME/AVIBACTAM <=4 S ERTAPENEM <=0.5 S NITROFURANTOIN <=32 S GENTAMICIN <=2 S LEVOFLOXACIN >4 R MEROPENEM <=1 S CONTINUED ON NEXT PAGE RUN DATE: 02/12/20 [facility] *LIVE* PAGE 2 RUN TIME: 914 Specimen Inquiry SPEC: [id number] PATIENT: MILI WEEKS [id number] (Continued) Procedure Result ANTIMICROBIAL SUSCEPTIBILITY Final (continued) PIPERACILLIN/TAZOBACTAM <=8 S TRIMETHOPRIM/SULFAMETHOXAZOLE >2/38 R TETRACYCLINE >8 R TOBRAMYCIN >8 R Unless otherwise specified, Testing Performed by: [address] [address] For Inquires, the Physician may contact the Microbiology department at [phone] Objective Assessment Leukocytosis - some better N/V - some better ABD pain - no diarrhea YOLA - better ESBL UTI 7/5 - POA PCN allergy - Local swelling post IM injection AAA - Severe PAD - Right heel wound. Sinus congestion Plan Plan of Care Monitor labs/temp F/u labs Maintain aspiration precautions Local wound care per Vascular Patient does not have any IV and patient refuses for IV Abdominal aneurysm cannot be fixed and hence patient is recommended to have palliative care/hospice YANETH JARVIS MD Feb 19, 2020 09:18
[2020-02-19 11:02] VITALS: BP 142/72
--- NOTE | 2020-02-19 13:31 | PN ---
DATE: 02/19/2020 SUBJECTIVE: The patient is resting, slightly propped up in bed, in no apparent distress, awake, alert. Denied any complaint. Nursing staff did not voice any concerns that she pulled her IV line. She is eating actually more. Her IV antibiotics were discontinued. Her daughters are coming tomorrow from [place] to discuss options of treatment whether to be fully aggressive or to go home with hospice or do amputation and hospice. PHYSICAL EXAMINATION: GENERAL: On examining her, she looked pale, cachectic, but no jaundice, cyanosis or thyromegaly. No jugular venous distention. No limb edema. VITAL SIGNS: Her heart rate was 69, blood pressure 142/72, temperature 97.8, respiratory rate was 18 and oxygen saturation was 99%. HEAD, EYES, EARS, NOSE AND THROAT: Normocephalic, atraumatic. NECK: Supple. HEART: Showed normal first and second heart sounds. No gallop or murmur. CHEST: Clear to auscultation. No crepitation or rhonchi. ABDOMEN: Distended, soft, nontender. NEUROLOGIC: She was awake, alert, responding appropriately. All cranial nerves intact. She moves upper extremities without difficulty. 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 She has right heel .ischemic ulcer. Her intake over the last 24 hours was 660, output was 1550. LABORATORY DATA: Her lab work this morning showed a serum sodium 137, potassium 4.9, chloride 103, bicarbonate 29, anion gap of 5, BUN 33, creatinine 0.9, estimated GFR was 73 mL per minute. His glucose was 91, calcium was 8.6. Her white cell count was 11,400, hemoglobin 9, hematocrit 27, MCV 79 and platelet count 402,000. ASSESSMENT: 1. Abdominal aortic aneurysm, 5 x 4 cm and getting bigger. 2. Urinary tract infection due to Escherichia coli with extended spectrum beta lactamase. 3. Paraplegia with spinal cord infarct. 4. Chronic obstructive pulmonary disease. 5. Hypertension. 6. Severe peripheral vascular disease with resultant ischemic heel ulcer. 7. Generalized debility. 8. History of lung cancer in the past. PLAN: To continue nutritional support. She is now on regular diet and her apparently appetite and intake has improved. Her IV antibiotics were discontinued. Meanwhile, we will continue with DVT prophylaxis. Continue pain management, await the arrival of her family tomorrow to make a decision regarding further management. JUAN TALBOT MD DR: TOMER/ela JOB#: [id number] / [id number]
--- NOTE | 2020-02-19 13:56 | NUR ---
Wound Care Wound care follow up for right heel PU wound. Right hip and left heel continue to be healed. Right heel has soft eschar with slough and red non-granulation tissue, painful to touch. Wound cleansed, pictured and measured, medihoney, xeroform and foam applied to wound. Foam applied to left heel for protection. Pt helped an episode of bowel movement, pt cleaned, gown and bedding changed. No other wounds noted. Pt educated on PU prevention. Pt on a P500 bed, refuses to wear PODUS boots. Per doctor's notes, possible AKA on Monday, family will be in town tomorrow to discuss surgery vs hospice. WC will continue to follow for possible changes.
[2020-02-19 15:02] VITALS: BP 164/98
[2020-02-19 19:00] VITALS: BP 153/84
[2020-02-19] MEDS: traZODone 50 MG TABLET. PO SCH (20:30)
[2020-02-19] MEDS: ATORVASTATIN CALCIUM 40 MG TABLET. PO SCH (20:30)
[2020-02-19] MEDS: FAMOTIDINE 20 MG TABLET. PO SCH (20:30)
[2020-02-19 23:00] VITALS: BP 156/78
[2020-02-20 03:00] VITALS: BP 135/72
[2020-02-20 07:00] VITALS: BP 142/92
[2020-02-20] MEDS: MULTIVITAMIN with MINERAL TABLET. PO SCH (07:30)
[2020-02-20] MEDS: AMINO AC 3%/ELECTROLYTE/GLYCER 1,000 ML IV SCH (07:30)
[2020-02-20] MEDS: ASPIRIN 325 MG TABLET PO SCH (08:00)
--- NOTE | 2020-02-20 08:41 | NUR ---
SW following. Discussed with RN, pt's daughters arriving today. SW reached out to [facility] to determine if pt complied with the medicaid application process. CLAY will continue to follow.
--- NOTE | 2020-02-20 08:53 | PDOC ---
PROGRESS NOTES Subjective Subjective She tinks that she is in a hotel,paying 300 dollars per month. Objective Objective Vital Signs Date Time Temp Pulse Resp B/P (MAP) Pulse Ox O2 Delivery O2 Flow Rate FiO2 02/20/20 07:00 97.7 72 18 142/92 (109) 97 Room Air 97.7 02/19/20 19:30 2.0 Intake and Output 02/20/20 07:00 Intake Total 750 ml Output Total 1025 ml Balance -275 ml Intake Oral 750 ml Output Urine Total 1025 ml Physical Exam Physical Exam She is awake but seems to be disoriented today. She is sitting in bed without PRAFO boots in place to her ankles. She had dressing in place to her heel wounds. Assessment Assessment Problems Medical Problems: (1) Heel ulcer Status: Acute (2) Heel ulceration Status: Acute (3) Urinary tract infection Status: Acute (4) Weakness Status: Acute Plan Plan of Care To continue present care efforts as tolerated. Comment Review of Relevant I have reviewed the following items dari (where applicable) has been applied. Labs Laboratory Tests Test 02/19/20 06:55 White Blood Count 11.4 x10^3/uL (4.0-11.0) Red Blood Count 3.47 x10^6/uL (3.50-5.40) Hemoglobin 8.9 g/dL (12.0-15.5) Hematocrit 27.4 % (36.0-47.0) Mean Corpuscular Volume 79 fL (79-100) Mean Corpuscular Hemoglobin 26 pg (25-35) Mean Corpuscular Hemoglobin Concent 33 g/dL (31-37) Red Cell Distribution Width 18.2 % (11.5-14.5) Platelet Count 482 x10^3/uL (140-400) Sodium Level 137 mmol/L (136-145) Potassium Level 4.9 mmol/L (3.5-5.1) Chloride Level 103 mmol/L (98-107) Carbon Dioxide Level 29 mmol/L (21-32) Anion Gap 5 (6-14) Blood Urea Nitrogen 33 mg/dL (7-20) Creatinine 0.9 mg/dL (0.6-1.0) Estimated GFR (Cockcroft-Gault) 73.5 Glucose Level 91 mg/dL (70-99) Calcium Level 8.6 mg/dL (8.5-10.1) Microbiology 02/10/20 Blood Culture - Final, Complete NO GROWTH AFTER 5 DAYS 02/09/20 Urine Culture - Final, Complete 02/09/20 Antimicrobic Susceptibility - Final, Complete Medications Current Medications Fentanyl Citrate (Fentanyl 2ml Vial) 50 mcg 1X ONCE IV Last administered on 02/09/20 15:38; Start 02/09/20 at 15:30; Stop 02/09/20 at 15:31; Status DC Ondansetron HCl (Zofran) 4 mg 1X ONCE IV Last administered on 02/09/20 15:37; Start 02/09/20 at 15:30; Stop 02/09/20 at 15:31; Status DC Trimethoprim/ Sulfamethoxazole (Bactrim Ds) 1 tab 1X ONCE PO Last administered on 02/09/20 18:33; Start 02/09/20 at 18:30; Stop 02/09/20 at 18:31; Status DC Ceftriaxone Sodium (Rocephin) 1 gm Q24H IVP Last administered on 02/11/20 21:01; Start 02/09/20 at 21:00; Stop 02/12/20 at 13:00; Status DC Acetaminophen/ Hydrocodone Bitart (Lortab 7.5/325) 1 tab PRN Q4HRS PRN PO MODERATE PAIN 4-6 Last administered on 02/19/20 08:23; Start 02/09/20 at 21:30 Acetaminophen (Tylenol) 650 mg PRN Q6HRS PRN PO MILD PAIN 1-3 Last administered on 02/14/20at 21:39; Start 02/09/20 at 21:30 Amlodipine Besylate (Norvasc) 5 mg DAILY PO Last administered on 02/19/20 08:23; Start 02/10/20 at 09:00 Atorvastatin Calcium (Lipitor) 40 mg QHS PO Last administered on 02/19/20 20:30; Start 02/09/20 at 23:00 Buspirone HCl (Buspar) 10 mg TID PO Last administered on 02/19/20 20:30; Start 02/09/20 at 23:00 Diclofenac Sodium (Voltaren) 1 yesika BID TP Last administered on 02/19/20 08:25; Start 7/5/20 at 23:00 Famotidine (Pepcid) 20 mg QHS PO Last administered on 02/19/20 20:30; Start 02/09/20 at 23:00 Gabapentin (Neurontin) 100 mg QID PO Last administered on 02/19/20 20:30; Start 02/09/20 at 23:00 Lisinopril (Prinivil) 20 mg DAILY PO Last administered on 02/10/20 09:44; Start 02/10/20 at 09:00; Stop 02/10/20 at 16:24; Status DC Ondansetron HCl (Zofran Odt) 4 mg PRN BID PRN PO NAUSEA 1ST CHOICE Last administered on 02/15/20 10:39; Start 02/09/20 at 22:15 Trazodone HCl (Desyrel) 50 mg HS PO Last administered on 02/19/20 20:30; Start 02/09/20 at 23:00 Baclofen (Lioresal) 5 mg DAILY PO Last administered on 02/19/20 08:23; Start 02/10/20 at 09:00 Ceftriaxone Sodium (Rocephin) 1 gm Q24H IVP ; Start 02/10/20 at 11:00; Status UNV Lactobacillus Rhamnosus (Culturelle) 1 cap BID PO Last administered on 02/19/20 20:30; Start 02/10/20 at 21:00 Sodium Chloride 1,000 ml @ 100 mls/hr Q10H IV Last administered on 02/13/20at 06:46; Start 02/10/20 at 17:00; Stop 02/13/20 at 08:54; Status DC Potassium Chloride (Klor-Con) 40 meq 1X ONCE PO Last administered on 02/10/20at 17:37; Start 02/10/20 at 17:00; Stop 02/10/20 at 17:01; Status DC Enoxaparin Sodium (Lovenox 30mg Syringe) 30 mg Q24H SQ Last administered on 02/15/20 09:36; Start 02/11/20 at 10:00; Stop 02/17/20 at 11:00; Status DC Aspirin (Dre Aspirin) 325 mg 1X ONCE PO Last administered on 02/11/20 11:52; Start 02/11/20 at 10:00; Stop 02/11/20 at 10:01; Status DC Aspirin (Dre Aspirin) 325 mg DAILYWBKFT PO Last administered on 02/19/20at 08:23; Start 02/12/20 at 08:00 Cefdinir (Omnicef) 300 mg Q24H PO ; Start 02/12/20 at 14:00; Stop 02/12/20 at 14:12; Status DC Daptomycin 270 mg/ Sodium Chloride 50 ml @ 100 mls/hr Q24H IV Last administered on 02/13/20at 15:05; Start 02/12/20 at 15:00; Stop 02/14/20 at 10:05; Status DC Cefepime HCl (Maxipime) 1 gm Q12HR IVP Last administered on 02/13/20at 08:36; Start 02/12/20 at 15:00; Stop 02/13/20 at 08:45; Status DC Metoprolol Tartrate (Lopressor Vial) 5 mg PRN Q6HRS PRN IVP TACHYCARDIA; Start 02/12/20 at 14:45 Multivitamins (Thera M Plus) 1 tab DAILY PO Last administered on 02/19/20at 08:22; Start 02/13/20 at 09:00 Meropenem 500 mg/ Sodium Chloride 50 ml @ 100 mls/hr Q6HRS IV Last administered on 02/18/20at 00:17; Start 02/13/20 at 09:00; Stop 02/18/20 at 12:15; Status DC Potassium Chloride (Klor-Con) 20 meq 1X ONCE PO Last administered on 02/14/20at 08:40; Start 02/14/20 at 08:30; Stop 02/14/20 at 08:31; Status DC Micafungin Sodium 100 mg/Dextrose 100 ml @ 100 mls/hr Q24H IV Last administered on 02/18/20at 11:25; Start 02/15/20 at 11:00; Stop 02/18/20 at 12:15; Status DC Sodium Chloride 1,000 ml @ 100 mls/hr Q10H IV Last administered on 02/15/20at 21:29; Start 02/15/20 at 11:00; Stop 02/16/20 at 10:36; Status DC Promethazine HCl (Phenergan) 12.5 mg PRN Q4HRS PRN PO NAUSEA/VOMITING, 2ND CHOICE Last administered on 02/15/20at 11:51; Start 02/15/20 at 11:45 Iohexol (Omnipaque 240 Mg/ml) 30 ml 1X ONCE PO Last administered on 02/15/20at 15:00; Start 02/15/20 at 14:30; Stop 02/15/20 at 14:32; Status DC Iohexol (Omnipaque 300 Mg/ml) 75 ml 1X ONCE IV Last administered on 02/15/20at 15:00; Start 02/15/20 at 14:30; Stop 02/15/20 at 14:32; Status DC Info (CONTRAST GIVEN -- Rx MONITORING) 1 each PRN DAILY PRN MC SEE COMMENTS; Start 02/15/20 at 14:45; Stop 02/17/20 at 14:44; Status DC Amino Acids/ Glycerin/ Electrolytes 1,000 ml @ 80 mls/hr [id number] IV Last administered on 02/18/20at 00:16; Start 02/16/20 at 10:00 Potassium Chloride (Klor-Con) 20 meq TID PO Last administered on 02/19/20at 20:29; Start 02/17/20 at 09:00 Active Scripts Active [place] 5-325 Tablet (Acetaminophen/Hydrocodone Bitart) 1 Each Tablet 1-2 Tab PO Q4-6HRS 2 Days Reported Trazodone Hcl 50 Mg Tablet 50 Mg PO HS Ondansetron Odt (Ondansetron) 4 Mg Tab.rapdis 4 Mg PO PRN BID PRN Atorvastatin Calcium 40 Mg Tablet 40 Mg PO DAILY Baclofen 5 Mg Tablet 5 Mg PO DAILY Gabapentin 100 Mg Capsule 100 Mg PO QID Diclofenac Sodium 100 Gm Gel..gram. 1 Yesika TOP BID Buspirone Hcl 10 Mg Tablet 10 Mg PO TID Famotidine 20 Mg Tablet 20 Mg PO BID Lisinopril 20 Mg Tablet 20 Mg PO DAILY Amlodipine Besylate 5 Mg Tablet 5 Mg PO DAILY Vitals/I & O Vital Sign - Last 24 Hours 02/19/20 02/19/20 02/19/20 02/19/20 09:30 11:02 15:02 19:00 Temp 97.8 97.8 97.8 97.8 97.8 97.8 Pulse 69 58 73 Resp 18 19 18 B/P (MAP) 142/72 (95) 164/98 (120) 153/84 (107) Pulse Ox 99 98 96 O2 Delivery Room Air Room Air Room Air Room Air 02/19/20 02/19/20 02/20/20 02/20/20 19:30 23:00 03:00 07:00 Temp 98.1 97.6 97.7 98.1 97.6 97.7 Pulse 76 63 72 Resp 18 18 18 B/P (MAP) 156/78 (104) 135/72 (93) 142/92 (109) Pulse Ox 93 98 97 O2 Delivery Nasal Cannula Room Air Room Air Room Air O2 Flow Rate 2.0 Intake and Output 02/19/20 02/19/20 02/20/20 15:00 23:00 07:00 Intake Total 550 ml 200 ml Output Total 1025 ml Balance 550 ml 200 ml -1025 ml Justicifation of Admission Dx: Justifications for Admission: Justification of Admission Dx: Yes Sepsis: Infection Nutrition Consultation Dietary Evaluation: Recommendations by RD: Dietary education by RD, Increase Calorie Intake, Protein supplementation Comments: cardiac diet with ensure enlive bid homar bid mvi q day per wound protocal Expected Outcomes/Goals: to meet >75% est nutr needs improved wound status Malnutrition Findings: Body Fat Depletion (Non Severe: Mod to Severe Weight Status: Underweight RIYA SHARP MD Feb 20, 2020 08:53
[2020-02-20] MEDS: GABAPENTIN 100 MG CAPSULE. PO SCH ×4 (09:00→21:22)
[2020-02-20] MEDS: POTASSIUM CHLORIDE 20 MEQ TABLET.ER. PO SCH ×3 (09:00→21:22)
[2020-02-20] MEDS: BACLOFEN 10 MG TABLET. PO SCH (09:00)
[2020-02-20] MEDS: busPIRone 10 MG TABLET. PO SCH ×3 (09:00→21:22)
[2020-02-20] MEDS: LACTOBACILLUS RHAMNOSUS GG 1 CAPSULE. PO SCH ×2 (09:00→21:22)
[2020-02-20] MEDS: amLODIPine BESYLATE 5 MG TABLET PO SCH (09:00)
[2020-02-20] MEDS: DICLOFENAC SODIUM 1% TOPICAL GEL 100GM TUBE. TP SCH ×2 (09:00→21:27)
--- NOTE | 2020-02-20 09:25 | PDOC ---
Infectious Disease Note Subjective Subjective Patient is feeling okay some leg pain but not bad ROS ROS No nausea vomiting diarrhea chest pain shortness of breath Vital Sign Vital Signs Vital Signs Date Time Temp Pulse Resp B/P (MAP) Pulse Ox O2 Delivery O2 Flow Rate FiO2 02/20/20 08:00 Room Air 02/20/20 07:00 97.7 72 18 142/92 (109) 97 97.7 02/19/20 19:30 2.0 Physical Exam PHYSICAL EXAM GENERAL: Sitting upright in bed, talking on the phone, alert in NAD HEENT: Oral cavity clear NECK: Supple LUNGS: Clear CV: S1, S2 ABDOMEN: Soft, nontender ; Mulligan in place EXTREMITIES: No gross edema or cyanosis. wounds both heels R>L. SKIN: warm to touch EXTRUSION FORMER: Alert, answering questions appropriately PIV Labs Micro URINE CULTURE Final Final GREATER THAN 100,000 CFU/ML GRAM NEGATIVE RODS on 02/11/20 at 0701 FINAL ID= [ESCHERICHIA COLI ESBL] Testing Performed by: [facility] [address] [place] [address] For Inquires, the Physician may contact the Microbiology department at [phone] ESCHERICHIA COLI ESBL * This is a corrected result. * A prior result that was reported as final has been changed. ANTIMICROBIAL SUSCEPTIBILITY Final Comment NEG KRISSY 56 ESCHERICHIA COLI ESBL ANTIBIOTIC RESULT INTERPRETATION AMPICILLIN/SULBACTAM 16/8 I AMIKACIN <=16 S AMPICILLIN >16 R* AMOXICILLIN/K CLAVULANATE <=8/4 S AZTREONAM >16 ESBL CEFTRIAXONE >32 ESBL CEFTAZIDIME >16 ESBL CEFOTAXIME-ESBL >1 ESBL CEFOTAXIME >32 ESBL CEFOXITIN <=8 S CIPROFLOXACIN >2 R CEFEPIME >16 R* CEFUROXIME >16 R* CEFTAZIDIME/AVIBACTAM <=4 S ERTAPENEM <=0.5 S NITROFURANTOIN <=32 S GENTAMICIN <=2 S LEVOFLOXACIN >4 R MEROPENEM <=1 S CONTINUED ON NEXT PAGE RUN DATE: 02/12/20 [facility] *LIVE* PAGE 2 RUN TIME: 09 Specimen Inquiry SPEC: [id number] PATIENT: MILI WEEKS [id number] (Continued) Procedure Result ------ ------ ANTIMICROBIAL SUSCEPTIBILITY Final (continued) PIPERACILLIN/TAZOBACTAM <=8 S TRIMETHOPRIM/SULFAMETHOXAZOLE >2/38 R TETRACYCLINE >8 R TOBRAMYCIN >8 R Unless otherwise specified, Testing Performed by: [facility] [address] [place] [address] For Inquires, the Physician may contact the Microbiology department at [phone] Objective Assessment Leukocytosis - some better N/V - some better ABD pain - no diarrhea YOLA - better ESBL UTI 7/5 - POA PCN allergy - Local swelling post IM injection AAA - Severe PAD - Right heel wound. Sinus congestion Plan Plan of Care Monitor labs/temp F/u labs Maintain aspiration precautions Local wound care per Vascular Patient does not have any IV and patient refuses for IV Abdominal aneurysm cannot be fixed and hence patient is recommended to have palliative care/hospice YANETH JARVIS MD Feb 20, 2020 09:25
[2020-02-20 10:57] VITALS: BP 125/64
--- NOTE | 2020-02-20 11:19 | PDOC ---
Provider Note Provider Note She is not happy today. She believes her house has been completely cleared out. She cannot explain how she knows this. We are awaiting arrival of her daughters today. They are to call when they arrive to finalize plans for tomorrow. Justicifation of Admission Dx: Justifications for Admission: Justification of Admission Dx: Yes Sepsis: Infection STEWART SAMANIEGO NURSING STUDENT Feb 20, 2020 11:19
--- NOTE | 2020-02-20 11:49 | NUR ---
Patient refused morning medication. Patient screaming at staff, wants to know "where the hell are my pots and pans." Patient wanted to leave room. Patient was transferred to wheelchair and [facility] Patient refused to be in room. Patient is at nurses desk. Will continue to monitor.
--- NOTE | 2020-02-20 14:30 | PN ---
DATE: SUBJECTIVE: The patient was very agitated, attempted to throw herself out of the bed. The nursing staff put her in a wheelchair and they wheeled her around and she ordered a pizza and apparently has in a much better spirit this afternoon. PHYSICAL EXAMINATION: GENERAL: When I examined her, she looked pale, no jaundice, cyanosis, or thyromegaly. No jugular venous distension. No limb edema. VITAL SIGNS: Her heart rate was 75, blood pressure 125/64, temperature 97.8, respiratory rate was 18 and oxygen saturation was 98%. The rest of examination is stable. Her intake over the last 24 hours was 1330, output was 3550. LABORATORY DATA: As of yesterday, her white cell count was 11,400, hemoglobin 9, hematocrit 27, MCV 79 and platelet count of 182,000. Serum sodium was 137, potassium 4.9, chloride 103, bicarbonate 29, anion gap of 5, BUN 33, creatinine 0.9, estimated GFR was 73 mL per minute. Her glucose was 91, calcium was 8.6. ASSESSMENT: 1. Abdominal aortic aneurysm 5 x 4 cm and getting bigger. 2. Urinary tract infection due to Escherichia coli with extended spectrum beta-lactamase. 3. 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 4. Chronic obstructive pulmonary disease. 5. Hypertension. 6. Severe peripheral vascular disease with resultant ischemic right heel ulcer. 7. Generalized debility. 8. History of lung cancer in the past. PLAN: 1. Obviously to continue nutritional support. She is now on regular diet and her appetite has improved and intake has improved. 2. Continue to observe her off all antibiotics. Continue DVT prophylaxis. Continue pain management. Awaiting the arrival of her daughters from [place] to make a decision regarding further management. JUAN TALBOT MD DR: TOMER/ela JOB#: [id number] / [id number]
[2020-02-20 15:14] VITALS: BP 120/62
--- NOTE | 2020-02-20 16:47 | NUR ---
Per daughters request, paging Dr. Landa office to talk about surgery. Will continue to monitor.
[2020-02-20 19:00] VITALS: BP 127/68
[2020-02-20] MEDS: HYDROcodone/APAP 7.5/325MG 1 TAB TABLET PO PRN ×2 (19:43→23:58)
[2020-02-20] MEDS: ATORVASTATIN CALCIUM 40 MG TABLET. PO SCH (21:00)
[2020-02-20] MEDS: traZODone 50 MG TABLET. PO SCH (21:22)
[2020-02-20] MEDS: FAMOTIDINE 20 MG TABLET. PO SCH (21:22)
[2020-02-20 22:30] VITALS: BP 135/74
--- NOTE | 2020-02-20 23:59 | NUR ---
Data charted under I&O wrong chart. Disregard.
[2020-02-21] MEDS: AMINO AC 3%/ELECTROLYTE/GLYCER 1,000 ML IV SCH ×2 (02:30→15:00)
[2020-02-21 05:15] LABS: BASO # 0.1 x10^3/uL (0.0-0.2); BASO % 1 % (0-3); EOS # 0.7 x10^3/uL (0.0-0.7); EOS % 8 % (0-3); HEMATOCRIT 24.3 % (36.0-47.0); HEMOGLOBIN 7.9 g/dL (12.0-15.5); LYMPH # 2.3 x10^3/uL (1.0-4.8); LYMPH % 24 % (24-48); MEAN CORPUSCULAR HEMOGLOBIN 26 pg (25-35); MEAN CORPUSCULAR HGB CONC 33 g/dL (31-37); MEAN CORPUSCULAR VOLUME 80 fL (79-100); MONO # 0.9 x10^3/uL (0.0-1.1); MONO % 10 % (0-9); NEUT # 5.7 x10^3/uL (1.8-7.7); NEUT % 59 % (31-73); PLATELET COUNT 429 x10^3/uL (140-400); RED BLOOD COUNT 3.06 x10^6/uL (3.50-5.40); RED CELL DISTRIBUTION WIDTH 18.4 % (11.5-14.5); WHITE BLOOD COUNT 9.7 x10^3/uL (4.0-11.0)
[2020-02-21 05:39] LABS: CALCIUM 8.4 mg/dL (8.5-10.1); CREATININE 1.1 mg/dL (0.6-1.0); GFR 58.3; POTASSIUM 4.6 mmol/L (3.5-5.1)
[2020-02-21] MEDS ORDERED: IV RINGERS,LACTATED 1000ML 1,000 ML IV SCH (07:00)
[2020-02-21] MEDS ORDERED: MORPHINE SULFATE 2 MG/ML VIAL. IV PRN ×2 (07:00→11:45)
[2020-02-21] MEDS ORDERED: HYDROmorphone 2 MG/ML VIAL IV PRN (07:00)
[2020-02-21] MEDS ORDERED: PROCHLORPERAZINE 10 MG/2 ML VIAL. IV PRN (07:00)
[2020-02-21] MEDS ORDERED: fentaNYL PF VIAL 100 MCG/2 ML VIAL IV PRN ×2 (07:00)
[2020-02-21 07:40] VITALS: BP 133/69
[2020-02-21] MEDS: ASPIRIN 325 MG TABLET PO SCH (08:00)
--- NOTE | 2020-02-21 08:22 | NUR ---
SW following. Discussed with RN, pt's daughters here to discuss with surgeon and options. Pt was scheduled for 0800 surgery time, however has been pushed back for discussion. CLAY will continue to follow. Addendum: 02/21/20 at 1530 by CORONA WILLIAMSON Pt had amputation surgery this morning. CLAY met with pt's daughters, they would still like for pt to go to [facility] for SNU to LTC. CLAY notified Thom at [facility]. Probable discharge on Monday (02/24/2020). CLAY will continue to follow.
--- NOTE | 2020-02-21 08:46 | PDOC ---
Infectious Disease Note Subjective Subjective Patient is feeling okay some leg pain ROS ROS no n/v/d/sob Vital Sign Vital Signs Vital Signs Date Time Temp Pulse Resp B/P (MAP) Pulse Ox O2 Delivery O2 Flow Rate FiO2 02/21/20 07:40 98.5 77 16 133/69 (90) 96 Room Air 98.5 02/20/20 19:40 2.0 Physical Exam PHYSICAL EXAM GENERAL: Sitting upright in bed, talking on the phone, alert in NAD HEENT: Oral cavity clear NECK: Supple LUNGS: Clear CV: S1, S2 ABDOMEN: Soft, nontender ; Mulligan in place EXTREMITIES: No gross edema or cyanosis. wounds both heels R>L. SKIN: warm to touch ECONOMIC CONSULTANT: Alert, answering questions appropriately PIV Labs Lab Laboratory Tests Test 02/21/20 03:45 White Blood Count 9.7 x10^3/uL (4.0-11.0) Red Blood Count 3.06 x10^6/uL (3.50-5.40) Hemoglobin 7.9 g/dL (12.0-15.5) Hematocrit 24.3 % (36.0-47.0) Mean Corpuscular Volume 80 fL (79-100) Mean Corpuscular Hemoglobin 26 pg (25-35) Mean Corpuscular Hemoglobin Concent 33 g/dL (31-37) Red Cell Distribution Width 18.4 % (11.5-14.5) Platelet Count 429 x10^3/uL (140-400) Neutrophils (%) (Auto) 59 % (31-73) Lymphocytes (%) (Auto) 24 % (24-48) Monocytes (%) (Auto) 10 % (0-9) Eosinophils (%) (Auto) 8 % (0-3) Basophils (%) (Auto) 1 % (0-3) Neutrophils # (Auto) 5.7 x10^3/uL (1.8-7.7) Lymphocytes # (Auto) 2.3 x10^3/uL (1.0-4.8) Monocytes # (Auto) 0.9 x10^3/uL (0.0-1.1) Eosinophils # (Auto) 0.7 x10^3/uL (0.0-0.7) Basophils # (Auto) 0.1 x10^3/uL (0.0-0.2) Sodium Level 138 mmol/L (136-145) Potassium Level 4.6 mmol/L (3.5-5.1) Chloride Level 105 mmol/L (98-107) Carbon Dioxide Level 25 mmol/L (21-32) Anion Gap 8 (6-14) Blood Urea Nitrogen 38 mg/dL (7-20) Creatinine 1.1 mg/dL (0.6-1.0) Estimated GFR (Cockcroft-Gault) 58.3 Glucose Level 83 mg/dL (70-99) Calcium Level 8.4 mg/dL (8.5-10.1) Micro URINE CULTURE Final Final GREATER THAN 100,000 CFU/ML GRAM NEGATIVE RODS on 02/11/20 at 0701 FINAL ID= [ESCHERICHIA COLI ESBL] Testing Performed by: [address] [address] For Inquires, the Physician may contact the Microbiology department at [phone] ESCHERICHIA COLI ESBL * This is a corrected result. * A prior result that was reported as final has been changed. ANTIMICROBIAL SUSCEPTIBILITY Final Comment NEG KRISSY 56 ESCHERICHIA COLI ESBL ANTIBIOTIC RESULT INTERPRETATION AMPICILLIN/SULBACTAM 16/8 I AMIKACIN <=16 S AMPICILLIN >16 R* AMOXICILLIN/K CLAVULANATE <=8/4 S AZTREONAM >16 ESBL CEFTRIAXONE >32 ESBL CEFTAZIDIME >16 ESBL CEFOTAXIME-ESBL >1 ESBL CEFOTAXIME >32 ESBL CEFOXITIN <=8 S CIPROFLOXACIN >2 R CEFEPIME >16 R* CEFUROXIME >16 R* CEFTAZIDIME/AVIBACTAM <=4 S ERTAPENEM <=0.5 S NITROFURANTOIN <=32 S GENTAMICIN <=2 S LEVOFLOXACIN >4 R MEROPENEM <=1 S CONTINUED ON NEXT PAGE RUN DATE: 02/12/20 [facility] *LIVE* PAGE 2 RUN TIME: 914 Specimen Inquiry SPEC: [id number] PATIENT: MILI WEEKS [id number] (Continued) Procedure Result ----- ------- ANTIMICROBIAL SUSCEPTIBILITY Final (continued) PIPERACILLIN/TAZOBACTAM <=8 S TRIMETHOPRIM/SULFAMETHOXAZOLE >2/38 R TETRACYCLINE >8 R TOBRAMYCIN >8 R Unless otherwise specified, Testing Performed by: [facility] [address] [place] [address] For Inquires, the Physician may contact the Microbiology department at [phone] Objective Assessment Leukocytosis - some better N/V - some better ABD pain - no diarrhea YOLA - better ESBL UTI 7/5 - POA PCN allergy - Local swelling post IM injection AAA - Severe PAD - Right heel wound. Sinus congestion Plan Plan of Care Monitor labs/temp F/u labs Maintain aspiration precautions Local wound care per Vascular pt is going for amputation d/w dr Beraden d/w Daughter YANETH JARVIS MD Feb 21, 2020 08:46
[2020-02-21] MEDS: BACLOFEN 10 MG TABLET. PO SCH (09:00)
[2020-02-21] MEDS: GABAPENTIN 100 MG CAPSULE. PO SCH ×4 (09:00→21:00)
[2020-02-21] MEDS: DICLOFENAC SODIUM 1% TOPICAL GEL 100GM TUBE. TP SCH ×2 (09:00→21:17)
[2020-02-21] MEDS: MULTIVITAMIN with MINERAL TABLET. PO SCH (09:00)
[2020-02-21] MEDS: LACTOBACILLUS RHAMNOSUS GG 1 CAPSULE. PO SCH ×2 (09:00→21:13)
[2020-02-21] MEDS: amLODIPine BESYLATE 5 MG TABLET PO SCH (09:00)
[2020-02-21] MEDS: POTASSIUM CHLORIDE 20 MEQ TABLET.ER. PO SCH ×3 (09:00→21:13)
[2020-02-21] MEDS: busPIRone 10 MG TABLET. PO SCH ×3 (09:00→21:13)
--- NOTE | 2020-02-21 09:00 | NUR ---
unable to complete full head to toe - pt off unit for surgery.
[2020-02-21] MEDS ORDERED: ceFAZolin SODIUM IV Push 1 GM VIAL. IVP PRN (10:00)
[2020-02-21] MEDS ORDERED: BACITRACIN 50,000 UNIT in IV NORMAL SALINE 500ML BAG 500 ML IRR ONE (10:30)
[2020-02-21] MEDS ORDERED: fentaNYL PF VIAL 100 MCG/2 ML VIAL ONE ×2 (10:38→12:19)
[2020-02-21] MEDS ORDERED: KETAMINE HCL IN NACL, ISO-OSM 50 MG/5 ML SYRINGE ONE (10:38)
[2020-02-21] MEDS ORDERED: PROPOFOL 10 MG/ML (20ML) VIAL. IV ONE (10:38)
[2020-02-21] MEDS ORDERED: DEXAMETHASONE SOD PHOS 4 MG/ML VIAL ONE (10:38)
[2020-02-21] MEDS ORDERED: ONDANSETRON PF 4 MG/2 ML VIAL. ONE (10:38)
[2020-02-21] MEDS ORDERED: LIDOCAINE 2% PF 5 ML VIAL. ONE (10:38)
[2020-02-21] MEDS ORDERED: PHENYLEPHRINE in 0.9% NACL PF 1 MG/10 ML SYRINGE. IV ONE (10:56)
[2020-02-21] MEDS ORDERED: ePHEDrine PF IN SALINE 50 MG/10 ML SYRINGE. IV ONE (10:56)
[2020-02-21] MEDS ORDERED: SEVOFLURANE 61 TO 120 MINUTES. IH ONE (11:11)
[2020-02-21] MEDS ORDERED: SEVOFLURANE 31 TO 60 MINUTES. IH ONE (11:21)
--- NOTE | 2020-02-21 11:35 | PDOC ---
BRIEF OPERATIVE NOTE Date: Feb 21, 2020 Pre-Op Diagnosis Severe PAD with non-healing right foot wound Post-Op Diagnosis same Procedure Performed Right below knee amputation Surgeon Dr. Landa Specialty Department Supervisor Suzi Drummond NP Anesthesia Type: General Blood Loss 30cc Specimens Obtained right leg Findings non-healing right foot wound Complications none Operative Note see dictated note SUZI DRUMMOND INTERIOR DESIGN PROGRAM CHAIR Feb 21, 2020 11:35
--- NOTE | 2020-02-21 11:48 | OP ---
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 PROCEDURE: Right below-knee amputation. ANESTHESIA: General. SPECIMENS: Right lower extremity. ESTIMATED BLOOD LOSS: 30 mL. COMPLICATIONS: None. PREOPERATIVE INDICATIONS: The patient is a 79-year-old female who has multiple comorbidities, who has ischemic right lower extremity gangrene. After a long discussion with her 2 daughters who are her power of admitted attorneys, I did not feel that she was a good candidate for an open revascularization. Given her ischemic rest pain and her gangrenous changes on her heel, I recommended a below-knee amputation. They were agreeable to this including the patient. All risks, benefits, and alternatives were discussed with the family and they were agreeable to proceed. OPERATIVE PROCEDURE: The patient was brought to the operating suite and placed in the supine position. After establishing appropriate anesthesia, the right lower extremity was prepped and draped in sterile fashion. Next, a timeout procedure was performed. It was confirmed that the patient did receive appropriate perioperative antibiotics and the correct operative site was marked and draped. Following this, the leg was exsanguinated and then a tourniquet was inflated to 250 mmHg. Next, a below-knee amputation incision was made and carried through skin and subcutaneous tissue. Dissection was carried down to the tibia where this was circumferentially dissected. Next, the fibula was also circumferentially dissected in preparation for division. We also identified the anterior tibial neurovascular bundle and this was ligated and divided. Following this, a bone saw was used to divide the tibia followed by the fibula and then the amputation knife was used to divide the soft tissue. Next, our major vessels were oversewn using 2-0 Monocryl suture. Following this, our tourniquet was released and a Bovie electrocautery as well as suture ligatures were used for hemostasis. Next, the bone was further trimmed and a bone rasp was used to make the edges smoothed. Next, the wound was copiously irrigated with antibiotic-impregnated solution. Following this, after I was satisfied with the hemostasis and our lap, sponge, needle and instrument count was found to be correct, then the fascia was closed using interrupted 2-0 Monocryl suture followed by skin yvonne for the skin followed by sterile dressing including a compressive wrap. The patient tolerated the procedure well and was transferred to the postanesthesia care unit in stable condition. SYED WYNN DO DR: JORGE/ela JOB#: [id number] / [id number]
--- NOTE | 2020-02-21 13:00 | NUR ---
Pt returning from surgery. VSS, A&O X3, denies pain, dressings CDI. Meal tray ordered. Call light within reach. Will return to monitor.
--- NOTE | 2020-02-21 13:37 | PN ---
DATE: SUBJECTIVE: The patient is resting, slightly propped up in bed, sleeping comfortably. She has just arrived from the OR after her right below-knee amputation. On questioning her, she denied any complaints and seemed to be very pleasant today. PHYSICAL EXAMINATION: GENERAL: When I examined her, she looked pale, cachectic, but no jaundice, cyanosis or thyromegaly. No jugular venous distention. No limb edema. VITAL SIGNS: Her heart rate was 80, blood pressure was 127/79, temperature was 98.2, respiratory rate was 16, and oxygen saturation was 94% on room air. HEAD, EYES, EARS, NOSE AND THROAT: Normocephalic, atraumatic. NECK: Supple. HEART: Showed normal first and second heart sounds. No gallop or murmur. CHEST: Clear to auscultation. No crepitation or rhonchi. ABDOMEN: Distended, soft, nontender. NEUROLOGIC: She was still sleepy and arousable. All cranial nerves are intact. She moves her extremities without difficulty. Her intake was 1600, output was 2230. LABORATORY DATA: As of this morning, her white cell count was 9700, hemoglobin 7.9, hematocrit 24, MCV 80 and platelet count of 429,000. Her chemistry showed a serum sodium 138, potassium 4.6, chloride 105, bicarbonate 25, anion gap of 8, BUN 38, creatinine 1.1, estimated GFR was 58 mL per minute. Her glucose was 83 and calcium was 8.4. ASSESSMENT: 1. Severe peripheral vascular disease, status post right below-knee amputation. 2. Abdominal aortic aneurysm with a diameter of 5 x 4 cm and getting bigger. 3. Urinary tract infection due to Escherichia coli with extended spectrum beta-lactamase. 4. 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 5. Chronic obstructive pulmonary disease. 6. Hypertension. 7. Generalized debility. 8. History of lung cancer in the past. PLAN: 1. To continue nutritional support. She is now on a regular diet and her appetite has improved intake has improved. 2. Continue to observe her off of all antibiotics. 3. Continue with DVT prophylaxis. 4. Continue with pain management. Once stabilized, she probably will be discharged back to [facility]. JUAN TALBOT MD DR: TOMER/ela JOB#: [id number] / [id number]
[2020-02-21 15:36] VITALS: BP 129/76
[2020-02-21 19:00] VITALS: BP 138/75
[2020-02-21] MEDS: traZODone 50 MG TABLET. PO SCH (21:13)
[2020-02-21] MEDS: FAMOTIDINE 20 MG TABLET. PO SCH (21:13)
[2020-02-21] MEDS: ATORVASTATIN CALCIUM 40 MG TABLET. PO SCH (21:13)
[2020-02-21] MEDS: HYDROcodone/APAP 7.5/325MG 1 TAB TABLET PO PRN (21:15)
[2020-02-21 23:00] VITALS: BP 141/80
[2020-02-22] VITALS (7 sets, daily range): BP systolic 114–150; BP diastolic 67–90
[2020-02-22] MEDS: AMINO AC 3%/ELECTROLYTE/GLYCER 1,000 ML IV SCH ×2 (03:30→10:47)
[2020-02-22 08:16] LABS: HEMATOCRIT 23.6 % (36.0-47.0); HEMOGLOBIN 7.6 g/dL (12.0-15.5); RED BLOOD COUNT 2.94 x10^6/uL (3.50-5.40); RED CELL DISTRIBUTION WIDTH 18.5 % (11.5-14.5)
[2020-02-22] MEDS: BACLOFEN 10 MG TABLET. PO SCH (08:28)
[2020-02-22] MEDS: MULTIVITAMIN with MINERAL TABLET. PO SCH ×2 (08:28→08:30)
[2020-02-22] MEDS: ASPIRIN 325 MG TABLET PO SCH (08:28)
[2020-02-22] MEDS: LACTOBACILLUS RHAMNOSUS GG 1 CAPSULE. PO SCH ×2 (08:28→20:18)
[2020-02-22] MEDS: POTASSIUM CHLORIDE 20 MEQ TABLET.ER. PO SCH (08:29)
[2020-02-22] MEDS: busPIRone 10 MG TABLET. PO SCH ×3 (08:29→20:18)
[2020-02-22] MEDS: GABAPENTIN 100 MG CAPSULE. PO SCH ×4 (08:29→20:18)
[2020-02-22] MEDS: amLODIPine BESYLATE 5 MG TABLET PO SCH (08:29)
[2020-02-22] MEDS: DICLOFENAC SODIUM 1% TOPICAL GEL 100GM TUBE. TP SCH ×2 (08:31→20:20)
[2020-02-22 08:40] LABS: CALCIUM 8.8 mg/dL (8.5-10.1); CREATININE 0.8 mg/dL (0.6-1.0); GFR 84.2; POTASSIUM 5.4 mmol/L (3.5-5.1)
--- NOTE | 2020-02-22 09:25 | PDOC ---
PROGRESS NOTES Subjective Subjective She feels better and denies any foot pain. Objective Objective Vital Signs Date Time Temp Pulse Resp B/P (MAP) Pulse Ox O2 Delivery O2 Flow Rate FiO2 02/22/20 08:29 69 143/76 02/22/20 07:39 Room Air 02/22/20 07:00 97.9 18 91 97.9 02/21/20 21:15 2.0 Intake and Output 02/22/20 07:00 Intake Total 1660 ml Output Total 2130 ml Balance -470 ml Intake Oral 760 ml IV Total 900 ml Output Urine Total 2100 ml Estimated Blood Loss 30 ml Physical Exam Physical Exam She is sitting in bed and alert and she continues with lower extremity muscle weakness ,mainly hip abductors and dorsiflexors of her feet. Assessment Assessment Problems Medical Problems: (1) Heel ulcer Status: Acute (2) Heel ulceration Status: Acute (3) Urinary tract infection Status: Acute (4) Weakness Status: Acute Plan Plan of Care To encourage her to get up with physical therapy and to SNF when medically st able. Comment Review of Relevant I have reviewed the following items dari (where applicable) has been applied. Labs Laboratory Tests Test 02/21/20 03:45 02/22/20 06:30 White Blood Count 9.7 x10^3/uL (4.0-11.0) 15.0 x10^3/uL (4.0-11.0) Red Blood Count 3.06 x10^6/uL (3.50-5.40) 2.94 x10^6/uL (3.50-5.40) Hemoglobin 7.9 g/dL (12.0-15.5) 7.6 g/dL (12.0-15.5) Hematocrit 24.3 % (36.0-47.0) 23.6 % (36.0-47.0) Mean Corpuscular Volume 80 fL (79-100) 80 fL (79-100) Mean Corpuscular Hemoglobin 26 pg (25-35) 26 pg (25-35) Mean Corpuscular Hemoglobin Concent 33 g/dL (31-37) 32 g/dL (31-37) Red Cell Distribution Width 18.4 % (11.5-14.5) 18.5 % (11.5-14.5) Platelet Count 429 x10^3/uL (140-400) 422 x10^3/uL (140-400) Neutrophils (%) (Auto) 59 % (31-73) Lymphocytes (%) (Auto) 24 % (24-48) Monocytes (%) (Auto) 10 % (0-9) Eosinophils (%) (Auto) 8 % (0-3) Basophils (%) (Auto) 1 % (0-3) Neutrophils # (Auto) 5.7 x10^3/uL (1.8-7.7) Lymphocytes # (Auto) 2.3 x10^3/uL (1.0-4.8) Monocytes # (Auto) 0.9 x10^3/uL (0.0-1.1) Eosinophils # (Auto) 0.7 x10^3/uL (0.0-0.7) Basophils # (Auto) 0.1 x10^3/uL (0.0-0.2) Sodium Level 138 mmol/L (136-145) 137 mmol/L (136-145) Potassium Level 4.6 mmol/L (3.5-5.1) 5.4 mmol/L (3.5-5.1) Chloride Level 105 mmol/L (98-107) 106 mmol/L (98-107) Carbon Dioxide Level 25 mmol/L (21-32) 24 mmol/L (21-32) Anion Gap 8 (6-14) 7 (6-14) Blood Urea Nitrogen 38 mg/dL (7-20) 28 mg/dL (7-20) Creatinine 1.1 mg/dL (0.6-1.0) 0.8 mg/dL (0.6-1.0) Estimated GFR (Cockcroft-Gault) 58.3 84.2 Glucose Level 83 mg/dL (70-99) 89 mg/dL (70-99) Calcium Level 8.4 mg/dL (8.5-10.1) 8.8 mg/dL (8.5-10.1) Laboratory Tests Test 02/22/20 06:30 White Blood Count 15.0 x10^3/uL (4.0-11.0) Red Blood Count 2.94 x10^6/uL (3.50-5.40) Hemoglobin 7.6 g/dL (12.0-15.5) Hematocrit 23.6 % (36.0-47.0) Mean Corpuscular Volume 80 fL (79-100) Mean Corpuscular Hemoglobin 26 pg (25-35) Mean Corpuscular Hemoglobin Concent 32 g/dL (31-37) Red Cell Distribution Width 18.5 % (11.5-14.5) Platelet Count 422 x10^3/uL (140-400) Sodium Level 137 mmol/L (136-145) Potassium Level 5.4 mmol/L (3.5-5.1) Chloride Level 106 mmol/L (98-107) Carbon Dioxide Level 24 mmol/L (21-32) Anion Gap 7 (6-14) Blood Urea Nitrogen 28 mg/dL (7-20) Creatinine 0.8 mg/dL (0.6-1.0) Estimated GFR (Cockcroft-Gault) 84.2 Glucose Level 89 mg/dL (70-99) Calcium Level 8.8 mg/dL (8.5-10.1) Microbiology 02/10/20 Blood Culture - Final, Complete NO GROWTH AFTER 5 DAYS 02/09/20 Urine Culture - Final, Complete 02/09/20 Antimicrobic Susceptibility - Final, Complete Medications Current Medications Fentanyl Citrate (Fentanyl 2ml Vial) 50 mcg 1X ONCE IV Last administered on 02/09/20at 15:38; Start 02/09/20 at 15:30; Stop 02/09/20 at 15:31; Status DC Ondansetron HCl (Zofran) 4 mg 1X ONCE IV Last administered on 02/09/20at 15:37; Start 02/09/20 at 15:30; Stop 02/09/20 at 15:31; Status DC Trimethoprim/ Sulfamethoxazole (Bactrim Ds) 1 tab 1X ONCE PO Last administered on 02/09/20at 18:33; Start 02/09/20 at 18:30; Stop 02/09/20 at 18:31; Status DC Ceftriaxone Sodium (Rocephin) 1 gm Q24H IVP Last administered on 02/11/20at 21:01; Start 02/09/20 at 21:00; Stop 02/12/20 at 13:00; Status DC Acetaminophen/ Hydrocodone Bitart (Lortab 7.5/325) 1 tab PRN Q4HRS PRN PO MODERATE PAIN 4-6 Last administered on 02/21/20 21:15; Start 02/09/20 at 21:30 Acetaminophen (Tylenol) 650 mg PRN Q6HRS PRN PO MILD PAIN 1-3 Last administered on 02/14/20 21:39; Start 02/09/20 at 21:30 Amlodipine Besylate (Norvasc) 5 mg DAILY PO Last administered on 02/22/20 08:29; Start 02/10/20 at 09:00 Atorvastatin Calcium (Lipitor) 40 mg QHS PO Last administered on 02/21/20 21:13; Start 02/09/20 at 23:00 Buspirone HCl (Buspar) 10 mg TID PO Last administered on 02/22/20 08:29; Start 02/09/20 at 23:00 Diclofenac Sodium (Voltaren) 1 yesika BID TP Last administered on 02/22/20 08:31; Start 02/09/20 at 23:00 Famotidine (Pepcid) 20 mg QHS PO Last administered on 02/21/20 21:13; Start 02/09/20 at 23:00 Gabapentin (Neurontin) 100 mg QID PO Last administered on 02/22/20 08:29; Start 02/09/20 at 23:00 Lisinopril (Prinivil) 20 mg DAILY PO Last administered on 02/10/20 09:44; Start 02/10/20 at 09:00; Stop 02/10/20 at 16:24; Status DC Ondansetron HCl (Zofran Odt) 4 mg PRN BID PRN PO NAUSEA 1ST CHOICE Last administered on 02/15/20 10:39; Start 02/09/20 at 22:15 Trazodone HCl (Desyrel) 50 mg HS PO Last administered on 02/21/20 21:13; Start 02/09/20 at 23:00 Baclofen (Lioresal) 5 mg DAILY PO Last administered on 02/22/20 08:28; Start 02/10/20 at 09:00 Ceftriaxone Sodium (Rocephin) 1 gm Q24H IVP ; Start 02/10/20 at 11:00; Status UNV Lactobacillus Rhamnosus (Culturelle) 1 cap BID PO Last administered on 02/22/20 08:28; Start 02/10/20 at 21:00 Sodium Chloride 1,000 ml @ 100 mls/hr Q10H IV Last administered on 02/13/20at 06:46; Start 02/10/20 at 17:00; Stop 02/13/20 at 08:54; Status DC Potassium Chloride (Klor-Con) 40 meq 1X ONCE PO Last administered on 02/10/20at 17:37; Start 02/10/20 at 17:00; Stop 02/10/20 at 17:01; Status DC Enoxaparin Sodium (Lovenox 30mg Syringe) 30 mg Q24H SQ Last administered on 02/15/20at 09:36; Start 02/11/20 at 10:00; Stop 02/17/20 at 11:00; Status DC Aspirin (Scil Proteins Aspirin) 325 mg 1X ONCE PO Last administered on 02/11/20at 11:52; Start 02/11/20 at 10:00; Stop 02/11/20 at 10:01; Status DC Aspirin (Scil Proteins Aspirin) 325 mg [id number] PO Last administered on 02/22/20at 08:28; Start 02/12/20 at 08:00 Cefdinir (Omnicef) 300 mg Q24H PO ; Start 02/12/20 at 14:00; Stop 02/12/20 at 14:12; Status DC Daptomycin 270 mg/ Sodium Chloride 50 ml @ 100 mls/hr Q24H IV Last administered on 02/13/20at 15:05; Start 02/12/20 at 15:00; Stop 02/14/20 at 10:05; Status DC Cefepime HCl (Maxipime) 1 gm Q12HR IVP Last administered on 02/13/20at 08:36; Start 02/12/20 at 15:00; Stop 02/13/20 at 08:45; Status DC Metoprolol Tartrate (Lopressor Vial) 5 mg PRN Q6HRS PRN IVP TACHYCARDIA; Start 02/12/20 at 14:45 Multivitamins (Thera M Plus) 1 tab DAILY PO Last administered on 02/19/20at 08:22; Start 02/13/20 at 09:00 Meropenem 500 mg/ Sodium Chloride 50 ml @ 100 mls/hr Q6HRS IV Last administered on 02/18/20at 00:17; Start 02/13/20 at 09:00; Stop 02/18/20 at 12:15; Status DC Potassium Chloride (Klor-Con) 20 meq 1X ONCE PO Last administered on 02/14/20at 08:40; Start 02/14/20 at 08:30; Stop 02/14/20 at 08:31; Status DC Micafungin Sodium 100 mg/Dextrose 100 ml @ 100 mls/hr Q24H IV Last administered on 02/18/20at 11:25; Start 02/15/20 at 11:00; Stop 02/18/20 at 12:15; Status DC Sodium Chloride 1,000 ml @ 100 mls/hr Q10H IV Last administered on 02/15/20at 21:29; Start 02/15/20 at 11:00; Stop 02/16/20 at 10:36; Status DC Promethazine HCl (Phenergan) 12.5 mg PRN Q4HRS PRN PO NAUSEA/VOMITING, 2ND CHOICE Last administered on 02/15/20at 11:51; Start 02/15/20 at 11:45 Iohexol (Omnipaque 240 Mg/ml) 30 ml 1X ONCE PO Last administered on 02/15/20at 15:00; Start 02/15/20 at 14:30; Stop 02/15/20 at 14:32; Status DC Iohexol (Omnipaque 300 Mg/ml) 75 ml 1X ONCE IV Last administered on 02/15/20at 15:00; Start 02/15/20 at 14:30; Stop 02/15/20 at 14:32; Status DC Info (CONTRAST GIVEN -- Rx MONITORING) 1 each PRN DAILY PRN MC SEE COMMENTS; Start 02/15/20 at 14:45; Stop 02/17/20 at 14:44; Status DC Amino Acids/ Glycerin/ Electrolytes 1,000 ml @ 80 mls/hr [id number] IV Last administered on 02/18/20at 00:16; Start 02/16/20 at 10:00 Potassium Chloride (Klor-Con) 20 meq TID PO Last administered on 02/22/20at 08:29; Start 02/17/20 at 09:00 Fentanyl Citrate (Fentanyl 2ml Vial) 25 mcg PRN Q5MIN PRN IV MILD PAIN 1-3; Start 02/21/20 at 07:00; Stop 02/22/20 at 06:59; Status DC Fentanyl Citrate (Fentanyl 2ml Vial) 50 mcg PRN Q5MIN PRN IV MODERATE TO SEVERE PAIN Last administered on 02/21/20at 12:22; Start 02/21/20 at 07:00; Stop 02/22/20 at 06:59; Status DC Morphine Sulfate (Morphine Sulfate) 1 mg PRN Q10MIN PRN IV SEVERE PAIN 7-10; Start 02/21/20 at 07:00; Stop 02/22/20 at 06:59; Status DC Ringer's Solution 1,000 ml @ 30 mls/hr Q24H IV Last administered on 02/21/20at 09:41; Start 02/21/20 at 07:00; Stop 02/21/20 at 18:59; Status DC Hydromorphone HCl (Dilaudid) 0.5 mg PRN Q10MIN PRN IV SEV PAIN, Second choice; Start 02/21/20 at 07:00; Stop 02/22/20 at 06:59; Status DC Prochlorperazine Edisylate (Compazine) 5 mg PACU PRN PRN IV NAUSEA, MRX1; Start 02/21/20 at 07:00; Stop 02/22/20 at 06:59; Status DC Cefazolin Sodium (Ancef) 1 gm 1X PREOP PRN IVP PRIOR TO PROCEDURE Last administered on 02/21/20at 10:29; Start 02/21/20 at 10:00; Stop 02/21/20 at 19:00; Status DC Bacitracin 94887 unit/Sodium Chloride 500 ml @ 500 mls/hr 1X ONCE IRR Last administered on 02/21/20at 11:03; Start 02/21/20 at 10:30; Stop 02/21/20 at 11:29; Status DC Morphine Sulfate (Morphine Sulfate) 2 mg PRN Q2HR PRN IV PAIN Last administered on 02/21/20at 15:16; Start 02/21/20 at 11:45 Active Scripts Active Bostic 5-325 Tablet (Acetaminophen/Hydrocodone Bitart) 1 Each Tablet 1-2 Tab PO Q4-6HRS 2 Days Reported Trazodone Hcl 50 Mg Tablet 50 Mg PO HS Ondansetron Odt (Ondansetron) 4 Mg Tab.rapdis 4 Mg PO PRN BID PRN Atorvastatin Calcium 40 Mg Tablet 40 Mg PO DAILY Baclofen 5 Mg Tablet 5 Mg PO DAILY Gabapentin 100 Mg Capsule 100 Mg PO QID Diclofenac Sodium 100 Gm Gel..gram. 1 Yesika TOP BID Buspirone Hcl 10 Mg Tablet 10 Mg PO TID Famotidine 20 Mg Tablet 20 Mg PO BID Lisinopril 20 Mg Tablet 20 Mg PO DAILY Amlodipine Besylate 5 Mg Tablet 5 Mg PO DAILY Vitals/I & O Vital Sign - Last 24 Hours 02/21/20 02/21/20 02/21/20 02/21/20 09:42 11:36 11:36 11:50 Temp 97.3 99 97.3 99.0 Pulse 63 80 88 Resp 20 16 16 B/P (MAP) 146/83 94/62 119/87 Pulse Ox 98 100 100 O2 Delivery Room Air Simple Mask Mask Simple Mask O2 Flow Rate 10 10 10 02/21/20 02/21/20 02/21/20 02/21/20 12:05 12:05 12:13 12:15 Temp 98.2 98.2 Pulse 89 80 Resp 16 16 B/P (MAP) 143/87 127/79 Pulse Ox 94 94 O2 Delivery Room Air Room Air Room Air Room Air 02/21/20 02/21/20 02/21/20 02/21/20 12:22 14:00 15:16 15:36 Pulse 80 Resp 16 16 B/P (MAP) 129/76 (93) Pulse Ox 94 97 O2 Delivery Room Air Room Air Nasal Cannula Room Air O2 Flow Rate 2.0 02/21/20 02/21/20 02/21/20 02/21/20 15:46 19:00 20:15 21:15 Temp 98.2 98.2 Pulse 76 Resp 16 20 B/P (MAP) 138/75 (96) Pulse Ox 99 O2 Delivery Room Air Room Air Room Air Nasal Cannula O2 Flow Rate 2.0 02/21/20 02/21/20 02/22/20 02/22/20 22:15 23:00 03:00 07:00 Temp 98.0 97.8 97.9 98.0 97.8 97.9 Pulse 68 60 69 Resp 18 16 16 18 B/P (MAP) 141/80 (100) 114/67 (83) 143/76 (98) Pulse Ox 99 100 91 O2 Delivery Room Air Room Air Room Air Room Air 02/22/20 02/22/20 07:39 08:29 Pulse 69 B/P (MAP) 143/76 O2 Delivery Room Air Intake and Output 02/21/20 02/21/20 02/22/20 15:00 23:00 07:00 Intake Total 900 ml 540 ml 220 ml Output Total 580 ml 150 ml 1400 ml Balance 320 ml 390 ml -1180 ml Justicifation of Admission Dx: Justifications for Admission: Justification of Admission Dx: Yes Sepsis: Infection Nutrition Consultation Dietary Evaluation: Recommendations by RD: Dietary education by RD, Increase Calorie Intake, Protein supplementation, PPN/TPN Comments: REC cardiac diet with ensure enlive bid homar bid mvi q day per wound protocal PPN until po intake >75% meals Expected Outcomes/Goals: to meet >75% est nutr needs wound healing Malnutrition Findings: Body Fat Depletion (Non Severe: Mod to Severe Weight Status: Underweight RIYA SHARP MD Feb 22, 2020 09:25
--- NOTE | 2020-02-22 10:09 | PDOC ---
Infectious Disease Note Subjective Subjective Over-all feeling better Pain level not to bad right now Denies F/C/N/V/SOA ROS ROS as mentioned above Vital Sign Vital Signs Vital Signs Date Time Temp Pulse Resp B/P (MAP) Pulse Ox O2 Delivery O2 Flow Rate FiO2 02/22/20 08:29 69 143/76 02/22/20 07:39 Room Air 02/22/20 07:00 97.9 18 91 97.9 02/21/20 21:15 2.0 Physical Exam PHYSICAL EXAM GENERAL: Propped up in bed, alert in NAD HEENT: Oral cavity clear NECK: Supple LUNGS: Clear CV: S1, S2 ABDOMEN: Soft, nontender ; Mulligan in place EXTREMITIES: No gross edema or cyanosis. Right BKA bandaged SKIN: warm to touch CREPE MAKER: Alert, answering questions appropriately PIV Labs Lab Laboratory Tests Test 02/22/20 06:30 White Blood Count 15.0 x10^3/uL (4.0-11.0) Red Blood Count 2.94 x10^6/uL (3.50-5.40) Hemoglobin 7.6 g/dL (12.0-15.5) Hematocrit 23.6 % (36.0-47.0) Mean Corpuscular Volume 80 fL (79-100) Mean Corpuscular Hemoglobin 26 pg (25-35) Mean Corpuscular Hemoglobin Concent 32 g/dL (31-37) Red Cell Distribution Width 18.5 % (11.5-14.5) Platelet Count 422 x10^3/uL (140-400) Sodium Level 137 mmol/L (136-145) Potassium Level 5.4 mmol/L (3.5-5.1) Chloride Level 106 mmol/L (98-107) Carbon Dioxide Level 24 mmol/L (21-32) Anion Gap 7 (6-14) Blood Urea Nitrogen 28 mg/dL (7-20) Creatinine 0.8 mg/dL (0.6-1.0) Estimated GFR (Cockcroft-Gault) 84.2 Glucose Level 89 mg/dL (70-99) Calcium Level 8.8 mg/dL (8.5-10.1) Micro Objective Assessment Severe PAD with non-healing right foot wound s/p right BKA, closed on 02/[address] Landa. Leukocytosis -s/p surgery N/V - better ABD pain - no diarrhea YOLA - better ESBL UTI 02/08 - POA PCN allergy - Local swelling post IM injection AAA - repair planned 02/17 Sinus congestion Plan Plan of Care off antibiotics Probiotics Monitor labs/temp Maintain aspiration precautions Local wound care per Vascular Attending Co-Sign The patient was seen and interviewed as well as examined at the bedside. The chart was reviewed. The case was discussed. Agree with the plan of care. THEE REDDY APRN Feb 22, 2020 10:08 YANETH JARVIS MD Feb 22, 2020 13:21
--- NOTE | 2020-02-22 10:36 | NUR ---
Removed patients yin catheter per order from Dr. Landa, patient tolerated procedure well, will continue to monitor patient.
--- NOTE | 2020-02-22 10:49 | PDOC ---
SURGICAL PROGRESS NOTE Subjective Patient was seen and examined at the bedside this morning and is doing well. She has no pain from her right lower extremity surgical site. She is mentating appropriately and is in very good spirits this morning. Vital Signs Vital Signs Date Time Temp Pulse Resp B/P (MAP) Pulse Ox O2 Delivery O2 Flow Rate FiO2 02/22/20 08:29 69 143/76 02/22/20 07:39 Room Air 02/22/20 07:00 97.9 18 91 97.9 02/21/20 21:15 2.0 I&O Intake and Output 02/22/20 07:00 Intake Total 1660 ml Output Total 2130 ml Balance -470 ml Intake Oral 760 ml IV Total 900 ml Output Urine Total 2100 ml Estimated Blood Loss 30 ml General: Alert, Oriented X3, Cooperative Lungs: Clear to auscultation, Normal air movement Heart: Normal S1, Normal S2 Abdomen: Soft, No tenderness Skin: Other (Right lower extremity surgical site dressing is clean, dry, and intact.) Neuro: Strength at 5/5 X4 ext, Sensation intact, Cranial nerves 3-12 NL Labs Laboratory Tests Test 02/21/20 03:45 02/22/20 06:30 White Blood Count 9.7 x10^3/uL (4.0-11.0) 15.0 x10^3/uL (4.0-11.0) Red Blood Count 3.06 x10^6/uL (3.50-5.40) 2.94 x10^6/uL (3.50-5.40) Hemoglobin 7.9 g/dL (12.0-15.5) 7.6 g/dL (12.0-15.5) Hematocrit 24.3 % (36.0-47.0) 23.6 % (36.0-47.0) Mean Corpuscular Volume 80 fL (79-100) 80 fL (79-100) Mean Corpuscular Hemoglobin 26 pg (25-35) 26 pg (25-35) Mean Corpuscular Hemoglobin Concent 33 g/dL (31-37) 32 g/dL (31-37) Red Cell Distribution Width 18.4 % (11.5-14.5) 18.5 % (11.5-14.5) Platelet Count 429 x10^3/uL (140-400) 422 x10^3/uL (140-400) Neutrophils (%) (Auto) 59 % (31-73) Lymphocytes (%) (Auto) 24 % (24-48) Monocytes (%) (Auto) 10 % (0-9) Eosinophils (%) (Auto) 8 % (0-3) Basophils (%) (Auto) 1 % (0-3) Neutrophils # (Auto) 5.7 x10^3/uL (1.8-7.7) Lymphocytes # (Auto) 2.3 x10^3/uL (1.0-4.8) Monocytes # (Auto) 0.9 x10^3/uL (0.0-1.1) Eosinophils # (Auto) 0.7 x10^3/uL (0.0-0.7) Basophils # (Auto) 0.1 x10^3/uL (0.0-0.2) Sodium Level 138 mmol/L (136-145) 137 mmol/L (136-145) Potassium Level 4.6 mmol/L (3.5-5.1) 5.4 mmol/L (3.5-5.1) Chloride Level 105 mmol/L (98-107) 106 mmol/L (98-107) Carbon Dioxide Level 25 mmol/L (21-32) 24 mmol/L (21-32) Anion Gap 8 (6-14) 7 (6-14) Blood Urea Nitrogen 38 mg/dL (7-20) 28 mg/dL (7-20) Creatinine 1.1 mg/dL (0.6-1.0) 0.8 mg/dL (0.6-1.0) Estimated GFR (Cockcroft-Gault) 58.3 84.2 Glucose Level 83 mg/dL (70-99) 89 mg/dL (70-99) Calcium Level 8.4 mg/dL (8.5-10.1) 8.8 mg/dL (8.5-10.1) Laboratory Tests Test 02/22/20 06:30 White Blood Count 15.0 x10^3/uL (4.0-11.0) Red Blood Count 2.94 x10^6/uL (3.50-5.40) Hemoglobin 7.6 g/dL (12.0-15.5) Hematocrit 23.6 % (36.0-47.0) Mean Corpuscular Volume 80 fL (79-100) Mean Corpuscular Hemoglobin 26 pg (25-35) Mean Corpuscular Hemoglobin Concent 32 g/dL (31-37) Red Cell Distribution Width 18.5 % (11.5-14.5) Platelet Count 422 x10^3/uL (140-400) Sodium Level 137 mmol/L (136-145) Potassium Level 5.4 mmol/L (3.5-5.1) Chloride Level 106 mmol/L (98-107) Carbon Dioxide Level 24 mmol/L (21-32) Anion Gap 7 (6-14) Blood Urea Nitrogen 28 mg/dL (7-20) Creatinine 0.8 mg/dL (0.6-1.0) Estimated GFR (Cockcroft-Gault) 84.2 Glucose Level 89 mg/dL (70-99) Calcium Level 8.8 mg/dL (8.5-10.1) Problem List Problems Medical Problems: (1) Heel ulcer Status: Acute (2) Heel ulceration Status: Acute (3) Urinary tract infection Status: Acute (4) Weakness Status: Acute Assessment/Plan Right lower extremity below-knee amputation--the patient is very thankful for her amputation this morning. She has no further rest pain. I will plan on removal of the surgical bandage tomorrow. Asymptomatic infrarenal abdominal aortic aneurysm--at this time there are no plans to fix the patient's aneurysm. I do not think she is a good candidate for surgical therapy currently. I did have a long discussion about this with the patient and HER 2 daughters which are her next of kin. They understand that the benefits currently of fixing her aneurysm do not outweigh the risks. If she makes a full recovery and improves her nutritional status and wishes to have surgery in the future, we can revisit this conversation. The patient and her daughters understand that if the aneurysm were to rupture, no heroic measures would be taken to fix her aneurysm and she would likely from this process. All questions were answered from her daughters and the patient regarding this and they demonstrated full understanding of our conversation. I also discussed this with her primary care physician and Dr. Flores who is covering this weekend. Justicifation of Admission Dx: Justifications for Admission: Justification of Admission Dx: Yes Sepsis: Infection YIFAN WYNN DO Feb 22, 2020 10:48
[2020-02-22] MEDS: HYDROcodone/APAP 7.5/325MG 1 TAB TABLET PO PRN (15:28)
[2020-02-22] MEDS: ATORVASTATIN CALCIUM 40 MG TABLET. PO SCH (20:18)
[2020-02-22] MEDS: FAMOTIDINE 20 MG TABLET. PO SCH (20:18)
[2020-02-22] MEDS: traZODone 50 MG TABLET. PO SCH (20:18)
[2020-02-23 03:00] VITALS: BP 149/80
[2020-02-23] MEDS: HYDROcodone/APAP 7.5/325MG 1 TAB TABLET PO PRN ×3 (04:53→21:11)
[2020-02-23 07:59] VITALS: BP 127/73
[2020-02-23] MEDS: ASPIRIN 325 MG TABLET PO SCH (08:00)
[2020-02-23 08:16] LABS: HEMATOCRIT 24.1 % (36.0-47.0); HEMOGLOBIN 8.1 g/dL (12.0-15.5); RED BLOOD COUNT 3.03 x10^6/uL (3.50-5.40); RED CELL DISTRIBUTION WIDTH 18.6 % (11.5-14.5); WHITE BLOOD COUNT 10.9 x10^3/uL (4.0-11.0)
[2020-02-23 08:37] LABS: CALCIUM 8.8 mg/dL (8.5-10.1); CREATININE 0.8 mg/dL (0.6-1.0); GFR 84.2; POTASSIUM 4.4 mmol/L (3.5-5.1)
[2020-02-23] MEDS: busPIRone 10 MG TABLET. PO SCH ×3 (08:56→21:11)
[2020-02-23] MEDS: GABAPENTIN 100 MG CAPSULE. PO SCH ×4 (08:56→21:11)
[2020-02-23] MEDS: amLODIPine BESYLATE 5 MG TABLET PO SCH (08:56)
[2020-02-23] MEDS: BACLOFEN 10 MG TABLET. PO SCH (08:56)
[2020-02-23] MEDS: LACTOBACILLUS RHAMNOSUS GG 1 CAPSULE. PO SCH ×2 (08:56→21:10)
[2020-02-23] MEDS: MULTIVITAMIN with MINERAL TABLET. PO SCH (08:56)
[2020-02-23] MEDS: DICLOFENAC SODIUM 1% TOPICAL GEL 100GM TUBE. TP SCH ×2 (08:56→21:11)
--- NOTE | 2020-02-23 09:51 | PN ---
DATE: 02/23/2020 SUBJECTIVE: The patient is resting, slightly propped up in bed, no apparent distress, sleepy, but arousable. She opens eyes, mouths some words and drifts back to sleep. In questioning her, denied any complaint. She apparently had some Lortab early this morning. PHYSICAL EXAMINATION: GENERAL: When I examined her, she was pale, cachectic, but no jaundice, cyanosis or thyromegaly. No jugular venous distention. No lower limb edema. VITAL SIGNS: Her heart rate was 64, blood pressure was 127/73, temperature 97.6, respiratory rate was 18 and oxygen saturation was 96%. HEAD, EYES, EARS, NOSE AND THROAT: Showed normocephalic, atraumatic. NECK: Supple. HEART: Showed normal first and second heart sounds. No crepitation or rhonchi. ABDOMEN: Distended, soft, nontender. No guarding or rigidity. No organomegaly. All hernial orifice intact. Bowel sounds normal. NEUROLOGIC: She is very lethargic, but arousable. All her cranial nerves intact. She moves upper extremities without difficulty. Her intake over the last 24 hours was 1660, output was 2100. LABORATORY DATA: As of this morning, her white cell count was 11,000, hemoglobin 8, hematocrit 24, MCV 80 and platelet count of 413,000. Her chemistry showed a serum sodium 139, potassium 4.4, chloride 106, bicarbonate 25, anion gap of 8, BUN 25, creatinine 0.8, estimated GFR was 84 mL per minute. Her glucose was 77, calcium was 8.8. ASSESSMENT: 1. Severe peripheral vascular disease, status post right below-knee amputation. 2. Abdominal aortic aneurysm with diameter of 5.4 and getting bigger. 3. Urinary tract infection due to Escherichia coli with extended-spectrum beta-lactamase, for which she completed antibiotic therapy intravenously. 4. 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 5. Chronic obstructive pulmonary disease. 6. Hypertension. 7. Generalized debility. 8. History of lung cancer and advanced. 9. The patient is extremely lethargic, likely due to pain medication. PLAN: To continue with nutritional support. She is now on a regular diet and her appetite has improved. Her intake has improved. Continue to observe her off all antibiotics. Continue with DVT prophylaxis. Continue pain management. We will monitor her for next 2-3 hours. If no improvement, we might have to give her Narcan and also arrange for a CT scan of the head. JUAN TALBOT MD DR: TOMER/ela JOB#: [id number] / [id number]
--- NOTE | 2020-02-23 10:17 | NUR ---
Morning medications not administered, patient refused and was too lethargic. Notified Dr. Flores.
[2020-02-23 11:59] VITALS: BP 120/77
--- NOTE | 2020-02-23 12:08 | PDOC ---
SURGICAL PROGRESS NOTE Subjective Patient was seen and examined at the bedside this morning with her daughter present. Overall she is doing well and denies any significant pain from her right below-knee amputation site. She is having significant neuropathic pain in the left lower extremity. Vital Signs Vital Signs Date Time Temp Pulse Resp B/P (MAP) Pulse Ox O2 Delivery O2 Flow Rate FiO2 02/23/20 11:34 96 Room Air 02/23/20 07:59 97.6 54 18 127/73 (91) 97.6 I&O Intake and Output 02/23/20 07:00 Intake Total 930 ml Balance 930 ml Intake Oral 930 ml # Voids 1 General: Alert, Oriented X3, Cooperative Lungs: Clear to auscultation, Normal air movement Heart: Regular rate, Normal S1, Normal S2 Abdomen: Normal bowel sounds, Soft, No tenderness Extremities: Other (Intact dorsalis pedis and posterior tibial Doppler signals in the left lower extremity. Left lower extremity is warm with excellent capillary refill.) Skin: Other (Right lower extremity below-knee amputation wound is clean, dry, and intact.) Labs Laboratory Tests Test 02/22/20 06:30 02/23/20 07:55 White Blood Count 15.0 x10^3/uL (4.0-11.0) 10.9 x10^3/uL (4.0-11.0) Red Blood Count 2.94 x10^6/uL (3.50-5.40) 3.03 x10^6/uL (3.50-5.40) Hemoglobin 7.6 g/dL (12.0-15.5) 8.1 g/dL (12.0-15.5) Hematocrit 23.6 % (36.0-47.0) 24.1 % (36.0-47.0) Mean Corpuscular Volume 80 fL (79-100) 80 fL (79-100) Mean Corpuscular Hemoglobin 26 pg (25-35) 27 pg (25-35) Mean Corpuscular Hemoglobin Concent 32 g/dL (31-37) 34 g/dL (31-37) Red Cell Distribution Width 18.5 % (11.5-14.5) 18.6 % (11.5-14.5) Platelet Count 422 x10^3/uL (140-400) 413 x10^3/uL (140-400) Sodium Level 137 mmol/L (136-145) 139 mmol/L (136-145) Potassium Level 5.4 mmol/L (3.5-5.1) 4.4 mmol/L (3.5-5.1) Chloride Level 106 mmol/L (98-107) 106 mmol/L (98-107) Carbon Dioxide Level 24 mmol/L (21-32) 25 mmol/L (21-32) Anion Gap 7 (6-14) 8 (6-14) Blood Urea Nitrogen 28 mg/dL (7-20) 25 mg/dL (7-20) Creatinine 0.8 mg/dL (0.6-1.0) 0.8 mg/dL (0.6-1.0) Estimated GFR (Cockcroft-Gault) 84.2 84.2 Glucose Level 89 mg/dL (70-99) 77 mg/dL (70-99) Calcium Level 8.8 mg/dL (8.5-10.1) 8.8 mg/dL (8.5-10.1) Laboratory Tests Test 02/23/20 07:55 White Blood Count 10.9 x10^3/uL (4.0-11.0) Red Blood Count 3.03 x10^6/uL (3.50-5.40) Hemoglobin 8.1 g/dL (12.0-15.5) Hematocrit 24.1 % (36.0-47.0) Mean Corpuscular Volume 80 fL (79-100) Mean Corpuscular Hemoglobin 27 pg (25-35) Mean Corpuscular Hemoglobin Concent 34 g/dL (31-37) Red Cell Distribution Width 18.6 % (11.5-14.5) Platelet Count 413 x10^3/uL (140-400) Sodium Level 139 mmol/L (136-145) Potassium Level 4.4 mmol/L (3.5-5.1) Chloride Level 106 mmol/L (98-107) Carbon Dioxide Level 25 mmol/L (21-32) Anion Gap 8 (6-14) Blood Urea Nitrogen 25 mg/dL (7-20) Creatinine 0.8 mg/dL (0.6-1.0) Estimated GFR (Cockcroft-Gault) 84.2 Glucose Level 77 mg/dL (70-99) Calcium Level 8.8 mg/dL (8.5-10.1) Problem List Problems Medical Problems: (1) Heel ulcer Status: Acute (2) Heel ulceration Status: Acute (3) Urinary tract infection Status: Acute (4) Weakness Status: Acute Assessment/Plan Right below-knee amputation--patient's amputation site is clean and intact. 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 The patient can be discharged to rehab when a bed is available. Abdominal aortic aneurysm--patient remains asymptomatic from her aneurysm. There are no current plans to fix her aneurysm. We will re-visit this when I see her back in the office to discuss her overall status. Justicifation of Admission Dx: Justifications for Admission: Justification of Admission Dx: Yes Sepsis: Infection YIFAN WYNN DO Feb 23, 2020 12:08
[2020-02-23 15:46] VITALS: BP 125/74
--- NOTE | 2020-02-23 18:16 | NUR ---
Material Handler Floorperson notified Dr. Flores that patient has not had a bowel movement since 02/14/20, new orders received.
[2020-02-23] MEDS: POLYETHYLENE GLYCOL 3350 17 GM PACKET. PO SCH (18:24)
[2020-02-23] MEDS: DOCUSATE SODIUM 100 MG CAPSULE. PO SCH (18:24)
[2020-02-23 19:00] VITALS: BP 132/79
[2020-02-23] MEDS: ATORVASTATIN CALCIUM 40 MG TABLET. PO SCH (21:11)
[2020-02-23] MEDS: traZODone 50 MG TABLET. PO SCH (21:11)
[2020-02-23] MEDS: FAMOTIDINE 20 MG TABLET. PO SCH (21:11)
[2020-02-23 23:00] VITALS: BP 135/77
[2020-02-24 03:00] VITALS: BP 130/77
[2020-02-24 07:00] VITALS: BP 133/77
[2020-02-24] MEDS: POLYETHYLENE GLYCOL 3350 17 GM PACKET. PO SCH (08:25)
[2020-02-24] MEDS: MULTIVITAMIN with MINERAL TABLET. PO SCH ×2 (08:26→08:28)
[2020-02-24] MEDS: GABAPENTIN 100 MG CAPSULE. PO SCH ×4 (08:26→21:14)
[2020-02-24] MEDS: busPIRone 10 MG TABLET. PO SCH ×3 (08:26→21:14)
[2020-02-24] MEDS: ASPIRIN 325 MG TABLET PO SCH (08:26)
[2020-02-24] MEDS: amLODIPine BESYLATE 5 MG TABLET PO SCH (08:26)
[2020-02-24] MEDS: BACLOFEN 10 MG TABLET. PO SCH (08:26)
[2020-02-24] MEDS: DOCUSATE SODIUM 100 MG CAPSULE. PO SCH ×2 (08:26→21:14)
[2020-02-24] MEDS: LACTOBACILLUS RHAMNOSUS GG 1 CAPSULE. PO SCH ×2 (08:26→21:14)
[2020-02-24] MEDS: DICLOFENAC SODIUM 1% TOPICAL GEL 100GM TUBE. TP SCH ×2 (08:29→21:14)
--- NOTE | 2020-02-24 09:54 | PDOC ---
Infectious Disease Note Subjective: Subjective Patient without complaint Looks much better Pain is under control Denies F/C/N/V/SOA /abdominal pain Vital Signs: Vital Signs Vital Signs Date Time Temp Pulse Resp B/P (MAP) Pulse Ox O2 Delivery O2 Flow Rate FiO2 02/24/20 08:26 58 133/77 02/24/20 07:20 Room Air 02/24/20 07:00 97.9 18 90 97.9 02/23/20 22:11 2.0 Physical Exam: PHYSICAL EXAM GENERAL: Propped up in bed, alert in NAD HEENT: Oral cavity clear NECK: Supple LUNGS: Clear CV: S1, S2 ABDOMEN: Soft, nontender ; Mulligan in place EXTREMITIES: No gross edema or cyanosis. Right BKA bandaged SKIN: warm to touch LEARNING SUPPORT TEACHER: Alert, answering questions appropriately PIV Medications: Inpatient Meds: Current Medications Medications (Trade) Dose Ordered Sig/Isabel Start Time Stop Time Status Last Admin Dose Admin Acetaminophen (Tylenol) 650 mg PRN Q6HRS PRN 02/09/20 21:30 02/14/20 21:39 650 MG Acetaminophen/ Hydrocodone Bitart (Lortab 7.5/325) 1 tab PRN Q4HRS PRN 02/09/20 21:30 02/23/20 21:11 1 TAB Amino Acids/ Glycerin/ Electrolytes 1,000 ml @ 80 mls/hr [id number] 02/16/20 10:00 02/22/20 10:49 DC 02/18/20 00:16 80 MLS/HR Amlodipine Besylate (Norvasc) 5 mg DAILY 02/10/20 09:00 02/24/20 08:26 5 MG Aspirin (Dre Aspirin) 325 mg DAILYWBKFT 02/12/20 08:00 02/24/20 08:26 325 MG Atorvastatin Calcium (Lipitor) 40 mg QHS 02/09/20 23:00 02/23/20 21:11 40 MG Bacitracin 45335 unit/Sodium Chloride 500 ml @ 500 mls/hr 1X ONCE 02/21/20 10:30 02/21/20 11:29 DC 02/21/20 11:03 Baclofen (Lioresal) 5 mg DAILY 02/10/20 09:00 02/24/20 08:26 5 MG Buspirone HCl (Buspar) 10 mg TID 02/09/20 23:00 02/24/20 08:26 10 MG Cefazolin Sodium (Ancef) 1 gm 1X PREOP PRN 02/21/20 10:00 02/21/20 19:00 DC 02/21/20 10:29 1 GM Cefdinir (Omnicef) 300 mg Q24H 02/12/20 14:00 02/12/20 14:12 DC Cefepime HCl (Maxipime) 1 gm Q12HR 02/12/20 15:00 02/13/20 08:45 DC 02/13/20 08:36 1 GM Ceftriaxone Sodium (Rocephin) 1 gm Q24H 02/10/20 11:00 UNV Daptomycin 270 mg/ Sodium Chloride 50 ml @ 100 mls/hr Q24H 02/12/20 15:00 02/14/20 10:05 DC 02/13/20 15:05 100 MLS/HR Diclofenac Sodium (Voltaren) 1 ki BID 02/09/20 23:00 02/24/20 08:29 1 KI Docusate Sodium (Colace) 100 mg BID 02/23/20 18:30 02/24/20 08:26 100 MG Enoxaparin Sodium (Lovenox 30mg Syringe) 30 mg Q24H 02/11/20 10:00 02/17/20 11:00 DC 02/15/20 09:36 30 MG Famotidine (Pepcid) 20 mg QHS 02/09/20 23:00 02/23/20 21:11 20 MG Fentanyl Citrate (Fentanyl 2ml Vial) 50 mcg PRN Q5MIN PRN 02/21/20 07:00 02/22/20 06:59 DC 02/21/20 12:22 50 MCG Gabapentin (Neurontin) 100 mg QID 02/09/20 23:00 02/24/20 08:26 100 MG Hydromorphone HCl (Dilaudid) 0.5 mg PRN Q10MIN PRN 02/21/20 07:00 02/22/20 06:59 DC Info (CONTRAST GIVEN -- Rx MONITORING) 1 each PRN DAILY PRN 02/15/20 14:45 02/17/20 14:44 DC Iohexol (Omnipaque 240 Mg/ml) 30 ml 1X ONCE 02/15/20 14:30 02/15/20 14:32 DC 02/15/20 15:00 30 ML Iohexol (Omnipaque 300 Mg/ml) 75 ml 1X ONCE 02/15/20 14:30 02/15/20 14:32 DC 02/15/20 15:00 75 ML Lactobacillus Rhamnosus (Culturelle) 1 cap BID 02/10/20 21:00 02/24/20 08:26 1 CAP Lisinopril (Prinivil) 20 mg DAILY 02/10/20 09:00 02/10/20 16:24 DC 02/10/20 09:44 20 MG Meropenem 500 mg/ Sodium Chloride 50 ml @ 100 mls/hr Q6HRS 02/13/20 09:00 02/18/20 12:15 DC 02/18/20 00:17 100 MLS/HR Metoprolol Tartrate (Lopressor Vial) 5 mg PRN Q6HRS PRN 02/12/20 14:45 Micafungin Sodium 100 mg/Dextrose 100 ml @ 100 mls/hr Q24H 02/15/20 11:00 02/18/20 12:15 DC 02/18/20 11:25 100 MLS/HR Morphine Sulfate (Morphine Sulfate) 2 mg PRN Q2HR PRN 02/21/20 11:45 02/21/20 15:16 2 MG Multivitamins (Thera M Plus) 1 tab DAILY 02/13/20 09:00 02/19/20 08:22 1 TAB Ondansetron HCl (Zofran Odt) 4 mg PRN BID PRN 02/09/20 22:15 02/15/20 10:39 4 MG Ondansetron HCl (Zofran) 4 mg 1X ONCE 02/09/20 15:30 02/09/20 15:31 DC 02/09/20 15:37 4 MG Polyethylene Glycol (miraLAX PACKET) 17 gm DAILY 02/23/20 18:30 02/24/20 08:25 17 GM Potassium Chloride (Klor-Con) 20 meq TID 02/17/20 09:00 02/22/20 12:58 DC 02/22/20 08:29 20 MEQ Prochlorperazine Edisylate (Compazine) 5 mg PACU PRN PRN 02/21/20 07:00 02/22/20 06:59 DC Promethazine HCl (Phenergan) 12.5 mg PRN Q4HRS PRN 02/15/20 11:45 02/15/20 11:51 12.5 MG Ringer's Solution 1,000 ml @ 30 mls/hr Q24H 02/21/20 07:00 02/21/20 18:59 DC 02/21/20 09:41 30 MLS/HR Sodium Chloride 1,000 ml @ 100 mls/hr Q10H 02/15/20 11:00 02/16/20 10:36 DC 02/15/20 21:29 100 MLS/HR Trazodone HCl (Desyrel) 50 mg HS 02/09/20 23:00 02/23/20 21:11 50 MG Trimethoprim/ Sulfamethoxazole (Bactrim Ds) 1 tab 1X ONCE 02/09/20 18:30 02/09/20 18:31 DC 02/09/20 18:33 1 TAB Objective: Assessment: Severe PAD with non-healing right foot wound s/p right BKA, closed on 02/[address] Landa. Leukocytosis -s/p surgery N/V - better ABD pain - no diarrhea YOLA - better ESBL UTI 02/08 - POA treated PCN allergy - Local swelling post IM injection AAA no plans for surgery at this time per vascular Sinus congestion Plan: Plan of Care Monitor off antibiotics Probiotics Monitor labs/temp Maintain aspiration precautions Local wound care per Vascular LAISHA JARVIS MD Feb 24, 2020 09:54
--- NOTE | 2020-02-24 10:13 | PDOC ---
PROGRESS NOTES Subjective Subjective pt feels better,making conversation Objective Objective Vital Signs Date Time Temp Pulse Resp B/P (MAP) Pulse Ox O2 Delivery O2 Flow Rate FiO2 02/24/20 08:26 58 133/77 02/24/20 07:20 Room Air 02/24/20 07:00 97.9 18 90 97.9 02/23/20 22:11 2.0 Intake and Output 02/24/20 07:00 Intake Total 270 ml Balance 270 ml Intake Oral 270 ml # Voids 5 Physical Exam Abdomen: Normal bowel sounds, Soft, No tenderness Heart: Regular rate, Normal S1, Normal S2 Extremities: Other (rt BKA) General: Alert, Oriented X3, Cooperative HEENT: Atraumatic Lungs: Clear to auscultation, Normal air movement MUSCULOSKELETAL: No swelling Neck: No JVD Neuro: Strength at 5/5 X4 ext, Sensation intact, Cranial nerves 3-12 NL Psych/Mental Status: Other (She is depressed and upset that she cannot go home to prepare for her daughters to come into town. She is also upset that she cannot go home and get her specialized walker.) Skin: Other (Right lower extremity below-knee amputation wound is clean, dry, and intact.) COMMENT no yin Diagnosis Problem List Problems Medical Problems: (1) Heel ulcer Status: Acute (2) Heel ulceration Status: Acute (3) Urinary tract infection Status: Acute (4) Weakness Status: Acute Assessment Assessment Problems Medical Problems: (1) Heel ulcer Status: Acute (2) Heel ulceration Status: Acute (3) Urinary tract infection Status: Acute (4) Weakness Status: Acute ASSESSMENT: 1. Severe peripheral vascular disease, status post right below-knee amputation. 2. Abdominal aortic aneurysm with diameter of 5.4 and getting bigger. 3. Urinary tract infection due to Escherichia coli with extended-spectrum beta-lactamase, for which she completed antibiotic therapy intravenously. 4. 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 5. Chronic obstructive pulmonary disease. 6. Hypertension. 7. Generalized debility. 8. History of lung cancer and advanced. 9. The patient is extremely lethargic, likely due to pain medication. PLAN: POD #3 Rt BKA. mental status improved labs good SNU screen. done with antibiotics. Plan Plan of Care Problems Medical Problems: (1) Heel ulcer Status: Acute (2) Heel ulceration Status: Acute (3) Urinary tract infection Status: Acute (4) Weakness Status: Acute Comment Review of Relevant I have reviewed the following items dari (where applicable) has been applied. Labs Microbiology 02/10/20 Blood Culture - Final, Complete NO GROWTH AFTER 5 DAYS 02/09/20 Urine Culture - Final, Complete 02/09/20 Antimicrobic Susceptibility - Final, Complete Medications Current Medications Docusate Sodium (Colace) 100 mg BID PO Last administered on 02/24/20at 08:26; Start 02/23/20 at 18:30 Polyethylene Glycol (miraLAX PACKET) 17 gm DAILY PO Last administered on 02/24/20at 08:25; Start 02/23/20 at 18:30 Vitals/I & O Vital Sign - Last 24 Hours 02/23/20 02/23/20 02/23/20 02/23/20 11:34 11:59 13:11 15:46 Temp 98.2 98.2 98.2 98.2 Pulse 69 70 Resp 18 18 B/P (MAP) 120/77 (91) 125/74 (91) Pulse Ox 96 93 96 93 O2 Delivery Room Air Room Air Room Air Room Air 02/23/20 02/23/20 02/23/20 02/23/20 19:00 20:00 21:11 22:11 Temp 98.5 98.5 Pulse 75 Resp 20 B/P (MAP) 132/79 (96) Pulse Ox 92 93 93 O2 Delivery Room Air Room Air Room Air O2 Flow Rate 2.0 02/23/20 02/23/20 02/24/20 02/24/20 23:00 23:00 03:00 07:00 Temp 98.2 97.8 97.9 98.2 97.8 97.9 Pulse 64 65 58 Resp 20 16 18 B/P (MAP) 135/77 (96) 130/77 (94) 133/77 (95) Pulse Ox 90 91 90 O2 Delivery Room Air Room Air Room Air Room Air 02/24/20 02/24/20 07:20 08:26 Pulse 58 B/P (MAP) 133/77 O2 Delivery Room Air Intake and Output 02/23/20 02/23/20 02/24/20 15:00 23:00 07:00 Intake Total 120 ml 150 ml Balance 120 ml 150 ml Justicifation of Admission Dx: Justifications for Admission: Justification of Admission Dx: Yes Sepsis: Infection Nutrition Consultation Dietary Evaluation: Recommendations by RD: Dietary education by RD, Increase Calorie Intake, Protein supplementation, PPN/TPN Comments: REC cardiac diet with ensure enlive bid homar bid mvi q day per wound protocal PPN until po intake >75% meals Expected Outcomes/Goals: to meet >75% est nutr needs wound healing Malnutrition Findings: Body Fat Depletion (Non Severe: Mod to Severe Weight Status: Underweight SANDRA SHABAZZ MD Feb 24, 2020 10:13
[2020-02-24] MEDS ORDERED: POLY17PO28 PO (10:17)
[2020-02-24] MEDS ORDERED: HYDR-2765 PO (10:17)
[2020-02-24] MEDS ORDERED: ASPI325T8 PO (10:17)
--- NOTE | 2020-02-24 10:19 | SNU/HH DC ---
DISCHARGE ORDERS DISCHARGE INFORMATION: DISCHARGE DATE: Feb 24, 2020 FINAL DIAGNOSIS Problems Medical Problems: (1) Heel ulcer Status: Acute (2) Heel ulceration Status: Acute (3) Urinary tract infection Status: Acute (4) Weakness Status: Acute CONDITION ON DISCHARGE: Stable CODE STATUS: Code Status: Full CUSTODIAL: SNF STAY <30 DAYS: Yes HOSPICE: HOSPICE: No HOSPICE EVAL & TREAT: No POST DISCHARGE ORDERS: ACTIVITY ORDERS: No restrictions, Resume previous activity DIET AFTER DISCHARGE: Cardiac WOUND/INCISION CARE: Change dressing CHECKS AFTER DISCHARGE: CHECKS AFTER DISCHARGE: Check blood press - daily TREATMENT/EQUIPMENT ORDERS: ADAPTIVE EQUIPMENT NEEDED: None Physical Therapy For: Evalulation/Treatment Occupational Therapy For: Evaluation/Treatment DISCHARGE MEDICATIONS: Home Meds Active Scripts Hydrocodone Bit/Acetaminophen (HYDROCODONE-APAP 7.5-325 ) 1 Tab Tablet, 1 TAB PO PRN Q4HRS PRN for MODERATE PAIN 4-6 for 7 Days, TAB Prov:SANDRA SHABAZZ MD 02/24/20 Aspirin (ASPIRIN) 325 Mg Tablet, 325 MG PO DAILYWBKFT for aaa thrombosis for 30 Days, #30 TAB Prov:SANDRA SHABAZZ MD 02/24/20 Polyethylene Glycol 3350 (POLYETHYLENE GLYCOL 3350) 17 Gm Powd.pack, 17 GM PO DAILY for consti[pation for 30 Days, #30 PKT Prov:SANDRA SHABAZZ MD 02/24/20 Reported Medications Trazodone Hcl (TRAZODONE HCL) 50 Mg Tablet, 50 MG PO HS for sleep 02/09/20 Ondansetron (ONDANSETRON ODT) 4 Mg Tab.rapdis, 4 MG PO PRN BID PRN for NAUSEA 02/09/20 Atorvastatin Calcium (ATORVASTATIN CALCIUM) 40 Mg Tablet, 40 MG PO DAILY for hld 02/09/20 Diclofenac Sodium (Diclofenac Sodium) 100 Gm Gel..gram., 1 FLIP TOP BID for pain 02/09/20 Famotidine (FAMOTIDINE) 20 Mg Tablet, 20 MG PO BID for gerd 02/09/20 Amlodipine Besylate (AMLODIPINE BESYLATE) 5 Mg Tablet, 5 MG PO DAILY, TAB 01/02/16 Discontinued Reported Medications Baclofen (Baclofen) 5 Mg Tablet, 5 MG PO DAILY for pain 02/09/20 Gabapentin (Gabapentin) 100 Mg Capsule, 100 MG PO QID for pain 02/09/20 Buspirone Hcl (BUSPIRONE HCL) 10 Mg Tablet, 10 MG PO TID for mood 02/09/20 Lisinopril (LISINOPRIL) 20 Mg Tablet, 20 MG PO DAILY for htn 02/09/20 Discontinued Scripts Hydrocodone/Apap 5-325 (NORCO 5-325 TABLET) 1 Each Tablet, 1-2 TAB PO Q4-6HRS for 2 Days, #12 TAB Prov:SEAN BROWN DO 02/06/17 SANDRA SHABAZZ MD Feb 24, 2020 10:19
[2020-02-24 11:00] VITALS: BP 143/84
[2020-02-24] MEDS: HYDROcodone/APAP 7.5/325MG 1 TAB TABLET PO PRN (13:28)
--- NOTE | 2020-02-24 13:32 | PDOC ---
PROGRESS NOTES Subjective Subjective No new complaints. Objective Objective Vital Signs Date Time Temp Pulse Resp B/P (MAP) Pulse Ox O2 Delivery O2 Flow Rate FiO2 02/24/20 13:28 94 Room Air 02/24/20 11:00 98.1 73 18 143/84 (103) 98.1 02/23/20 22:11 2.0 Intake and Output 02/24/20 07:00 Intake Total 270 ml Balance 270 ml Intake Oral 270 ml # Voids 5 Physical Exam Physical Exam She is alert,sitting in bed and she had dressing in place to right BK stump and wound is clean and dry and no significant stump edema noted and she had tenderness to palpation over left heel where she had skin breakdown. Assessment Assessment Problems Medical Problems: (1) Heel ulcer Status: Acute (2) Heel ulceration Status: Acute (3) Urinary tract infection Status: Acute (4) Weakness Status: Acute Plan Plan of Care To get her up as tolerated and to SNF when medically stable Comment Review of Relevant I have reviewed the following items dari (where applicable) has been applied. Labs Laboratory Tests Test 02/23/20 07:55 White Blood Count 10.9 x10^3/uL (4.0-11.0) Red Blood Count 3.03 x10^6/uL (3.50-5.40) Hemoglobin 8.1 g/dL (12.0-15.5) Hematocrit 24.1 % (36.0-47.0) Mean Corpuscular Volume 80 fL (79-100) Mean Corpuscular Hemoglobin 27 pg (25-35) Mean Corpuscular Hemoglobin Concent 34 g/dL (31-37) Red Cell Distribution Width 18.6 % (11.5-14.5) Platelet Count 413 x10^3/uL (140-400) Sodium Level 139 mmol/L (136-145) Potassium Level 4.4 mmol/L (3.5-5.1) Chloride Level 106 mmol/L (98-107) Carbon Dioxide Level 25 mmol/L (21-32) Anion Gap 8 (6-14) Blood Urea Nitrogen 25 mg/dL (7-20) Creatinine 0.8 mg/dL (0.6-1.0) Estimated GFR (Cockcroft-Gault) 84.2 Glucose Level 77 mg/dL (70-99) Calcium Level 8.8 mg/dL (8.5-10.1) Microbiology 02/10/20 Blood Culture - Final, Complete NO GROWTH AFTER 5 DAYS 02/09/20 Urine Culture - Final, Complete 02/09/20 Antimicrobic Susceptibility - Final, Complete Medications Current Medications Fentanyl Citrate (Fentanyl 2ml Vial) 50 mcg 1X ONCE IV Last administered on 02/09/20 15:38; Start 02/09/20 at 15:30; Stop 02/09/20 at 15:31; Status DC Ondansetron HCl (Zofran) 4 mg 1X ONCE IV Last administered on 02/09/20 15:37; Start 02/09/20 at 15:30; Stop 02/09/20 at 15:31; Status DC Trimethoprim/ Sulfamethoxazole (Bactrim Ds) 1 tab 1X ONCE PO Last administered on 02/09/20 18:33; Start 02/09/20 at 18:30; Stop 02/09/20 at 18:31; Status DC Ceftriaxone Sodium (Rocephin) 1 gm Q24H IVP Last administered on 02/11/20 21:01; Start 02/09/20 at 21:00; Stop 02/12/20 at 13:00; Status DC Acetaminophen/ Hydrocodone Bitart (Lortab 7.5/325) 1 tab PRN Q4HRS PRN PO MODERATE PAIN 4-6 Last administered on 02/24/20 13:28; Start 02/09/20 at 21:30 Acetaminophen (Tylenol) 650 mg PRN Q6HRS PRN PO MILD PAIN 1-3 Last administered on 02/14/20at 21:39; Start 02/09/20 at 21:30 Amlodipine Besylate (Norvasc) 5 mg DAILY PO Last administered on 02/24/20 08:26; Start 02/10/20 at 09:00 Atorvastatin Calcium (Lipitor) 40 mg QHS PO Last administered on 02/23/20 21:11; Start 02/09/20 at 23:00 Buspirone HCl (Buspar) 10 mg TID PO Last administered on 02/24/20 13:28; Start 02/09/20 at 23:00 Diclofenac Sodium (Voltaren) 1 yesika BID TP Last administered on 02/24/20 08:29; Start 02/09/20 at 23:00 Famotidine (Pepcid) 20 mg QHS PO Last administered on 02/23/20 21:11; Start 02/09/20 at 23:00 Gabapentin (Neurontin) 100 mg QID PO Last administered on 02/24/20 13:28; Start 02/09/20 at 23:00 Lisinopril (Prinivil) 20 mg DAILY PO Last administered on 02/10/20at 09:44; Start 02/10/20 at 09:00; Stop 02/10/20 at 16:24; Status DC Ondansetron HCl (Zofran Odt) 4 mg PRN BID PRN PO NAUSEA 1ST CHOICE Last administered on 02/15/20 10:39; Start 02/09/20 at 22:15 Trazodone HCl (Desyrel) 50 mg HS PO Last administered on 02/23/20at 21:11; Start 02/09/20 at 23:00 Baclofen (Lioresal) 5 mg DAILY PO Last administered on 02/24/20 08:26; Start 02/10/20 at 09:00 Ceftriaxone Sodium (Rocephin) 1 gm Q24H IVP ; Start 02/10/20 at 11:00; Status UNV Lactobacillus Rhamnosus (Culturelle) 1 cap BID PO Last administered on 02/24/20 08:26; Start 02/10/20 at 21:00 Sodium Chloride 1,000 ml @ 100 mls/hr Q10H IV Last administered on 02/13/20at 06:46; Start 02/10/20 at 17:00; Stop 02/13/20 at 08:54; Status DC Potassium Chloride (Klor-Con) 40 meq 1X ONCE PO Last administered on 02/10/20at 17:37; Start 02/10/20 at 17:00; Stop 02/10/20 at 17:01; Status DC Enoxaparin Sodium (Lovenox 30mg Syringe) 30 mg Q24H SQ Last administered on 02/15/20 09:36; Start 02/11/20 at 10:00; Stop 02/17/20 at 11:00; Status DC Aspirin (Dre Aspirin) 325 mg 1X ONCE PO Last administered on 02/11/20at 11:52; Start 02/11/20 at 10:00; Stop 7/7/20 at 10:01; Status DC Aspirin (Dre Aspirin) 325 mg DAILYWBKFT PO Last administered on 02/24/20at 08:26; Start 02/12/20 at 08:00 Cefdinir (Omnicef) 300 mg Q24H PO ; Start 02/12/20 at 14:00; Stop 02/12/20 at 14:12; Status DC Daptomycin 270 mg/ Sodium Chloride 50 ml @ 100 mls/hr Q24H IV Last administered on 02/13/20at 15:05; Start 02/12/20 at 15:00; Stop 02/14/20 at 10:05; Status DC Cefepime HCl (Maxipime) 1 gm Q12HR IVP Last administered on 02/13/20at 08:36; Start 02/12/20 at 15:00; Stop 02/13/20 at 08:45; Status DC Metoprolol Tartrate (Lopressor Vial) 5 mg PRN Q6HRS PRN IVP TACHYCARDIA; Start 02/12/20 at 14:45 Multivitamins (Thera M Plus) 1 tab DAILY PO Last administered on 02/19/20at 08:22; Start 02/13/20 at 09:00 Meropenem 500 mg/ Sodium Chloride 50 ml @ 100 mls/hr Q6HRS IV Last administered on 02/18/20at 00:17; Start 02/13/20 at 09:00; Stop 02/18/20 at 12:15; Status DC Potassium Chloride (Klor-Con) 20 meq 1X ONCE PO Last administered on 02/14/20at 08:40; Start 02/14/20 at 08:30; Stop 02/14/20 at 08:31; Status DC Micafungin Sodium 100 mg/Dextrose 100 ml @ 100 mls/hr Q24H IV Last administered on 02/18/20at 11:25; Start 02/15/20 at 11:00; Stop 02/18/20 at 12:15; Status DC Sodium Chloride 1,000 ml @ 100 mls/hr Q10H IV Last administered on 02/15/20at 21:29; Start 02/15/20 at 11:00; Stop 02/16/20 at 10:36; Status DC Promethazine HCl (Phenergan) 12.5 mg PRN Q4HRS PRN PO NAUSEA/VOMITING, 2ND CHOICE Last administered on 02/15/20at 11:51; Start 02/15/20 at 11:45 Iohexol (Omnipaque 240 Mg/ml) 30 ml 1X ONCE PO Last administered on 02/15/20at 15:00; Start 02/15/20 at 14:30; Stop 02/15/20 at 14:32; Status DC Iohexol (Omnipaque 300 Mg/ml) 75 ml 1X ONCE IV Last administered on 02/15/20at 15:00; Start 02/15/20 at 14:30; Stop 02/15/20 at 14:32; Status DC Info (CONTRAST GIVEN -- Rx MONITORING) 1 each PRN DAILY PRN MC SEE COMMENTS; Start 02/15/20 at 14:45; Stop 02/17/20 at 14:44; Status DC Amino Acids/ Glycerin/ Electrolytes 1,000 ml @ 80 mls/hr [id number] IV Last administered on 02/18/20at 00:16; Start 02/16/20 at 10:00; Stop 02/22/20 at 10:49; Status DC Potassium Chloride (Klor-Con) 20 meq TID PO Last administered on 02/22/20at 08:29; Start 02/17/20 at 09:00; Stop 02/22/20 at 12:58; Status DC Fentanyl Citrate (Fentanyl 2ml Vial) 25 mcg PRN Q5MIN PRN IV MILD PAIN 1-3; S tart 02/21/20 at 07:00; Stop 02/22/20 at 06:59; Status DC Fentanyl Citrate (Fentanyl 2ml Vial) 50 mcg PRN Q5MIN PRN IV MODERATE TO SEVERE PAIN Last administered on 02/21/20at 12:22; Start 02/21/20 at 07:00; Stop 02/22/20 at 06:59; Status DC Morphine Sulfate (Morphine Sulfate) 1 mg PRN Q10MIN PRN IV SEVERE PAIN 7-10; Start 02/21/20 at 07:00; Stop 02/22/20 at 06:59; Status DC Ringer's Solution 1,000 ml @ 30 mls/hr Q24H IV Last administered on 02/21/20at 09:41; Start 02/21/20 at 07:00; Stop 02/21/20 at 18:59; Status DC Hydromorphone HCl (Dilaudid) 0.5 mg PRN Q10MIN PRN IV SEV PAIN, Second choice; Start 02/21/20 at 07:00; Stop 02/22/20 at 06:59; Status DC Prochlorperazine Edisylate (Compazine) 5 mg PACU PRN PRN IV NAUSEA, MRX1; Start 02/21/20 at 07:00; Stop 02/22/20 at 06:59; Status DC Cefazolin Sodium (Ancef) 1 gm 1X PREOP PRN IVP PRIOR TO PROCEDURE Last administered on 02/21/20at 10:29; Start 02/21/20 at 10:00; Stop 02/21/20 at 19:00; Status DC Bacitracin 85086 unit/Sodium Chloride 500 ml @ 500 mls/hr 1X ONCE IRR Last administered on 02/21/20at 11:03; Start 02/21/20 at 10:30; Stop 02/21/20 at 11:29; Status DC Morphine Sulfate (Morphine Sulfate) 2 mg PRN Q2HR PRN IV PAIN Last administered on 02/21/20at 15:16; Start 02/21/20 at 11:45 Docusate Sodium (Colace) 100 mg BID PO Last administered on 02/24/20at 08:26; Start 02/23/20 at 18:30 Polyethylene Glycol (miraLAX PACKET) 17 gm DAILY PO Last administered on 02/24/20at 08:25; Start 02/23/20 at 18:30 Active Scripts Active Hydrocodone-Apap 7.5-325 (Hydrocodone Bit/Acetaminophen) 1 Tab Tablet 1 Tab PO PRN Q4HRS PRN 7 Days Aspirin 325 Mg Tablet 325 Mg PO DAILYWBKFT 30 Days Polyethylene Glycol 3350 17 Gm Powd.pack 17 Gm PO DAILY 30 Days Reported Trazodone Hcl 50 Mg Tablet 50 Mg PO HS Ondansetron Odt (Ondansetron) 4 Mg Tab.rapdis 4 Mg PO PRN BID PRN Atorvastatin Calcium 40 Mg Tablet 40 Mg PO DAILY Diclofenac Sodium 100 Gm Gel..gram. 1 Yesika TOP BID Famotidine 20 Mg Tablet 20 Mg PO BID Amlodipine Besylate 5 Mg Tablet 5 Mg PO DAILY Vitals/I & O Vital Sign - Last 24 Hours 02/23/20 02/23/20 02/23/2019/20 15:46 19:00 20:00 21:11 Temp 98.2 98.5 98.2 98.5 Pulse 70 75 Resp 18 20 B/P (MAP) 125/74 (91) 132/79 (96) Pulse Ox 93 92 93 O2 Delivery Room Air Room Air Room Air 02/23/20 02/23/20 02/23/20 02/24/20 22:11 23:00 23:00 03:00 Temp 98.2 97.8 98.2 97.8 Pulse 64 65 Resp 20 16 B/P (MAP) 135/77 (96) 130/77 (94) Pulse Ox 93 90 91 O2 Delivery Room Air Room Air Room Air Room Air O2 Flow Rate 2.0 02/24/20 02/24/20 02/24/20 02/24/20 07:00 07:20 08:26 11:00 Temp 97.9 98.1 97.9 98.1 Pulse 58 58 73 Resp 18 18 B/P (MAP) 133/77 (95) 133/77 143/84 (103) Pulse Ox 90 94 O2 Delivery Room Air Room Air Room Air 02/24/20 13:28 Pulse Ox 94 O2 Delivery Room Air Intake and Output 02/23/20 02/23/20 02/24/20 15:00 23:00 07:00 Intake Total 120 ml 150 ml Balance 120 ml 150 ml Justicifation of Admission Dx: Justifications for Admission: Justification of Admission Dx: Yes Sepsis: Infection Nutrition Consultation Dietary Evaluation: Recommendations by RD: Dietary education by RD, Increase Calorie Intake, Protein supplementation, PPN/TPN Comments: REC cardiac diet with ensure enlive bid homar bid mvi q day per wound protocal PPN until po intake >75% meals Expected Outcomes/Goals: to meet >75% est nutr needs wound healing Malnutrition Findings: Body Fat Depletion (Non Severe: Mod to Severe Weight Status: Underweight RIYA SHARP MD Feb 24, 2020 13:32
[2020-02-24 15:00] VITALS: BP 137/73
--- NOTE | 2020-02-24 15:23 | PDOC ---
Provider Note Provider Note Vascular S: Patient sitting up in chair, no complaints O: VSS, afebrile HRR Non-labored respirations Right BKA stump dressing dry and intact. 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 POD #3 Right below-knee amputation. Continue daily dry gauze dressing changes Rigid rooke boot protector on during transfers PT/OT SS for discharge planning, recommend rehab ok to discharge from a vascular standpoint when medically stable. Justicifation of Admission Dx: Justifications for Admission: Justification of Admission Dx: Yes Sepsis: Infection SUZI DRUMMOND MASTER RIGGER Feb 24, 2020 15:23
--- NOTE | 2020-02-24 17:17 | NUR ---
Wound Care Pt seen for follow up post op on R BKA. Pt left heel and buttocks are healed. R BKA is well approximated with yvonne intact, pictured for chart and redressed with dry gauze. No other wounds noted. WC will sign off at this time, please reconsult if new wounds develop.
[2020-02-24 19:00] VITALS: BP 155/84
[2020-02-24] MEDS: traZODone 50 MG TABLET. PO SCH (21:14)
[2020-02-24] MEDS: ATORVASTATIN CALCIUM 40 MG TABLET. PO SCH (21:14)
[2020-02-24] MEDS: FAMOTIDINE 20 MG TABLET. PO SCH (21:14)
[2020-02-24 23:00] VITALS: BP 145/80
[2020-02-25 03:00] VITALS: BP 140/85
[2020-02-25 07:45] VITALS: BP 172/96
--- NOTE | 2020-02-25 08:31 | PDOC ---
Provider Note Provider Note Vascular S: Patient resting in bed, does not want me to remove stump dressing. O: VSS, afebrile HRR Non-labored respirations Right BKA stump incision dry and intact. Left heel dressing dry and intact. 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 POD #3 Right below-knee amputation. Continue daily dry gauze dressing changes Rigid rooke boot protector on during transfers, left heel protector on at all times. Discussed both with the patient and she expresses understanding but refuses to wear heel protector all the time. 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 The patient can be discharged to rehab when a bed is available. Abdominal aortic aneurysm--patient remains asymptomatic from her aneurysm. There are no current plans to fix her aneurysm. We will re-visit this when she is seen back in the office to discuss her overall status. Justicifation of Admission Dx: Justifications for Admission: Justification of Admission Dx: Yes Sepsis: Infection SUZI DRUMMOND STORE PROMOTER Feb 25, 2020 08:31
[2020-02-25] MEDS: DICLOFENAC SODIUM 1% TOPICAL GEL 100GM TUBE. TP SCH ×2 (09:00→21:28)
[2020-02-25] MEDS: MULTIVITAMIN with MINERAL TABLET. PO SCH (09:00)
[2020-02-25] MEDS: POLYETHYLENE GLYCOL 3350 17 GM PACKET. PO SCH (09:00)
[2020-02-25] MEDS: DOCUSATE SODIUM 100 MG CAPSULE. PO SCH ×2 (09:00→21:24)
--- NOTE | 2020-02-25 09:15 | PDOC ---
PROGRESS NOTES Subjective Subjective No new complaints. Objective Objective Vital Signs Date Time Temp Pulse Resp B/P (MAP) Pulse Ox O2 Delivery O2 Flow Rate FiO2 02/25/20 07:45 98.1 74 19 172/96 (121) 95 Room Air 98.1 02/23/20 22:11 2.0 Intake and Output 02/25/20 07:00 Intake Total 760 ml Balance 760 ml Intake Oral 760 ml # Voids 5 Physical Exam Physical Exam She is alert,sitting in bed and she had stump [employer] police in place loosely with minimal stump edema and stump wound is clean an ddry and she does not have PROFO boot in place to left ankle and she is getting up with physical therapy. Assessment Assessment Problems Medical Problems: (1) Heel ulcer Status: Acute (2) Heel ulceration Status: Acute (3) Urinary tract infection Status: Acute (4) Weakness Status: Acute Plan Plan of Care To SNF when medically stable. Comment Review of Relevant I have reviewed the following items dari (where applicable) has been applied. Labs Microbiology 02/10/20 Blood Culture - Final, Complete NO GROWTH AFTER 5 DAYS 02/09/20 Urine Culture - Final, Complete 02/09/20 Antimicrobic Susceptibility - Final, Complete Medications Current Medications Fentanyl Citrate (Fentanyl 2ml Vial) 50 mcg 1X ONCE IV Last administered on 02/09/20at 15:38; Start 02/09/20 at 15:30; Stop 02/09/20 at 15:31; Status DC Ondansetron HCl (Zofran) 4 mg 1X ONCE IV Last administered on 02/09/20at 15:37; Start 02/09/20 at 15:30; Stop 02/09/20 at 15:31; Status DC Trimethoprim/ Sulfamethoxazole (Bactrim Ds) 1 tab 1X ONCE PO Last administered on 02/09/20at 18:33; Start 02/09/20 at 18:30; Stop 02/09/20 at 18:31; Status DC Ceftriaxone Sodium (Rocephin) 1 gm Q24H IVP Last administered on 02/11/20at 21:01; Start 02/09/20 at 21:00; Stop 02/12/20 at 13:00; Status DC Acetaminophen/ Hydrocodone Bitart (Lortab 7.5/325) 1 tab PRN Q4HRS PRN PO MODERATE PAIN 4-6 Last administered on 02/24/20 13:28; Start 02/09/20 at 21:30 Acetaminophen (Tylenol) 650 mg PRN Q6HRS PRN PO MILD PAIN 1-3 Last administered on 02/14/20 21:39; Start 02/09/20 at 21:30 Amlodipine Besylate (Norvasc) 5 mg DAILY PO Last administered on 02/24/20 08:26; Start 02/10/20 at 09:00 Atorvastatin Calcium (Lipitor) 40 mg QHS PO Last administered on 02/24/20 21:14; Start 02/09/20 at 23:00 Buspirone HCl (Buspar) 10 mg TID PO Last administered on 02/24/20 21:14; Start 02/09/20 at 23:00 Diclofenac Sodium (Voltaren) 1 yesika BID TP Last administered on 02/24/20 21:14; Start 02/09/20 at 23:00 Famotidine (Pepcid) 20 mg QHS PO Last administered on 02/24/20 21:14; Start 02/09/20 at 23:00 Gabapentin (Neurontin) 100 mg QID PO Last administered on 02/24/20 21:14; Start 02/09/20 at 23:00 Lisinopril (Prinivil) 20 mg DAILY PO Last administered on 02/10/20 09:44; Start 02/10/20 at 09:00; Stop 02/10/20 at 16:24; Status DC Ondansetron HCl (Zofran Odt) 4 mg PRN BID PRN PO NAUSEA 1ST CHOICE Last administered on 02/15/20 10:39; Start 02/09/20 at 22:15 Trazodone HCl (Desyrel) 50 mg HS PO Last administered on 02/24/20 21:14; Start 02/09/20 at 23:00 Baclofen (Lioresal) 5 mg DAILY PO Last administered on 02/24/20 08:26; Start 02/10/20 at 09:00 Ceftriaxone Sodium (Rocephin) 1 gm Q24H IVP ; Start 02/10/20 at 11:00; Status UNV Lactobacillus Rhamnosus (Culturelle) 1 cap BID PO Last administered on 02/24/20 21:14; Start 02/10/20 at 21:00 Sodium Chloride 1,000 ml @ 100 mls/hr Q10H IV Last administered on 02/13/20at 06:46; Start 02/10/20 at 17:00; Stop 02/13/20 at 08:54; Status DC Potassium Chloride (Klor-Con) 40 meq 1X ONCE PO Last administered on 02/10/20at 17:37; Start 02/10/20 at 17:00; Stop 02/10/20 at 17:01; Status DC Enoxaparin Sodium (Lovenox 30mg Syringe) 30 mg Q24H SQ Last administered on 02/15/20at 09:36; Start 02/11/20 at 10:00; Stop 02/17/20 at 11:00; Status DC Aspirin (Brightstar Aspirin) 325 mg 1X ONCE PO Last administered on 02/11/20at 11:52; Start 02/11/20 at 10:00; Stop 02/11/20 at 10:01; Status DC Aspirin (Brightstar Aspirin) 325 mg DAILYWBKFT PO Last administered on 02/24/20at 08:26; Start 02/12/20 at 08:00 Cefdinir (Omnicef) 300 mg Q24H PO ; Start 02/12/20 at 14:00; Stop 02/12/20 at 14:12; Status DC Daptomycin 270 mg/ Sodium Chloride 50 ml @ 100 mls/hr Q24H IV Last administered on 02/13/20at 15:05; Start 02/12/20 at 15:00; Stop 02/14/20 at 10:05; Status DC Cefepime HCl (Maxipime) 1 gm Q12HR IVP Last administered on 02/13/20at 08:36; Start 02/12/20 at 15:00; Stop 02/13/20 at 08:45; Status DC Metoprolol Tartrate (Lopressor Vial) 5 mg PRN Q6HRS PRN IVP TACHYCARDIA; Start 02/12/20 at 14:45 Multivitamins (Thera M Plus) 1 tab DAILY PO Last administered on 02/19/20at 08:22; Start 02/13/20 at 09:00 Meropenem 500 mg/ Sodium Chloride 50 ml @ 100 mls/hr Q6HRS IV Last administered on 02/18/20at 00:17; Start 02/13/20 at 09:00; Stop 02/18/20 at 12:15; Status DC Potassium Chloride (Klor-Con) 20 meq 1X ONCE PO Last administered on 02/14/20at 08:40; Start 02/14/20 at 08:30; Stop 02/14/20 at 08:31; Status DC Micafungin Sodium 100 mg/Dextrose 100 ml @ 100 mls/hr Q24H IV Last administered on 02/18/20at 11:25; Start 02/15/20 at 11:00; Stop 02/18/20 at 12:15; Status DC Sodium Chloride 1,000 ml @ 100 mls/hr Q10H IV Last administered on 02/15/20at 21:29; Start 02/15/20 at 11:00; Stop 02/16/20 at 10:36; Status DC Promethazine HCl (Phenergan) 12.5 mg PRN Q4HRS PRN PO NAUSEA/VOMITING, 2ND CHOICE Last administered on 02/15/20at 11:51; Start 02/15/20 at 11:45 Iohexol (Omnipaque 240 Mg/ml) 30 ml 1X ONCE PO Last administered on 02/15/20at 15:00; Start 02/15/20 at 14:30; Stop 02/15/20 at 14:32; Status DC Iohexol (Omnipaque 300 Mg/ml) 75 ml 1X ONCE IV Last administered on 02/15/20at 15:00; Start 02/15/20 at 14:30; Stop 02/15/20 at 14:32; Status DC Info (CONTRAST GIVEN -- Rx MONITORING) 1 each PRN DAILY PRN MC SEE COMMENTS; Start 02/15/20 at 14:45; Stop 02/17/20 at 14:44; Status DC Amino Acids/ Glycerin/ Electrolytes 1,000 ml @ 80 mls/hr [id number] IV Last admi nistered on 02/18/20at 00:16; Start 02/16/20 at 10:00; Stop 02/22/20 at 10:49; Status DC Potassium Chloride (Klor-Con) 20 meq TID PO Last administered on 02/22/20at 08:29; Start 02/17/20 at 09:00; Stop 02/22/20 at 12:58; Status DC Fentanyl Citrate (Fentanyl 2ml Vial) 25 mcg PRN Q5MIN PRN IV MILD PAIN 1-3; Start 02/21/20 at 07:00; Stop 02/22/20 at 06:59; Status DC Fentanyl Citrate (Fentanyl 2ml Vial) 50 mcg PRN Q5MIN PRN IV MODERATE TO SEVERE PAIN Last administered on 02/21/20at 12:22; Start 02/21/20 at 07:00; Stop 02/22/20 at 06:59; Status DC Morphine Sulfate (Morphine Sulfate) 1 mg PRN Q10MIN PRN IV SEVERE PAIN 7-10; Start 02/21/20 at 07:00; Stop 02/22/20 at 06:59; Status DC Ringer's Solution 1,000 ml @ 30 mls/hr Q24H IV Last administered on 02/21/20at 09:41; Start 02/21/20 at 07:00; Stop 02/21/20 at 18:59; Status DC Hydromorphone HCl (Dilaudid) 0.5 mg PRN Q10MIN PRN IV SEV PAIN, Second choice; Start 02/21/20 at 07:00; Stop 02/22/20 at 06:59; Status DC Prochlorperazine Edisylate (Compazine) 5 mg PACU PRN PRN IV NAUSEA, MRX1; Start 02/21/20 at 07:00; Stop 02/22/20 at 06:59; Status DC Cefazolin Sodium (Ancef) 1 gm 1X PREOP PRN IVP PRIOR TO PROCEDURE Last administered on 02/21/20at 10:29; Start 02/21/20 at 10:00; Stop 02/21/20 at 19:00; Status DC Bacitracin 13978 unit/Sodium Chloride 500 ml @ 500 mls/hr 1X ONCE IRR Last administered on 02/21/20at 11:03; Start 02/21/20 at 10:30; Stop 02/21/20 at 11:29; Status DC Morphine Sulfate (Morphine Sulfate) 2 mg PRN Q2HR PRN IV PAIN Last administered on 02/21/20at 15:16; Start 02/21/20 at 11:45 Docusate Sodium (Colace) 100 mg BID PO Last administered on 02/24/20at 21:14; Start 7/19/20 at 18:30 Polyethylene Glycol (miraLAX PACKET) 17 gm DAILY PO Last administered on 02/24/20at 08:25; Start 02/23/20 at 18:30 Active Scripts Active Hydrocodone-Apap 7.5-325 (Hydrocodone Bit/Acetaminophen) 1 Tab Tablet 1 Tab PO PRN Q4HRS PRN 7 Days Aspirin 325 Mg Tablet 325 Mg PO DAILYWBKFT 30 Days Polyethylene Glycol 3350 17 Gm Powd.pack 17 Gm PO DAILY 30 Days Reported Trazodone Hcl 50 Mg Tablet 50 Mg PO HS Ondansetron Odt (Ondansetron) 4 Mg Tab.rapdis 4 Mg PO PRN BID PRN Atorvastatin Calcium 40 Mg Tablet 40 Mg PO DAILY Diclofenac Sodium 100 Gm Gel..gram. 1 Yesika TOP BID Famotidine 20 Mg Tablet 20 Mg PO BID Amlodipine Besylate 5 Mg Tablet 5 Mg PO DAILY Vitals/I & O Vital Sign - Last 24 Hours 02/24/20 02/24/20 02/24/20 02/24/20 11:00 13:28 14:29 15:00 Temp 98.1 97.9 98.1 97.9 Pulse 73 67 Resp 18 18 B/P (MAP) 143/84 (103) 137/73 (94) Pulse Ox 94 94 94 94 O2 Delivery Room Air Room Air Room Air Room Air 02/24/20 02/24/20 02/24/20 02/25/20 19:00 20:30 23:00 03:00 Temp 98.6 98.5 97.8 98.6 98.5 97.8 Pulse 67 66 70 Resp 20 18 B/P (MAP) 155/84 (107) 145/80 (101) 140/85 (103) Pulse Ox 93 93 92 O2 Delivery Room Air Room Air Room Air Room Air 02/25/20 07:45 Temp 98.1 98.1 Pulse 74 Resp 19 B/P (MAP) 172/96 (121) Pulse Ox 95 O2 Delivery Room Air Intake and Output 02/24/20 02/24/20 02/25/20 15:00 23:00 07:00 Intake Total 240 ml 320 ml 200 ml Balance 240 ml 320 ml 200 ml Justicifation of Admission Dx: Justifications for Admission: Justification of Admission Dx: Yes Sepsis: Infection Nutrition Consultation Dietary Evaluation: Recommendations by RD: Dietary education by RD, Increase Calorie Intake, Protein supplementation, PPN/TPN Comments: REC cardiac diet with ensure enlive bid homar bid mvi q day per wound protocal PPN until po intake >75% meals Expected Outcomes/Goals: to meet >75% est nutr needs wound healing Malnutrition Findings: Body Fat Depletion (Non Severe: Mod to Severe Weight Status: Underweight RIYA SHARP MD Feb 25, 2020 09:14
[2020-02-25] MEDS: busPIRone 10 MG TABLET. PO SCH ×3 (09:32→21:24)
[2020-02-25] MEDS: ASPIRIN 325 MG TABLET PO SCH (09:32)
[2020-02-25] MEDS: LACTOBACILLUS RHAMNOSUS GG 1 CAPSULE. PO SCH ×2 (09:32→21:24)
[2020-02-25] MEDS: BACLOFEN 10 MG TABLET. PO SCH (09:32)
[2020-02-25] MEDS: amLODIPine BESYLATE 5 MG TABLET PO SCH (09:33)
[2020-02-25] MEDS: GABAPENTIN 100 MG CAPSULE. PO SCH (09:33)
--- NOTE | 2020-02-25 09:38 | PDOC ---
Infectious Disease Note Subjective: Subjective Patient resting quietly No issues per RN Vital Signs: Vital Signs Vital Signs Date Time Temp Pulse Resp B/P (MAP) Pulse Ox O2 Delivery O2 Flow Rate FiO2 02/25/20 09:33 74 172/96 02/25/20 07:45 98.1 19 95 Room Air 98.1 Physical Exam: PHYSICAL EXAM GENERAL: Propped up in bed, alert in NAD HEENT: Oral cavity clear NECK: Supple LUNGS: Clear CV: S1, S2 ABDOMEN: Soft, nontender ; Mulligan in place EXTREMITIES: No gross edema or cyanosis. Right BKA bandaged SKIN: warm to touch ASSISTANT EDITOR: Alert, answering questions appropriately PIV Medications: Inpatient Meds: Current Medications Medications (Trade) Dose Ordered Sig/Isabel Start Time Stop Time Status Last Admin Dose Admin Acetaminophen (Tylenol) 650 mg PRN Q6HRS PRN 02/09/20 21:30 02/14/20 21:39 650 MG Acetaminophen/ Hydrocodone Bitart (Lortab 7.5/325) 1 tab PRN Q4HRS PRN 02/09/20 21:30 02/24/20 13:28 1 TAB Amino Acids/ Glycerin/ Electrolytes 1,000 ml @ 80 mls/hr [id number] 02/16/20 10:00 02/22/20 10:49 DC 02/18/20 00:16 80 MLS/HR Amlodipine Besylate (Norvasc) 5 mg DAILY 02/10/20 09:00 02/25/20 09:33 5 MG Aspirin (Dre Aspirin) 325 mg DAILYWBKFT 02/12/20 08:00 02/25/20 09:32 325 MG Atorvastatin Calcium (Lipitor) 40 mg QHS 02/09/20 23:00 02/24/20 21:14 40 MG Bacitracin 53182 unit/Sodium Chloride 500 ml @ 500 mls/hr 1X ONCE 02/21/20 10:30 02/21/20 11:29 DC 02/21/20 11:03 Baclofen (Lioresal) 5 mg DAILY 02/10/20 09:00 02/25/20 09:32 5 MG Buspirone HCl (Buspar) 10 mg TID 02/09/20 23:00 02/25/20 09:32 10 MG Cefazolin Sodium (Ancef) 1 gm 1X PREOP PRN 02/21/20 10:00 02/21/20 19:00 DC 02/21/20 10:29 1 GM Cefdinir (Omnicef) 300 mg Q24H 02/12/20 14:00 02/12/20 14:12 DC Cefepime HCl (Maxipime) 1 gm Q12HR 02/12/20 15:00 02/13/20 08:45 DC 02/13/20 08:36 1 GM Ceftriaxone Sodium (Rocephin) 1 gm Q24H 02/10/20 11:00 UNV Daptomycin 270 mg/ Sodium Chloride 50 ml @ 100 mls/hr Q24H 02/12/20 15:00 02/14/20 10:05 DC 02/13/20 15:05 100 MLS/HR Diclofenac Sodium (Voltaren) 1 ki BID 02/09/20 23:00 02/24/20 21:14 1 KI Docusate Sodium (Colace) 100 mg BID 02/23/20 18:30 02/24/20 21:14 100 MG Enoxaparin Sodium (Lovenox 30mg Syringe) 30 mg Q24H 02/11/20 10:00 02/17/20 11:00 DC 02/15/20 09:36 30 MG Famotidine (Pepcid) 20 mg QHS 02/09/20 23:00 02/24/20 21:14 20 MG Fentanyl Citrate (Fentanyl 2ml Vial) 50 mcg PRN Q5MIN PRN 02/21/20 07:00 02/22/20 06:59 DC 02/21/20 12:22 50 MCG Gabapentin (Neurontin) 100 mg QID 02/09/20 23:00 02/25/20 09:33 100 MG Hydromorphone HCl (Dilaudid) 0.5 mg PRN Q10MIN PRN 02/21/20 07:00 02/22/20 06:59 DC Info (CONTRAST GIVEN -- Rx MONITORING) 1 each PRN DAILY PRN 02/15/20 14:45 02/17/20 14:44 DC Iohexol (Omnipaque 240 Mg/ml) 30 ml 1X ONCE 02/15/20 14:30 02/15/20 14:32 DC 02/15/20 15:00 30 ML Iohexol (Omnipaque 300 Mg/ml) 75 ml 1X ONCE 02/15/20 14:30 02/15/20 14:32 DC 02/15/20 15:00 75 ML Lactobacillus Rhamnosus (Culturelle) 1 cap BID 02/10/20 21:00 02/25/20 09:32 1 CAP Lisinopril (Prinivil) 20 mg DAILY 02/10/20 09:00 02/10/20 16:24 DC 02/10/20 09:44 20 MG Meropenem 500 mg/ Sodium Chloride 50 ml @ 100 mls/hr Q6HRS 02/13/20 09:00 02/18/20 12:15 DC 02/18/20 00:17 100 MLS/HR Metoprolol Tartrate (Lopressor Vial) 5 mg PRN Q6HRS PRN 02/12/20 14:45 Micafungin Sodium 100 mg/Dextrose 100 ml @ 100 mls/hr Q24H 02/15/20 11:00 02/18/20 12:15 DC 02/18/20 11:25 100 MLS/HR Morphine Sulfate (Morphine Sulfate) 2 mg PRN Q2HR PRN 02/21/20 11:45 02/21/20 15:16 2 MG Multivitamins (Thera M Plus) 1 tab DAILY 02/13/20 09:00 02/19/20 08:22 1 TAB Ondansetron HCl (Zofran Odt) 4 mg PRN BID PRN 02/09/20 22:15 02/15/20 10:39 4 MG Ondansetron HCl (Zofran) 4 mg 1X ONCE 02/09/20 15:30 02/09/20 15:31 DC 02/09/20 15:37 4 MG Polyethylene Glycol (miraLAX PACKET) 17 gm DAILY 02/23/20 18:30 02/24/20 08:25 17 GM Potassium Chloride (Klor-Con) 20 meq TID 02/17/20 09:00 02/22/20 12:58 DC 02/22/20 08:29 20 MEQ Prochlorperazine Edisylate (Compazine) 5 mg PACU PRN PRN 02/21/20 07:00 02/22/20 06:59 DC Promethazine HCl (Phenergan) 12.5 mg PRN Q4HRS PRN 02/15/20 11:45 02/15/20 11:51 12.5 MG Ringer's Solution 1,000 ml @ 30 mls/hr Q24H 02/21/20 07:00 02/21/20 18:59 DC 02/21/20 09:41 30 MLS/HR Sodium Chloride 1,000 ml @ 100 mls/hr Q10H 02/15/20 11:00 02/16/20 10:36 DC 02/15/20 21:29 100 MLS/HR Trazodone HCl (Desyrel) 50 mg HS 02/09/20 23:00 02/24/20 21:14 50 MG Trimethoprim/ Sulfamethoxazole (Bactrim Ds) 1 tab 1X ONCE 02/09/20 18:30 02/09/20 18:31 DC 02/09/20 18:33 1 TAB Objective: Assessment: Severe PAD with non-healing right foot wound s/p right BKA, closed on 02/[address] Landa. Leukocytosis -s/p surgery N/V - better ABD pain - no diarrhea YOLA - better ESBL UTI 02/08 - POA treated PCN allergy - Local swelling post IM injection AAA no plans for surgery at this time per vascular Sinus congestion Plan: Plan of Care Monitor off antibiotics Probiotics Local wound care per Vascular Awaiting placement LAISHA JARVIS MD Feb 25, 2020 09:38
--- NOTE | 2020-02-25 10:08 | PDOC ---
PROGRESS NOTES Subjective Subjective no new problems Objective Objective Vital Signs Date Time Temp Pulse Resp B/P (MAP) Pulse Ox O2 Delivery O2 Flow Rate FiO2 02/25/20 09:33 74 172/96 02/25/20 07:45 98.1 19 95 Room Air 98.1 Intake and Output 02/25/20 07:00 Intake Total 760 ml Balance 760 ml Intake Oral 760 ml # Voids 5 Physical Exam Abdomen: Normal bowel sounds, Soft, No tenderness Heart: Regular rate, Normal S1, Normal S2 Extremities: Other (rt BKA) General: Alert, Oriented X3, Cooperative HEENT: Atraumatic Lungs: Clear to auscultation, Normal air movement MUSCULOSKELETAL: No swelling Neck: No JVD Neuro: Strength at 5/5 X4 ext, Sensation intact, Cranial nerves 3-12 NL Psych/Mental Status: Other (She is depressed and upset that she cannot go home to prepare for her daughters to come into town. She is also upset that she cannot go home and get her specialized walker.) Skin: Other (Right lower extremity below-knee amputation wound is clean, dry, and intact.) COMMENT no yin Diagnosis Problem List Problems Medical Problems: (1) Heel ulcer Status: Acute (2) Heel ulceration Status: Acute (3) Urinary tract infection Status: Acute (4) Weakness Status: Acute Assessment Assessment Problems Medical Problems: (1) Heel ulcer Status: Acute (2) Heel ulceration Status: Acute (3) Urinary tract infection Status: Acute (4) Weakness Status: Acute ASSESSMENT: 1. Severe peripheral vascular disease, status post right below-knee amputation. 2. Abdominal aortic aneurysm with diameter of 5.4 and getting bigger. 3. Urinary tract infection due to Escherichia coli with extended-spectrum beta-lactamase, for which she completed antibiotic therapy intravenously. 4. 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 5. Chronic obstructive pulmonary disease. 6. Hypertension. 7. Generalized debility. 8. History of lung cancer and advanced. 9. The patient is extremely lethargic, likely due to pain medication. PLAN:discharge to [facility] to [place] pending insurance approval POD #4 Rt BKA. mental status improved labs good SNU screen. done with antibiotics. Plan Plan of Care Problems Medical Problems: (1) Heel ulcer Status: Acute (2) Heel ulceration Status: Acute (3) Urinary tract infection Status: Acute (4) Weakness Status: Acute Comment Review of Relevant I have reviewed the following items dari (where applicable) has been applied. Labs Microbiology 02/10/20 Blood Culture - Final, Complete NO GROWTH AFTER 5 DAYS 02/09/20 Urine Culture - Final, Complete 02/09/20 Antimicrobic Susceptibility - Final, Complete Vitals/I & O Vital Sign - Last 24 Hours 02/24/20 02/24/20 02/24/20 02/24/20 11:00 13:28 14:29 15:00 Temp 98.1 97.9 98.1 97.9 Pulse 73 67 Resp 18 18 B/P (MAP) 143/84 (103) 137/73 (94) Pulse Ox 94 94 94 94 O2 Delivery Room Air Room Air Room Air Room Air 02/24/20 02/24/20 02/24/20 02/25/20 19:00 20:30 23:00 03:00 Temp 98.6 98.5 97.8 98.6 98.5 97.8 Pulse 67 66 70 Resp 20 20 18 B/P (MAP) 155/84 (107) 145/80 (101) 140/85 (103) Pulse Ox 93 93 92 O2 Delivery Room Air Room Air Room Air Room Air 02/25/20 02/25/20 07:45 09:33 Temp 98.1 98.1 Pulse 74 74 Resp 19 B/P (MAP) 172/96 (121) 172/96 Pulse Ox 95 O2 Delivery Room Air Intake and Output 02/24/20 02/24/20 02/25/20 15:00 23:00 07:00 Intake Total 240 ml 320 ml 200 ml Balance 240 ml 320 ml 200 ml Justicifation of Admission Dx: Justifications for Admission: Justification of Admission Dx: Yes Sepsis: Infection Nutrition Consultation Dietary Evaluation: Recommendations by RD: Dietary education by RD, Increase Calorie Intake, Protein supplementation, PPN/TPN Comments: REC cardiac diet with ensure enlive bid homar bid mvi q day per wound protocal PPN until po intake >75% meals Expected Outcomes/Goals: to meet >75% est nutr needs wound healing Malnutrition Findings: Body Fat Depletion (Non Severe: Mod to Severe Weight Status: Underweight SANDRA SHABAZZ MD Feb 25, 2020 10:08
[2020-02-25 11:53] VITALS: BP 171/85
[2020-02-25] MEDS: HYDROcodone/APAP 7.5/325MG 1 TAB TABLET PO PRN ×2 (13:37→21:29)
[2020-02-25 15:07] VITALS: BP 142/76
[2020-02-25 19:00] VITALS: BP_SYST 109; BP_SYST 149; BP_DIAS 54; BP_DIAS 77
[2020-02-25] MEDS: traZODone 50 MG TABLET. PO SCH (21:24)
[2020-02-25] MEDS: FAMOTIDINE 20 MG TABLET. PO SCH (21:24)
[2020-02-25] MEDS: ATORVASTATIN CALCIUM 40 MG TABLET. PO SCH (21:24)
[2020-02-25 23:00] VITALS: BP 129/70
[2020-02-26 03:00] VITALS: BP 154/87
[2020-02-26] MEDS: POLYETHYLENE GLYCOL 3350 17 GM PACKET. PO SCH (07:29)
[2020-02-26] MEDS: DOCUSATE SODIUM 100 MG CAPSULE. PO SCH (07:29)
[2020-02-26] MEDS: busPIRone 10 MG TABLET. PO SCH (07:30)
[2020-02-26] MEDS: MULTIVITAMIN with MINERAL TABLET. PO SCH (07:30)
[2020-02-26] MEDS: LACTOBACILLUS RHAMNOSUS GG 1 CAPSULE. PO SCH (07:30)
[2020-02-26] MEDS: ASPIRIN 325 MG TABLET PO SCH (07:30)
[2020-02-26] MEDS: amLODIPine BESYLATE 5 MG TABLET PO SCH (07:30)
[2020-02-26] MEDS: DICLOFENAC SODIUM 1% TOPICAL GEL 100GM TUBE. TP SCH (07:33)
[2020-02-26 07:52] VITALS: BP 172/80
--- NOTE | 2020-02-26 08:58 | PDOC ---
PROGRESS NOTES Subjective Subjective No new complaints Objective Objective Vital Signs Date Time Temp Pulse Resp B/P (MAP) Pulse Ox O2 Delivery O2 Flow Rate FiO2 02/26/20 08:00 Room Air 02/26/20 07:52 97.6 67 18 172/80 (110) 90 97.6 02/23/20 22:11 2.0 Intake and Output 02/26/20 07:00 Intake Total 860 ml Balance 860 ml Intake Oral 860 ml # Voids 6 # Bowel Movements 1 Physical Exam Physical Exam She is alert,sitting in bed and had PRAFO boot in place to left ankle and stump paper sales manager in place to right below knee stump loosely. She is getting up with therapy. Assessment Assessment Problems Medical Problems: (1) Heel ulcer Status: Acute (2) Heel ulceration Status: Acute (3) Urinary tract infection Status: Acute (4) Weakness Status: Acute Plan Plan of Care To SNF when medically stable. Comment Review of Relevant I have reviewed the following items dari (where applicable) has been applied. Labs Microbiology 02/10/20 Blood Culture - Final, Complete NO GROWTH AFTER 5 DAYS 02/09/20 Urine Culture - Final, Complete 02/09/20 Antimicrobic Susceptibility - Final, Complete Medications Current Medications Fentanyl Citrate (Fentanyl 2ml Vial) 50 mcg 1X ONCE IV Last administered on 02/09/20at 15:38; Start 02/09/20 at 15:30; Stop 02/09/20 at 15:31; Status DC Ondansetron HCl (Zofran) 4 mg 1X ONCE IV Last administered on 02/09/20at 15:37; Start 02/09/20 at 15:30; Stop 02/09/20 at 15:31; Status DC Trimethoprim/ Sulfamethoxazole (Bactrim Ds) 1 tab 1X ONCE PO Last administered on 02/09/20at 18:33; Start 02/09/20 at 18:30; Stop 02/09/20 at 18:31; Status DC Ceftriaxone Sodium (Rocephin) 1 gm Q24H IVP Last administered on 02/11/20at 21:01; Start 02/09/20 at 21:00; Stop 02/12/20 at 13:00; Status DC Acetaminophen/ Hydrocodone Bitart (Lortab 7.5/325) 1 tab PRN Q4HRS PRN PO MODERATE PAIN 4-6 Last administered on 02/25/20 21:29; Start 02/09/20 at 21:30 Acetaminophen (Tylenol) 650 mg PRN Q6HRS PRN PO MILD PAIN 1-3 Last administered on 02/14/20 21:39; Start 02/09/20 at 21:30 Amlodipine Besylate (Norvasc) 5 mg DAILY PO Last administered on 02/26/20 07:30; Start 02/10/20 at 09:00 Atorvastatin Calcium (Lipitor) 40 mg QHS PO Last administered on 02/25/20 21:24; Start 02/09/20 at 23:00 Buspirone HCl (Buspar) 10 mg TID PO Last administered on 02/26/20 07:30; Start 02/09/20 at 23:00 Diclofenac Sodium (Voltaren) 1 yesika BID TP Last administered on 02/26/20 07:33; Start 02/09/20 at 23:00 Famotidine (Pepcid) 20 mg QHS PO Last administered on 02/25/20 21:24; Start 02/09/20 at 23:00 Gabapentin (Neurontin) 100 mg QID PO Last administered on 02/25/20 09:33; Start 02/09/20 at 23:00; Stop 02/25/20 at 10:10; Status DC Lisinopril (Prinivil) 20 mg DAILY PO Last administered on 02/10/20at 09:44; Start 02/10/20 at 09:00; Stop 02/10/20 at 16:24; Status DC Ondansetron HCl (Zofran Odt) 4 mg PRN BID PRN PO NAUSEA 1ST CHOICE Last administered on 02/15/20at 10:39; Start 02/09/20 at 22:15 Trazodone HCl (Desyrel) 50 mg HS PO Last administered on 02/25/20 21:24; Start 02/09/20 at 23:00 Baclofen (Lioresal) 5 mg DAILY PO Last administered on 02/25/20at 09:32; Start 02/10/20 at 09:00; Stop 02/25/20 at 10:10; Status DC Ceftriaxone Sodium (Rocephin) 1 gm Q24H IVP ; Start 02/10/20 at 11:00; Status UNV Lactobacillus Rhamnosus (Culturelle) 1 cap BID PO Last administered on 02/26/20at 07:30; Start 02/10/20 at 21:00 Sodium Chloride 1,000 ml @ 100 mls/hr Q10H IV Last administered on 02/13/20at 06:46; Start 02/10/20 at 17:00; Stop 02/13/20 at 08:54; Status DC Potassium Chloride (Klor-Con) 40 meq 1X ONCE PO Last administered on 02/10/20at 17:37; Start 02/10/20 at 17:00; Stop 02/10/20 at 17:01; Status DC Enoxaparin Sodium (Lovenox 30mg Syringe) 30 mg Q24H SQ Last administered on 02/15/20at 09:36; Start 02/11/20 at 10:00; Stop 02/17/20 at 11:00; Status DC Aspirin (SGN ([employer]) Aspirin) 325 mg 1X ONCE PO Last administered on 02/11/20at 11:52; Start 02/11/20 at 10:00; Stop 02/11/20 at 10:01; Status DC Aspirin (SGN ([employer]) Aspirin) 325 mg DAILYWBKFT PO Last administered on 02/26/20at 07:30; Start 02/12/20 at 08:00 Cefdinir (Omnicef) 300 mg Q24H PO ; Start 02/12/20 at 14:00; Stop 02/12/20 at 14:12; Status DC Daptomycin 270 mg/ Sodium Chloride 50 ml @ 100 mls/hr Q24H IV Last administered on 02/13/20at 15:05; Start 02/12/20 at 15:00; Stop 02/14/20 at 10:05; Status DC Cefepime HCl (Maxipime) 1 gm Q12HR IVP Last administered on 02/13/20at 08:36; Start 02/12/20 at 15:00; Stop 02/13/20 at 08:45; Status DC Metoprolol Tartrate (Lopressor Vial) 5 mg PRN Q6HRS PRN IVP TACHYCARDIA; Start 02/12/20 at 14:45 Multivitamins (Thera M Plus) 1 tab DAILY PO Last administered on 02/26/20at 07:30; Start 02/13/20 at 09:00 Meropenem 500 mg/ Sodium Chloride 50 ml @ 100 mls/hr Q6HRS IV Last a dministered on 02/18/20at 00:17; Start 02/13/20 at 09:00; Stop 02/18/20 at 12:15; Status DC Potassium Chloride (Klor-Con) 20 meq 1X ONCE PO Last administered on 02/14/20at 08:40; Start 02/14/20 at 08:30; Stop 02/14/20 at 08:31; Status DC Micafungin Sodium 100 mg/Dextrose 100 ml @ 100 mls/hr Q24H IV Last administered on 02/18/20at 11:25; Start 02/15/20 at 11:00; Stop 02/18/20 at 1 2:15; Status DC Sodium Chloride 1,000 ml @ 100 mls/hr Q10H IV Last administered on 02/15/20at 21:29; Start 02/15/20 at 11:00; Stop 02/16/20 at 10:36; Status DC Promethazine HCl (Phenergan) 12.5 mg PRN Q4HRS PRN PO NAUSEA/VOMITING, 2ND CHOICE Last administered on 02/15/20at 11:51; Start 02/15/20 at 11:45 Iohexol (Omnipaque 240 Mg/ml) 30 ml 1X ONCE PO Last administered on 02/15/20at 15:00; Start 02/15/20 at 14:30; Stop 02/15/20 at 14:32; Status DC Iohexol (Omnipaque 300 Mg/ml) 75 ml 1X ONCE IV Last administered on 02/15/20at 15:00; Start 02/15/20 at 14:30; Stop 02/15/20 at 14:32; Status DC Info (CONTRAST GIVEN -- Rx MONITORING) 1 each PRN DAILY PRN MC SEE COMMENTS; Start 02/15/20 at 14:45; Stop 02/17/20 at 14:44; Status DC Amino Acids/ Glycerin/ Electrolytes 1,000 ml @ 80 mls/hr [id number] IV Last administered on 02/18/20at 00:16; Start 02/16/20 at 10:00; Stop 02/22/20 at 10:49; Status DC Potassium Chloride (Klor-Con) 20 meq TID PO Last administered on 02/22/20at 08:29; Start 02/17/20 at 09:00; Stop 02/22/20 at 12:58; Status DC Fentanyl Citrate (Fentanyl 2ml Vial) 25 mcg PRN Q5MIN PRN IV MILD PAIN 1-3; Start 02/21/20 at 07:00; Stop 02/22/20 at 06:59; Status DC Fentanyl Citrate (Fentanyl 2ml Vial) 50 mcg PRN Q5MIN PRN IV MODERATE TO SEVERE PAIN Last administered on 02/21/20at 12:22; Start 02/21/20 at 07:00; Stop 02/22/20 at 06:59; Status DC Morphine Sulfate (Morphine Sulfate) 1 mg PRN Q10MIN PRN IV SEVERE PAIN 7-10; Start 02/21/20 at 07:00; Stop 02/22/20 at 06:59; Status DC Ringer's Solution 1,000 ml @ 30 mls/hr Q24H IV Last administered on 02/21/20at 09:41; Start 02/21/20 at 07:00; Stop 02/21/20 at 18:59; Status DC Hydromorphone HCl (Dilaudid) 0.5 mg PRN Q10MIN PRN IV SEV PAIN, Second choice; Start 02/21/20 at 07:00; Stop 02/22/20 at 06:59; Status DC Prochlorperazine Edisylate (Compazine) 5 mg PACU PRN PRN IV NAUSEA, MRX1; Start 02/21/20 at 07:00; Stop 02/22/20 at 06:59; Status DC Cefazolin Sodium (Ancef) 1 gm 1X PREOP PRN IVP PRIOR TO PROCEDURE Last administered on 02/21/20at 10:29; Start 02/21/20 at 10:00; Stop 02/21/20 at 19:00; Status DC Bacitracin 43578 unit/Sodium Chloride 500 ml @ 500 mls/hr 1X ONCE IRR Last a dministered on 02/21/20at 11:03; Start 02/21/20 at 10:30; Stop 02/21/20 at 11:29; Status DC Morphine Sulfate (Morphine Sulfate) 2 mg PRN Q2HR PRN IV PAIN Last administered on 02/21/20at 15:16; Start 02/21/20 at 11:45 Docusate Sodium (Colace) 100 mg BID PO Last administered on 02/26/20at 07:29; Start 02/23/20 at 18:30 Polyethylene Glycol (miraLAX PACKET) 17 gm DAILY PO Last administered on 02/26/20at 07:29; Start 02/23/20 at 18:30 Active Scripts Active Hydrocodone-Apap 7.5-325 (Hydrocodone Bit/Acetaminophen) 1 Tab Tablet 1 Tab PO PRN Q4HRS PRN 7 Days Aspirin 325 Mg Tablet 325 Mg PO DAILYWBKFT 30 Days Polyethylene Glycol 3350 17 Gm Powd.pack 17 Gm PO DAILY 30 Days Reported Trazodone Hcl 50 Mg Tablet 50 Mg PO HS Ondansetron Odt (Ondansetron) 4 Mg Tab.rapdis 4 Mg PO PRN BID PRN Atorvastatin Calcium 40 Mg Tablet 40 Mg PO DAILY Diclofenac Sodium 100 Gm Gel..gram. 1 Yesika TOP BID Famotidine 20 Mg Tablet 20 Mg PO BID Amlodipine Besylate 5 Mg Tablet 5 Mg PO DAILY Vitals/I & O Vital Sign - Last 24 Hours 02/25/20 02/25/20 02/25/20 02/25/20 09:33 11:53 13:37 14:37 Temp 98.1 98.1 Pulse 74 79 Resp 18 B/P (MAP) 172/96 171/85 (113) Pulse Ox 92 O2 Delivery Room Air Room Air Room Air 02/25/20 02/25/20 02/25/20 02/25/20 15:07 19:00 20:00 21:29 Temp 98.2 98.8 98.2 98.8 Pulse 74 74 Resp 20 18 B/P (MAP) 142/76 (98) 149/77 (101) Pulse Ox 94 96 O2 Delivery Room Air Room Air Room Air Room Air 02/25/20 02/25/20 02/26/20 02/26/20 22:29 23:00 03:00 07:30 Temp 98.2 98.2 98.2 98.2 Pulse 74 64 64 Resp 18 18 B/P (MAP) 129/70 (89) 154/87 (109) 154/87 Pulse Ox 94 95 O2 Delivery Room Air Room Air Room Air 02/26/20 02/26/20 07:52 08:00 Temp 97.6 97.6 Pulse 67 Resp 18 B/P (MAP) 172/80 (110) Pulse Ox 90 O2 Delivery Room Air Room Air Intake and Output 02/25/20 02/25/20 02/26/20 15:00 23:00 07:00 Intake Total 440 ml 420 ml Balance 440 ml 420 ml Justicifation of Admission Dx: Justifications for Admission: Justification of Admission Dx: Yes Sepsis: Infection Nutrition Consultation Dietary Evaluation: Recommendations by RD: Dietary education by RD, Increase Calorie Intake, Protein supplementation Comments: REC cardiac diet with ensure enlive tid mvi q day and vit c per wound protocal Expected Outcomes/Goals: to meet >75% est nutr needs wound healing Malnutrition Findings: Body Fat Depletion (Non Severe: Mod to Severe Weight Status: Underweight RIYA SHARP MD Feb 26, 2020 08:58
--- NOTE | 2020-02-26 09:16 | PATHOLOGY ---
[facility] Accession Number: [id number] . 01 Material submitted: . leg - RIGHT BELOW KNEE AMPUTATION. Modifiers: right . 01 Clinical history: . Arthrosclerosis with gangrene RUE . 02 Diagnosis: Right leg below knee amputation: - Focal gangrenous necrosis, ulceration, and acute cellulitis of heel. - Intimal sclerosis and focal calcification of anterior and posterior tibial arteries. - Skin and subcutaneous tissue of proximal amputation margin viable. (JPM:conrado; 02/25/2020) S 02/26/2020 0902 Local . 02 Electronically signed: . Spencer Cortez MD, Pathologist NPI- [id number] . 01 Gross description: . Received fresh in a red biohazard bag labeled "Annabella Pagan, right below knee amp" and consists of a right below the knee amputation specimen measuring 31.0 cm heel to proximal skin soft tissue margin and 21.1 cm heel to big toe. Protruding from the proximal margin is the tibia and fibula. The skin soft tissue and bone margins appear viable. All 5 toes are present which are yellow-fisher and thickened. There is a 2.5 x 2.0 cm ulceration on the heel that is greater than 15 cm from the margin. No additional gross lesions identified. The anterior and posterior tibial arteries display patent lumens. Piano Sounding Board Matcher sections are submitted as follows: . A1: Skin soft tissue margin A2: Heel ulcer A3: Anterior and posterior tibial arteries (SDY; 02/24/2020) SYU/SYU 02/24/2020 1301 Local . 02 Pathologist provided ICD-10: L97.919, I96, L03.115, I70.90 . 02 CPT . 736661 Specimen Comment: A courtesy copy of this report has been sent to [phone], [phone] Specimen Comment: [id number], Specimen Comment: Report sent to ,DR SHABAZZ / DR VALENTIN Performed at: 01 [facility] [address] [id number] MD Ryne Arias MD Phone: [phone] Performed at: 02 [facility] [address] [place], [place] [id number] MD Spencer Cortez MD Phone: [phone]
--- NOTE | 2020-02-26 10:19 | PDOC ---
PROGRESS NOTES Subjective Subjective pt feels better , smiling Objective Objective Vital Signs Date Time Temp Pulse Resp B/P (MAP) Pulse Ox O2 Delivery O2 Flow Rate FiO2 02/26/20 08:00 Room Air 02/26/20 07:52 97.6 67 18 172/80 (110) 90 97.6 Intake and Output 02/26/20 07:00 Intake Total 860 ml Balance 860 ml Intake Oral 860 ml # Voids 6 # Bowel Movements 1 Physical Exam Abdomen: Normal bowel sounds, Soft, No tenderness Heart: Regular rate, Normal S1, Normal S2 Extremities: Other (rt BKA) General: Alert, Oriented X3, Cooperative HEENT: Atraumatic Lungs: Clear to auscultation, Normal air movement MUSCULOSKELETAL: No swelling Neck: No JVD Neuro: Strength at 5/5 X4 ext, Sensation intact, Cranial nerves 3-12 NL Psych/Mental Status: Other (She is depressed and upset that she cannot go home to prepare for her daughters to come into town. She is also upset that she can not go home and get her specialized walker.) Skin: Other (Right lower extremity below-knee amputation wound is clean, dry, and intact.) COMMENT no yin Diagnosis Problem List Problems Medical Problems: (1) Heel ulcer Status: Acute (2) Heel ulceration Status: Acute (3) Urinary tract infection Status: Acute (4) Weakness Status: Acute Assessment Assessment Problems Medical Problems: (1) Heel ulcer Status: Acute (2) Heel ulceration Status: Acute (3) Urinary tract infection Status: Acute (4) Weakness Status: Acute ASSESSMENT: 1. Severe peripheral vascular disease, status post right below-knee amputation. 2. Abdominal aortic aneurysm with diameter of 5.4 and getting bigger. 3. Urinary tract infection due to Escherichia coli with extended-spectrum beta-lactamase, for which she completed antibiotic therapy intravenously. 4. 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 5. Chronic obstructive pulmonary disease. 6. Hypertension. 7. Generalized debility. 8. History of lung cancer and advanced. 9. The patient is extremely lethargic, likely due to pain medication. PLAN:d/c today discharge to [facility] [place] to [place] pending insurance approval POD #5 Rt BKA. mental status improved,back to base line spoke with RN. Plan Plan of Care Problems Medical Problems: (1) Heel ulcer Status: Acute (2) Heel ulceration Status: Acute (3) Urinary tract infection Status: Acute (4) Weakness Status: Acute Comment Review of Relevant I have reviewed the following items dari (where applicable) has been applied. Labs Microbiology 02/10/20 Blood Culture - Final, Complete NO GROWTH AFTER 5 DAYS 02/09/20 Urine Culture - Final, Complete 02/09/20 Antimicrobic Susceptibility - Final, Complete Vitals/I & O Vital Sign - Last 24 Hours 02/25/20 02/25/20 02/25/20 02/25/20 11:53 13:37 14:37 15:07 Temp 98.1 98.2 98.1 98.2 Pulse 79 74 Resp 18 20 B/P (MAP) 171/85 (113) 142/76 (98) Pulse Ox 92 94 O2 Delivery Room Air Room Air Room Air Room Air 02/25/20 02/25/20 02/25/20 02/25/20 19:00 20:00 21:29 22:29 Temp 98.8 98.8 Pulse 74 Resp 18 B/P (MAP) 149/77 (101) Pulse Ox 96 O2 Delivery Room Air Room Air Room Air Room Air 02/25/20 02/26/20 02/26/20 02/26/20 23:00 03:00 07:30 07:52 Temp 98.2 98.2 97.6 98.2 98.2 97.6 Pulse 74 64 64 67 Resp 18 18 18 B/P (MAP) 129/70 (89) 154/87 (109) 154/87 172/80 (110) Pulse Ox 94 95 90 O2 Delivery Room Air Room Air Room Air 02/26/20 08:00 O2 Delivery Room Air Intake and Output 02/25/20 02/25/20 02/26/20 15:00 23:00 07:00 Intake Total 440 ml 420 ml Balance 440 ml 420 ml Justicifation of Admission Dx: Justifications for Admission: Justification of Admission Dx: Yes Sepsis: Infection Nutrition Consultation Dietary Evaluation: Recommendations by RD: Dietary education by RD, Increase Calorie Intake, Protein supplementation Comments: REC cardiac diet with ensure enlive tid mvi q day and vit c per wound protocal Expected Outcomes/Goals: to meet >75% est nutr needs wound healing Malnutrition Findings: Body Fat Depletion (Non Severe: Mod to Severe Weight Status: Underweight SANDRA SHABAZZ MD Feb 26, 2020 10:19
[2020-02-26 11:04] VITALS: BP 143/77
--- NOTE | 2020-02-26 11:33 | NUR ---
Discharge instructions and report given to Seema BERMAN @[facility] [phone]. [facility]velope will be taken to [facility] with patient @1300.
--- NOTE | 2020-03-03 13:10 | PDOC ---
Provider Note Provider Note Discharge summary dictated.#[id number]. Justicifation of Admission Dx: Justifications for Admission: Justification of Admission Dx: Yes Sepsis: Infection SANDRA SHABAZZ MD Mar 03, 2020 13:09
--- NOTE | 2020-03-03 15:29 | DS ---
DATE OF DISCHARGE: 02/26/2020 REASON FOR ADMISSION TO THE HOSPITAL: Mechanical fall, urosepsis complicated UTI, recent paraplegia, bilateral heel ulcers, peripheral vascular disease. CONSULTATION: . Cardiology; Sergio Swan MD. VAscular surgery PROCEDURES DONE: [id number] amputation, echocardiogram and CT head, CT chest, CT abdomen and pelvis, carotid Doppler, lower extremity ultrasound, lower extremity Doppler, renal artery Doppler. HOSPITAL COURSE: The patient is a 79-year-old female patient, who was recently diagnosed in last 3-6 months with acute spinal cord infarct resulting in paraplegia. She also has a history of AAA and stent in the left femoral artery. She had developed a complicated UTI, beta-lactamase E. coli; the patient was treated with IV antibiotics, ID was consulted and the patient was having more pain in the feet, was seen by Vascular, had a Doppler, shows decreased blood flow and the patient was thought to be high risk for any intervention. The patient developed gangrene of the heel and underwent right [id number] amputation. The patient also had a lot of abdominal pain. CT scan shows slightly increasing in the size of the AAA, but it was felt she is not in a good condition to undergo any procedure. The patient was seen by Cardiology; hypertension, she has history of COPD, history of lung cancer 5 years ago, status post partial lung resection. On the whole, it was felt that the patient would need a long-term care home placement. The [facility] and follow up with the wound care center for the left heel, which is healing good and follow up with Vascular for AAA. At this point, no intervention is planned for AAA because of her general declined condition. FINAL DIAGNOSES: 1. Gangrene of the right foot. The patient underwent [id number] amputation. 2. Severe peripheral vascular disease. 3. History of abdominal aortic aneurysm, increasing in size.4x5 cm 4. History of stent in the left femoral artery. 5. Complicated urinary tract infection, Escherichia coli beta-lactamase resistant. 6. 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 7. Chronic obstructive pulmonary disease. 8. History of lung cancer with resection. General decline and debility and the patient is discharged to a long-term care home. PROGNOSIS: Poor. SANDRA SHABAZZ MD DR: PATY/eal JOB#: [id number] / [id number] ZHANNA
== END 2020-02-26 13:50 | DRG 853 ==
LOC: ER 15:06 → 4 NORTH 18:15
PROVIDERS: ADMIT Internal Medicine; ATTEND Internal Medicine
PROC: 0Y6H0Z1 Detachment at Right Lower Leg, High, Open Approach (ICD-10-PCS; principal; 2020-02-21 10:10)
DX: A41.9 Sepsis, unspecified organism (principal); N17.0 Acute kidney failure with tubular necrosis; G82.20 Paraplegia, unspecified; N39.0 Urinary tract infection, site not specified; L97.421 Non-pressure chronic ulcer of left heel and midfoot limited to breakdown of skin; C34.90 Malignant neoplasm of unspecified part of unspecified bronchus or lung; E11.52 Type 2 diabetes mellitus with diabetic peripheral angiopathy with gangrene; E46 Unspecified protein-calorie malnutrition; J84.9 Interstitial pulmonary disease, unspecified; K57.92 Diverticulitis of intestine, part unspecified, without perforation or abscess without bleeding; L97.413 Non-pressure chronic ulcer of right heel and midfoot with necrosis of muscle; N17.9 Acute kidney failure, unspecified; Z16.12 Extended spectrum beta lactamase (ESBL) resistance; B35.1 Tinea unguium; B96.20 Unspecified Escherichia coli [E. coli] as the cause of diseases classified elsewhere; D64.9 Anemia, unspecified; E11.621 Type 2 diabetes mellitus with foot ulcer; E78.5 Hyperlipidemia, unspecified; F17.200 Nicotine dependence, unspecified, uncomplicated; F32.9 Major depressive disorder, single episode, unspecified; F41.0 Panic disorder [episodic paroxysmal anxiety]; I10 Essential (primary) hypertension; I51.3 Intracardiac thrombosis, not elsewhere classified; I70.201 Unspecified atherosclerosis of native arteries of extremities, right leg; I71.4 Abdominal aortic aneurysm, without rupture; I99.8 Other disorder of circulatory system; J43.2 Centrilobular emphysema; L60.2 Onychogryphosis; L84 Corns and callosities; L89.619 Pressure ulcer of right heel, unspecified stage; M21.20 Flexion deformity, unspecified site; N31.9 Neuromuscular dysfunction of bladder, unspecified; W18.30XA Fall on same level, unspecified, initial encounter; Z20.828 Contact with and (suspected) exposure to other viral communicable diseases; Z79.82 Long term (current) use of aspirin; Z82.49 Family history of ischemic heart disease and other diseases of the circulatory system; Z85.118 Personal history of other malignant neoplasm of bronchus and lung; Z86.73 Personal history of transient ischemic attack (TIA), and cerebral infarction without residual deficits; Z90.710 Acquired absence of both cervix and uterus; Z88.0 Allergy status to penicillin; K57.90 Diverticulosis of intestine, part unspecified, without perforation or abscess without bleeding; M19.90 Unspecified osteoarthritis, unspecified site; W18.39XA Other fall on same level, initial encounter; Y93.89 Activity, other specified; Y92.89 Other specified places as the place of occurrence of the external cause; Y99.8 Other external cause status
CPT/HCPCS: 36415; 70450; 71045; 71250; 72170; 73552; 74177; 76770; 80048; 80053; 81001; 82550; 83605; 83735; 83880; 85007; 85025; 85027; 87040; 87077; 87086; 87186; 88307; 93005; 93306; 93880; 93925; 93970; 96374; 96375; J0690; J0692; J0696; J0878; J1100; J1650; J2185; J2248; J2270; J2370; J2405; J2704; J3010; J3490; J7030; J7060; J7120; Q9966; Q9967; 97110-GP; 97530-GO; 97530-GP; 97535-GO; 99285-25; G0378; Q0169; U0003-CS